=== PATIENT | female | born 1960 | race Two or more races ===

== ENCOUNTER 2022-03-05 10:54 | Outpatient (REF) | payer MEDICAID, OTHER, SELFPAY ==
--- NOTE | ~2022-03-05 | XR_ITS ---
EXAMINATION:XR foot RT min 3V VIEWS ACQUIRED: Frontal lateral and oblique CLINICAL INFORMATION: Reason for Exam PAIN COMPARISON: None available at the time of this dictation. FINDINGS: There is no fracture or dislocation. There are mild to moderate degenerative osteoarthritic changes involving the first metatarsophalangeal joints. There are small posterior and inferior calcaneal spurs.. Intertarsal, tarsometatarsal, metatarsophalangeal and interphalangeal joints are intact. Surrounding soft tissues is normal. , XR/XR foot RT min 3V IMPRESSION: Mild degenerative osteoarthritis especially first metatarsophalangeal joint. Small posterior and inferior calcaneal spurs.
--- NOTE | ~2022-03-05 | XR_ITS ---
EXAMINATION: XR HAND, RIGHT CLINICAL INFORMATION: Pain COMPARISON: None TECHNIQUE: PA, lateral, and oblique views of the right hand. FINDINGS: Mild degenerative osteoarthritic changes involving interphalangeal joints especially the PIP of the second and third finger, narrowing of joint spaces and developed small osteophytes, no erosions. Metacarpophalangeal joints are less involved. XR/XR hand RT min 3V IMPRESSION: Mild to moderate degenerative osteoarthritis involving primarily the interphalangeal joints.
== END 2022-03-05 10:55 | disposition home or self-care (01) ==
LOC: HO.XRAY 10:54
PROVIDERS: Visit Provider Family Medicine
DX: M79.641 Pain in right hand (principal); M79.671 Pain in right foot
CPT/HCPCS: 73130; 73630

== ENCOUNTER 2022-05-25 20:51 | Emergency (ER) | payer MEDICAID, OTHER, SELFPAY ==
--- NOTE | ~2022-05-25 | CT_ITS ---
EXAMINATION: CT ABDOMEN AND PELVIS WITHOUT CONTRAST CLINICAL INFORMATION: Right flank pain COMPARISON: None TECHNIQUE: Multidetector volumetric imaging was performed from the superior aspect of the liver through the pubic symphysis. Sagittal and coronal reformatted images were obtained on the technologist's workstation. This CT examination was performed using dose optimization techniques as appropriate, variously including the following: *Automated exposure control *Adjustment of mA and/or kV according to patient size (this includes techniques or standardized protocols for targeted exams where dose is matched to indication/reason for exam; i.e. extremities or head) *Use of iterative reconstruction technique DLP: 819 mGy-cm FINDINGS: LUNG BASES: Mild bronchial thickening. Cardiomegaly. LIVER, GALLBLADDER, AND BILIARY TREE: The liver is normal in size, shape, and attenuation. No focal hepatic lesion or biliary ductal dilatation is present. The gallbladder is unremarkable with no evidence of radiopaque gallstones, gallbladder wall thickening, or obvious pericholecystic inflammatory changes. PANCREAS: Unremarkable. SPLEEN: Unremarkable. ADRENAL GLANDS: Unremarkable. KIDNEYS AND URETERS: There is moderate to severe right hydronephrosis and hydroureter upstream from a 4 mm calculus within the distal right ureter, approximately 5 cm from the ureterovesical junction. There is associated perinephric stranding on the right. There are at least 4 punctate nonobstructive calculi in the right kidney. Left kidney unremarkable. BLADDER: Unremarkable. GASTROINTESTINAL TRACT: The small and large bowel are unremarkable. The appendix is unremarkable. ABDOMINAL WALL: No significant hernia is appreciated. LYMPH NODES: Normal. VASCULAR: Aorta mildly atherosclerotic but normal caliber. PELVIC VISCERA: Unremarkable. OSSEOUS STRUCTURES: Unremarkable. CT/CT abdomen pelvis wo con IMPRESSION: * There is a 4 mm calculus in the distal right ureter, 5 cm proximal to the ureterovesical junction associated with moderate to severe hydronephrosis and perinephric stranding. * Additional punctate nonobstructive intrarenal calculi present in the right kidney as described. Fleischner guidelines were followed.
[2022-05-25 21:12] VITALS: BP 179/78; PULSE 71; RESP 22; TEMP 36.8; O2SAT 99; BMI 39.1
[2022-05-25 21:22] LABS: MANUAL DIFF FLAG NO
[2022-05-25 21:23] LABS: Basophils Absolute Auto 0.1 X10*3/uL (0.0-0.2); Basophils Percent Auto 0.4 % (0-2); Eosinophils Absolute Auto 0.2 X10*3/uL (0.0-0.4); Eosinophils Percent Auto 1.9 % (0-4); Hematocrit 38.8 % (37.0-47.0); Hemoglobin 12.3 g/dl (12.0-16.0); Imm Gran Abs Auto 0.03 X10*3/uL (0.00-0.03); Imm Gran Pct Auto 0.2 % (0.0-0.4); Lymphocytes Absolute Auto 2.1 X10*3/uL (1.2-4.9); Lymphocytes Percent Auto 17.2 % (20-40); Mean Corpuscular HGB Conc 31.7 g/dl (31.0-35.0); Mean Corpuscular Hemoglobin 25.8 pg (27.0-33.0); Mean Corpuscular Volume 81.5 fL (80.0-98.0); Mean Platelet Volume 9.7 fL (9.4-12.3); Monocytes Absolute Auto 0.9 X10*3/uL (0.1-1.2); Monocytes Percent Auto 7.6 % (2-11); Neutrophils Percent Auto 72.7 % (45-73); Platelet Count 275 X10*3/uL (160-400); Red Blood Count 4.76 X10*6/uL (4.20-5.50); Red Cell Distribution Width 15.3 % (11.0-16.0); White Blood Count 12.4 X10*3/uL (4.8-10.8)
[2022-05-25 21:41] LABS: Alanine Aminotransferase 14 U/L (0-31); Albumin Level 4.3 g/dL (3.5-5.0); Alkaline Phosphatase 89 U/L (39-117); Anion Gap 14 (12-20); Aspartate Amino Transferase 18 U/L (5-31); Bilirubin Total 0.4 mg/dL (0.0-1.0); Blood Urea Nitrogen 22 mg/dL (9-16); Calcium 9.8 mg/dL (8.4-10.2); Carbon Dioxide 27 mmol/L (22-29); Chloride 105 mmol/L (96-108); Creatinine Clr Calc Pharmacy 59.1; Estimated Glomerular Filt Rate 51; Glucose Random 112 mg/dL (60-115); Potassium 4.3 mmol/L (3.3-5.1); Sodium 142 mmol/L (135-145); Total Protein 7.1 g/dL (6.5-8.0)
[2022-05-25 23:40] VITALS: BP 139/85; PULSE 61; RESP 16; TEMP 37.2; O2SAT 98
[2022-05-26 00:03] LABS: Appearance Urine CLEAR; Color Urine YELLOW; Glucose Urine UA NEG (NEG); Leukocyte Esterase Urine NEG (NEG); Nitrite Urine NEG (NEG); PH 6.5 (5.0-8.0); Specific Gravity - Urine 1.025 (1.005-1.025); UACC Culture Trigger NO; Urine Blood 1+ (NEG); Urine Ketones NEG (NEG); Urine Protein NEG (NEG-TRACE)
[2022-05-26 00:16] LABS: Bacteria Urine 1+ /LPF; Mucus Urine 1+ /LPF; Squamous Epithelial Cell Urine 1+ /LPF
--- NOTE | 2022-05-26 00:19 | ED_ITS ---
HPI - Abdominal Pain General Chief Complaint: Abdominal Pain Stated Complaint: Abdominal pain Time Seen by Provider: 05/26/22 00:18 Source: patient Mode of arrival: ambulatory History of Present Illness HPI narrative: 61-year-old female with history of renal colic, states she has had 2 prior stones on the left side presents with right flank pain and associated nausea, vomiting, chills but denies any urinary pain/burning/frequency. Patient denies any difficulty with having a bowel movement and continues to pass flatus. Her surgical history is positive for . Related Data Allergies Allergy/AdvReac Type Severity Reaction Status Date / Time No Known Allergies Allergy Verified 05/25/22 21:11 Review of Systems Review of Systems Pertinent positives and negatives as stated in HPI 10 point review of systems is otherwise negative. PMFSH Past Medical History Source: nursing notes reviewed Social History Social History Alcohol intake: never Patient Tobacco Use Status: Never used Tobacco Use of substances other than those prescribed or required for medical reasons: No Advance Directives: No Physical Exam ED Vital Signs: Vital Signs - 24 hr 05/25/22 21:12 05/25/22 23:40 05/26/22 02:00 Temperature 98.2 F 99.0 F 98.7 F Pulse Rate 71 61 54 Respiratory Rate 22 H 16 16 Blood Pressure 179/78 H 139/85 148/86 H Pulse Oximetry 99 98 98 Oxygen Delivery Method Room Air Room Air Room Air BMI result Body Mass Index 39.1 VITAL SIGNS: Reviewed. GENERAL: Well developed, well nourished, in no acute distress. HEAD: Normocephalic/atraumatic EYES: PERRLA, EOMI EARS: Ext canals without abnormality OROPHARYNX: no oral lesions noted, posterior pharynx clear LUNGS: Normal breath sounds. No adventitious sounds or accessory muscle use. SpO2<99> CARDIOVASCULAR: Regular rate and rhythm without noted murmurs ABDOMEN: Soft, right flank pain on deep palpation, no right lower quadrant pain and no Hayes's positive, non-distended with bowel sounds. MUSCULOSKELETAL: No tenderness, deformities, or effusions noted on gross inspection. EXTREMITIES: No cyanosis, clubbing or edema. SKIN: Inspection of the skin reveals no rashes NEUROLOGIC: Alert and oriented x 4. Strength and sensation to light touch were grossly intact x 4. Course Course Course Narrative: 61-year-old female with history and clinical presentation most consistent with renal colic, and given location of pain less likely felt to be appendicitis or cholecystitis and low clinical suspicion for SBO. Review of all investigations suggestive of renal colic. Mild leukocytosis with hematuria, CT scan pending and patient provided with combination analgesics. Signed out to Dr Ramirez [facility] - Abdominal Pain Lab Data Result diagrams: 05/25/22 21:16 05/25/22 21:16 Labs: Lab Results 05/25/22 05/25/22 05/25/22 Range/Units 21:16 21:16 23:58 WBC 12.4 H (4.8-10.8) X10*3/uL RBC 4.76 (4.20-5.50) X10*6/uL Hgb 12.3 (12.0-16.0) g/dl Hct 38.8 (37.0-47.0) % MCV 81.5 (80.0-98.0) fL MCH 25.8 L (27.0-33.0) pg MCHC 31.7 (31.0-35.0) g/dl RDW 15.3 (11.0-16.0) % Plt Count 275 (160-400) X10*3/uL MPV 9.7 (9.4-12.3) fL Immature Gran % (Auto) 0.2 (0.0-0.4) % Neut % (Auto) 72.7 (45-73) % Lymph % (Auto) 17.2 L (20-40) % [place] % (Auto) 7.6 (2-11) % Eos % (Auto) 1.9 (0-4) % Baso % (Auto) 0.4 (0-2) % Lymph # (Auto) 2.1 (1.2-4.9) X10*3/uL [place] # (Auto) 0.9 (0.1-1.2) X10*3/uL Eos # (Auto) 0.2 (0.0-0.4) X10*3/uL Baso # (Auto) 0.1 (0.0-0.2) X10*3/uL Abs Immat Gran (auto) 0.03 (0.00-0.03) X10*3/uL Absolute Neuts (auto) 9.0 H (2.0-8.3) x10*3/uL Absolute Nucleated RBC 0.000 (0.0-0.012) X10*3/uL Nucleated RBC % (auto) 0.0 (0.0-0.2) /100WBC Sodium 142 (135-145) mmol/L Potassium 4.3 (3.3-5.1) mmol/L Chloride 105 (96-108) mmol/L Carbon Dioxide 27 (22-29) mmol/L Anion Gap 14 (12-20) BUN 22 H (9-16) mg/dL Creatinine 1.10 (0.5-1.4) mg/dL Estim Creat Clear Calc 59.1 Estimated GFR 51 Random Glucose 112 (60-115) mg/dL Calcium 9.8 (8.4-10.2) mg/dL Total Bilirubin 0.4 (0.0-1.0) mg/dL AST 18 (5-31) U/L ALT 14 (0-31) U/L Alkaline Phosphatase 89 (39-117) U/L Total Protein 7.1 (6.5-8.0) g/dL Albumin 4.3 (3.5-5.0) g/dL Urine Color YELLOW Urine Appearance CLEAR Urine pH 6.5 (5.0-8.0) Ur Specific [place] 1.025 (1.005-1.025) Urine Protein NEG (NEG-TRACE) MG/DL Urine Glucose (UA) NEG (NEG) MG/DL Urine Ketones NEG (NEG) MG/DL Urine Blood 1+ H (NEG) Urine Nitrite NEG (NEG) Ur Leukocyte Esterase NEG (NEG) Urine RBC 5-9 H (0) /HPF Urine WBC 1-4 (0-4) /HPF Ur Squamous Epith Cells 1+ /LPF Urine Bacteria 1+ /LPF Urine Mucus 1+ /LPF Discharge Plan Discharge Clinical Impression: Flank pain Patient Disposition: Still a Patient
[2022-05-26] MEDS: Ketorolac Tromethamine 15 MG/ML VIAL IM (01:00)
[2022-05-26] MEDS: Ondansetron ODT 4 MG TAB.RAPDIS TRANSLINGU (01:01)
--- NOTE | 2022-05-26 01:05 | PC.NURSE ---
Administered meds per MAR
--- NOTE | 2022-05-26 01:08 | PC.NURSE ---
Started IV line. Pt states feeling constant pain in abdomen at a level of 10 pain. She continues to grimace in pain and sudden movement intensifies the pain. Pt denies that pain radiates to other areas.
[2022-05-26 02:00] VITALS: BP 148/86; O2SAT 98
--- NOTE | 2022-05-26 02:00 | PC.NURSE ---
Pt does not report any pain at this time as she is sleeping at this time.
[2022-05-26 03:43] VITALS: BP 137/76; PULSE 66; RESP 16; TEMP 36.8; O2SAT 98
[2022-05-26 05:22] VITALS: BP 126/67; PULSE 72; RESP 16; TEMP 37; O2SAT 95
--- NOTE | 2022-05-26 05:53 | PC.NURSE ---
Pt alert and oriented. Pt is able to ambulate without assistance.
== END 2022-05-26 05:53 | disposition home or self-care (01) ==
PROVIDERS: Student in an Organized Health Care Education/Training Program; Emergency Provider Emergency Medicine
DX: N20.2 Calculus of kidney with calculus of ureter (principal); R10.9 Unspecified abdominal pain; Z79.899 Other long term (current) drug therapy
CPT/HCPCS: 36415; 74176; 80053; 81001; 85025; 96372; 99284; 99285; J1885

== ENCOUNTER 2022-05-30 14:28 | Outpatient (REF) | payer MEDICAID, OTHER, SELFPAY ==
--- NOTE | ~2022-05-30 | XR_ITS ---
EXAMINATION: XR ABDOMEN COMPLETE CLINICAL INDICATION: Constipation COMPARISON: None TECHNIQUE: 3 views of the abdomen. FINDINGS: There is no gaseous dilatation of bowel or abnormal collections of gas. Moderate stool is present in the right and left colon. No rectal fecal impaction. No pneumatosis or bowel displacement. No visible urinary tract calculi. There are scattered calcified pelvic phleboliths again seen. Degenerative changes again noted lumbar spine and lower thoracic spine. Visualized lung bases clear. XR/XR abdomen min 2V IMPRESSION: -No obstruction or abnormal collections of gas. -Moderate stool right and left colon. No rectal fecal impaction.
== END 2022-05-30 14:29 | disposition home or self-care (01) ==
LOC: HO.XRAY 14:28
PROVIDERS: Absent Provider Family Medicine; PCP Family Medicine; Visit Provider Student in an Organized Health Care Education/Training Program
DX: K59.09 Other constipation (principal)
CPT/HCPCS: 74019

== ENCOUNTER → 2022-10-01 12:09 | Outpatient (REF) | payer MEDICAID, OTHER, SELFPAY ==
--- NOTE | 2022-10-01 12:13 | HM_ITS ---
* Total monitoring time 1 day 21 hours. * Underlying rhythm is sinus. Average ventricular rate 82/Min. Range 66 to 114/in. * Frequent PVCs with a burden of 5.6%. Single morphology. No runs. * Patient marker was used once in association with sinus rhythm and PVC. MTDD
== END ==
LOC: HO.CARD 12:09
PROVIDERS: PCP Family Medicine; Visit Provider Family Medicine
DX: R00.2 Palpitations (principal)
CPT/HCPCS: 93226

== ENCOUNTER 2023-04-01 10:08 | Outpatient (REF) | payer MEDICAID, OTHER, SELFPAY ==
--- NOTE | ~2023-04-01 | XR_ITS ---
EXAMINATION: Bilateral hand x-ray CLINICAL INFORMATION: Pain and swelling COMPARISON: None. TECHNIQUE: 3 views of the right hand FINDINGS: Right: Bone alignment is normal. No fracture or dislocation. There is a osteoarthritis at the IP joints and first MCP joint with joint space narrowing and osteophyte formation. Soft tissues are normal. Left: Bone alignment is normal. No fracture or dislocation. Osteoarthritis at the IP joints and first LONG TERM joint with joint space narrowing and osteophyte formation. Soft tissues are normal. XR/XR hand LT min 3V IMPRESSION: Mild bilateral osteoarthritis.
--- NOTE | ~2023-04-01 | XR_ITS ---
EXAMINATION: Bilateral hand x-ray CLINICAL INFORMATION: Pain and swelling COMPARISON: None. TECHNIQUE: 3 views of the right hand FINDINGS: Right: Bone alignment is normal. No fracture or dislocation. There is a osteoarthritis at the IP joints and first MCP joint with joint space narrowing and osteophyte formation. Soft tissues are normal. Left: Bone alignment is normal. No fracture or dislocation. Osteoarthritis at the IP joints and first FDC joint with joint space narrowing and osteophyte formation. Soft tissues are normal. XR/XR hand RT min 3V IMPRESSION: Mild bilateral osteoarthritis.
== END 2023-04-01 10:09 | disposition home or self-care (01) ==
LOC: HO.XRAY 10:08
PROVIDERS: PCP Family Medicine; Visit Provider Family Medicine
DX: M79.643 Pain in unspecified hand (principal); M79.89 Other specified soft tissue disorders
CPT/HCPCS: 73130

== ENCOUNTER 2023-12-31 13:31 | Outpatient (REF) | payer MEDICAID, OTHER, SELFPAY ==
[2023-12-31 16:29] LABS: MANUAL DIFF FLAG NO
[2023-12-31 16:34] LABS: Basophils Percent Auto 0.5 % (0-2); Eosinophils Absolute Auto 0.1 X10*3/uL (0.0-0.4); Eosinophils Percent Auto 2.3 % (0-4); Hematocrit 39.9 % (37.0-47.0); Hemoglobin 12.7 g/dl (12.0-16.0); Imm Gran Abs Auto 0.02 X10*3/uL (0.00-0.03); Imm Gran Pct Auto 0.4 % (0.0-0.4); Lymphocytes Absolute Auto 1.8 X10*3/uL (1.2-4.9); Lymphocytes Percent Auto 32.8 % (20-40); Mean Corpuscular HGB Conc 31.8 g/dl (31.0-35.0); Mean Corpuscular Volume 81.8 fL (80.0-98.0); Mean Platelet Volume 9.9 fL (9.4-12.3); Monocytes Absolute Auto 0.4 X10*3/uL (0.1-1.2); Monocytes Percent Auto 7.2 % (2-11); Neutrophils Absolute Auto 3.2 x10*3/uL (2.0-8.3); Neutrophils Percent Auto 56.8 % (45-73); Platelet Count 295 X10*3/uL (160-400); Red Blood Count 4.88 X10*6/uL (4.20-5.50); Red Cell Distribution Width 14.7 % (11.0-16.0); White Blood Count 5.6 X10*3/uL (4.8-10.8)
[2023-12-31 16:47] LABS: C Reactive Protein 0.37 mg/dL (< or = 0.50)
== END 2023-12-31 13:32 | disposition home or self-care (01) ==
LOC: HO.HHCL 13:31
PROVIDERS: Visit Provider Internal Medicine
DX: R10.32 Left lower quadrant pain (principal)
CPT/HCPCS: 36415; 85025; 86140

== ENCOUNTER 2024-01-05 15:16 | Emergency (ER) | payer MEDICAID, OTHER, SELFPAY ==
--- NOTE | ~2024-01-05 | CT_ITS ---
EXAMINATION: CT ABDOMEN AND PELVIS WITHOUT CONTRAST CLINICAL INFORMATION: Left-sided abdominal pain. COMPARISON: CT abdomen and pelvis without contrast 05/26/2022. TECHNIQUE: Multidetector volumetric imaging was performed from the superior aspect of the liver through the pubic symphysis. Sagittal and coronal reformatted images were obtained on the technologist's workstation. This CT examination was performed using dose optimization techniques as appropriate, variously including the following: *Automated exposure control *Adjustment of mA and/or kV according to patient size (this includes techniques or standardized protocols for targeted exams where dose is matched to indication/reason for exam; i.e. extremities or head) *Use of iterative reconstruction technique DLP: 853 mGy-cm FINDINGS: LUNG BASES: There is platelike atelectasis right middle lobe. The lung bases are clear. Heart size is normal. LIVER, GALLBLADDER, AND BILIARY TREE: The liver is normal in size, shape, and attenuation. No focal hepatic lesion or biliary ductal dilatation is present. The gallbladder is unremarkable with no evidence of radiopaque gallstones, gallbladder wall thickening, or obvious pericholecystic inflammatory changes. PANCREAS: Unremarkable. SPLEEN: Unremarkable. ADRENAL GLANDS: Unremarkable. KIDNEYS AND URETERS: The kidneys are normal in size, lobulated shape, and normal attenuation. There is a 4 mm radiopaque nonobstructing calculi upper pole and 2 mm radiopaque calculi lower pole right kidney. No caliectasis or hydronephrosis seen. 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 BLADDER: Unremarkable. GASTROINTESTINAL TRACT: There is scattered stool, diverticuli and gas seen in the colon without distention. The small bowel loops are normal caliber. Appendix is not visualized with certainty. There are small ileocecal lymph nodes, nonspecific largest measuring 1 cm. ABDOMINAL WALL: A small umbilical hernia containing fat. LYMPH NODES: Normal. VASCULAR: Unremarkable. PELVIC VISCERA: There is no free air or free fluid. The uterus is midline and appears unremarkable. No abnormal pelvic lymph nodes seen. OSSEOUS STRUCTURES: Mild degenerative disc changes L4-L5 and L5-S1 disc level with ventral and posterior spondylosis. No aggressive lytic or sclerotic process seen. CT/CT abdomen pelvis wo IV con IMPRESSION: 1. No acute intra-abdominal process seen. 2. Nonobstructive radiopaque calculi upper and lower pole right kidney. No caliectasis or hydronephrosis. 3. Scattered colonic diverticulosis without diverticulitis. 4. Small umbilical hernia containing fat. Fleischner guidelines were followed.
[2024-01-05 16:05] VITALS: BP 146/84; PULSE 67; RESP 16; TEMP 36.1; O2SAT 96; BMI 43.3
--- NOTE | 2024-01-05 16:06 | ED.GENADULT ---
HPI - General Adult General Chief complaint: GI Bleed Stated complaint: blood in urine and stools Time Seen by Provider: 01/05/24 18:18 Source: patient Mode of arrival: ambulatory Limitations: no limitations History of Present Illness HPI narrative: Patient with history of kidney stone for last 3 weeks noticed pain in the left midabdomen with intermittent blood in the urine chills and noticed 1 week ago dark stool no fever no dysuria or frequency Related Data Previous Rx's Medication Instructions Recorded ketorolac 10 mg tablet 10 mg PO TID PRN pain 5 days #10 05/26/22 tabs ondansetron HCl 4 mg tablet 4 mg PO Q6H PRN nausea and 05/26/22 vomiting #10 tabs tamsulosin 0.4 mg capsule (Flomax) 0.4 mg PO DAILY #10 caps 05/26/22 pantoprazole 40 mg tablet,delayed 40 mg PO DAILY #30 tabs 01/05/24 release (Protonix) sucralfate 1 gram tablet 1 g PO TID #90 tabs 01/05/24 Allergies Allergy/AdvReac Type Severity Reaction Status Date / Time No Known Allergies Allergy Verified 05/25/22 21:11 Review of Systems Review of Systems: Yes all other systems are reviewed and are negative [facility] Past Medical History Medical History (Updated 01/05/24 @ 21:25 by Raimundo Morrissey MD) Kidney stone Social History Social History Alcohol intake: current Alcohol intake frequency: holidays/special occasions only Patient Tobacco Use Status: Never used Tobacco Smoked in Last 30 Days: No Use of substances other than those prescribed or required for medical reasons: No Advance Directives: No Advance Directives Information Provided: No Patient : No Physical Exam ED Vital Signs: Vital Signs - 24 hr 01/05/24 16:05 01/05/24 18:25 01/05/24 21:33 Temperature 97.0 F 98.0 F 98.4 F Pulse Rate 67 64 73 Respiratory Rate 16 16 17 Blood Pressure 146/84 H 167/77 H 165/87 H Pulse Oximetry 96 98 96 Oxygen Delivery Method Room Air Room Air Room Air 01/05/24 21:40 Temperature 98.1 F Pulse Rate 74 Respiratory Rate 20 Blood Pressure 165/94 H Pulse Oximetry 96 Oxygen Delivery Method Room Air BMI result Body Mass Index 43.3 Appearance: Alert. Oriented X3. No acute distress. Eyes: No pallor or icterus ENT: Pharynx normal. Oral Mucosa moist Neck: Normal inspection. Neck supple. CVS: Normal heart rate and rhythm. Pulses normal. Respiratory: No respiratory distress. Equal air entry bilateral, no wheezing/rales/rhonchi Abdomen: Soft mild deep tenderness left upper abdomen Bowel sounds are present, no mass palpable, no CVA tenderness rectal: External hemorrhoid nonbleeding, brown stool Skin: Skin warm and dry. Normal skin color. Normal skin turgor. Extremities: No lower extremity edema. No calf tenderness Neuro: Oriented X 3. Course Course Course Narrative: This is a rapid medical exam: Additional HPI, ROS, PE not included below will be deferred to primary provider. Patient is a 63-year-old Ivorian speaking female with hx of HTN, DM presenting to the ED with complaint of hematuria and melena for the past week. Reports left sided abdominal pain for 3 weeks. Plan: labs, UA Medications Administered Discontinued Medications Generic Name Dose Route Start Last Admin Trade Name Freq PRN Reason Stop Dose Admin Al Hydroxide/Mg Hydroxide 30 ml 01/05/24 20:39 01/05/24 20:59 Magnesium Hydrox/Alum Hydrox 30 Ml Oral.Susp PO 01/05/24 20:40 30 ml ONCE ONE Administration Dicyclomine HCl 20 mg 01/05/24 20:39 01/05/24 20:59 Dicyclomine Hcl 10 Mg Capsule PO 01/05/24 20:40 20 mg ONCE ONE Administration Omeprazole 40 mg 01/05/24 20:39 01/05/24 20:59 Omeprazole 40 Mg Capsule.Dr PO 01/05/24 20:40 40 mg ONCE ONE Administration Medical Decision Making Medical Decision Making [facility] Narrative: With nonspecific left upper abdominal pain with history of peptic ulcer disease in the past CT scan negative for acute H&H stable guaiac is negative will start patient on Protonix and sucralfate. Differential Diagnosis Differential Diagnoses: The differential diagnosis associated with the presentation includes Admission/Observation Consideration of admission/observation: Escalation of care including admission/observation considered Lab Data [facility] Lab Attestation statement: I reviewed the patient's lab results. 01/05/24 16:21 01/05/24 16:21 Labs: Lab Results 01/05/24 01/05/2401/04/24 Range/Units 16:21 18:30 18:59 WBC 8.5 (4.8-10.8) X10*3/uL RBC 4.92 (4.20-5.50) X10*6/uL Hgb 12.9 (12.0-16.0) g/dl Hct 40.1 (37.0-47.0) % MCV 81.5 (80.0-98.0) fL MCH 26.2 L (27.0-33.0) pg MCHC 32.2 (31.0-35.0) g/dl RDW 14.8 (11.0-16.0) % Plt Count 281 (160-400) X10*3/uL MPV 9.4 (9.4-12.3) fL Immature Gran % (Auto) 0.4 (0.0-0.4) % Neut % (Auto) 66.2 (45-73) % Lymph % (Auto) 24.1 (20-40) % [place] % (Auto) 6.9 (2-11) % Eos % (Auto) 1.9 (0-4) % Baso % (Auto) 0.5 (0-2) % Lymph # (Auto) 2.1 (1.2-4.9) X10*3/uL [place] # (Auto) 0.6 (0.1-1.2) X10*3/uL Eos # (Auto) 0.2 (0.0-0.4) X10*3/uL Baso # (Auto) 0.0 (0.0-0.2) X10*3/uL Abs Immat Gran (auto) 0.03 (0.00-0.03) X10*3/uL Absolute Neuts (auto) 5.6 (2.0-8.3) x10*3/uL Absolute Nucleated RBC 0.000 (0.0-0.012) X10*3/uL Nucleated RBC % (auto) 0.0 (0.0-0.2) /100WBC PT 12.4 (11.1-13.3) SEC INR 1.0 (0.9-1.1) Sodium 143 (135-145) mmol/L Potassium 3.9 (3.3-5.1) mmol/L Chloride 107 (96-108) mmol/L Carbon Dioxide 27 (22-29) mmol/L Anion Gap 13 (12-20) BUN 12 (9-16) mg/dL Creatinine 0.83 (0.5-1.4) mg/dL Estim Creat Clear Calc 90.3 Estimated GFR > 60 Random Glucose 94 (60-115) mg/dL Calcium 9.8 (8.4-10.2) mg/dL Total Bilirubin 0.2 (0.0-1.0) mg/dL AST 18 (5-31) U/L ALT 14 (0-31) U/L Alkaline Phosphatase 86 (39-117) U/L Total Protein 7.2 (6.5-8.0) g/dL Albumin 4.0 (3.5-5.0) g/dL Urine Color Yellow Urine Appearance Clear Urine pH 5.5 (5.0-9.0) Ur Specific [place] 1.020 (1.005-1.025) Urine Protein Negative (Neg-Trace) mg/dL Urine Glucose (UA) Negative (Negative) mg/dL Urine Ketones Negative (Negative) mg/dL Urine Blood Trace H (Negative) Urine Nitrite Negative (Negative) Ur Leukocyte Esterase Trace H (Negative) Urine RBC 6-10 H (0-2) /HPF Urine WBC 0-5 (0-5) /HPF Ur Squamous Epith Cells 0-2 (0-2) /HPF Urine Bacteria None Seen (None Seen) Hyaline Casts 0-2 (0-2) /LPF Stool Occult Blood NEGATIVE (NEGATIVE) Independent Interpretation I performed an independent interpretation of an: CT Scan Radiology Impression Discussion of test interpretation with radiology: I have reviewed the radiologist's reading. Radiologist Impression: CT/CT abdomen pelvis wo IV con IMPRESSION: 1. No acute intra-abdominal process seen. 2. Nonobstructive radiopaque calculi upper and lower pole right kidney. No caliectasis or hydronephrosis. 3. Scattered colonic diverticulosis without diverticulitis. 4. Small umbilical hernia containing fat. Discharge Plan Discharge Clinical Impression: Abdominal pain, Peptic ulcer disease Patient Disposition: Home, Self-Care Instructions: Peptic Ulcer (ED), Abdominal Pain (ED) Additional Instructions: Drink plenty of fluids Avoid fried and spicy food Take medication as prescribed Follow-up with PCP Do not take Advil/ibuprofen Prescriptions: New pantoprazole [Protonix] 40 mg tablet,delayed release (DR/EC) 40 mg PO DAILY Qty: 30 2RF sucralfate 1 gram tablet 1 g PO TID Qty: 90 0RF No Action ketorolac 10 mg tablet 10 mg PO TID PRN (Reason: pain) 5 Days Qty: 10 0RF Rx Instructions: Do not take this medication with any NSAIDs tamsulosin [Flomax] 0.4 mg capsule 0.4 mg PO DAILY Qty: 10 0RF ondansetron HCl 4 mg tablet 4 mg PO Q6H PRN (Reason: nausea and vomiting) Qty: 10 0RF Referrals: Mukesh Wiley MD [Physician] - 1 week Interventions: ED Discharge Assessment Last Done: 01/05/24 21:40 Discharge Date/Time: 01/05/24 21:42 Print Language: Ivorian
[2024-01-05 16:25] LABS: MANUAL DIFF FLAG NO
[2024-01-05 16:26] LABS: Basophils Percent Auto 0.5 % (0-2); Eosinophils Absolute Auto 0.2 X10*3/uL (0.0-0.4); Eosinophils Percent Auto 1.9 % (0-4); Hematocrit 40.1 % (37.0-47.0); Hemoglobin 12.9 g/dl (12.0-16.0); Imm Gran Abs Auto 0.03 X10*3/uL (0.00-0.03); Imm Gran Pct Auto 0.4 % (0.0-0.4); Lymphocytes Absolute Auto 2.1 X10*3/uL (1.2-4.9); Lymphocytes Percent Auto 24.1 % (20-40); Mean Corpuscular HGB Conc 32.2 g/dl (31.0-35.0); Mean Corpuscular Hemoglobin 26.2 pg (27.0-33.0); Mean Corpuscular Volume 81.5 fL (80.0-98.0); Mean Platelet Volume 9.4 fL (9.4-12.3); Monocytes Absolute Auto 0.6 X10*3/uL (0.1-1.2); Monocytes Percent Auto 6.9 % (2-11); Neutrophils Absolute Auto 5.6 x10*3/uL (2.0-8.3); Neutrophils Percent Auto 66.2 % (45-73); Platelet Count 281 X10*3/uL (160-400); Red Blood Count 4.92 X10*6/uL (4.20-5.50); Red Cell Distribution Width 14.8 % (11.0-16.0); White Blood Count 8.5 X10*3/uL (4.8-10.8)
[2024-01-05 16:33] LABS: Prothrombin Time 12.4 SEC (11.1-13.3)
[2024-01-05 16:41] LABS: Alanine Aminotransferase 14 U/L (0-31); Alkaline Phosphatase 86 U/L (39-117); Anion Gap 13 (12-20); Aspartate Amino Transferase 18 U/L (5-31); Bilirubin Total 0.2 mg/dL (0.0-1.0); Blood Urea Nitrogen 12 mg/dL (9-16); Calcium 9.8 mg/dL (8.4-10.2); Carbon Dioxide 27 mmol/L (22-29); Chloride 107 mmol/L (96-108); Creatinine Clr Calc Pharmacy 90.3; Estimated Glomerular Filt Rate > 60; Glucose Random 94 mg/dL (60-115); Potassium 3.9 mmol/L (3.3-5.1); Sodium 143 mmol/L (135-145); Total Protein 7.2 g/dL (6.5-8.0)
[2024-01-05 18:25] VITALS: BP 167/77; PULSE 64; RESP 16; TEMP 36.7; O2SAT 98
--- NOTE | 2024-01-05 18:28 | PC.NURSE ---
a&ox4. vss and up to date. pt presents to ED w/ left sided abd pain x 3 weeks as well as hematuria/black tarry stools x 1 week. pt also verbalizing intermittent episodes of nausea. denies all other urinary sx as well as feeling dizzy/lightheaded. urine obtained/sent to lab. pt waiting to be seen by ED provider. no sob/wob noted. respirations even and unlabored. plan of care ongoing. call valderrama placed within reach.
[2024-01-05 18:37] LABS: Appearance Urine Clear; Color Urine Yellow; Glucose Urine UA Negative (Negative); Leukocyte Esterase Urine Trace (Negative); Nitrite Urine Negative (Negative); PH 5.5 (5.0-9.0); UMIC TRIGGER UACC YES; Urine Blood Trace (Negative); Urine Ketones Negative (Negative); Urine Protein Negative (Neg-Trace)
[2024-01-05 18:39] LABS: Bacteria Urine None Seen (None Seen); Hyaline Casts Urine 0-2 /LPF (0-2); Squamous Epithelial Cell Urine 0-2 /HPF (0-2); WBC Urine 0-5 /HPF (0-5)
[2024-01-05 19:03] LABS: OBS Int Ctl Valid YES; OBS1 NEGATIVE (NEGATIVE)
[2024-01-05] MEDS: Magnesium Hydrox/Alum Hydrox 30 ML ORAL.SUSP PO (20:59)
[2024-01-05] MEDS: Dicyclomine HCl 10 MG CAPSULE 20 MG PO (20:59)
[2024-01-05] MEDS: Omeprazole 40 MG CAPSULE.DR PO (20:59)
[2024-01-05 21:33] VITALS: BP 165/87; PULSE 73; RESP 17; TEMP 36.9; O2SAT 96
[2024-01-05 21:40] VITALS: BP 165/94; PULSE 74; RESP 20; TEMP 36.7; O2SAT 96
== END 2024-01-05 21:42 | disposition home or self-care (01) ==
PROVIDERS: Registered Nurse Emergency; Emergency Provider Internal Medicine; PCP Family Medicine
DX: R10.12 Left upper quadrant pain (principal); K27.9 Peptic ulcer, site unspecified, unspecified as acute or chronic, without hemorrhage or perforation; I10 Essential (primary) hypertension; E11.9 Type 2 diabetes mellitus without complications; Z87.442 Personal history of urinary calculi
CPT/HCPCS: 36415; 74176; 80053; 81001; 82272; 85025; 85610; 99284

== ENCOUNTER 2024-02-10 15:45 | Outpatient (REF) | payer MEDICAID, OTHER, SELFPAY ==
[2024-02-10 17:26] LABS: MANUAL DIFF FLAG NO
[2024-02-10 17:38] LABS: Basophils Percent Auto 0.4 % (0-2); Eosinophils Absolute Auto 0.1 X10*3/uL (0.0-0.4); Hematocrit 40.1 % (37.0-47.0); Hemoglobin 12.6 g/dl (12.0-16.0); Imm Gran Abs Auto 0.03 X10*3/uL (0.00-0.03); Imm Gran Pct Auto 0.4 % (0.0-0.4); Lymphocytes Absolute Auto 2.3 X10*3/uL (1.2-4.9); Lymphocytes Percent Auto 32.8 % (20-40); Mean Corpuscular HGB Conc 31.4 g/dl (31.0-35.0); Mean Corpuscular Hemoglobin 25.8 pg (27.0-33.0); Mean Corpuscular Volume 82.2 fL (80.0-98.0); Monocytes Absolute Auto 0.5 X10*3/uL (0.1-1.2); Monocytes Percent Auto 7.2 % (2-11); Neutrophils Percent Auto 57.2 % (45-73); Platelet Count 327 X10*3/uL (160-400); Red Blood Count 4.88 X10*6/uL (4.20-5.50); Red Cell Distribution Width 14.8 % (11.0-16.0); White Blood Count 6.9 X10*3/uL (4.8-10.8)
[2024-02-10 17:54] LABS: Cholesterol 286 mg/dL (<200); HDL Cholesterol 62 mg/dL (>40); LDL Cholesterol Calculated 184 mg/dL (<100); Triglycerides 203 mg/dL (<150); Uric Acid 3.6 mg/dL (2.4-5.7)
[2024-02-10 18:00] LABS: Creatinine Urine 206.77 mg/dL; Microalbum/Creatinine Ratio Ur 13.5 ug/mg cr (<30)
[2024-02-10 18:37] LABS: Erythrocyte Sedimentation Rate 12 MM/HR (0-20)
[2024-02-10 19:38] LABS: Reflex LDLD? No
== END 2024-02-10 15:46 | disposition home or self-care (01) ==
LOC: HO.HHCL 15:45
PROVIDERS: Visit Provider Family Medicine
DX: E11.9 Type 2 diabetes mellitus without complications (principal); E78.2 Mixed hyperlipidemia; M79.671 Pain in right foot; G89.29 Other chronic pain
CPT/HCPCS: 36415; 80061; 82043; 82570; 84550; 85025; 85652; 86140

== ENCOUNTER 2024-02-19 16:55 | Outpatient (REF) | payer MEDICAID, OTHER, SELFPAY ==
--- NOTE | ~2024-02-19 | XR_ITS ---
EXAMINATION: XR FOOT,RIGHT XR ANKLE, RIGHT CLINICAL INDICATION: Pain right foot and ankle. COMPARISON: 03/05/2022 right foot. TECHNIQUE: 3 views of the right foot and 3 views of the right ankle. FINDINGS: RIGHT ANKLE: Moderate dorsal and plantar calcaneal spurring. Ankle mortise is preserved. Ossific projections along the inferomedial aspect of the medial malleolus as well as possible small ossicle of indeterminate age and etiology. Spurring projecting along the medial tibiotalar joint. RIGHT FOOT: Moderate degenerative changes first metatarsophalangeal joint. Moderate degenerative changes in the IP joint of the great toe. XR/XR ankle RT 2V IMPRESSION: 1. Moderate degenerative changes in first metatarsal and IP joints. 2. Moderate dorsal and plantar calcaneal spurring. 3. Small hypertrophic spurs along the inferior and medial aspect of the medial malleolus as well as possible small ossicle of indeterminate age. 4. Recommend follow-up imaging in 10-14 days if fracture is suspected.
--- NOTE | ~2024-02-19 | XR_ITS ---
EXAMINATION: XR FOOT,RIGHT XR ANKLE, RIGHT CLINICAL INDICATION: Pain right foot and ankle. COMPARISON: 03/05/2022 right foot. TECHNIQUE: 3 views of the right foot and 3 views of the right ankle. FINDINGS: RIGHT ANKLE: Moderate dorsal and plantar calcaneal spurring. Ankle mortise is preserved. Ossific projections along the inferomedial aspect of the medial malleolus as well as possible small ossicle of indeterminate age and etiology. Spurring projecting along the medial tibiotalar joint. RIGHT FOOT: Moderate degenerative changes first metatarsophalangeal joint. Moderate degenerative changes in the IP joint of the great toe. XR/XR foot RT 2V IMPRESSION: 1. Moderate degenerative changes in first metatarsal and IP joints. 2. Moderate dorsal and plantar calcaneal spurring. 3. Small hypertrophic spurs along the inferior and medial aspect of the medial malleolus as well as possible small ossicle of indeterminate age. 4. Recommend follow-up imaging in 10-14 days if fracture is suspected.
== END 2024-02-19 16:56 | disposition home or self-care (01) ==
LOC: HO.XRAY 16:55
PROVIDERS: PCP Family Medicine; Visit Provider Family Medicine
DX: M79.671 Pain in right foot (principal); M25.571 Pain in right ankle and joints of right foot; G89.29 Other chronic pain
CPT/HCPCS: 73600; 73620

== ENCOUNTER 2024-03-06 14:47 | Outpatient (REF) | payer MEDICAID, OTHER, SELFPAY ==
--- NOTE | ~2024-03-06 | MM_ITS ---
EXAMINATION: MM SCREENING DIGITAL BREAST TOMOSYNTHESIS, BILATERAL CLINICAL INFORMATION: Screening. Asymptomatic. COMPARISON: Mammography: There are no prior mammograms for comparison. TECHNIQUE: Digital breast tomosynthesis is performed in both the craniocaudal and mediolateral oblique views along with computer-aided detection (CAD). Synthesized 2D images are generated from the tomosynthesis. FINDINGS: The breasts are almost entirely fatty (ACR BI-RADS breast composition Category a). There are no significant masses, abnormal calcifications, or other abnormalities. MM/MM tomosynthesis screening BI IMPRESSION: No mammographic evidence of malignancy. ASSESSMENT: BI-RADS BI-RADS 1 - Negative RECOMMENDATION: Routine annual mammography screening. 1 year F/U This examination should not preclude the clinical evaluation of a suspicious palpable abnormality. This patient's information was entered into a reminder system with a target due date for their next mammogram.
== END 2024-03-06 14:48 | disposition home or self-care (01) ==
LOC: HO.MAMMO 14:47
PROVIDERS: PCP Family Medicine; Visit Provider Family Medicine
DX: Z12.31 Encounter for screening mammogram for malignant neoplasm of breast (principal)
CPT/HCPCS: 77063; 77067

== ENCOUNTER → 2024-03-06 15:00 | Outpatient (BNV) | payer SELFPAY | PROVIDERS: PCP Family Medicine; Visit Provider Radiology Diagnostic Radiology | DX: Z12.31 Encounter for screening mammogram for malignant neoplasm of breast (principal) | CPT/HCPCS: 77063; 77067 ==

== ENCOUNTER 2024-07-30 09:40 | Outpatient (REF) | payer MEDICAID, OTHER, SELFPAY ==
[2024-07-30 11:49] LABS: Alanine Aminotransferase 9 U/L (0-31); Albumin Level 3.9 g/dL (3.5-5.0); Alkaline Phosphatase 75 U/L (39-117); Anion Gap 10 (12-20); Aspartate Amino Transferase 14 U/L (5-31); Bilirubin Total 0.3 mg/dL (0.0-1.0); Blood Urea Nitrogen 14 mg/dL (9-16); Calcium 9.4 mg/dL (8.4-10.2); Carbon Dioxide 30 mmol/L (22-29); Chloride 107 mmol/L (96-108); Cholesterol 261 mg/dL (<200); Estimated Glomerular Filt Rate > 60; Glucose Random 106 mg/dL (60-115); HDL Cholesterol 58 mg/dL (>40); LDL Cholesterol Calculated 174 mg/dL (<100); Potassium 3.5 mmol/L (3.3-5.1); Sodium 143 mmol/L (135-145); Total Protein 6.6 g/dL (6.5-8.0); Triglycerides 146 mg/dL (<150)
[2024-07-30 12:31] LABS: Creatinine Urine 97.35 mg/dL; Microalbum/Creatinine Ratio Ur 10.2 ug/mg cr (<30)
[2024-07-30 12:52] LABS: Reflex LDLD? No
[2024-07-30 18:11] LABS: Bacterial Vaginosis PCR NEGATIVE (Negative); Candida Group PCR NOT DETECTED (Not Detect); Candida glab krusei PCR NOT DETECTED (Not Detect); Trichomonas vaginalis PCR NOT DETECTED (Not Detect)
[2024-08-03 15:49] LABS: HPV mRNA E6/E7 Not Detected (Not Detected)
== END 2024-07-30 09:41 | disposition home or self-care (01) ==
LOC: HO.HHCL 09:40
PROVIDERS: Visit Provider Family Medicine
DX: E78.2 Mixed hyperlipidemia (principal); I10 Essential (primary) hypertension; E11.9 Type 2 diabetes mellitus without complications; Z01.419 Encounter for gynecological examination (general) (routine) without abnormal findings
CPT/HCPCS: 0352U; 36415; 80053; 80061; 82043; 82570; 87624; 88175

== ENCOUNTER 2024-09-25 12:10 | Outpatient (REF) | payer MEDICAID, OTHER, SELFPAY ==
[2024-09-25 13:33] LABS: Cholesterol 269 mg/dL (<200); HDL Cholesterol 65 mg/dL (>40); LDL Cholesterol Calculated 181 mg/dL (<100); Triglycerides 118 mg/dL (<150)
[2024-09-25 14:25] LABS: Reflex LDLD? No
== END 2024-09-25 12:11 | disposition home or self-care (01) ==
LOC: HO.HHCL 12:10
PROVIDERS: Visit Provider Family Medicine
DX: E78.2 Mixed hyperlipidemia (principal)
CPT/HCPCS: 36415; 80061

== ENCOUNTER 2025-02-24 13:02 | Outpatient (REF) | payer MEDICAID, OTHER, SELFPAY ==
--- NOTE | ~2025-02-24 | XR_ITS ---
EXAMINATION: XR KNEE, LEFT CLINICAL INFORMATION: left knee pain and swelling COMPARISON: None available. TECHNIQUE: Four views of the left knee. FINDINGS: Normal bone mineralization. No fracture, dislocation, or suspicious bone lesion. Tricompartmental mild joint space narrowing with minimal marginal osteophytic spurring. Mild spurring of the tibial spines. Normal patellar alignment. No evidence of joint effusion. Normal-appearing soft tissues. XR/XR knee LT 4V IMPRESSION: 1. No acute bony abnormalities. No joint effusion. 2. Tricompartmental mild osteoarthrosis. Electronically signed by: Nicolas Angel MD 02/24/2025 01:38 PM EDT
--- OUTSIDE RECORDS SUMMARY | 2025-02-24 14:15 | XMS_ITS | Encounter Summary ---
Author Organization [employer] Address [address] [place] [address] 7 [place] [address] Care Team Providers Care Signal Tower Director Name Role Phone Corin Fry MD Primary Care Provider [phone] Brendan Artis PharmD Unavailable Reason for Referral * Imaging (Routine) - Closed Specialty Diagnoses / Procedures Referred By Contac t Referred To Contact Radiology Diagnoses Left lower quadrant pain Procedures CT Abdomen Pelvis w/ Contrast Brock Hitchcock MD [address] [place] [address] Phone: tel: fax: [address] Phone: tel: fax: Referral ID Status Reason Start Date Expiration Date Visits Re quested Visits Authorized [id number] Closed 01/03/2024 01/02/2025 1 1 Encounter Details Date Type Department Care Team (Late st Contact Info) Description 01/02/2024 Orders Only [facility] [address] [place], [place] [phone] Brock Hitchcock MD [address] [place], [place] [phone] Left lower quadrant pain (Primary Dx) Social History Tobacco Use Types Packs/Day Years Used Date Smoking Tobacco: Former Cigarettes Passive Smoke Exposure: Never Smokeless Tobacco: Never Depression Answer Date Recorded Patient Health Questionnaire-9 Score 0 02/12/2023 Housing Stability Answer Date Recorded What is your housing situation today? I have ed tarango 08/11/[address] you li ve. Do you have problems with any of the following? None of the above 08/11/2023 Food Insecurity Answer Date Recorded Within the past 12 months, y ou worried that your food would run out before you got money to buy more: Never True 08/11/2023 Within the past 12 months,th e food you bought just didn't last and you didn't have enough money to get more: Never True Transportation Answer Date Recorded In the past 12 months, has l ack of transportation kept you from medical appts, meetings, work or from getting things needed for daily living? No 08/11/2023 Utilities Answer Date Recorded In the past 12 months, has t he electric, gas, oil or water company threatened to shut off services in your home? No 08/11/2023 Depression Answer Date Recorded Patient Health Questionnaire-2 Score 0 02/12/2023 Comments Unknown Sex and Gender Information Value Date Recorded Sex Assigned at Female 08/20/2022 10:40 AM EDT Legal Sex Female 10:40 AM EDT Gender Identity Female 08/20/2022 10:40 AM EDT Sexual Orientation Choose not to disclose 2021 10:40 AM EDT documented as of this encounter Plan of Treatment Scheduled Orders Name Type Priority Associated Diagnoses Orde r Schedule CT Abdomen Pelvis w/ Contrast Imaging Routine Left lower quadrant pain Expected: 01/03/2024, Expires: 01/02/2025 documented as of this encounter Goals Goal Patient Goal Type Associated Problems Recent Progress Patient-Stated? Author Blood Pressure < 140/90 Blood Pressure 151/83( 025 3:51 PM EDT) No Brendan Artis, PharmD documented as of this encounter Visit Diagnoses Diagnosis Left lower quadrant pain- Primary Abdominal pain, left lower quadrant documented in this encounter Additional Health Concerns Assessment Noted Time PHQ-9 Depression Total Score: 0 02/13/20 23 4:09 PM EDT documented as of this encounter Care Teams Signal Tower Director Relationship Specialty Start Date End Date Corin Fry MD [address] [place] [address] [phone] PCP - General Family Medicine 02/26/22 Brendan Artis, PharmD [address] [place] [address] [place] [address] Pharmacist Internal Medicine 10/23/22 documented as of this encounter
--- OUTSIDE RECORDS SUMMARY | 2025-02-24 14:15 | XMS_ITS | Encounter Summary ---
Author Organization [employer] Address [address] [facility] 7t [place] [address] Care Team Providers Care Supervisor Cured Meats Name Role Phone Corin Fry MD Primary Care Provider [phone] Brendan Artis PharmD Unavailable Encounter Details Date Type Department Care Team (Latest Contact Info) Description 02/22/2025 Travel Social History Tobacco Use Types Packs/Day Years Used Date Smoking Tobacco: Former Cigarettes Passive Smoke Exposure: Never Smokeless Tobacco: Never Alcohol Use Standard Drinks/Week Comments Yes 0 (1 standard drink = 0.6 oz pur e alcohol) Ocassionally Depression Answer Date Recorded Patient Health Questionnaire-9 Score 0 07/30/2024 Patient Health Questionnaire-9 Score 0 07/30/2024 Last PHQ-9: Questionnaire Data Not on file 1 Housing Stability Answer Date Recorded What is your housing situation today? I have edgagandeep tarango 07/30/[address] you li ve. Do you have problems with any of the following? None of the above 07/30/2024 Food Insecurity Answer Date Recorded Within the past 12 months, y ou worried that your food would run out before you got money to buy more: Never True 07/30/2024 Within the past 12 months,th e food you bought just didn't last and you didn't have enough money to get more: Never True 07/2024 Transportation Answer Date Recorded In the past 12 months, has l ack of transportation kept you from medical appts, meetings, work or from getting things needed for daily living? No 07/30/2024 Utilities Answer Date Recorded In the past 12 months, has t he electric, gas, oil or water company threatened to shut off services in your home? No 07/30/2024 Depression Answer Date Recorded Patient Health Questionnaire-2 Score 0 07/30/2024 Internet Access Answer Date Recorded Internet Access Q1 Yes 07/30/2024 Internet Access Q2 Not on file 07/30/2024 Comments No Sex and Gender Information Value Date Recorded Sex Assigned at Female 08/20/2022 10:40 AM EDT Legal Sex Female 10:40 AM EDT Gender Identity Female 08/20/2022 10:40 AM EDT Sexual Orientation Choose not to disclose 2021 10:40 AM EDT documented as of this encounter Plan of Treatment Not on file documented as of this encounter Goals Goal Patient Goal Type Associated Problems Recent Progress Patient-Stated? Author Blood Pressure < 140/90 Blood Pressure 151/83( 025 3:51 PM EDT) No Brendan Artis, PharmD documented as of this encounter Visit Diagnoses Not on filedocumented in this encounter Additional Health Concerns Assessment Noted Time PHQ-9 Depression Total Score: 0 07/30/20 24 9:12 AM EDT documented as of this encounter Care Teams Supervisor Cured Meats Relationship Specialty Start Date End Date Corin Fry MD [address] [place] [address] PCP - General Family Medicine 02/26/22 Brendan Artis, PharmD [address] [place] [address] Pharmacist Internal Medicine 10/23/22 documented as of this encounter
--- OUTSIDE RECORDS SUMMARY | 2025-02-24 14:15 | XMS_ITS | Encounter Summary ---
Author Organization [employer] Address [address] [facility] 7t [place] [address] Care Team Providers Care Engraver Hand Hard Metals Name Role Phone Corin Fry MD Primary Care Provider [phone] Brendan Artis PharmD Unavailable [phone] Encounter Details Date Type Department Care Team (Late st Contact Info) Description 02/22/2025 3:15 PM EDT Office Visit [facility] MEDICINE [address] [place], [place] [phone] Corin Fry MD [address] [place], [place] [phone] Primary hypertension (Primary Dx); Chronic heart failure with preserved ejection fraction (CMS/HCC); Type 2 diabetes mellitus without complication, without long-term current use of insulin (CMS/HCC); Mixed hyperlipidemia; Chronic pain of left knee Social History Tobacco Use Types Packs/Day Years [...] housing situation today? I have ed tarango 07/30/[address] you [...] the past 12 months, has t he [email or web address], gas, oil or water company threatened to [...] AM EDT documented as of this encounter Last Filed Vital Signs Vital Sign Reading Time Taken Comments Blood Pressure 151/83 02/22/2025 3:51 PM EDT Pulse 59 02/22/2025 3:51 PM EDT Temperature 36.2 ??C (97.1 ??F) 02/22/2025 3:51 PM ED T Respiratory Rate 20 02/22/2025 3:51 PM EDT Oxygen Saturation 100% 02/22/2025 3:51 PM EDT Inhaled Oxygen Concentration - - Weight 105 kg (231 lb 3.2 oz) 02/22/2025 3:51 PM EDT Height 157.5 cm (5' 2 ) 02/22/2025 3:51 PM EDT Body Mass Index 42.29 02/22/2025 3:51 PM EDT documented in this encounter Miscellaneous Notes * Assessment & Plan Note - Padmaja Garcia MA - 02/23/2025 8:06 AM EDTAssociated Problem(s): Mixed hyperlipidemia - she had intolerance to statin and is prescribed ezetimibe - continue working on lifestyle modifications - her tradeshow worker was considering PCSK9 inhibitor * Assessment & Plan Note - Padmaja Garcia MA - 02/23/2025 8:06 AM EDTAssociated Problem(s): Type 2 diabetes mellitus (CMS/[facility]) - A1c 6.3% on 02/22/25, the same as A1C 6.3% on 07/30/24 - 6.1% on 02/10/24 - 5.7% on 07/17/22 - Continue working on lifestyle modifications - Continue metformin XR 500 mg bid - Last foot exam on 07/30/24 - Last eye exam 10/07/24 No diabetic retinopathy - Last lipid profile on 09/25/24 TRIG 118; CHOL 269; LDL 181; HDL 65 - Last microalbumin test 07/30/24 UACR 10.2 * Assessment & Plan Note - Padmaja Garcia MA - 02/23/2025 8:03 AM EDTAssociated Problem(s): (HFpEF) heart failure with preserved ejection fraction (CMS/HCC) - following with [facility] cardiology, Dr. Blood. Last visit in Aug 2023 - Non-ischemic cardiomyopathy, HFpEF, frequent PVCs, HTN. Last visit on 08/26/23. - Continue carvedilol 6.25 mg bid and lisinopril. - Cardiac cath 10/31/21 No CAD. - Nuclear stress and MPI in Oct 2020 partially reversible inferoseptal perfusion defect. - TTE 02/01/23 LVEF 55%, EKG LVH. - Continue working on lifestyle modifications and risk factor management * Assessment & Plan Note - Padmaja Garcia MA - 02/23/2025 8:03 AM EDTAssociated Problem(s): Hypertension - Goal BP < 140/90 per JNC-8 and < 130/80 per ACC/AHA - elevated today - Continue working on lifestyle modification - Continue SMBP - Continue lisinopril 40 mg daily - Continue carvedilol 6.25 mg bid - Increase amlodipine from 5 to 10 mg daily documented in this encounter Plan of Treatment Not on file documented as of this encounter Goals Goal Patient Goal Type Associated Problems Recent Progress Patient-Stated? Author Blood Pressure < 140/90 Blood Pressure 151/83( 025 3:51 PM EDT) No Brendan Artis, [place] documented as of this encounter Procedures Procedure Name Priority Date/Time Associated Diagnosis Comments XR KNEE 4+ VIEWS LEFT Routine 02/24/2025 1:22 PM EDT POCT GLYCOSYLATED HEMOGLOBIN (HGB A1C) Routine 02/22/2025 3:53 PM EDT Type 2 diabetes mellitus without complication, without long-term current use of insulin ([facility]) POCT GLUCOSE Routine 02/22/2025 3:53 PM EDT Type 2 diabetes mellitus without complication, without long-term current use of insulin ([facility]) documented in this encounter Results * XR Knee 4+ Views Left (02/24/2025 1:22 PM EDT) Anatomical Region Laterality Modality Lower Extremities, Knee Left [facility] 02/24/2025 1:22 PM EDT Narrative 02/24/2025 1:41 PM EDT ? [facility] ?[address] ?[place] [address] ?XRay Report ? Signed ? Patient: GarciaValente Haywood,Carmina ?MR#: ?? [id number] ? : 1960 ?Acct:[id number] ? Age/Sex: 64 / F ?ADM Date: 05/07/25 ? Loc: HO.XRAY ? Attending Dr: Corin Fry MD ? Ordering Physician: Corin Fry MD ?? Date of Service: 02/24/25 ?? Procedure(s): XR knee LT 4V ?? Accession Number(s): [id number] ? cc: Corin Fry MD ? EXAMINATION: ?? XR KNEE, LEFT ? CLINICAL INFORMATION: ?? left knee pain and swelling ? COMPARISON: ?? None available. ? TECHNIQUE: ?? Four views of the left knee. ? FINDINGS: ?? Normal bone mineralization. No fracture, dislocation, or suspicious ?? bone lesion. ?? Tricompartmental mild joint space narrowing with minimal marginal ?? osteophytic spurring. ?? Mild spurring of the tibial spines. ?? Normal patellar alignment. ?? No evidence of joint effusion. Normal-appearing soft tissues. ? XR/XR knee LT 4V ?? IMPRESSION: ?? 1. No acute bony abnormalities. No joint effusion. ?? 2. Tricompartmental mild osteoarthrosis. ? Electronically signed by: ??Nicolas Angel MD ??02/24/2025 01:38 PM EDT RP ? Dictated By: ?Nicolas Angel MD ? Signed By: ?<Electronically signed by Nicolas Angel MD in OV> ?02/24/25 1338 ? DD/ 1322 ? TD/TT: 02/24/25 1328 ? Women Specialist: ? Procedure Note Tadeo, Image - 02/24/2025 [place] [address] XRay Report Signed Patient: Sunny Cheng#: [id number] : 2Acct:[id number] Age/Sex: 64 / FADM Date: 02/24/25 Loc: [facility] Attending Dr: Corin Fry MD Ordering Physician: Corin Fry MD Date of Service: 02/24/25 Procedure(s): XR knee LT 4V Accession Number(s): [id number] cc: Corin Fry MD EXAMINATION: XR KNEE, LEFT CLINICAL INFORMATION: left knee pain and swelling COMPARISON: None available. TECHNIQUE: Four views of the left knee. FINDINGS: Normal bone mineralization. No fracture, dislocation, or suspicious bone lesion. Tricompartmental mild joint space narrowing with minimal marginal osteophytic spurring. Mild spurring of the tibial spines. Normal patellar alignment. No evidence of joint effusion. Normal-appearing soft tissues. XR/XR knee LT 4V IMPRESSION: 1. No acute bony abnormalities. No joint effusion. 2. Tricompartmental mild osteoarthrosis. Electronically signed by: Nicolas Angel MD 02/24/2025 01:38 PM EDT Dictated By: Nicolas Angel MD Signed By: <Electronically signed by Nicolas Angel MD in OV> 02/24/25 1338 DD/ 1322 TD/TT: 02/24/25 1328 Women Specialist: Corin Fry MD IMG XR PROCEDURES Final Result * (ABNORMAL) POCT glycosylated hemoglobin (Hgb A1c) (02/22/2025 3:53 PM EDT) Hemoglobin A1C 6.3(A) 4.0 - 6.0 % QC Media Lot # [id number] Lot# Expiration Date 069,549 Blood Capillary blood specimen / Unknown 02/22/2025 3:53 PM EDT Corin Fry MD POINT OF CARE TEST ENTER/EDIT OR DERABLES Edited Result - Final * POCT glucose manually resulted (02/22/2025 3:53 PM EDT) Glucose Blood, POC 113 60 - 200 mg/dL QC Media Lot # [id number] Lot# Expiration Date 351 Blood Capillary blood specimen / Unknown 02/22/2025 3:53 PM EDT Corin Fry MD POINT OF CARE TEST ENTER/EDIT OR DERABLES Final Result documented in this encounter Visit Diagnoses Diagnosis Primary hypertension- Primary Unspecified essential hypertension Chronic heart failure with preserved ejection fraction (CMS/HCC) Type 2 diabetes mellitus without complication, without long-term current use of insulin (CMS/HCC) Mixed hyperlipidemia Chronic pain of left knee documented in this encounter Additional Health Concerns Assessment Noted Time PHQ-9 Depression Total Score: 0 07/30/20 24 9:12 AM EDT documented as of this encounter Care Teams Engraver Hand Hard Metals Relationship Specialty Start Date End Date Corin Fry MD [address] [place] [address] PCP - General Family Medicine 02/26/22 Brendan Artis PharmD [address] [place] [address] Pharmacist Internal Medicine 10/23/22 documented as of this encounter
--- OUTSIDE RECORDS SUMMARY | 2025-02-24 14:15 | XMS_ITS | Encounter Summary ---
Author Organization [email or web address] Address [address] [facility] 7t [place] [address] Care Team Providers Care Motorcoach Operator Name Role Phone Corin Fry MD Primary Care Provider Brendan Artis PharmD Unavailable [phone] Reason for Visit * Reason Comments Med Refill Encounter Details Date Type Department Care Team (Late st Contact Info) Description 02/22/[address] [facility] MED[facility]INE [address] [place], [place] [phone] Corin Fry MD [address] [place] [address] Type 2 diabetes mellitus without complication, without long-term current use of insulin ([facility]) Social History Tobacco Use Types Packs/Day Years [...] 025 3:51 PM EDT) No Brendan Artis, TaoD documented as of this encounter Visit Diagnoses Diagnosis Type 2 diabetes mellitus without complication, without long-term current use of insulin ([facility]) documented in this encounter Additional Health Concerns Assessment Noted Time PHQ-9 Depression Total Score: 0 07/30/20 24 9:12 AM EDT documented as of this encounter Care Teams Motorcoach Operator Relationship Specialty Start Date End Date Corin Fry MD [address] [place] [address] PCP - General Family Medicine 02/26/22 Brendan Artis, PharmD [address] [place] [address] Pharmacist Internal Medicine 10/23/22 documented as of this encounter
--- OUTSIDE RECORDS SUMMARY | 2025-02-24 14:15 | XMS_ITS | Encounter Summary ---
Author Organization [employer] Address [address] [place] [address] 7 [place] [address] Care Team Providers Care Patrol Guard Name Role Phone Corin Fry MD Primary Care Provider [phone] Brendan Artis PharmD Unavailable [phone] Reason for Referral * Consultation (Routine) - Authorized Specialty Diagnoses / Procedures Referred By Contac t Referred To Contact Pharmacy Diagnoses Primary hypertension Corin Fry MD [address] [place] [address] Phone: tel: fax: Referral ID Status Reason Start Date Expiration Date Visits Requested Visits Authorized [id number] Authorized Consult and Treat 12/21/2024 12/21/2025 6 6 Encounter Details Date Type Department Care Team ([facility] st Contact Info) Description 12/21/2024 Orders Only [facility] MEDICINE [address] [place] [address] [phone] Corin Fry MD [address] [place] [address] [phone] Primary hypertension (Primary Dx); Type 2 diabetes mellitus without complication, without long-term current use of insulin ([facility]) Social History Tobacco Use Types Packs/Day Years [...] Access Q2 Not on file 07/30/2024 Comments Unknown Sex and Gender Information Value Date Recorded Sex Assigned at Female 08/20/2022 10:40 AM EDT Legal Sex Female 10:40 AM EDT Gender Identity Female 08/20/2022 10:40 AM EDT Sexual Orientation Choose not to disclose 2021 10:40 AM EDT documented as of this encounter Plan of Treatment Scheduled Referrals Name Type Priority Associated Diagnoses Orde r Schedule Referral to Pharmacy CDTM Outpatient Referral Routine Primary hypertension Ordered: 12/21/2024 documented as of this encounter Goals Goal Patient Goal Type Associated Problems Recent Progress Patient-Stated? Author Blood Pressure < 140/90 Blood Pressure 151/83( 025 3:51 PM EDT) No Brendan Artis, PharmD documented as of this encounter Visit Diagnoses Diagnosis Primary hypertension- Primary Unspecified essential hypertension Type 2 diabetes mellitus without complication, without long-term current use of insulin ([facility]) documented in this encounter Additional Health Concerns Assessment Noted Time PHQ-9 Depression Total Score: 0 07/30/20 24 9:12 AM EDT documented as of this encounter Care Teams Patrol Guard Relationship Specialty Start Date End Date Corin Fry MD [address] [place] [address] PCP - General Family Medicine 02/26/22 Brendan Artis PharmD [address] [place] [address] Pharmacist Internal Medicine 10/23/22 documented as of this encounter
--- OUTSIDE RECORDS SUMMARY | 2025-02-24 14:15 | XMS_ITS | Clinical Summary ---
Author Organization [employer] Address [address] [facility] [address] [place] [address] Care Team Providers Care Weir Fisherman Name Role Phone Corin Fry MD Primary Care Provider [phone] Brendan Artis PharmD Unavailable [phone] Allergies Active Allergy Reactions Criticality Noted Date Comments Atorvastatin 03/13/2022 Other reaction(s): Abdominal pain Carrot Oil Rash Low 09/08/2020 Chlorthalidone Palpitations Low 02/14/2021 Rosuvastatin Abdominal Pain Medium 07/30/2024 Medications acetaminophen (Tylenol) 500 MG tablet Take 2 tablets by mouth every 8 (eight) hours. Take 2 tablet by oral route 8 hours as needed. 03/16/20 22 Active polyethylene glycol, PEG, 3350 (Miralax) 17 g packet MIX 1 PACKET IN 8 OUNCES OF WATER, JUICE, COFFEE, OR TEA AND DRINK TWICE DAILY 01/31/20 23 Active cholecalciferol (Vitamin D High Potency) 25 MCG (1000 UT) capsuleIndication s:Vitamin D deficiency TAKE 1 CAPSULE BY MOUTH EVERY DAY 90 capsule 3 02/10/20 24 Active ezetimibe (Zetia) 10 MG tabletIndications :Mixed hyperlipidemia Take 1 tablet (10 mg) by mouth at bedtime. 90 tablet 3 02/12/20 24 Active Blood Glucose Monitoring Suppl (FreeStyle Lite) w/Device kit 1 Dose Once per day. 1 kit 02/16/20 24 Active metFORMIN XR (Glucophage-XR) 500 MG 24 hr tabletIndications :Type 2 diabetes mellitus without complication, without long-term current use of insulin (CMS/[facility]) TAKE 1 TABLET BY MOUTH TWICE DAILY WITH MEALS 180 tablet 3 07/21/20 24 Active pantoprazole (ProtoNix) 40 MG EC tablet Take 1 tablet (40 mg) by mouth Once per day. 90 tablet 3 10/12/20 24 Active amLODIPine (Norvasc) 10 MG tabletIndications :Primary hypertension TAKE 1 TABLET BY MOUTH EVERY DAY 90 tablet 3 11/10/19 25 Active carvedilol (Coreg) 12.5 MG tablet Take 12.5 mg by mouth with breakfast and with evening meal. Active lisinopril 40 MG tabletIndications :Primary hypertension TAKE 1 TABLET BY MOUTH EVERY DAY IN THE MORNING 90 tablet 3 02/18/20 25 Active TRUEplus Lancets 33G miscIndications:T ype 2 diabetes mellitus without complication, without long-term current use of insulin (CMS/[facility]) TEST BLOOD SUGAR EVERY MORNING 100 each 11 02/24/20 25 Active FREESTYLE LITE test stripIndications: Type 2 diabetes mellitus without complication, without long-term current use of insulin (CMS/[facility]) TEST BLOOD SUGAR EVERY MORNING 100 strip 11 02/24/20 25 Active TRUEplus Lancets 33G miscIndications:T ype 2 diabetes mellitus without complication, without long-term current use of insulin (CMS/HCC) USE TO TEST BLOOD SUGAR EVERY MORNING 100 each 11 12/17/19 24 025 Discontinued FREESTYLE LITE test stripIndications: Type 2 diabetes mellitus without complication, without long-term current use of insulin (CMS/[facility]) USE TO TEST BLOOD SUGAR EVERY MORNING 100 strip 11 12/17/19 24 025 Discontinued lisinopril 40 MG tabletIndications :Primary hypertension TAKE 1 TABLET BY MOUTH EVERY MORNING 90 tablet 3 02/10/20 24 025 Discontinued Active Problems Problem Noted Date Diagnosed Date Nephrolithiasis 03/26/2024 Assessment & Plan (03/26/2024 5:30 PM EDT): - most recent CT in December 2023 showed non-obstructive 4 mm kidney stone in R kidney - seen by urologist in 2022 Hypertension 09/25/2022 Assessment & Plan (02/23/2025 8:03 AM EDT): - Goal BP < 140/90 per JNC-8 and < 130/80 per ACC/AHA - elevated today - Continue working on lifestyle modification - Continue SMBP - Continue lisinopril 40 mg daily - Continue carvedilol 6.25 mg bid - Increase amlodipine from 5 to 10 mg daily Assessment & Plan (11/14/2024 6:25 PM EST): - Goal BP < 140/90 per JNC-8 and < 130/80 per ACC/AHA - elevated today - Continue working on lifestyle modification - Continue SMBP - Continue lisinopril 40 mg daily - Continue carvedilol 6.25 mg bid - Increase amlodipine from 5 to 10 mg daily Assessment & Plan (07/30/2024 9:19 AM EDT): - Goal BP < 140/90 per JNC-8 and < 130/80 per ACC/AHA - within acceptable range today - Continue working on lifestyle modification - Continue SMBP - Continue lisinopril 40 mg daily - Continue carvedilol 6.25 mg bid - Continue amlodipine 5 mg daily Assessment & Plan (02/16/2024 1:14 PM EDT): - Goal BP < 140/90 per JNC-8 and < 130/80 per ACC/AHA - within acceptable range today - Continue working on lifestyle modification - Continue SMBP - Continue lisinopril 40 mg daily - Continue carvedilol 6.25 mg bid - Continue amlodipine 5 mg daily Assessment & Plan (02/12/2023 5:34 PM EDT): ?? Goal BP < 140/90 per JNC-8 and < 130/80 per ACC/AHA ?? Suboptimal control today, but pt did not bring BP log and she was in pain today ?? Continue working on lifestyle modification ?? Continue lisinopril 40 mg daily ?? Continue carvedilol 3.125 mg bid, consider increasing to 6.25 mg bid ?? Appreciate CD Assessment & Plan (09/25/2022 5:36 PM EST): ?? Goal BP < 140/90 per JNC-8 and < 130/80 per ACC/AHA ?? Suboptimal control today, but pt did not bring BP log and she was in pain today ?? Continue working on lifestyle modification ?? Continue lisinopril 40 mg daily ?? Continue carvedilol 3.125 mg bid, consider increasing to 6.25 mg bid ?? Appreciate CDTM Chronic foot pain, right 09/25/2022 Assessment & Plan (02/10/2024 5:35 PM EDT): Likely plantar fasciitis Consider MRI evaluation Unable to find a local meat counter worker who will accept her insurance Refer to meat counter worker in [place] Assessment & Plan (02/12/2023 5:34 PM EDT): ?? Likely plantar fasciitis ?? Consider MRI evaluation ?? Unable to find a local meat counter worker who will accept her insurance ?? Refer to meat counter worker in [place] Assessment & Plan (09/26/2022 4:31 PM EST): ?? Likely plantar fasciitis ?? Consider MRI evaluation ?? Unable to find a local meat counter worker who will accept her insurance ?? Refer to meat counter worker in [place] Plantar fasciitis, bilateral 09/25/2022 Assessment & Plan (02/16/2024 1:15 PM EDT): - evaluated at [facility] and had PT - pain has improved significantly with exercise and ice Primary osteoarthritis of right hand 09/25/2022 Frequent PVCs 09/25/2022 Assessment & Plan (11/10/2024 4:16 PM EST): - Continue carvedilol Assessment & Plan (07/30/2024 9:19 AM EDT): - Continue carvedilol Assessment & Plan (02/10/2024 5:35 PM EDT): Continue carvedilol Assessment & Plan (02/12/2023 5:35 PM EDT): ?? Continue carvedilol Assessment & Plan (09/26/2022 4:30 PM EST): ?? Continue carvedilol Type 2 diabetes mellitus 10/17/2021 Overview (08/23/2023): Last a1c 6.4 On metformin 500mg FS AM FS PM a1c today Advised diet and exercise Ophthalmology Last Assessment & Plan: HbA1c 6.4 Continue Metformin 500mg twice daily a1c in 6 months Assessment & Plan (02/23/2025 8:06 AM EDT): - A1c 6.3% on 02/22/25, the same [...] - Last microalbumin test 07/30/24 UACR 10.2 Assessment & Plan (11/14/2024 6:26 PM EST): - A1C 6.3% on 07/30/24, 6.1% on 02/10/24, 5.7% on 07/17/22 - Continue working on lifestyle modifications - Continue metformin XR 500 mg bid - Last foot exam on 07/30/24 - Last eye exam 10/07/24 No diabetic retinopathy - Last lipid profile on 02/10/24 - Last microalbumin test 02/10/24 UACR 13.5 Assessment & Plan (07/30/2024 9:26 AM EDT): - A1C 6.3% on 07/30/24, 6.1% on 02/10/24, 5.7% on 07/17/22 - Continue working on lifestyle modifications - Continue metformin XR 500 mg bid - Last foot exam on 07/30/24 - Last eye exam > 1 year ago - Last lipid profile on 02/10/24 - Last microalbumin test 02/10/24 UACR 13.5 Assessment & Plan (02/16/2024 1:16 PM EDT): - A1C 6.1% on 02/10/24, 5.7% on 07/17/22 - Continue working on lifestyle modifications - Continue metformin XR 500 mg bid - Last foot exam in February 2022, plantar fasciitis - Last eye exam > 1 year ago - Last lipid profile in February 2022 (She was intolerant to statin) - Last microalbumin test 03/05/22 UACR 13 Assessment & Plan (02/22/2023 11:23 AM EDT): ?? A1C 6.1% on 02/12/23, 5.7% on 07/17/22 ?? Continue working on lifestyle modifications ?? Continue metformin XR 500 mg bid ?? Last foot exam in February 2022, plantar fasciitis ?? Last eye exam > 1 year ago ?? Last lipid profile in February 2022 (She was intolerant to statin) ?? Last microalbumin test 03/05/22 UACR 13 Assessment & Plan (09/25/2022 5:33 PM EST): ?? A1C 5.7% on 07/17/22 ?? Continue working on lifestyle modifications ?? Continue metformin XR 500 mg bid ?? Last foot exam in February 2022, plantar fasciitis ?? Last eye exam > 1 year ago ?? Last lipid profile in February 2022 (She was intolerant to statin) ?? Last microalbumin test 03/05/22 UACR 13 Recurrent hematuria 09/01/2021 Overview (08/23/2023): Added automatically from request for surgery [id number] Assessment & Plan (02/12/2023 5:35 PM EDT): ?? Hx cystoscopy and nephrostomy tube? ?? Most recent episode in Jun 2022 ?? Continue adequate hydration, > 2L/day ?? Upcoming appt with urologist in [place] Assessment & Plan (09/26/2022 4:29 PM EST): ?? Hx cystoscopy and nephrostomy tube? ?? Most recent episode in Jun 2022 ?? Continue adequate hydration, > 2L/day ?? Upcoming appt with urologist in [place] (HFpEF) heart failure with preserved ejection fr action 08/02/2021 08/23/2023 Overview (08/23/2023): Saw cardiology in 01/09-complaining of palpitations Coreg was increased to 6.25mg Was supposed to fu in one month Did not go Today: Palpitaitons, ETT, shortness of breath, chest pain Continue coreg 6.25mg Continue lisinopril 40mg Cardiology fu given Last Assessment & Plan: A/w MPI defected perfusion, counselled patient for angiogram, she is agreeable Currently asymptomatic Continue follow up at cardiology Assessment & Plan (02/23/2025 8:03 AM EDT): - following with [facility] cardiology, Dr. Blood. Last visit in Aug 2023 - Non-ischemic cardiomyopathy, HFpEF, frequent PVCs, HTN. Last visit on 08/26/23. - Continue carvedilol 6.25 mg bid and lisinopril. - Cardiac cath 10/31/21 No CAD. - Nuclear stress and MPI in Oct 2020 partially reversible inferoseptal perfusion defect. - TTE 02/01/23 LVEF 55%, EKG LVH. - Continue working on lifestyle modifications and risk factor management Assessment & Plan (11/14/2024 6:25 PM EST): - following with [facility] cardiology, Dr. Blood. Last visit in Aug 2023 - Non-ischemic cardiomyopathy, HFpEF, frequent PVCs, HTN. Last visit on 08/26/23. - Continue carvedilol 6.25 mg bid and lisinopril. - Cardiac cath 10/31/21 No CAD. - Nuclear stress and MPI in Oct 2020 partially reversible inferoseptal perfusion defect. - TTE 02/01/23 LVEF 55%, EKG LVH. - Continue working on lifestyle modifications and risk factor management Assessment & Plan (07/30/2024 9:20 AM EDT): - following with [facility] cardiology, Dr. Blood. Last visit in Aug 2023 - Non-ischemic cardiomyopathy, HFpEF, frequent PVCs, HTN. Last visit on 08/26/23. - Continue carvedilol 6.25 mg bid and lisinopril. consider increasing amlodipine to 5 mg if BP is persistenly elevated. - Cardiac cath 10/31/21 No CAD. - Nuclear stress and MPI in Oct 2020 partially reversible inferoseptal perfusion defect. - TTE 02/01/23 LVEF 55%, EKG LVH. - Continue working on lifestyle modifications and risk factor management Assessment & Plan (02/16/2024 1:13 PM EDT): - following with [facility] cardiology, Dr. Blood. Last visit in Aug 2023 - Non-ischemic cardiomyopathy, HFpEF, frequent PVCs, HTN. Last visit on 08/26/23. - Continue carvedilol 6.25 mg bid and lisinopril. consider increasing amlodipine to 5 mg if BP is persistenly elevated. - Cardiac cath 10/31/21 No CAD. - Nuclear stress and MPI in Oct 2020 partially reversible inferoseptal perfusion defect. - TTE 02/01/23 LVEF 55%, EKG LVH. - Continue working on lifestyle modifications and risk factor management Mixed hyperlipidemia 05/30/2021 08/23/2023 Overview (08/23/2023): Last Assessment & Plan: Controlled, counselled patient on reducing weight, not taking supplements that harm liver Repeat Lipid panel in 6 months, liver function test and BMP today Assessment & Plan (02/23/2025 8:06 AM EDT): - she had intolerance to statin and is prescribed ezetimibe - continue working on lifestyle modifications - her account consultant was considering PCSK9 inhibitor Assessment & Plan (11/14/2024 6:28 PM EST): - she had intolerance to statin and is prescribed ezetimibe - continue working on lifestyle modifications - her account consultant was considering PCSK9 inhibitor Assessment & Plan (07/30/2024 9:22 AM EDT): - she had intolerance to statin and is prescribed ezetimibe - continue working on lifestyle modifications Assessment & Plan (02/16/2024 1:17 PM EDT): - she had intolerance to statin and is prescribed ezetimibe - continue working on lifestyle modifications Multinodular goiter 05/30/2021 08/23/2023 Overview (08/23/2023): HX of multinodular goiter in past with dominant right nodule, Pt has been biochemically euthyroid although reported symptoms of hypothyroidism Had FNA in past at [facility]. TSH 0.97 Fu with endo Last Assessment & Plan: MNG with dominant right lobe nodule, s/p FNA done at [facility], could not find report in pre-epic Interval decrease in size of nodule on repeat US 2010 Biochemically euthyroid, was never on synthyroid Last TSH 0.69 Prior work up Thyroglobulin elevated, No surveillance US done since 2010, ordered repeat thyroid US today. TSI, TSH receptor AB, TPO ordered today as pt c/o palpitations/unintentional weight loss. Refer to endo clinic. Pt advised to bring her biopsy report on endo visit. verbalized understanding Encounters Date Type Department Care Team Description 02/22/2025 3:15 PM EDT Office Visit [facility] [address] [place] [address] Corin Fry MD Primary hypertension (Primary Dx); Chronic heart failure with preserved ejection fraction (CMS/HCC); Type 2 diabetes mellitus without complication, without long-term current use of insulin (CMS/HCC); Mixed hyperlipidemia; Chronic pain of left knee 02/22/2025 Refill [facility] [address] [place] [address] Corin Fry MD Type 2 diabetes mellitus without complication, without long-term current use of insulin (CMS/HCC) 02/22/2025 Travel 02/18/2025 Telephone [facility] [address] [facility] [place] [address] Corin Fry MD chart prep 02/16/2025 Refill [facility] [address] [facility] [place] [address] Corin Fry MD Primary hypertension 01/27/2025 3:30 PM EDT Telemedicine [facility] [address] [facility] [place] [address] Brendan Artis PharmD Primary hypertension (Primary Dx); Mixed hyperlipidemia 01/27/2025 Travel 01/06/2025 3:30 PM EDT Telemedicine [facility] [address] [facility] [place] [address] Brendan Artis PharmD Primary hypertension (Primary Dx) 01/06/2025 Travel 12/21/2024 Orders Only [facility] [address] [facility] [place] [address] Corin Fry MD Primary hypertension (Primary Dx); Type 2 diabetes mellitus without complication, without long-term current use of insulin ([facility]) 12/17/2024 Telephone [facility] [address] [facility] [place] [address] Corin Fry MD from Last 3 Months Immunizations Name Administration Dates Next Due Hep B, adult 01/21/2017,09/21/2016,08/23/2016 Pfizer Covid-19 Vaccine 12+ 02/26/2022 Pfizer Covid-19 Vaccine 12+ munira-sucrose (Castaneda Cap) 02/26/2022 Pneumococcal Conjugate PCV 20 11/10/2024 Pneumococcal Polysaccharide PPSV23 11/02/2013 TD (adult), 2 Lf tetanus tox oid, preservative free, adsorbed 11/02/2013 Tdap 11/10/2024 Zoster, Recombinant 08/01/2021,05/31/2021 Family History Medical History Relation Name Comments Breast cancer Sister Relation Name Status Comments Sister Social History Tobacco Use Types Packs/Day Years [...] not to disclose 2021 10:40 AM EDT Last Filed Vital Signs Vital Sign Reading [...] Mass Index 42.29 02/22/2025 3:51 PM EDT Plan of Treatment Health Maintenance Due Date Last Done Comments CT Colonography 1960 Colonoscopy 1960 Colorectal Cancer Screening 1960 Dental Prophylaxis 1960 Dental X-Ray: Bitewings 1961 FIT DNA/Cologuard 1960 FIT 1960 FOBT 1960 HIV Screening 1960 Sigmoidoscopy 1960 Hepatitis C Screening 1979 RSV Patients and Patients Aged 60 years or older (1 - Risk 60-74 years 1-dose series) 2021 COVID-19 Vaccine ( season) 2024 02/26/2022, 02/26/2022, 01/24/2021, Additional history exists Influenza Vaccine (#1) 2024 Dental Oral Exam 02/04/2025 08/05/2024 Alcohol/Substance Use Screening 07/30/2025 07/30/2024 Depression Screening 07/30/2025 07/30/2024, 07/30/20 24 Diabetes: Foot Exam 07/30/2025 07/30/2024, 07/30/2024, 07/30/2024, Additional history exists Diabetes: Urine Protein Screening 07/30/2025 07/30/2024, 02/10/2024, 03/05/2022 SDOH Screening 07/30/2025 07/30/2024 Diabetes: Hemoglobin A1C 08/25/2025 025, 07/30/2024, 02/10/2024, Additional history exists Lipid Panel 09/25/2025 09/25/2024, 07/21, 02/10/2024, Additional history exists Tobacco Screening 02/22/2026 02/22/2025 Mammogram 03/06/2026 03/06/2024, 06/0 10/2020, 03/21/2021, Additional history exists Eye Exam 04/07/2026 04/07/2024, 03/21, 04/07/2024, Additional history exists Pap Smear 07/30/2027 07/30/2024 Dental X-Ray: Full Mouth 08/06/2027 08/05/2024 Cervical Cancer Screening 07/30/2029 HPV/Cotest 07/30/2029 07/30/2024 DTaP/Tdap/Td Vaccines (2 - Td or Tdap) 11/10/2034 11/10/2024, 11/02/2013 Hepatitis B Vaccines Completed 01/21/2017, 09/21/2016, 08/23/2016 Zoster Vaccines Completed 08/01/2021, 05/31/2021 Pneumococcal Vaccine: 50+ Years Completed 11/10/2024, 11/02/2013 HIB Vaccines Aged Out No longer eligi ble based on patient's age to complete this topic HPV Vaccines Aged Out No longer eligi ble based on patient's age to complete this topic Hepatitis A Vaccines Aged Out No long er eligible based on patient's age to complete this topic IPV Vaccines Aged Out No longer eligi ble based on patient's age to complete this topic Meningococcal Vaccine Aged Out No chuy oma eligible based on patient's age to complete this topic RSV under 20 months Aged Out No longe r eligible based on patient's age to complete this topic Rotavirus Vaccines Aged Out No longer eligible based on patient's age to complete this topic Goals Goal Patient Goal Type Associated Problems Recent Progress Patient-Stated? Author Blood Pressure < 140/90 Blood Pressure 151/83( 025 3:51 PM EDT) Brendan Bolden, TaoD Procedures Procedure Name Priority Date/Time Associated Diagnosis Comments XR KNEE 4+ VIEWS LEFT Routine 02/24/2025 1:22 PM EDT POCT GLYCOSYLATED HEMOGLOBIN (HGB A1C) Routine 02/22/2025 3:53 PM EDT Type 2 diabetes mellitus without complication, without long-term current use of insulin ([facility]/HCC) POCT GLUCOSE Routine 02/22/2025 3:53 PM EDT Type 2 diabetes mellitus without complication, without long-term current use of insulin (CMS/HCC) LIPID PANEL WITH REFLEX TO DIRECT LDL Routine 09/25/2024 12:15 PM EST Mixed hyperlipidemia PANORAMIC RADIOGRAPHIC IMAGE Routine 08/05/2024 8:00 AM EDT PERIODIC ORAL EVALUATION - ESTABLISHED PATIENT Routine 08/05/2024 8:00 AM EDT ALBUMIN, RANDOM URINE W/CREATININE Routine 07/30/2024 9:45 AM EDT Primary hypertension Type 2 diabetes mellitus without complication, without long-term current use of insulin ([facility]) THINPREP IMAGING PAP AND HPV MRNA E6/E7 Routine 07/30/2024 9:32 AM EDT BI MAMMOGRAM SCREENING TOMOSYNTHESIS BILATERAL Routine 03/06/2024 3:15 PM EDT Breast cancer screening by mammogram from Last 3 Months or Most Recently Relevant to Health Maintenance Results * XR Knee 4+ Views Left (02/24/2025 1:22 PM EDT) Anatomical Region Laterality Modality Lower Extremities, Knee Left Radiogra phic Imaging 02/24/2025 1:22 PM EDT Narrative 02/24/2025 1:41 PM EDT ? [facility] ?[address] ?[place] [address] ?XRay Report ? Signed ? Patient: Carmina Cheng ?MR#: ?? [id number] ? : 1960 ?Acct:[id number] ? Age/Sex: 64 / F ?ADM Date: 02/24/25 ? Loc: HO.XRAY ? Attending Dr: Corin Fry MD ? Ordering Physician: Corin Fry MD ?? Date of Service: 02/24/25 ?? Procedure(s): XR knee LT 4V ?? Accession Number(s): [id number] ? cc: Corin Fry MD ? EXAMINATION: [...] signed by Nicolas Angel MD in [place]> ?02/24/258 ? DD/ 1322 ? TD/TT: 02/24/25 1328 ? Manager Mobility: ? Procedure Note Donotfloridainterpreter, Image - 02/24/2025 [place] [address] XRay Report Signed Patient: Sunny Cheng#: [id number] : 1960cct:[id number] Age/Sex: 64 / FADM Date: 02/24/25 Loc: [facility] Attending Dr: Corin Fry MD Ordering Physician: Corin Fry MD Date of Service: 02/24/25 Procedure(s): XR knee LT 4V Accession Number(s): [id number] cc: Corin Fry MD EXAMINATION: XR KNEE, [...] 02/24/25 1338 DD/ 1322 TD/TT: 02/24/25 1328 Manager Mobility: us Corin Fry MD IMG XR PROCEDURES Final Result * (ABNORMAL) POCT glycosylated hemoglobin (Hgb A1c) (02/22/2025 3:53 PM EDT) Hemoglobin A1C 6.3(A) 4.0 - 6.0 % QC Media Lot # [id number] Lot# Expiration Date ,722,026 Blood Capillary blood specimen / Unknown 02/22/2025 3:53 PM EDT Corin Fry MD POINT OF CARE TEST ENTER/EDIT OR DERABLES Edited Result - Final * POCT glucose manually resulted (02/22/2025 3:53 PM EDT) Glucose Blood, POC 113 60 - 200 mg/dL QC Media Lot # [id number] Lot# Expiration Date ,130 Blood Capillary blood specimen / Unknown 02/22/2025 3:53 PM EDT Corin Fry MD POINT OF CARE TEST ENTER/EDIT OR DERABLES Final Result * (ABNORMAL) Lipid Panel with Reflex to Direct LDL (09/25/2024 12:15 PM EST) Triglycerides 118 <150 mg/dL [facility] Comment:Desirable Triglyceri de: less than 150 mg/dLBorderline High Triglyceride 150-199 mg/dLHigh Triglyceride: 200-499 mg/dLVery High Triglyceride: greater than or equal to 5OO mg/dL Cholesterol 269(H) <200 mg/dL [facility] Comment:Desirable Cholestero l: less than 200 mg/dLBorderline High Cholesterol: 200-239 mg/dLHigh Cholesterol: greater than 239 mg/dL LDL Cholesterol Calculated 181(H) <100 mg/dL [facility] Comment:Desirable LDL: less than 100 mg/dLNear Optimal/Above Optimal LDL: 110- 129 mg/dLBorderline High LDL: 130-159 mg/dLHigh LDL: 160-189 mg/dLVery High LDL: greater than or equal to 190 mg/dL HDL Cholesterol 65 >40 mg/dL [facility] Comment:Desirable HDL: great er than 40 mg/dL Note: This HDL assay may give artificially low results in patients with liver disease. Blood 09/25/2024 12:1 5 PM EST 09/25/2024 12:55 PM EST Corin Fry MD LAB BLOOD ORDERABLES Final Resul t Performing Organization Address [facility] de Phone Number [facility] [address] [place] [address] [phone] * Albumin, Random Urine W/Creatinine (07/30/2024 9:45 AM EDT) Creatinine, Urine 97.35 mg/dL [facility] Microalbumin Urine 10.0 mg/L [facility] Microalbum Creatinine Ratio Ur 10.2 <30 ug/mg cr [facility] Comment:Albumin/Creatinine R atio Reference Ranges: Normal: < 30 ug/mg creatinine Microalbuminuria: 30 - 300 ug/mg creatinineClinical Albuminuria: > 300 ug/mg creatinine Urine 07/30/2024 9:45 AM EDT 07/30/2024 11:36 AM EDT us Corin Fry MD LAB URINE ORDERABLES Final Resul t Performing Organization Address [facility] Co de Phone Number [facility] [address] [place] [phone] * ThinPrep Imaging Pap and HPV mRNA E6/E7 (07/30/2024 9:32 AM EDT) HPV nRNA E6/E7 Not Detected Not Detected [facility] Comment:Methodology: Transcr iption-Mediated AmplificationThis assay detects E6/E7 viral messenger RNA (mRNA) from 14high-risk HPV types (16,18,31,33,35,39,45,51,52,56,58,59,66,68).Cervical sources are required for HPV testing.If a vaginal source from a patient who has had atotal hysterectomy with removal of cervix wassubmitted, please contact the testing laboratoryfor alternative testing options.For additional information, please refer [email or web address](This link if provided for information/educational purposes only.)THIS TEST WAS PERFORMED AT:[employer] [address] [id number] HEATH MD SOURCE: SEE NOTE [facility] Comment:None given Report Status: [facility] Clinical Information: SEE NOTE [facility] Comment:None given LMP: SEE NOTE [facility] Comment:NONE GIVEN Prev. PAP: SEE NOTE [facility] Comment:NONE GIVEN Prev. BX: SEE NOTE [facility] Comment:NONE GIVEN Statement Of Adequacy: SEE NOTE [facility] Comment:Satisfactory for macy luation.Endocervical/transformation zone component absent. General Categorization: [facility] Interpretation/Result: SEE NOTE [facility] Comment:Cytology Results: Ne gative for intraepitheliallesion or malignancy. Cytology Comment SEE NOTE [facility] Comment:This Pap test has be en evaluated with computerassisted technology. Security Team Lead: SEE NOTE [facility] Comment:KF, CT(ASCP)CT scree sanya location: [address] [address] Review Security Team Lead: [facility] Pathologist [facility] PAP Infection [facility] See Note SEE [facility] Comment:EXPLANATORY NOTE:The Pap is a screening test for cervical cancer. It isnot a diagnostic test and is subject to false negativeand false positive results. It is most reliable when asatisfactory sample, regularly obtained, is submittedwith relevant clinical findings and history, and whenthe Pap result is evaluated along with historic andcurrent clinical information. 07/30/2024 9:32 AM EDT 07/30/2024 4:14 PM EDT Narrative [facility] - 08/04/2024 2:59 PM EDT SEE SCANNED RESULTS IN EMR us Corin Fry MD LAB PATHOLOGY ORDERABLES Final R esult [facility] [address] [place] [address] [phone] * BI Mammogram Screening Tomosynthesis Bilateral (03/06/2024 3:15 PM EDT) Anatomical Region Laterality Modality Breast Bilateral Mammography 03/06/2024 3:15 PM EDT Narrative 04/06/2024 7:32 AM EDT ? [facility] ? [address] ?[place] [address] ? Mammography Report ? Signed ? Patient: Carmina Cheng ?MR#: ?? [id number] ? : 1960 ?Acct:[id number] ? Age/Sex: 63 / F ?ADM Date: 05/17/24 ? Loc: HO.MAMMO ? Attending Dr: Corin Fry MD ? Ordering Physician: Corin Fry MD ?Results: 1Negative ? Date of Service: /17/24 ?Follow Up: 1 Year From Orig ?? inal Mammogram ? Procedure(s): MM tomosynthesis screening BI ?? Accession Number(s): [id number] ? cc: Corin Fry MD ? EXAMINATION: ?? MM SCREENING DIGITAL BREAST TOMOSYNTHESIS, BILATERAL ? CLINICAL INFORMATION: ? Screening. Asymptomatic. ? COMPARISON: ?? Mammography: There are no prior mammograms for comparison. ? TECHNIQUE: ?? Digital breast tomosynthesis is performed in both the craniocaudal and ?? mediolateral oblique views along with computer-aided detection (CAD). ?? Synthesized 2D images are generated from the tomosynthesis. ? FINDINGS: ?? The breasts are almost entirely fatty (ACR BI-RADS breast composition ?? Category a). ? There are no significant masses, abnormal calcifications, or other ?? abnormalities. ? MM/MM tomosynthesis screening BI ?? IMPRESSION: ?? No mammographic evidence of malignancy. ? ASSESSMENT: ? BI-RADS BI-RADS 1 - Negative ? RECOMMENDATION: ?? Routine annual mammography screening. ? 1 year F/U ? This examination should not preclude the clinical evaluation of a ?? suspicious palpable abnormality. ? This patient's information was entered into a reminder system with a ?? target due date for their next mammogram. ? Dictated By: ?Juanita Ivory MD ? Signed By: ?<Electronically signed by Juanita Ivory MD in OV> ? 04/06/24 0728 ? DD/ 1515 ? TD/TT: ? Manager Mobility: ? Procedure Note Tadeo, Image - 04/06/2024 [facility] [address] [place] [address] Mammography Report Signed Patient: Ara ChengKayla#: [id number] : 2Acct:[id number] Age/Sex: 63 / FADM Date: 03/06/24 Loc: MIGUEL Attending Dr: Corin Fry MD Ordering Physician: Sakurai,Corin MDResults: 1Negative Date of Service: 03/06/24Follow Up: 1 Year From Orig inal Mammogram Procedure(s): MM tomosynthesis screening BI Accession Number(s): [id number] cc: Corin Fry MD EXAMINATION: MM SCREENING DIGITAL BREAST TOMOSYNTHESIS, BILATERAL CLINICAL INFORMATION: Screening. Asymptomatic. COMPARISON: Mammography: There are no prior mammograms for comparison. TECHNIQUE: Digital breast tomosynthesis is performed in both the craniocaudal and mediolateral oblique views along with computer-aided detection (CAD). Synthesized 2D images are generated from the tomosynthesis. FINDINGS: The breasts are almost entirely fatty (ACR BI-RADS breast composition Category a). There are no significant masses, abnormal calcifications, or other abnormalities. MM/MM tomosynthesis screening BI IMPRESSION: No mammographic evidence of malignancy. ASSESSMENT: BI-RADS BI-RADS 1 - Negative RECOMMENDATION: Routine annual mammography screening. 1 year F/U This examination should not preclude the clinical evaluation of a suspicious palpable abnormality. This patient's information was entered into a reminder system with a target due date for their next mammogram. Dictated By: Juanita Ivory MD Signed By: <Electronically signed by Juanita Ivory MD in OV> 04/06/24 0728 DD/ 1515 TD/TT: Manager Mobility: Corin Fry MD IMG BI PROCEDURES Final Result from Last 3 Months or Most Recently Relevant to Health Maintenance Insurance [employer] LIMITED HSN FULL DENTAL[facility] LIMITED ADULT DENTAL - N FULL (MEDICAID) Care Teams Weir Fisherman Relationship Specialty Start Date End Date Corin Fry MD [address] [place] [address] PCP - General Family Medicine 02/26/22 Brendan Artis, TaoD [address] [place] [address] Pharmacist Internal Medicine 10/23/22
--- OUTSIDE RECORDS SUMMARY | 2025-02-24 14:15 | XMS_ITS | Encounter Summary ---
Author Organization [employer] Address [address] [facility] 7t [place] [address] Care Team Providers Care Product Advisor Name Role Phone Corin Fry MD Primary Care Provider [phone] Brendan Artis PharmD Unavailable [phone] Encounter Details Date Type Department Care Team ([facility] Contact Info) Description 03/04/2023 Telephone [facility] MED[facility] [address] [place], [place] [phone] Corin Fry MD [address] [place], [place] [phone] Social History Tobacco Use Types Packs/Day Years Used Date Smoking Tobacco: Former Cigarettes Passive Smoke Exposure: Never Smokeless Tobacco: Never Depression Answer Date Recorded Patient Health Questionnaire-9 Score 0 02/12/2023 Depression Answer Date Recorded Patient Health Questionnaire-2 Score 0 02/12/2023 Comments Unknown Sex and Gender Information Value Date Recorded Sex Assigned at Female 08/20/2022 10:40 AM EDT Legal Sex Female 10:40 AM EDT Gender Identity Female 08/20/2022 10:40 AM EDT Sexual Orientation Choose not to disclose 2021 10:40 AM EDT COVID-19 Exposure Response Date Recorded In the last 10 days, have yo u been in contact with someone who was confirmed or suspected to have Coronavirus/COVID-19? No / Unsure 02/12/2023 3:30 PM EDT documented as of this encounter Plan [...] documented as of this encounter Care Teams Product Advisor Relationship Specialty Start Date End Date Corin Fry MD [address] [place] [address] PCP - General Family Medicine 02/26/22 Brendan Artis, PharmD [address] [place] [address] Pharmacist Internal Medicine 10/23/22 documented as of this encounter
--- OUTSIDE RECORDS SUMMARY | 2025-02-24 14:15 | XMS_ITS | Referral Summary ---
Author Organization [facility] Address [address] [place] [address] Care Team Providers Care Kettle Tender Name Role Phone Corin Fry Primary Care Provider [phone] Encounters Date Type Department Care Team Description 01/08/[address] [address] Ana Gonzales RN 12/29/2024 Orders Only [address] floor Cardiology Medicine [address] [place] [address] Overedger: Farzaneh Peter NP 12/22/2024 Telephone [facility] [address] [address] Rell Phelan Prior Authorization (REPATHA SOLUTION PREFILLED SYRINGE 140 MG/ML - N) 12/21/2024 3:00 PM EST Follow-Up [address] Cardiology Medicine [address] [place] [address] Overedger: Farzaneh Peter NP Hypertension, unspecified type (Primary Dx); Frequent PVCs; Dilated cardiomyopathy 11/27/2024 Prep for Case [facility] [address] [place] [address] Overedger: Surinder Nash MD PhD from Last 3 Months Allergies Active Allergy Reactions Criticality Noted Date Comments Atorvastatin Unknown 03/13/2022 Other reaction(s): Abdominal pain Carrot Oil Rash Low 09/08/2020 Medications metFORMIN ER (GLUCOPHAGE XR) 500 mg tablet Take 1 tablet by mouth every 12 (twelve) hours. 2 Active lisinopriL (PRINIVIL,ZESTR IL) 40 mg tablet Take 1 tablet by mouth daily. 2 Active vitamin D3 25 mcg (1,000 unit) capsule Take by mouth daily. Active blood glucose diagnostic test strip Use as instructed 2 Active amLODIPine (NORVASC) 2.5 mg tablet Take 2.5 mg by mouth once a day. Active FreeStyle [place] Lite meter TEST BLOOD SUGAR EVERY MORNING DIRECTED 2 Active ezetimibe (ZETIA) 10 mg tablet Take 10 mg by mouth once a day. Active omeprazole OTC (PriLOSEC OTC) 20 mg EC tablet Take 20 mg by mouth once a day. Active polyethylene glycol (GoLYTELY) solutionIndicat ions:Colon cancer screening Take according to instructions provided by physician. 4000 mL 4 Active polyethylene glycol (GoLYTELY) solution Refer to prep instructions provided by your physician. Add 1 gallon (128 ounces) of water to the GoLytely/Colyte/ Nulytely container and refrigerate. At 4 PM the day before your procedure, drink one 8-ounce glass of the bowel preparation solution every 10 - 15 minutes until half the container is empty, about 8 glasses. Five (5) hours before your procedure drink one 8-ounce glass of the bowel preparation solution every 10 - 15 minutes until the entire container is empty. Continue to drink clear non-alcoholic liquids up until 2 hours prior to your procedure. 4000 mL 5 02/26/20 25 Active carvediloL (COREG) 12.5 mg tablet Take 1 tablet (12.5 mg total) by mouth 2 times a day with meals. 180 tablet 3 5 Active evolocumab (REPATHA) 140 mg/mL pen injector Inject 1 mL (140 mg total) under the skin every 14 days. 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 Hypertension 02/01/2023 Plantar fasciitis, bilateral 11/06/2022 Social History Tobacco Use Types Packs/Day Years Used Date Smoking Tobacco: Former Cigarettes Smokeless Tobacco: Never Tobacco Cessation:Counseling Given: Not Answered Alcohol Use Standard Drinks/Week Comments Yes 0 (1 standard drink = 0.6 oz pur e alcohol) Occasional Comments No Sex and Gender Information Value Date Recorded Sex Assigned at Female 02/24/2024 10:55 AM EDT Legal Sex Female 11:27 AM EDT Gender Identity Not on file Sexual Orientation Not on file Last Filed Vital Signs Vital Sign Reading Time Taken Comments Blood Pressure 142/84 12/21/2024 2:41 PM EST Pulse 71 12/21/2024 2:41 PM EST Temperature - - Respiratory Rate 18 03/17/2024 2:38 PM EDT Oxygen Saturation 94% 03/17/2024 2:38 PM EDT Inhaled Oxygen Concentration - - Weight 104.3 kg (230 lb) 12/21/2024 2:41 PM EST Height 157.5 cm (5' 2 ) 08/26/2023 2:01 PM EST Body Mass Index 42.07 08/26/2023 2:01 PM EST Plan of Treatment Upcoming Encounters Date Type Department Care Team (Late st Contact Info) Description 12/27/2025 3:00 PM EDT Follow-Up [facility] 4th floor Cardiology Medicine [address] [place] [address] Overedger: Sj Floyd MD [address] [place] [address] Scheduled Procedures Name Priority Associated Diagnoses Date/Ti me COLONOSCOPY SCREENING, LOW R ISK WITH POSSIBLE MODERATE SEDATION Encounter for screening colonoscopy Procedures * Due to [place] [employer] law, this organization might not be sharing negative HIV tests. Procedure Name Priority Date/Time Associated Diagnosis Comments ECG 12-LEAD Routine 12/21/2024 2:39 PM EST Hypertension, unspecified type from Last 3 Months Results * Due to [place] state law, this organization might not be sharing negative HIV tests. * ECG 12 lead (12/21/2024 2:39 PM EST) Ventricular Rate EKG 64 BPM MUSE EKG Atrial Rate 64 BPM MUSE EKG VA Interval 140 ms MUSE EKG QRS Interval 92 ms MUSE EKG QT Interval 392 ms MUSE EKG QTC Interval 404 ms MUSE EKG P [place] 26 degrees MUSE EKG R [place] -27 degrees MUSE EKG T Wave [place] 3 degrees MUSE EKG 12/21/2024 2:39 PM EST 12/22/2024 8:23 AM EST Impressions MUSE EKG - 12/22/2024 8:23 AM EST NORMAL SINUS RHYTHM MINIMAL VOLTAGE CRITERIA FOR LVH, MAY BE NORMAL VARIANT T WAVE ABNORMALITY, CONSIDER ANTERIOR ISCHEMIA ABNORMAL ECG WHEN COMPARED WITH ECG OF 17-MAR-2024 14:47, NO SIGNIFICANT CHANGE WAS FOUND Confirmed by Mono Nam ([id number]) on 12/22/2024 8:23:04 AM us Farzaneh Handley [employer] ECG ORDERABLES Final Result MUSE EKG from Last 3 Months Insurance [facility]/FREE CARE Care Teams Kettle Tender Relationship Specialty Start Date End Date Corin Fry [address] [place] [phone] PCP - General Family Medicine 07/19/22
--- OUTSIDE RECORDS SUMMARY | 2025-02-24 14:15 | XMS_ITS | Clinical Summary ---
Author Organization [facility] Address [address] [place] [address] Care Team Providers Care Door Installer Name Role Phone Corin Fry Primary Care Provider [phone] Allergies Active Allergy Reactions Criticality Noted Date [...] by mouth once a day. Active FreeStyle [place] Lite meter TEST BLOOD SUGAR EVERY MORNING [...] 02/01/2023 Hypertension 02/01/2023 Plantar fasciitis, bilateral 11/06/2022 Encounters Date Type Department Care Team Description 01/08/[address] [facility] [address] [place] [address] Ana Gonzales RN 12/29/2024 Orders Only [address] floor Cardiology Medicine [address] [place] [address] Customer Resolution Specialist: Farzaneh Peter NP 12/22/2024 Telephone [facility] [address] [address] Rell Phelan Prior Authorization (REPATHA SOLUTION PREFILLED SYRINGE 140 MG/ML - N) 12/21/2024 3:00 PM EST Follow-Up [address] floor Cardiology Medicine [address] [place] [address] Customer Resolution Specialist: Farzaneh Peter NP Hypertension, unspecified type (Primary Dx); Frequent PVCs; Dilated cardiomyopathy 11/27/2024 Prep for Case [facility] [address] [place] [address] Customer Resolution Specialist: Surinder Nash MD PhD from Last 3 Months Social History Tobacco Use Types Packs/Day Years [...] Info) Description 12/27/2025 3:00 PM EDT Follow-Up [facility] 4th floor Cardiology Medicine [address] [place] [address] Customer Resolution Specialist: Sj Floyd MD [address] [place] [address] Scheduled Procedures Name Priority Associated Diagnoses Date/Ti me COLONOSCOPY SCREENING, LOW R ISK WITH POSSIBLE MODERATE SEDATION Encounter for screening colonoscopy Health Maintenance Due Date Last Done Comments Cervical Cancer Screening 1960 Cologuard 1960 Colon Cancer Screening 1960 Colonoscopy 1960 FOBT / Fit Test 1960 HPV and Pap Smear 1960 Pap Smear [address] Lung Cancer Screening (Baseline) 2011 RSV Vaccine (60+ years old a nd patients) (1 - Risk 60-74 years 1-dose series) 2021 Mammogram 03/21/2023 03/21/2021, 0610/2020, 03/17/2020, Additional history exists COVID-19 Vaccine (2023-2 5 season) 2024 02/26/2022, 01/24/2021, 12/26/2020 Alcohol/Substance Use Screening 10/21/2024 Depression Screening and Follow-Up 10/21/2024 [employer] ual Screening 10/21/2024 Basic Metabolic Panel 01/04/2025 01/05/2024, 023 Influenza Vaccine (Season Ended) 2025 DTaP,Tdap,and Td Vaccines (2 - Td or Tdap) 11/10/2034 11/10/2024, 11/02/2013 Hepatitis B Vaccines Completed 01/21/2017, 09/21/2016, 08/23/2016 HIV Screening Completed 05/30/2021 Hepatitis C Screening Completed 05/30/2021 Zoster Vaccines Completed 08/01/2021, 05/31/2021 Pneumococcal Vaccine: 50+ Years Completed , 11/02/2013 Procedures * Due to [place] [employer] law, this organization might not be sharing negative HIV tests. Procedure Name Priority Date/Time Associated Diagnosis Comments ECG 12-LEAD Routine 12/21/2024 2:39 PM EST Hypertension, unspecified type from Last 3 Months Results * Due to [place] [employer] law, this organization might not be sharing negative HIV tests. * ECG 12 lead (12/21/2024 2:39 PM EST) Ventricular Rate EKG 64 BPM MUSE EKG Atrial Rate 64 BPM MUSE EKG MI Interval 140 ms MUSE EKG QRS Interval 92 ms MUSE EKG QT Interval 392 ms MUSE EKG QTC Interval 404 ms MUSE EKG P Ringling 26 degrees MUSE EKG R Ring[place] -27 degrees MUSE EKG T Wave [place] 3 degrees MUSE EKG 12/21/2024 2:39 PM EST 12/22/2024 8:23 AM EST Impressions MUSE EKG - 12/22/2024 8:23 AM EST NORMAL SINUS RHYTHM MINIMAL VOLTAGE CRITERIA FOR LVH, MAY BE NORMAL VARIANT T WAVE ABNORMALITY, CONSIDER ANTERIOR ISCHEMIA ABNORMAL ECG WHEN COMPARED WITH ECG OF 17-MAR-2024 14:47, NO SIGNIFICANT CHANGE WAS FOUND Confirmed by Mono Nam ([id number]) on 12/22/2024 8:23:04 AM us Farzaneh Handley AUTO DESIGN CHECKER ECG ORDERABLES Final Result MUSE EKG from Last 3 Months Insurance [facility]/FREE CARE Care Teams Door Installer Relationship Specialty Start Date End Date Corin Fry [address] [place] [phone] PCP - General Family Medicine 07/19/22
--- OUTSIDE RECORDS SUMMARY | 2025-02-24 14:15 | XMS_ITS | Encounter Summary ---
Author Organization [employer] Address [address] [place] [address] 7 [place] [address] Care Team Providers Care Centrifugal Drier Operator Name Role Phone Corin Fry MD Primary Care Provider [phone] Brendan Artis PharmD Unavailable [phone] Encounter Details Date Type Department Care Team (Late st Contact Info) Description 06/26/2023 Orders Only [facility] MEDICINE [address] [place], [place] [phone] Corin Fry MD [address] [place] [address] Chronic foot pain, right (Primary Dx); Plantar fasciitis, bilateral Social History Tobacco Use Types Packs/Day Years [...] as of this encounter Visit Diagnoses Diagnosis Chronic foot pain, right- Primary Plantar fasciitis, bilateral documented in this encounter Additional Health Concerns Assessment Noted Time PHQ-9 Depression Total Score: 0 02/13/20 23 4:09 PM EDT documented as of this encounter Care Teams Centrifugal Drier Operator Relationship Specialty Start Date End Date Corin Fry MD [address] [place] [address] PCP - General Family Medicine 02/26/22 Brendan Artis, TaoD [address] [place] [address] Pharmacist Internal Medicine 10/23/22 documented as of this encounter
--- OUTSIDE RECORDS SUMMARY | 2025-02-24 14:15 | XMS_ITS | Encounter Summary ---
Author Organization [employer] Address [address] [facility] 7t [place] [address] Care Team Providers Care Counsellors Name Role Phone Corin Fry MD Primary Care Provider [phone] Brendan Artis PharmD Unavailable [phone] Encounter Details Date Type Department Care Team ([facility] st Contact Info) Description 09/25/2024 Orders Only [facility] MEDICINE [address] [place], [place] [phone] Corin Fry MD [address] [place], [place] [phone] Mixed hyperlipidemia (Primary Dx) Social History Tobacco Use Types [...] Artis, PharmD documented as of this encounter Procedures Procedure Name Priority Date/Time Associated Diagnosis Comments LIPID PANEL WITH REFLEX TO DIRECT LDL Routine 09/25/2024 12:15 PM EST Mixed hyperlipidemia documented in this encounter Results * (ABNORMAL) Lipid Panel with Reflex to Direct LDL (09/25/2024 12:15 PM EST) Triglycerides 118 <150 mg/dL [facility] Comment:Desirable Triglyceri de: less than 150 mg/dLBorderline High Triglyceride 150-199 mg/dLHigh Triglyceride: 200-499 mg/dLVery High Triglyceride: greater than or equal to 5OO mg/dL Cholesterol 269(H) <200 mg/dL [facility] Comment:Desirable Cholestero l: less than 200 mg/dLBorderline High Cholesterol: 200-239 mg/dLHigh Cholesterol: greater than 239 mg/dL LDL Cholesterol Calculated 181(H) <100 mg/dL [facility] Comment:Desirable LDL: less than 100 mg/dLNear Optimal/Above Optimal LDL: 110- 129 mg/dLBorderline High LDL: 130-159 mg/dLHigh LDL: 160-189 mg/dLVery High LDL: greater than or equal to 190 mg/dL HDL Cholesterol 65 >40 mg/dL [facility] Comment:Desirable HDL: great er than 40 mg/dL Note: This HDL assay may give artificially low results in patients with liver disease. Blood 09/25/2024 12:1 5 PM EST 09/25/2024 12:55 PM EST us Corin Fry MD LAB BLOOD ORDERABLES Final Resul t [facility] [address] [place] [address] [phone] documented in this encounter Visit Diagnoses Diagnosis Mixed hyperlipidemia- Primary documented in this encounter Additional Health Concerns Assessment Noted Time PHQ-9 Depression Total Score: 0 07/30/20 24 9:12 AM EDT documented as of this encounter Care Teams Counsellors Relationship Specialty Start Date End Date Corin Fry MD [address] [place] [address] PCP - General Family Medicine 02/26/22 Brendan Artis, PharmD [address] [place] [address] Pharmacist Internal Medicine 10/23/22 documented as of this encounter
== END 2025-02-24 13:03 | disposition home or self-care (01) ==
LOC: HO.XRAY 13:02
PROVIDERS: PCP Family Medicine; Visit Provider Family Medicine
DX: M25.562 Pain in left knee (principal); G89.29 Other chronic pain
CPT/HCPCS: 73564

== ENCOUNTER → 2025-02-24 13:09 | Outpatient (BNV) | payer SELFPAY | PROVIDERS: PCP Family Medicine; Visit Provider Radiology Diagnostic Radiology | DX: M25.562 Pain in left knee (principal); R22.42 Localized swelling, mass and lump, left lower limb | CPT/HCPCS: 73564 ==

== ENCOUNTER 2025-03-19 12:49 | Outpatient (REF) | payer MEDICAID, OTHER, SELFPAY ==
--- OUTSIDE RECORDS SUMMARY | 2025-03-19 13:04 | XMS_ITS | Encounter Summary ---
Author Organization [employer] Address [address] [place] [address] Care Team Providers Care Sap Grc Security Name Role Phone Corin Fry MD Primary Care Provider [phone] Brendan Artis PharmD Unavailable [phone] Reason for Referral * Imaging (Routine) - Closed Specialty Diagnoses / Procedures Referred By Contac t Referred To Contact Radiology Diagnoses Left lower quadrant pain Procedures CT Abdomen Pelvis w/ Contrast Brock Hitchcock MD [address] [place] [address] Phone: tel: fax: [address] Phone: tel: fax: Referral ID Status Reason Start Date Expiration Date Visits Re quested Visits Authorized [id number] Closed 01/03/2024 01/02/2025 1 1 Encounter Details Date Type Department Care Team (Late st Contact Info) Description 01/02/2024 Orders Only [facility] [address] [place] [address] Brock Hitchcock MD [address] [place] [address] Left lower quadrant pain (Primary Dx) Social [...] documented as of this encounter Care Teams Sap Grc Security Relationship Specialty Start Date End Date Corin Fry MD [address] [place] [address] PCP - General Family Medicine 02/26/22 Brendan Artis, PharmD [address] [place], [place] [address] [address] Pharmacist Internal Medicine 10/23/22 documented as of this encounter
== END 2025-03-19 12:50 | disposition home or self-care (01) ==
LOC: HO.MAMMO 12:49
PROVIDERS: PCP Family Medicine; Visit Provider Family Medicine
DX: Z12.31 Encounter for screening mammogram for malignant neoplasm of breast (principal)
CPT/HCPCS: 77063; 77067

== ENCOUNTER → 2025-03-19 13:15 | Outpatient (BNV) | payer SELFPAY | PROVIDERS: PCP Family Medicine; Visit Provider Internal Medicine | DX: Z12.31 Encounter for screening mammogram for malignant neoplasm of breast (principal) | CPT/HCPCS: 77063; 77067 ==

== ENCOUNTER 2025-04-21 04:20 | Emergency (ER) | payer MEDICAID, OTHER, SELFPAY ==
[2025-04-21] VITALS (10 sets, daily range): BP systolic 128–150; BP diastolic 70–84; PULSE 56–74; RESP 12–18; TEMP 36.6–36.8; O2SAT 82–98; BMI 42.1
--- NOTE | ~2025-04-21 | CT_ITS ---
CLINICAL HISTORY: R flank pain CT abdomen and pelvis without contrast Comparison: None provided Findings: CT abdomen: Minor scarring or atelectasis within the lung bases without infiltrate or pleural effusion. No acute bony lesions. There is degenerative change scattered throughout the thoracolumbar spine, especially at L4-5 and L5-S1. Moderate right hydronephrosis and right proximal hydroureter. This is secondary to a 4.5 mm calculus within the right ureter located 6.5 cm distal to the right renal pelvis. Prominent perinephric stranding and periureteral edema the level of the stone in at the level of the stone. The right ureter distal to the ureteral calculus is decompressed. Curvilinear calcification within the right renal hilum measures 8 mm in round diameter. This may be within the collecting system be related to the vasculature. No stones are seen within the left kidney. No left hydronephrosis. There is a 5 mm hypodensity within the periphery of the right lobe of the liver, likely a cyst. Unenhanced liver is otherwise unremarkable. Unenhanced spleen, pancreas, gallbladder, and adrenal glands are unremarkable. Small hiatal hernia. Mild left ventricular dilation. No dilated small bowel. CT pelvis: Appendix is normal. Scattered diverticuli throughout the colon without findings of diverticulitis. No free fluid or free air. No bladder calculi. IMPRESSION: Moderate right hydronephrosis secondary to a proximal to mid right ureteral calculus. This document has been electronically signed by: Saulo Nguyen MD on 04/21/2025 07:42:20
--- NOTE | 2025-04-21 04:40 | ECG_ITS ---
Test Reason : ABDOMINAL PAIN Blood Pressure : */* mmHG Vent. Rate : 57 BPM Atrial Rate : 57 BPM P-R Int : 154 ms QRS Dur : 100 ms QT Int : 402 ms P-R-T Axes : 10 -15 1 degrees QTcB Int : 391 ms Baseline wander Sinus bradycardia No previous ECGs available Referred By: Autumn Alcantar Electronically Signed By: COLBY MORA MD
[2025-04-21 05:20] LABS: MANUAL DIFF FLAG NO
[2025-04-21 05:21] LABS: Hematocrit 36.2 % (37.0-47.0); Hemoglobin 12.0 g/dl (12.0-16.0); Imm Gran Abs Auto 0.03 X10*3/uL (0.00-0.03); Imm Gran Pct Auto 0.4 % (0.0-0.4); Lymphocytes Absolute Auto 2.3 X10*3/uL (1.2-4.9); Mean Corpuscular HGB Conc 33.1 g/dl (31.0-35.0); Mean Corpuscular Hemoglobin 26.1 pg (27.0-33.0); Mean Corpuscular Volume 78.9 fL (80.0-98.0); NRBC Abs Auto 0.000 X10*3/uL (0.0-0.012); NRBC Pct Auto 0.0 /100WBC (0.0-0.2); Platelet Count 292 X10*3/uL (160-400); Red Blood Count 4.59 X10*6/uL (4.20-5.50); White Blood Count 7.7 X10*3/uL (4.8-10.8)
--- NOTE | 2025-04-21 05:27 | ED.ABDPAIN ---
HPI - Abdominal Pain General Chief Complaint: Abdominal Pain Stated Complaint: abd pain Time Seen by Provider: 04/21/25 04:32 Source: patient and old records reviewed Mode of arrival: ambulatory Limitations: no limitations History of Present Illness ED Provider: PRAFUL DORADO narrative: 64 yo female with PMH of renal colic, GERD, HTN, DM who presents with c/o feeling some pain on R side of abdomen a couple of days ago then tonight out of nowhere it got abruptly worse. No fevers. She has no diarrhea. She c/o nausea but no vomiting. She has no issues urinating. She took no medications. She states she has hx of stones but she doesn't remember it like this. MD elicited complaint: abdominal pain and flank pain Pertinent past history: kidney stones Onset (ago): hour(s) (230am today) Pain Consistency: constant Location: R flank Severity: severe Quality: stabbing Radiation: RLQ Migration to: no migration Exacerbating factors: nothing Relieving factors: nothing Associated symptoms: nausea Related Data Previous Rx's ?Medication ?Instructions ?Recorded ketorolac 10 mg tablet 10 mg PO TID PRN pain 5 days #10 05/26/22 tabs ondansetron HCl 4 mg tablet 4 mg PO Q6H PRN nausea and 05/26/22 vomiting #10 tabs tamsulosin 0.4 mg capsule (Flomax) 0.4 mg PO DAILY #10 caps 05/26/22 pantoprazole 40 mg tablet,delayed 40 mg PO DAILY #30 tabs 01/05/24 release (Protonix) sucralfate 1 gram tablet 1 g PO TID #90 tabs 01/05/24 ondansetron HCl 4 mg tablet 4 mg PO Q8H PRN nausea and 04/21/25 vomiting 3 days #9 tabs oxycodone 5 mg tablet 5 mg PO Q8H PRN pain #9 tabs 04/21/25 prednisone 20 mg tablet 20 mg PO DAILY 7 days #7 tabs 04/21/25 tamsulosin 0.4 mg capsule 0.4 mg PO BEDTIME 2 weeks #14 caps 04/21/25 Allergies Allergy/AdvReac Type Severity Reaction Status Date / Time No Known Allergies Allergy Verified 04/21/25 04:26 Review of Systems Review of Systems Constitutional : No Weight loss, No Fever, No Chills ENT/Mouth : No sore throat, No Rhinorrhea Eyes: No Swelling, No Redness Cardiovascular : No Chest Pain, No SOB, NoEdema Respiratory : No Cough, No Sputum, No Wheezing Gastrointestinal : Positive Nausea, no Vomiting, no Diarrhea, positive abdominal Pain, No Hematochezia, No Melena Genitourinary : No Dysuria, No Urinary Frequency, No Hematuria, No Urgency Musculoskeletal : No joint pain, No Myalgias, No Joint Swelling Skin : No Skin Lesions, No rash Neuro : No Weakness, No Numbness, No Dizziness, No Headache All other systems reviewed and are negative. [facility] Past Medical History Attestation statement: The following information was validated with the patient. Source: old records reviewed Medical History Kidney stone Social History Social History Alcohol intake: current Alcohol intake frequency: holidays/special occasions only Patient Tobacco Use Status: Never used Tobacco Smoked in Last 30 Days: No Use of substances other than those prescribed or required for medical reasons: No Advance Directives: No Do you have a plan to hurt others: No Plan Physical Exam ED Vital Signs: Vital Signs - 24 hr 04/21/25 04:23 04/21/25 05:17 04/21/25 05:22 Temperature 98.3 F 98.1 F Pulse Rate 74 71 Respiratory Rate 16 18 18 Blood Pressure 148/83 H 150/84 H Pulse Oximetry 98 98 Oxygen Delivery Method Room Air Room Air Oxygen Flow Rate 04/21/25 08:00 04/21/25 08:39 04/21/25 08:43 Temperature 97.8 F Pulse Rate 65 Respiratory Rate 18 12 Blood Pressure 128/70 Pulse Oximetry 91 L 82 L Oxygen Delivery Method Room Air Room Air Oxygen Flow Rate 04/21/25 08:45 04/21/25 10:35 04/21/25 12:29 Temperature 98 F 98 F Pulse Rate 64 56 Respiratory Rate 12 12 Blood Pressure 138/73 140/84 H Pulse Oximetry 94 97 98 Oxygen Delivery Method Nasal Cannula Room Air Oxygen Flow Rate 2 BMI result Body Mass Index 42.1 Appearance: Alert. Oriented X3. No acute distress. Eyes: Pupils equal, round and reactive to light. ENT: Pharynx normal. Neck: Normal inspection. Neck supple. CVS: Normal heart rate and rhythm. Pulses normal. Respiratory: No respiratory distress. Breath sounds normal. Abdomen: Soft and mild ttp in R abdomen but not RLQ it is mid abdomen to flank neg valles's sign Skin: Skin warm and dry. Normal skin color. Normal skin turgor. Extremities: No lower extremity edema. No calf ttp Neuro: Oriented X 3. No motor deficit. No sensory deficit. CN2-12 intact Course Course Course Narrative: signed out to Emiliana WILD pending reassessment Reevaluation(s) Reevaluation #1: I resumed care of patient this morning sign out from Dr. Alcantar. On re-evaluation patient was found to have a 4.5 mm stone of the right ureter, with hydronephrosis and hydroureter. UA negative for infection, reveals 1+ urine blood, 6-10 RBCs per HPF. Patient has been medicated with morphine, and Dilaudid. Last dose of Dilaudid given at 8 this morning. Now upon re-evaluation of patient's pain, patient is able to tolerate pain well. Believes that she can go home for self-care. I reached out to urologist Dr. Palma and discussed plan for follow up in his office, and sending patient home on 7 days of 20 mg prednisone, 2 weeks of .4 Tamsulosin, 3 days of oxycodone and zofran for managment of pain and nausea at home. Time: 11:39 Reevaluation #2: medicating at this time with 30mg IV toradol before discharge. Dr. Palma agrees with plan for discharge home on the medications stated above. Patient counceled on strict return precautions and importance of following up with urology and PCP Time: 12:26 Medical Decision Making Medical Decision Making [facility] Narrative: 64 yo female with PMH of renal colic, GERD, HTN, DM who has R sided flank/abd pain at this time she does have hx of stones and notes pain became abrupt will obtain labs, CT scan for renal colic, IV morphine for pain. Possible bowel pathology, biliary colic, renal colic. Differential Diagnosis Differential Diagnoses: The differential diagnosis associated with the presentation includes renal colic, biliary colic, enteritis Admission/Observation Consideration of admission/observation: Escalation of care including admission/observation considered repeat IV dilaudid for pain Lab Data [facility] Lab Attestation statement: I reviewed the patient's lab results. 04/21/25 05:15 04/21/25 05:15 Labs: Lab Results 04/21/25 04/21/25 Range/Units 05:15 06:27 WBC 7.7 (4.8-10.8) X10*3/uL RBC 4.59 (4.20-5.50) X10*6/uL Hgb 12.0 (12.0-16.0) g/dl Hct 36.2 L (37.0-47.0) % MCV 78.9 L (80.0-98.0) fL MCH 26.1 L (27.0-33.0) pg MCHC 33.1 (31.0-35.0) g/dl RDW 15.1 (11.0-16.0) % Plt Count 292 (160-400) X10*3/uL MPV 9.4 (9.4-12.3) fL Immature Gran % (Auto) 0.4 (0.0-0.4) % Neut % (Auto) 58.5 (45-73) % Lymph % (Auto) 30.0 (20-40) % [place] % (Auto) 8.3 (2-11) % Eos % (Auto) 2.5 (0-4) % Baso % (Auto) 0.3 (0-2) % Lymph # (Auto) 2.3 (1.2-4.9) X10*3/uL [place] # (Auto) 0.6 (0.1-1.2) X10*3/uL Eos # (Auto) 0.2 (0.0-0.4) X10*3/uL Baso # (Auto) 0.0 (0.0-0.2) X10*3/uL Abs Immat Gran (auto) 0.03 (0.00-0.03) X10*3/uL Absolute Neuts (auto) 4.5 (2.0-8.3) x10*3/uL Absolute Nucleated RBC 0.000 (0.0-0.012) X10*3/uL Nucleated RBC % (auto) 0.0 (0.0-0.2) /100WBC Sodium 142 (135-145) mmol/L Potassium 3.6 (3.3-5.1) mmol/L Chloride 104 (96-108) mmol/L Carbon Dioxide 28 (22-29) mmol/L Anion Gap 14 (12-20) BUN 18 H (9-16) mg/dL Creatinine 0.74 (0.5-1.4) mg/dL Estim Creat Clear Calc 88.1 Estimated GFR > 60 Random Glucose 130 H (60-115) mg/dL Calcium 9.7 (8.4-10.2) mg/dL Magnesium 1.7 (1.6-2.6) mg/dL Total Bilirubin 0.2 (0.0-1.0) mg/dL Direct Bilirubin < 0.2 (0.0-0.5) mg/dL AST 19 (5-31) U/L ALT 13 (0-31) U/L Alkaline Phosphatase 93 (39-117) U/L Total Protein 6.7 (6.5-8.0) g/dL Albumin 4.1 (3.5-5.0) g/dL Lipase 17 (8-78) U/L Urine Color Straw Urine Appearance Clear Urine pH 6.0 (5.0-9.0) Ur Specific [place] 1.020 (1.005-1.025) Urine Protein Negative (Neg-Trace) mg/dL Urine Glucose (UA) Negative (Negative) mg/dL Urine Ketones Negative (Negative) mg/dL Urine Blood Small (1+) H (Negative) Urine Nitrite Negative (Negative) Ur Leukocyte Esterase Negative (Negative) Urine RBC 6-10 H (0-2) /HPF Urine WBC 0-5 (0-5) /HPF Ur Squamous Epith Cells 0-2 (0-2) /HPF Urine Bacteria None Seen (None Seen) Hyaline Casts 0-2 (0-2) /LPF Independent Interpretation I performed an independent interpretation of an: EKG and CT Scan (R ureterolithiasis) Interpretation: Rate: 57 Rhythm: sinus bradycardia [place]: left Normal P waves. Normal SABINE. Normal QRS complex. ST T wave : no VANESSA artifact noted, qTC: 391 prior studies: no prior The study has been interpreted contemporaneously by me. . Radiology Impression Discussion of test interpretation with radiology: I have reviewed the radiologist's reading. Independent Historian Clinical information obtained from an independent historian. History obtained from or confirmed by: Spouse External Record Review External record reviewed: Outpatient record and Prior outpatient labs Medications Administered Discontinued Medications Generic Name Dose Route Start Last Admin Trade Name Rosa PRN Reason Stop Dose Admin Hydromorphone HCl 0.5 mg 04/21/25 07:50 04/21/25 08:00 Hydromorphone Hcl 0.5 Mg/0.5 Ml Syringe IVPUSH 04/21/25 07:51 0.5 mg ONCE ONE Administration Protocol Ketorolac Tromethamine 30 mg 04/21/25 12:25 04/21/25 13:02 Ketorolac Tromethamine 30 Mg/Ml Vial IVPUSH 04/21/25 12:26 30 mg ONCE ONE Administration Morphine Sulfate 4 mg 04/21/25 05:12 04/21/25 05:17 Morphine Sulfate 4 Mg/Ml Cartridge IVPUSH 04/21/25 05:13 4 mg ONCE ONE Administration Protocol Ondansetron HCl 4 mg 04/21/25 05:12 04/21/25 05:18 Ondansetron Hcl 4 Mg/2 Ml Vial IVPUSH 04/21/25 05:13 4 mg ONCE ONE Administration Discharge Plan Discharge Clinical Impression: Ureterolithiasis Patient Disposition: Home, Self-Care Instructions: Low Oxalate Diet (ED), Hydronephrosis (ED), Ureteral Stones (ED) Additional Instructions: You were evaluated in the ED today due to right-sided abdominal pain. Your labs are normal, your urine did not show any signs of infection. You had a CAT scan done of your abdomen and pelvis which revealed a 4.5 mm stone located in your right ureter. This is what is causing your right-sided abdominal pain. You were medicated with 4 mg of morphine and then 0.5 mg of Dilaudid for pain control. I put a referral into our Urology team for you to follow up with. You need to call their office to make an appointment. You should also follow up with your PCP to ensure improvement. You will be prescribed a 7 day course of a steroid called prednisone, this will help with inflammation of your ureter. Two weeks of a medication called tamsulosin which will help to relax the smooth muscle of your ureter and allow you to pass the stone more easily and with less pain. Three days of oxycodone which you should use for breakthrough pain when Tylenol and Motrin are not controlling pain. And 3 days of Zofran to use when you feel nauseous while your body passes the stone. You should manage your pain with Tylenol and Motrin every 6 hours, you can use oxycodone for breakthrough pain when these medications are not managing your pain well. Oxycodone is an opiate medication, and has a risk for dependence. Please only use this medication when your pain is severe. Do not drive or operate heavy machinery while on this medication. Please return to the emergency department if you experience fevers over 100.4?, worsening abdominal pain, worsening back pain, severe pain with urination, unable to urinate, pain that is not controlled with medication, blood in the urine, chest pain, shortness of breath, vomiting, or any other new/concerning/worsening symptoms Prescriptions: New prednisone 20 mg tablet 20 mg PO DAILY 7 Days Qty: 7 0RF ondansetron HCl 4 mg tablet 4 mg PO Q8H PRN (Reason: nausea and vomiting) 3 Days Qty: 9 0RF tamsulosin 0.4 mg capsule 0.4 mg PO BEDTIME 14 Days Qty: 14 0RF oxycodone 5 mg tablet 5 mg PO Q8H PRN (Reason: pain) Qty: 9 0RF Rx Instructions: Partial Fill upon patient request. No Action ketorolac 10 mg tablet 10 mg PO TID PRN (Reason: pain) 5 Days Qty: 10 0RF Rx Instructions: Do not take this medication with any NSAIDs tamsulosin [Flomax] 0.4 mg capsule 0.4 mg PO DAILY Qty: 10 0RF ondansetron HCl 4 mg tablet 4 mg PO Q6H PRN (Reason: nausea and vomiting) Qty: 10 0RF pantoprazole [Protonix] 40 mg tablet,delayed release (DR/EC) 40 mg PO DAILY Qty: 30 2RF sucralfate 1 gram tablet 1 g PO TID Qty: 90 0RF Referrals: [facility] [Provider Group, Urology] Print Language: Japanese
[2025-04-21 05:44] LABS: Alanine Aminotransferase 13 U/L (0-31); Albumin Level 4.1 g/dL (3.5-5.0); Alkaline Phosphatase 93 U/L (39-117); Anion Gap 14 (12-20); Aspartate Amino Transferase 19 U/L (5-31); Blood Urea Nitrogen 18 mg/dL (9-16); Calcium 9.7 mg/dL (8.4-10.2); Carbon Dioxide 28 mmol/L (22-29); Chloride 104 mmol/L (96-108); Creatinine Clr Calc Pharmacy 88.1; Estimated Glomerular Filt Rate > 60; Lipase 17 U/L (8-78); Magnesium 1.7 mg/dL (1.6-2.6); Potassium 3.6 mmol/L (3.3-5.1); Sodium 142 mmol/L (135-145); Total Protein 6.7 g/dL (6.5-8.0)
--- OUTSIDE RECORDS SUMMARY | 2025-04-21 06:00 | XMS_ITS | Referral Summary ---
Author Organization [facility] Address [address] [place] [address] Care Team Providers Care Bus Driver Supervisor Name Role Phone Corin Fry Primary Care Provider [phone] Encounters Date Type Department Care Team Description 04/09/2025 2:30 PM EDT - 04/09/2025 3:05 PM EDT Surgery [facility] [address] [place] [address] Sharif Jensen MD COLONOSCOPY SCREENING, LOW RISK WITH POSSIBLE MODERATE SEDATION [45838 (CPT )] 04/09/2025 2:57 PM EDT Anesthesia Event [facility] [address] [place] [address] Shelli Jauregui MD 04/09/2025 1:42 PM EDT - 04/09/2025 3:49 PM EDT Hospital Encounter [facility] [address] [place] [address] Sharif Jensen MD Encounter for screening colonoscopy Discharge Disposition: Home or Self Care () 04/01/2025 Telephone [facility] [address] [place] [address] Padmaja Gabriel RN 03/01/2025 Prep for Case [facility] [address] [place] [address] Sharif Jensen MD 02/26/2025 Telephone [facility] [address] [place] [id number] Wire Stitcher Machine: Melinda Red NP from Last 3 Months Allergies Active Allergy Reactions Criticality Noted Date Comments Atorvastatin Unknown 03/13/2022 Other reaction(s): Abdominal pain Carrot Oil Rash Low 09/08/2020 Medications metFORMIN ER (GLUCOPHAGE XR) 500 mg tablet Take 1 tablet by mouth every 12 (twelve) hours. 2 Active lisinopriL (PRINIVIL,ZEST RIL) 40 mg tablet Take 1 tablet by mouth daily. 2 Active vitamin D3 25 mcg (1,000 unit) capsule Take by mouth daily. Active blood glucose diagnostic test strip Use as instructed 2 Active FreeStyle Slocomb Lite meter TEST BLOOD SUGAR EVERY MORNING DIRECTED 2 Active ezetimibe (ZETIA) 10 mg tablet Take 10 mg by mouth once a day. Active omeprazole OTC (PriLOSEC OTC) 20 mg EC tablet Take 20 mg by mouth once a day. Active carvediloL (COREG) 12.5 mg tablet Take 1 tablet (12.5 mg total) by mouth 2 times a day with meals. 180 tablet 3 5 Active amLODIPine (NORVASC) 10 mg tablet SMARTSI Tablet(s) By Mouth Daily 5 Active amLODIPine (NORVASC) 2.5 mg tablet Take 2.5 mg by mouth once a day. 025 Discontin ued(Stop Taking at Discharge ) polyethylene glycol (GoLYTELY) solutionIndica tions:Colon cancer screening Take according to instructions provided by physician. 4000 mL 4 025 Discontin ued(Stop Taking at Discharge ) evolocumab (REPATHA) 140 mg/mL pen injector Inject 1 mL (140 mg total) under the skin every 14 days. 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 Hypertension 02/01/2023 Plantar fasciitis, bilateral 11/06/2022 Social History Tobacco Use Types Packs/Day Years Used Date Smoking Tobacco: Former Cigarettes S tarted: 10/21/2018 Smokeless Tobacco: Never Tobacco Cessation:Counseling Given: Not Answered Alcohol Use Standard Drinks/Week Comments Yes 0 (1 standard drink = 0.6 oz pur e alcohol) Occasional <month Comments No Sex and Gender Information Value Date Recorded Sex Assigned at Female 02/24/2024 10:55 AM EDT Legal Sex Female 11:27 AM EDT Gender Identity Not on file Sexual Orientation Not on file Last Filed Vital Signs Vital Sign Reading Time Taken Comments Blood Pressure 117/62 04/09/2025 3:45 PM EDT Pulse 63 04/09/2025 3:45 PM EDT Temperature 36 C (96.8 F) 04/09/2025 3:15 PM EDT Respiratory Rate 15 04/09/2025 3:45 PM EDT Oxygen Saturation 99% 04/09/2025 3:45 PM EDT Inhaled Oxygen Concentration - - Weight 99.8 kg (220 lb) 04/09/2025 2:26 PM EDT Height 157.5 cm (5' 2 ) 04/09/2025 2:26 PM EDT Body Mass Index 40.24 04/09/2025 2:26 PM EDT Plan of Treatment Upcoming Encounters Date Type Department Care Team (Late st Contact Info) Description 12/27/2025 3:00 PM EDT Follow-Up [facility] 4th floor Cardiology Medicine [address] [place] [id number] Wire Stitcher Machine: Sj Floyd MD [address] [place] [address] [phone] Procedures * Due to [place] state law, this organization might not be sharing negative HIV tests. Procedure Name Priority Date/Time Associated Diagnosis Comments POCT GLUCOSE Routine 04/09/2025 3:26 PM EDT TISSUE EXAM Routine 04/09/2025 3:13 PM EDT Encounter for screening colonoscopy LA COLONOSCOPY FLX DX W/COLLJ SPEC WHEN PFRMD 04/09/2025 2:58 PM EDT Encounter for screening colonoscopy POCT GLUCOSE Routine 04/09/2025 2:37 PM EDT COLONOSCOPY 04/09/2025 from Last 3 Months Results * Due to [place] state law, this organization might not be sharing negative HIV tests. * POCT Glucose, interfaced (04/09/2025 3:26 PM EDT) Only the most recent of2 resultswithin the time period is included. Glucose, POCT 98 70 - 99 mg/dL 04/09/2025 3:27 PM EDT [facility] Comment: The enterprise solutions architect has not determined the efficacy of this test in Critically ill patients. [facility] defines Critically ill patients for the purpose of blood glucose monitoring (BGM) by glucometer, as patients meeting one or more of the following criteria: Hypotension- non-ICU patients (systolic blood pressure Less than 90 mmHg) due to shock Hypotension -ICU patients (Mean Arterial Pressure (MAP) <60 mmHg or systolic blood pressure < 90 mmHg due to shock Patients receiving Vasopressors (phenylephrine, vasopressin or norepinephrine) Anasarca In all locations, BGM test results should not be relied upon in the above situations, unless these results confirmed with lab-based glucose values. Blood 04/09/2025 3:26 PM EDT 04/09/2025 3:27 PM EDT us hSarif Jensen MD LAB POCT ORDERABLES - DEVICE Fin al Result [facility] [address] [place] [address], * Tissue Exam (04/09/2025 3:13 PM EDT) Final Diagnosis Colon (Transverse), Polypectomy: - Tubular adenoma. [facility] MANUAL 04/12/2025 10:55 AM EDT [facility] at 1055 EDT Clinical History Pre-op diagnosis: Encounter for screening colonoscopy [Z12.11] [facility] [[email or web address]] MANUAL 04/12/2025 10:55 AM EDT [facility] Gross Description 1. Large Intestine, Transverse Colon The specimen is received in formalin, labeled with the patient s name, medical record number, date of and T ransverse Polyp x 1 . It consists of one 0.4 x 0.2 x 0.2 hobbs-pink soft tissue fragment. [facility]SS. [facility] [[email or web address]] MANUAL 04/12/2025 10:55 AM EDT [facility] Gross Description User Grossing complete by Wilber Lara MD on 04/10/2025 12:37 PM [facility] [[email or web address]] MANUAL 04/12/2025 10:55 AM EDT [facility] Embedded Images [facility] [[email or web address]] MANUAL 04/12/2025 10:55 AM EDT [facility] Resulting Agency Case was signed out at [facility], Department of Pathology, [employer] 3 CLIA [id number] [facility] [[email or web address]] MANUAL 04/12/2025 10:55 AM EDT [facility] Report Header Surgical Pathology Report Case: [id number] Authorizing Provider: Sharif Jensen MD Collected: 04/09/2025 1513 Ordering Location: [facility] Received: 04/09/2025 1643 [facility] Endoscopy Pathologist: Reuben Prince MD Specimen: Large Intestine, Transverse Colon, Transverse Polyp x 1 04/12/2025 10:55 AM EDT [facility] ProVation Case Yes [facility] [[email or web address]] MANUAL 04/12/2025 10:55 AM EDT [facility] SURGICAL CSN Component [id number] [facility] [[email or web address]] MANUAL 04/12/2025 10:55 AM EDT [facility] Polyp Entire transverse colon / Unknown 04/09/2025 3:13 PM EDT 04/09/2025 4:43 PM EDT Comment:Pre-op diagnosis: Encounter for screening colonoscopy [Z12.11] us Sharif Jensen MD LAB PATHOLOGY/CYTOLOGY ORDERABLE S Final Result [facility] [address] [place] [address], [place] * COLONOSCOPY (04/09/2025) Narrative Procedure Note Sharif Jensen MD - 04/09/2025 2:36 PM EDT [facility] Gastroenterology Patient Name: Carmina Ortiz Procedure Date: 04/09/2025 2:36 PM Date of : 1960 Admit Type: Outpatient Age: 64 Room: [place] [address] Gender: Female Note Status: Finalized Attending MD: Sharif Jensen MD Procedure: Colonoscopy Indications: Screening for colorectal malignant neoplasm Comorbidities Providers: Sharif Jensen MD Referring MD: Requesting Provider: Medicines: Propofol per Anesthesia Complications: No immediate complications. Estimated Blood Loss: Estimated blood loss: none. Procedure: Pre-Anesthesia Assessment: - The risks and benefits of the procedure and the sedation options and risks were discussed with the patient. All questions were answered and informed consent was obtained. After I obtained informed consent, the scope was passed under direct vision. Throughout theprocedure, the patient's blood pressure, pulse, and oxygen saturations were monitored continuously. The Colonoscope was introduced through the anus and advanced to the cecum, identified by appendiceal orifice and ileocecal valve. The colonoscopy was performed without difficulty. The patient tolerated the procedure well. The quality of the bowel preparation was good. Findings: The perianal and digital rectal examinations were normal. Two sessile polyps were found in the transverse colon. The polypswere 3 to 6 mm in size. These polyps were removed with a cold snare.Resection was complete, but the polyp tissue was only partially retrieved. A few small-mouthed diverticula were found in the sigmoid colon. Internal hemorrhoids were found during retroflexion. The exam was otherwise without abnormality on direct and retroflexion views. Impression: - Two 3 to 6 mm polyps in the transverse colon, removed with a cold snare. Complete resection.Partial retrieval. - Diverticulosis in the sigmoid colon. - Internal hemorrhoids. - The examination was otherwise normal on directand retroflexion views. Recommendation: - Discharge patient to home. - Resume previous diet. - Continue present medications. - Await pathology results. - Repeat colonoscopy in 5 years for surveillance. - Return to referring physician as previously scheduled. Sharif Jensen MD 04/09/2025 3:14:42 PM This report has been signed electronically. Number of Addenda: 0 Note Initiated On: 04/09/2025 2:36 PM us Sharif Jensen MD PROVATION PROCEDURES Final Resul t from Last 3 Months Insurance [facility] HSNO/FREE CARE Care Teams Bus Driver Supervisor Relationship Specialty Start Date End Date Corin Fry [address] [place] [id number] PCP - General Family Medicine 07/19/22
[2025-04-21 06:33] LABS: Appearance Urine Clear; Glucose Urine UA Negative (Negative); PH 6.0 (5.0-9.0); Specific Gravity - Urine 1.020 (1.005-1.025); UMIC TRIGGER UACC YES
== END 2025-04-21 13:52 | disposition home or self-care (01) ==
PROVIDERS: Emergency Provider Emergency Medicine; PCP Family Medicine
DX: N13.2 Hydronephrosis with renal and ureteral calculous obstruction (principal); R10.9 Unspecified abdominal pain; Z87.442 Personal history of urinary calculi; R10.31 Right lower quadrant pain; R00.1 Bradycardia, unspecified; Z79.899 Other long term (current) drug therapy
CPT/HCPCS: 36415; 74176; 80048; 80076; 81001; 83690; 83735; 85025; 93005; 96374; 96375; 99284; 99285; J1171; J1885; J2270; J2405

== ENCOUNTER → 2025-04-21 04:40 | Outpatient (BNV) | payer SELFPAY | PROVIDERS: Emergency Provider Emergency Medicine; PCP Family Medicine; Visit Provider Internal Medicine Cardiovascular Disease | DX: R00.1 Bradycardia, unspecified (principal) | CPT/HCPCS: 93010 ==

== ENCOUNTER → 2025-04-21 05:12 | Outpatient (BNV) | payer SELFPAY | PROVIDERS: Emergency Provider Emergency Medicine; PCP Family Medicine; Visit Provider Radiology Diagnostic Radiology | DX: N13.2 Hydronephrosis with renal and ureteral calculous obstruction (principal) | CPT/HCPCS: 74176 ==

== ENCOUNTER 2025-06-23 13:11 | Emergency (ER) | payer MEDICAID, SELFPAY ==
--- NOTE | ~2025-06-23 | CT_ITS ---
CLINICAL HISTORY: right sided abd pain CT abdomen and pelvis with contrast Comparison: CT/REG/SR - CT ABDOMEN PELVIS WO IV CON - 01/05/24 19:04 EDT Findings: Atelectasis. Calcified granuloma left lower lobe. Mild cardiomegaly. Hepatomegaly. Scattered subcentimeter low-density lesions throughout the liver, likely cysts or hemangiomas, too small to characterize. Obstructive 6 mm distal right ureteric calculus with severe upstream hydroureteronephrosis. Right renal parenchymal edema with delayed nephrograms perinephric stranding and periureteric stranding. Urothelial wall thickening and enhancement may be reactive/inflammatory or infectious, should be correlated clinically. Bilateral hypodense renal cysts. No bowel obstruction, pneumoperitoneum, or pneumatosis. Fat containing umbilical hernia. Mildly prominent mesenteric nodes in the right, nonspecific. Large rectal stool burden. Scattered colonic diverticulosis without diverticulitis or colitis. Normal appendix. No acute fracture. Osteopenia with diffuse multilevel spondylosis. Spondylosis pronounced at L4-L5 and severe at L5-S1 similar to prior. IMPRESSION: Obstructive 6 mm distal right ureteric calculus with severe upstream hydroureteronephrosis. Additional findings as described. This document has been electronically signed by: Hero Pittman MD on 06/23/2025 18:48:33
[2025-06-23 13:25] VITALS: BP 139/71; PULSE 78; RESP 18; TEMP 36.8; O2SAT 96; BMI 42.1
--- NOTE | 2025-06-23 13:40 | ED.ABDPAIN ---
HPI - Abdominal Pain General Chief Complaint: Abdominal Pain Stated Complaint: abd pain Time Seen by Provider: 06/23/25 16:05 History of Present Illness HPI narrative: 64-year-old female presents today with having abdominal pain on the right side radiating from the flank to the entire right side. Status post about 30 years ago. There is no fever no chills no chest pain there is mild nausea there is no vomiting patient is from home symptoms been ongoing for about a day. Normal bowel movement. No coughing or congestion or upper respiratory symptoms no chest pain no diaphoresis. Patient from home. No travel history. No bloody stool. Appetite is okay Related Data Previous Rx's ?Medication ?Instructions ?Recorded ketorolac 10 mg tablet 10 mg PO TID PRN pain 5 days #10 05/26/22 tabs ondansetron HCl 4 mg tablet 4 mg PO Q6H PRN nausea and 05/26/22 vomiting #10 tabs tamsulosin 0.4 mg capsule (Flomax) 0.4 mg PO DAILY #10 caps 05/26/22 pantoprazole 40 mg tablet,delayed 40 mg PO DAILY #30 tabs 01/05/24 release (Protonix) sucralfate 1 gram tablet 1 g PO TID #90 tabs 01/05/24 ondansetron HCl 4 mg tablet 4 mg PO Q8H PRN nausea and 04/21/25 vomiting 3 days #9 tabs oxycodone 5 mg tablet 5 mg PO Q8H PRN pain #9 tabs 04/21/25 prednisone 20 mg tablet 20 mg PO DAILY 7 days #7 tabs 04/21/25 tamsulosin 0.4 mg capsule 0.4 mg PO BEDTIME 2 weeks #14 caps 04/21/25 ibuprofen 400 mg tablet 400 mg PO Q6H PRN pain #20 tabs 06/23/25 ondansetron 4 mg disintegrating 4 mg PO TID PRN nausea and 06/23/25 tablet vomiting 5 days #10 tabs oxycodone 5 mg tablet 5 mg PO Q8H PRN pain #7 tabs 06/23/25 tamsulosin 0.4 mg capsule (Flomax) 0.4 mg PO DAILY #7 caps 06/23/25 Allergies Allergy/AdvReac Type Severity Reaction Status Date / Time latex AdvReac Rash Verified 06/23/25 13:31 [id number] Reductase AdvReac Headache Verified 06/23/25 13:32 Inhibitor Review of Systems Review of Systems Positive abdominal pain Yes all other systems are reviewed and are negative [facility] Past Medical History Attestation statement: The following information was validated with the patient. Medical History Kidney stone Social History Social History Alcohol intake: current Alcohol intake frequency: holidays/special occasions only Patient Tobacco Use Status: Never used Tobacco Smoked in Last 30 Days: No Use of substances other than those prescribed or required for medical reasons: No Advance Directives: No Advance Directives Information Provided: No Patient : No Physical Exam ED Exam Exam: Appearance: Alert. Oriented X3. No acute distress. Eyes: Pupils equal, round and reactive to light. ENT: Pharynx normal. Neck: Normal inspection. Neck supple. No lymph nodes noted. No crepitus CVS: Normal heart rate and rhythm. Pulses normal. Normal S1 and S2 Respiratory: No respiratory distress. Breath sounds normal. No Wheezing. No rales Abdomen: Soft and nontender. No rigidity. No distention. good BS x4 Skin: Skin warm and dry. Normal skin color. Normal skin turgor. Extremities: No lower extremity edema. Neurovascular intact to all extremities. No Lacerations. No Rash Neuro: Oriented X 3. No motor deficit. No sensory deficit. Moving all extermities. No slurred speech Vital Signs: Vital Signs - 24 hr 06/23/25 13:25 06/23/25 15:41 06/23/25 16:58 Temperature 98.3 F 98.2 F Pulse Rate 78 72 Respiratory Rate 18 16 16 Blood Pressure 139/71 142/68 H Pulse Oximetry 96 96 Oxygen Delivery Method Room Air Room Air 06/23/25 18:07 Temperature 98.2 F Pulse Rate 67 Respiratory Rate 16 Blood Pressure 138/74 Pulse Oximetry 97 Oxygen Delivery Method Room Air BMI result Body Mass Index 42.1 Course Course Course Narrative: This is a Rapid Medical Examination (RME) performed by Koko Ramirez PA-C in triage. Full HPI, ROS, assessment and treatment plan per primary provider in the Main ED. Hx: 64 yo F here for eval of right flank pain rad to abdomen. assoc nausea w/o vomiting. no urinary sx. Plan: labs ua Medical Decision Making Medical Decision Making [facility] Narrative: Patient's CT positive for having a 6 mm right ureteral stone. Likely causing patient's pain. LFTs are normal. Lipase is normal no evidence for biliary disease no evidence for pancreatitis. Pain is control urine showed no signs of infection will discharge patient home. Currently in stable condition. Obstructive 6 mm distal right ureteric calculus with severe upstream hydroureteronephrosis. Reviewed patient's old chart patient had a CT scan done only in April. The CT scan of the time showed a right-sided ureteral stone. Most likely this is the same stone. Explained to patient the need for close follow-up. Warned the patient of the risk of loss of kidney function. Patient states understanding. Will refer patient to see Urology on an outpatient basis. Differential Diagnosis Differential Diagnoses: The differential diagnosis associated with the presentation includes Admission/Observation Consideration of admission/observation: Escalation of care including admission/observation considered Pain is controlled no need to stay Lab Data [facility] Lab Attestation statement: I reviewed the patient's lab results. 06/23/25 14:02 06/23/25 14:02 Labs: Lab Results 06/23/25 06/23/25 Range/Units 14:02 19:23 WBC 7.4 (4.8-10.8) X10*3/uL RBC 5.08 (4.20-5.50) X10*6/uL Hgb 13.2 (12.0-16.0) g/dl Hct 41.0 (37.0-47.0) % MCV 80.7 (80.0-98.0) fL MCH 26.0 L (27.0-33.0) pg MCHC 32.2 (31.0-35.0) g/dl RDW 15.2 (11.0-16.0) % Plt Count 269 (160-400) X10*3/uL MPV 9.4 (9.4-12.3) fL Immature Gran % (Auto) 0.3 (0.0-0.4) % Neut % (Auto) 70.7 (45-73) % Lymph % (Auto) 20.3 (20-40) % Chambers % (Auto) 7.1 (2-11) % Eos % (Auto) 1.2 (0-4) % Baso % (Auto) 0.4 (0-2) % Lymph # (Auto) 1.5 (1.2-4.9) X10*3/uL Chambers # (Auto) 0.5 (0.1-1.2) X10*3/uL Eos # (Auto) 0.1 (0.0-0.4) X10*3/uL Baso # (Auto) 0.0 (0.0-0.2) X10*3/uL Abs Immat Gran (auto) 0.02 (0.00-0.03) X10*3/uL Absolute Neuts (auto) 5.2 (2.0-8.3) x10*3/uL Absolute Nucleated RBC 0.000 (0.0-0.012) X10*3/uL Nucleated RBC % (auto) 0.0 (0.0-0.2) /100WBC Sodium 142 (135-145) mmol/L Potassium 3.8 (3.3-5.1) mmol/L Chloride 107 (96-108) mmol/L Carbon Dioxide 26 (22-29) mmol/L Anion Gap 13 (12-20) BUN 15 (9-16) mg/dL Creatinine 0.86 (0.5-1.4) mg/dL Estim Creat Clear Calc 75.8 Estimated GFR > 60 Random Glucose 187 H (60-115) mg/dL Calcium 9.0 D (8.4-10.2) mg/dL Magnesium 1.9 (1.6-2.6) mg/dL Total Bilirubin 0.3 (0.0-1.0) mg/dL AST 19 (5-31) U/L ALT 16 (0-31) U/L Alkaline Phosphatase 74 (39-117) U/L Total Protein 6.9 (6.5-8.0) g/dL Albumin 4.2 (3.5-5.0) g/dL Lipase 12 (8-78) U/L Urine Color Yellow Urine Appearance Clear Urine pH 6.0 (5.0-9.0) Ur Specific [place] >= 1.030 H (1.005-1.025) Urine Protein Negative (Neg-Trace) mg/dL Urine Glucose (UA) Negative (Negative) mg/dL Urine Ketones Negative (Negative) mg/dL Urine Blood Small (1+) H (Negative) Urine Nitrite Negative (Negative) Ur Leukocyte Esterase Trace H (Negative) Independent Interpretation I performed an independent interpretation of an: CT Scan (Positive kidney stone on the right) Radiology Impression Discussion of test interpretation with radiology: I have reviewed the radiologist's reading. External Record Review Previous CT scan result was reviewed Chronic Conditions Patient?s care impacted by: Diabetes and Hypertension Social Determinants Patient?s care significantly limited by Social Determinants of Health including: Problems related to primary support group Medications Administered Discontinued Medications Generic Name Dose Route Start Last Admin Trade Name Freq PRN Reason Stop Dose Admin Hydromorphone HCl 0.5 mg 06/23/25 16:25 06/23/25 16:58 Hydromorphone Hcl 0.5 Mg/0.5 Ml Syringe IVPUSH 06/23/25 16:26 0.5 mg ONCE ONE Administration Protocol Sodium Chloride 1,000 mls @ 999 mls/hr 06/23/25 16:30 06/23/25 19:08 Ns IV 06/23/25 17:30 Infused .Q1H1M SANJUANITA Infusion Iohexol 100 ml 06/23/25 18:13 06/23/25 18:13 Iohexol 350 Mg/Ml 100 Ml Infus..Btl IV 06/23/25 18:14 100 ml ONCE ONE Administration Ondansetron HCl 4 mg 06/23/25 16:25 06/23/25 16:58 Ondansetron Hcl 4 Mg/2 Ml Vial IVPUSH 06/23/25 16:26 4 mg ONCE ONE Administration Discharge Plan Discharge Clinical Impression: Renal colic Patient Disposition: Home, Self-Care Instructions: Renal Colic (ED) Prescriptions: New tamsulosin [Flomax] 0.4 mg capsule 0.4 mg PO DAILY Qty: 7 0RF ibuprofen 400 mg tablet 400 mg PO Q6H PRN (Reason: pain) Qty: 20 0RF ondansetron 4 mg tablet,disintegrating 4 mg PO TID PRN (Reason: nausea and vomiting) 5 Days Qty: 10 0RF oxycodone 5 mg tablet 5 mg PO Q8H PRN (Reason: pain) Qty: 7 0RF Rx Instructions: Partial Fill upon patient request. No Action ketorolac 10 mg tablet 10 mg PO TID PRN (Reason: pain) 5 Days Qty: 10 0RF Rx Instructions: Do not take this medication with any NSAIDs tamsulosin [Flomax] 0.4 mg capsule 0.4 mg PO DAILY Qty: 10 0RF ondansetron HCl 4 mg tablet 4 mg PO Q6H PRN (Reason: nausea and vomiting) Qty: 10 0RF pantoprazole [Protonix] 40 mg tablet,delayed release (DR/EC) 40 mg PO DAILY Qty: 30 2RF sucralfate 1 gram tablet 1 g PO TID Qty: 90 0RF prednisone 20 mg tablet 20 mg PO DAILY 7 Days Qty: 7 0RF ondansetron HCl 4 mg tablet 4 mg PO Q8H PRN (Reason: nausea and vomiting) 3 Days Qty: 9 0RF tamsulosin 0.4 mg capsule 0.4 mg PO BEDTIME 14 Days Qty: 14 0RF oxycodone 5 mg tablet 5 mg PO Q8H PRN (Reason: pain) Qty: 9 0RF Rx Instructions: Partial Fill upon patient request. Referrals: Shane Palma MD [Physician, Urology] - 3 days Referral Note: You must follow-up with urology. You have a kidney stone on the right side. If you do not follow-up you could lose function in your right kidney. Corin Fry MD [Primary Care Provider, Internal Medicine] Print Language: Tajik
[2025-06-23 14:05] LABS: MANUAL DIFF FLAG NO
[2025-06-23 14:08] LABS: Hematocrit 41.0 % (37.0-47.0); Hemoglobin 13.2 g/dl (12.0-16.0); Imm Gran Abs Auto 0.02 X10*3/uL (0.00-0.03); Imm Gran Pct Auto 0.3 % (0.0-0.4); Lymphocytes Absolute Auto 1.5 X10*3/uL (1.2-4.9); Mean Corpuscular HGB Conc 32.2 g/dl (31.0-35.0); Mean Corpuscular Hemoglobin 26.0 pg (27.0-33.0); Mean Corpuscular Volume 80.7 fL (80.0-98.0); NRBC Abs Auto 0.000 X10*3/uL (0.0-0.012); NRBC Pct Auto 0.0 /100WBC (0.0-0.2); Platelet Count 269 X10*3/uL (160-400); Red Blood Count 5.08 X10*6/uL (4.20-5.50); White Blood Count 7.4 X10*3/uL (4.8-10.8)
[2025-06-23 14:23] LABS: Alanine Aminotransferase 16 U/L (0-31); Albumin Level 4.2 g/dL (3.5-5.0); Alkaline Phosphatase 74 U/L (39-117); Anion Gap 13 (12-20); Aspartate Amino Transferase 19 U/L (5-31); Blood Urea Nitrogen 15 mg/dL (9-16); Calcium 9.0 mg/dL (8.4-10.2); Carbon Dioxide 26 mmol/L (22-29); Chloride 107 mmol/L (96-108); Creatinine Clr Calc Pharmacy 75.8; Estimated Glomerular Filt Rate > 60; Lipase 12 U/L (8-78); Magnesium 1.9 mg/dL (1.6-2.6); Potassium 3.8 mmol/L (3.3-5.1); Sodium 142 mmol/L (135-145); Total Protein 6.9 g/dL (6.5-8.0)
[2025-06-23 15:41] VITALS: BP 142/68; PULSE 72; RESP 16; TEMP 36.8; O2SAT 96
--- NOTE | 2025-06-23 15:45 | PC.NURSE ---
Patient jamaican speaking but does know some iraqi Patient presents to ED c/o right flank pain rated 8/10 +CMS +ROM denies numbness tingling ABD soft and slightly tender on right side + bowel sounds Pain started yesterday, patient denies injury Denies urinary symptoms but states The pain makes me have to urinate and I pee very alittle awaiting urine sample from patient Provider in to see patient Plan of care on going
[2025-06-23 16:58] VITALS: RESP 16
--- OUTSIDE RECORDS SUMMARY | 2025-06-23 17:53 | XMS_ITS | Encounter Summary ---
Author Organization [facility] Address [address] [place] [address] Care Team Providers Care Compression Molding Machine Tender Name Role Phone Corin Fry MD Primary Care Provider [phone] Brendan Artis PharmD Unavailable [phone] Encounter Details Date Type Department Care Team (Late Contact Info) Description 03/04/[address] [facility] MEDICINE [address] [place], [place] [phone] Corin Fry MD [address] [place] [address] Social History Tobacco Use Types Packs/Day Years [...] as of this encounter Plan of Treatment Upcoming Encounters Date Type Department Care Team ([facility] Contact Info) Description 07/06/2025 1:00 PM EDT Office Visit [facility] OPTOMETRY [address] [place], [place] [phone] Opal Azul, OD [address] [place], [place] [phone] 08/13/2025 2:[address] [facility] MEDICINE [address] [place] [address] Brendan Artis, [place] [address] [place], [place] [phone] documented as of this encounter Goals Goal Patient Goal Type Associated Problems Recent Progress Patient-Stated? Author Blood Pressure < 140/90 Blood Pressure 130/80( 025 1:33 PM EDT) No Brendan Artis, [place] documented as of this encounter Visit Diagnoses Not on filedocumented in this encounter Additional Health Concerns Assessment Noted Time PHQ-9 Depression Total Score: 0 02/13/20 23 4:09 PM EDT documented as of this encounter Care Teams Compression Molding Machine Tender Relationship Specialty Start Date End Date Corin Fry MD [address] [place] [address] [phone] PCP - General Family Medicine 02/26/22 Brendan Artis, [place] [address] [place] [address] [phone] Pharmacist Internal Medicine 10/23/22 documented as of this encounter
--- OUTSIDE RECORDS SUMMARY | 2025-06-23 17:53 | XMS_ITS | Encounter Summary ---
Author Organization [employer] Address [address] [facility] [address] [facility] [address] [place] [address] Care Team Providers Care Steel Unloader Name Role Phone Corin Fry MD Primary Care Provider Brendan Artis PharmD Unavailable [phone] Encounter Details Date Type Department Care Team ([facility] Contact Info) Description 04/12/2025 Orders Only [facility] [address] [place], [place] [phone] ProviderTirso MD Social History Tobacco Use Types Packs/Day Years [...] Care Team (Late st Contact Info) Description 07/06/2025 1:00 PM EDT Office Visit [facility] OPTOMETRY [address] [place] [address] Jorge Alberto, Opal, OD [address] [place] [address] 08/13/2025 2:00 PM EDT Telemedicine [facility] MEDICINE [address] [place] [address] Brendan Artis, PharmYolie [address] [place] [address] documented as of this encounter Goals Goal Patient Goal Type Associated Problems Recent Progress Patient-Stated? Author Blood Pressure < 140/90 Blood Pressure 130/80( 025 1:33 PM EDT) No Brendan Artis, PharmD documented as of this encounter Procedures Procedure Name Priority Date/Time Associated Diagnosis Comments SURGICAL PATHOLOGY Routine 04/09/2025 2:54 PM EDT documented in this encounter Results * Surgical Pathology (04/09/2025 2:54 PM EDT) Historical Provider LAB PATHOLOGY ORDERABLES Final Result documented in this encounter Visit Diagnoses Not on filedocumented in this encounter Additional Health Concerns Assessment Noted Time PHQ-9 Depression Total Score: 0 07/30/20 24 9:12 AM EDT documented as of this encounter Care Teams Steel Unloader Relationship Specialty Start Date End Date Corin Fry MD [address] [place] [address] PCP - General Family Medicine 02/26/22 Brendan Artis, [place] [address] [place] [address] Pharmacist Internal Medicine 10/23/22 documented as of this encounter
--- OUTSIDE RECORDS SUMMARY | 2025-06-23 17:53 | XMS_ITS | Clinical Summary ---
Author Organization [employer] Address [address] [place] [address] [address] [place] [address] Care Team Providers Care Salesforce Trainer Name Role Phone Corin Fry MD Primary Care Provider [phone] Brendan Artis PharmD Unavailable [phone] Allergies Active Allergy Reactions Criticality Noted Date Comments Atorvastatin 03/13/2022 Other reaction(s): Abdominal pain Carrot Oil Rash Low 09/08/2020 Chlorthalidone Palpitations Low 02/14/2021 Rosuvastatin Abdominal Pain Medium 07/30/2024 Medications polyethylene glycol, PEG, 3350 (Miralax) 17 g packet MIX 1 PACKET IN 8 OUNCES OF WATER, JUICE, COFFEE, OR TEA AND DRINK TWICE DAILY 3 Active cholecalciferol (Vitamin D High Potency) 25 MCG (1000 UT) capsuleIndications :Vitamin D deficiency TAKE 1 CAPSULE BY MOUTH EVERY DAY 90 capsule 3 4 Active ezetimibe (Zetia) 10 MG tabletIndications: Mixed hyperlipidemia Take 1 tablet (10 mg) by mouth at bedtime. 90 tablet 3 4 Active Blood Glucose Monitoring Suppl (FreeStyle Lite) w/Device kit 1 Dose Once per day. 1 kit 4 Active metFORMIN XR (Glucophage-XR) 500 MG 24 hr tabletIndications: Type 2 diabetes mellitus without complication, without long-term current use of insulin (CMS/HCC) TAKE 1 TABLET BY MOUTH TWICE DAILY WITH MEALS 180 tablet 3 4 Active pantoprazole (ProtoNix) 40 MG EC tablet Take 1 tablet (40 mg) by mouth Once per day. 90 tablet 3 4 Active carvedilol (Coreg) 12.5 MG tablet Take 12.5 mg by mouth with breakfast and with evening meal. Active lisinopril 40 MG tabletIndications: Primary hypertension TAKE 1 TABLET BY MOUTH EVERY DAY IN THE MORNING 90 tablet 3 5 Active TRUEplus Lancets 33G miscIndications:Ty pe 2 diabetes mellitus without complication, without long-term current use of insulin ([facility]) TEST BLOOD SUGAR EVERY MORNING 100 each 11 5 Active FREESTYLE LITE test stripIndications:T ype 2 diabetes mellitus without complication, without long-term current use of insulin ([facility]) TEST BLOOD SUGAR EVERY MORNING 100 strip 11 5 Active hydroCHLOROthiazid e 12.5 MG tablet Take 1 tablet (12.5 mg) by mouth Once per day. 30 tablet 3 5 04/05/20 26 Active amLODIPine (Norvasc) 5 MG tabletIndications: Primary hypertension TAKE 1 TABLET BY MOUTH EVERY DAY 90 tablet 1 5 Active hydrocortisone (Anusol-HC) 2.5 % rectal cream Insert into the rectum if needed in the morning, at noon, and at bedtime for hemorrhoids. 28 g 1 5 Active senna-docusate (Senokot S) 8.6-50 MG tablet Take 1 tablet by mouth Once per day. 30 tablet 5 04/14/20 26 Active Active Problems Problem Noted Date Diagnosed Date Left sided abdominal pain 06/06/2025 Hemorrhoid prolapse 04/14/2025 Assessment & Plan (04/14/2025 7:57 PM EDT): Had a recent colonoscopy showing internal hemorrhoids, there is no signs of bleeding at this time. Advised to do sitz baths or use witch neva wipes on affected area, then use hydrocortisone rectal cream 3 times daily, she will start gentle massage of the lesion after cortisone application. To follow-up with PCP with as if symptoms do not improve within 1 week or if she start having bleeding or worsening of pain. Rx Senokot to avoid constipation Lower leg edema 04/05/2025 Assessment & Plan (04/05/2025 1:39 PM EDT): Most likely combination of amlodipine side effects + obesity +? Venous insufficiency Medication adjustment as above, recommended weight reduction and counseled regarding using compression stockings. Follow-up with PCP Nephrolithiasis 03/26/2024 Assessment & Plan (03/26/2024 5:30 PM EDT): - most recent CT in December 2023 showed non-obstructive 4 mm kidney stone in R kidney - seen by urologist in 2022 Hypertension 09/25/2022 Assessment & Plan (05/31/2025 9:51 AM EDT): - Goal BP < 140/90 per JNC-8 and < 130/80 per ACC/AHA - elevated today - Co-managed with [facility] pharmacist and auto technician - Continue working on lifestyle modification - Continue SMBP - Continue lisinopril 40 mg daily - Continue carvedilol 12.5 mg bid, and improve adherence - Continue amlodipine 10 mg daily Assessment & Plan (04/05/2025 1:39 PM EDT): Is fairly controlled today, however she seems to be having worsening LE edema with increased dose of amlodipine. Decrease amlodipine to 5 mg/daily, add HCTZ 12.5 mg and continue lisinopril and Coreg dose Follow-up BP with RN in 2 to 4 weeks and check BMP. Advised patient to lower salt intake Assessment & Plan (02/26/2025 9:39 AM EDT): - Goal BP < 140/90 per JNC-8 and < 130/80 per ACC/AHA - elevated today - Co-managed with [facility] pharmacist and auto technician - Continue working on lifestyle modification - Continue SMBP - Continue lisinopril 40 mg daily - Continue carvedilol 12.5 mg bid, and improve adherence - Continue amlodipine 10 mg daily Assessment & Plan (11/14/2024 [...] Assessment & Plan (02/12/2023 5:34 PM EDT): Goal BP < 140/90 per JNC-8 and < 130/80 per ACC/AHA Suboptimal control today, but pt did not bring BP log and she was in pain today Continue working on lifestyle modification Continue lisinopril 40 mg daily Continue carvedilol 3.125 mg bid, consider increasing to 6.25 mg bid Appreciate CDTM Assessment & Plan (09/25/2022 5:36 PM EST): Goal BP < 140/90 per JNC-8 and < 130/80 per ACC/AHA Suboptimal control today, but pt did not bring BP log and she was in pain today Continue working on lifestyle modification Continue lisinopril 40 mg daily Continue carvedilol 3.125 mg bid, consider increasing to 6.25 mg bid Appreciate CDTM Chronic foot pain, right 09/25/2022 Assessment & Plan (02/10/2024 5:35 PM EDT): Likely plantar fasciitis Consider MRI evaluation Unable to find a local shot grinder operator who will accept her insurance Refer to shot grinder operator in [place] Assessment & Plan (02/12/2023 5:34 PM EDT): Likely plantar fasciitis Consider MRI evaluation Unable to find a local shot grinder operator who will accept her insurance Refer to shot grinder operator in [place] Assessment & Plan (09/26/2022 4:31 PM EST): Likely plantar fasciitis Consider MRI evaluation Unable to find a local shot grinder operator who will accept her insurance Refer to shot grinder operator in [place] Plantar fasciitis, bilateral 09/25/2022 Assessment & Plan (02/16/2024 1:15 PM EDT): - evaluated at [facility] and had PT - pain has improved significantly with exercise and ice Primary osteoarthritis of right hand 09/25/2022 Frequent PVCs 09/25/2022 Assessment & Plan (11/10/2024 4:16 PM EST): - Continue carvedilol Assessment & Plan (07/30/2024 9:19 AM EDT): - Continue carvedilol Assessment & Plan (02/10/2024 5:35 PM EDT): Continue carvedilol Assessment & Plan (02/12/2023 5:35 PM EDT): Continue carvedilol Assessment & Plan (09/26/2022 4:30 PM EST): Continue carvedilol Type 2 diabetes mellitus 10/17/2021 Overview (08/23/2023): Last a1c 6.4 On metformin 500mg FS AM FS PM a1c today Advised diet and exercise Ophthalmology Last Assessment & Plan: HbA1c 6.4 Continue Metformin 500mg twice daily a1c in 6 months Assessment & Plan (06/04/2025 2:05 PM EDT): - A1c 6.4% on 05/31/25, slight increase 6.3% on 02/22/25, trending upwards slowly over last 3 years - Continue working on lifestyle modifications - Continue metformin XR 500 mg bid - Last foot exam on 07/30/24 - Last eye exam 10/07/24 No diabetic retinopathy - Last lipid profile on 09/25/24 TRIG 118; CHOL 269; LDL 181; HDL 65 - Last microalbumin test 07/30/24 UACR 10.2 -Consider adding either GLP1RA or SGLT2i or both for renal-cardiovascular benefit. Assessment & Plan (02/26/2025 9:41 AM EDT): - A1c 6.3% on 02/22/25, the same as A1C 6.3% on 07/30/24, trending upwards slowly over last 3 years - Continue working on lifestyle modifications - Continue metformin XR 500 mg bid - Last foot exam on 07/30/24 - Last eye exam 10/07/24 No diabetic retinopathy - Last lipid profile on 09/25/24 TRIG 118; CHOL 269; LDL 181; HDL 65 - Last microalbumin test 07/30/24 UACR 10.2 -Consider adding either GLP1RA or SGLT2i or both for renal-cardiovascular benefit. Assessment & Plan (11/14/2024 6:26 PM EST): [...] Assessment & Plan (02/22/2023 11:23 AM EDT): A1C 6.1% on 02/12/23, 5.7% on 07/17/22 Continue working on lifestyle modifications Continue metformin XR 500 mg bid Last foot exam in February 2022, plantar fasciitis Last eye exam > 1 year ago Last lipid profile in February 2022 (She was intolerant to statin) Last microalbumin test 03/05/22 UACR 13 Assessment & Plan (09/25/2022 5:33 PM EST): A1C 5.7% on 07/17/22 Continue working on lifestyle modifications Continue metformin XR 500 mg bid Last foot exam in February 2022, plantar fasciitis Last eye exam > 1 year ago Last lipid profile in February 2022 (She was intolerant to statin) Last microalbumin test 03/05/22 UACR 13 Recurrent hematuria 09/01/2021 Overview (08/23/2023): Added automatically from request for surgery [id number] Assessment & Plan (02/12/2023 5:35 PM EDT): Hx cystoscopy and nephrostomy tube? Most recent episode in Jun 2022 Continue adequate hydration, > 2L/day Upcoming appt with urologist in [place] Assessment & Plan (09/26/2022 4:29 PM EST): Hx cystoscopy and nephrostomy tube? Most recent episode in Jun 2022 Continue adequate hydration, > 2L/day Upcoming appt with urologist in [place] (HFpEF) heart failure with preserved ejection fr [...] follow up at cardiology Assessment & Plan (02/26/2025 9:40 AM EDT): - following with [facility] cardiology. Last seen in December 2024. - Non-ischemic cardiomyopathy, HFpEF, frequent PVCs, HTN. Last visit on 08/26/23. - Continue carvedilol 12.5 mg bid and lisinopril. - Cardiac cath 10/31/21 No CAD. - Nuclear stress and MPI in Oct 2020 partially reversible inferoseptal perfusion defect. - TTE 02/01/23 LVEF 55%, EKG LVH. - Continue working on lifestyle modifications and risk factor management Assessment & Plan (11/14/2024 6:25 PM EST): - following with [facility] cardiology, Dr. Blood. Last visit in [...] (07/30/2024 9:20 AM EDT): - following with [facility] cardiology, Dr. Blood. Last visit in [...] (02/16/2024 1:13 PM EDT): - following with [facility] cardiology, Dr. Blood. Last visit in [...] continue working on lifestyle modifications - her auto technician was considering PCSK9 inhibitor Assessment & Plan (11/14/2024 6:28 PM EST): - she had intolerance to statin and is prescribed ezetimibe - continue working on lifestyle modifications - her auto technician was considering PCSK9 inhibitor Assessment & Plan [...] of hypothyroidism Had FNA in past at [facility]. TSH 0.97 Fu with endo Last Assessment & Plan: MNG with dominant right lobe nodule, s/p FNA done at [facility], could not find report in pre-epic Interval [...] Encounters Date Type Department Care Team Description 06/23/2025 Orders Only GENERIC EXTERNAL DATA DEPARTMENT Provider, Generic External Data 05/31/2025 1:45 PM EDT Office Visit [address] [address] Corin Fry MD Primary hypertension (Primary Dx); Type 2 diabetes mellitus without complication, without long-term current use of insulin (CMS/HCC); Left sided abdominal pain; Vitamin D deficiency 05/31/2025 Travel 05/28/[address] [address] Corin Fry MD chart prep 05/21/2025 Patient Outreach [address] [address] Corin Fry MD Pre-visit Planning (SDOH Screening negative and Tobacco screening negative) 04/30/2025 2:00 PM EDT Telemedicine [address] [address] Brendan Artis, [place] Primary hypertension (Primary Dx) 04/26/[address] [address] Corin Fry MD Appointment Request 04/21/2025 Orders Only GENERIC EXTERNAL DATA DEPARTMENT Provider, Generic External Data 04/15/[address] [address] Kimberly Madison MD No Show 04/14/2025 2:00 PM EDT Office Visit [facility] [address] [address] Kimberly Madison MD Hemorrhoid prolapse (Primary Dx) 04/14/[address] [address] Corin Fry MD chart prep 04/14/2025 Travel 04/14/[address] [address] Corin Fry MD Nurse Triage 04/13/2025 Orders Only [facility] [address] [place] [phone] Tirso Vazquez MD 04/12/2025 Orders Only [facility] [address] [place] [phone] Tirso Vazquez MD 04/06/[address] [address] Corin Fry MD May04/05/2025 1:00 PM EDT Office Visit [facility] [address] [address] Kimberly Madison MD Lower leg edema (Primary Dx); Primary hypertension 04/05/2025 Travel 04/05/[address] [address] Corin Fry MD Nurse Triage from Last 3 Months Immunizations Immunization Administration Dates Next Due Hep B, adult [...] Sign Reading Time Taken Comments Blood Pressure 130/80 05/31/2025 1:33 PM EDT Pulse 62 05/31/2025 1:33 PM EDT Temperature 36.2 C (97.1 F) 05/31/2025 1:33 PM EDT Respiratory Rate 18 05/31/2025 1:33 PM EDT Oxygen Saturation 96% 05/31/2025 1:33 PM EDT Inhaled Oxygen Concentration - - Weight 105 kg (231 lb 6.4 oz) 05/31/2025 1:33 PM EDT Height 157.5 cm (5' 2 ) 05/31/2025 1:33 PM EDT Body Mass Index 42.32 05/31/2025 1:33 PM EDT Plan of Treatment Upcoming Encounters Date Type Department Care Team (Late st Contact Info) Description 07/06/2025 1:00 PM EDT Office Visit [facility] [address] [place] [address] Jorge Alberto, [place], OD [address] [place] [address] 08/13/2025 2:00 PM EDT Telemedicine [facility] [address] [place] [address] Brendan Artis, PharmD [address] [place] [address] Health Maintenance Due Date Last Done Comments CT Colonography 1960 Dental Prophylaxis 1960 Dental X-Ray: Bitewings 1961 FIT DNA/Cologuard 1960 FIT 1960 FOBT 1960 Sigmoidoscopy 1960 Hepatitis C Screening 1979 RSV Patients and Patients Aged 60 years or older (1 - Risk 60-74 years 1-dose series) 2021 Dental Oral Exam 02/04/2025 08/05/2024 COVID-19 Vaccine ( season) 2025 02/26/2022, 02/26/2022, 01/24/2021, Additional history exists Influenza Vaccine (#1) 2025 Alcohol/Substance Use Screening 07/30/2025 07/30/2024 Depression Screening 07/30/2025 07/30/2024, 07/30/20 Diabetes: Foot Exam 07/30/2025 07/30/2024, 07/30/2024, 07/30/2024, Additional history exists Diabetes: Urine Protein Screening 07/30/2025 07/30/2024, 02/10/2024, 03/05/2022 Diabetes: Hemoglobin A1C 08/31/2025 025, 02/22/2025, 07/30/2024, Additional history exists Lipid Panel 09/25/2025 09/25/2024, 07/21, 02/10/2024, Additional history exists Disability Screening 02/22/2026 02/22/2025 Eye Exam 04/07/2026 04/07/2024, 03/21, 04/07/2024, Additional history exists SDOH Screening 05/21/2026 05/21/2025 Tobacco Screening 05/31/2026 05/31/2025 Mammogram 03/19/2027 03/19/2025, 02/18, 03/21/2021, Additional history exists Pap Smear 07/30/2027 07/30/2024 Dental X-Ray: Full Mouth 08/06/2027 08/05/2024 Cervical Cancer Screening 07/30/2029 HPV/Cotest 07/30/2029 07/30/2024 Colonoscopy 04/09/2030 04/09/2025, 04/09/2025 Colorectal Cancer Screening 04/09/2030 DTaP/Tdap/Td Vaccines (2 - Td or Tdap) 11/10/2034 11/10/2024, 11/02/2013 Hepatitis B Vaccines Completed 01/21/2017, 09/21/2016, 08/23/2016 HIV Screening Completed 05/30/2021 Zoster Vaccines Completed 08/01/2021, [...] patient's age to complete this topic Meningococcal B Vaccine Aged Out No l onger eligible based on patient's age to complete [...] 1:33 PM EDT) No Brendan Artis, [place] Procedures Procedure Name Priority Date/Time Associated Diagnosis Comments LIPASE Routine 06/23/2025 2:02 PM EDT MAGNESIUM Routine 06/23/2025 2:02 PM EDT COMPREHENSIVE METABOLIC PANEL Routine 06/23/2025 2:02 PM EDT CBC WITH AUTO DIFFERENTIAL Routine 06/23/2025 2:02 PM EDT POCT GLYCOSYLATED HEMOGLOBIN (HGB A1C) Routine 05/31/2025 1:38 PM EDT Type 2 diabetes mellitus without complication, without long-term current use of insulin ([facility]) POCT GLUCOSE Routine 05/31/2025 1:35 PM EDT Type 2 diabetes mellitus without complication, without long-term current use of insulin ([facility]) CT ABDOMEN PELVIS WO CONTRAST Routine 04/21/2025 7:42 AM EDT URINALYSIS, COMPLETE, WITH REFLEX TO CULTURE Routine 04/21/2025 6:27 AM EDT LIPASE Routine 04/21/2025 5:15 AM EDT MAGNESIUM Routine 04/21/2025 5:15 AM EDT BASIC METABOLIC PANEL Routine 04/21/2025 5:15 AM EDT HEPATIC FUNCTION PANEL Routine 04/21/2025 5:15 AM EDT CBC WITH AUTO DIFFERENTIAL Routine 04/21/2025 5:15 AM EDT SURGICAL PATHOLOGY Routine 04/09/2025 2: 54 PM EDT COLONOSCOPY Routine 04/09/2025 10:24 AM EDT BI MAMMOGRAM SCREENING TOMOSYNTHESIS BILATERAL Routine 03/19/2025 1:15 PM EDT LIPID PANEL WITH REFLEX TO DIRECT LDL Routine 09/25/2024 12:15 PM EST Mixed hyperlipidemia PANORAMIC RADIOGRAPHIC IMAGE Routine 08/05/2024 8:00 AM EDT PERIODIC ORAL EVALUATION - ESTABLISHED PATIENT Routine 08/05/2024 8:00 AM EDT ALBUMIN, RANDOM URINE W/CREATININE Routine 07/30/2024 9:45 AM EDT Primary hypertension Type 2 diabetes mellitus without complication, without long-term current use of insulin ([facility]) THINPREP IMAGING PAP AND HPV MRNA E6/E7 Routine 07/30/2024 9:32 AM EDT from Last 3 Months or Most Recently Relevant to Health Maintenance Results * (ABNORMAL) CBC auto differential (06/23/2025 2:02 PM EDT) Only the most recent of2 resultswithin the time period is included. White Blood Count 7.4 4.8 - 10.8 X10*3/uL [facility] Red Blood Count 5.08 4.20 - 5.50 X10*6/uL [facility] Hemoglobin 13.2 12.0 - 16.0 g/dl [facility] Hematocrit 41.0 37.0 - 47.0 % [facility] Mean Corpuscular Volume 80.7 80.0 - 98.0 fL [facility] Mean Corpuscular Hemoglobin 26.0(L) 27.0 - 33.0 pg [facility] Mean Corpuscular HGB Conc 32.2 31.0 - 35.0 g/dl [facility] Red Cell Distribution Width 15.2 11.0 - 16.0 % [facility] Platelet Count 269 160 - 400 X10*3/uL [facility] Mean Platelet Volume 9.4 9.4 - 12.3 fL [facility] Neutrophils Percent Auto 70.7 45 - 73 % [facility] Imm Gran Pct Auto 0.3 0.0 - 0.4 % [facility] Lymphocytes Percent Auto 20.3 20 - 40 % [facility] Monocytes Percent Auto 7.1 2 - 11 % [facility] Eosinophils Percent Auto 1.2 0 - 4 % [facility] Basophils Percent Auto 0.4 0 - 2 % [facility] NRBC Pct Auto 0.0 0.0 - 0.2 /100WBC [facility] Neutrophils Absolute Auto 5.2 2.0 - 8.3 x10*3/uL [facility] Imm Gran Abs Auto 0.02 0.00 - 0.03 X10*3/uL [facility] Lymphocytes Absolute Auto 1.5 1.2 - 4.9 X10*3/uL [facility] Monocytes Absolute Auto 0.5 0.1 - 1.2 X10*3/uL [facility] Eosinophils Absolute Auto 0.1 0.0 - 0.4 X10*3/uL [facility] Basophils Absolute Auto 0.0 0.0 - 0.2 X10*3/uL [facility] NRBC Abs Auto 0.000 0.0 - 0.012 X10*3/uL [facility] 06/23/2025 2:02 PM EDT 06/23/2025 2:04 PM EDT us Generic External Data Provider LAB BLOOD ORDERAB LES Final Result Performing Organization Address [facility] de Phone Number [facility] [address] [place] [address] [phone] * Magnesium (06/23/2025 2:02 PM EDT) Only the most recent of2 resultswithin the time period is included. Magnesium 1.9 1.6 - 2.6 mg/dL [facility] 06/23/2025 2:02 PM EDT 06/23/2025 2:04 PM EDT Generic External Data Provider LAB BLOOD ORDERAB LES Final Result Performing Organization Address [facility] Number [facility] [address] [place] [phone] * Lipase (06/23/2025 2:02 PM EDT) Only the most recent of2 resultswithin the time period is included. Pathologist [facility] Lipase 12 8 - 78 U/L [facility] 06/23/2025 2:02 PM EDT 06/23/2025 2:04 PM EDT Generic External Data Provider LAB BLOOD ORDERAB LES Final Result Performing Organization Address [facility] de Phone Number [facility] [address] [place] [phone] * (ABNORMAL) Comprehensive Metabolic Panel (06/23/2025 2:02 PM EDT) Sodium 142 135 - 145 mmol/L [facility] Potassium 3.8 3.3 - 5.1 mmol/L [facility] Chloride 107 96 - 108 mmol/L [facility] Carbon Dioxide 26 22 - 29 mmol/L [facility] Anion Gap 13 12 - 20 [facility] Urea Nitrogen (BUN) 15 9 - 16 mg/dL [facility] Creatinine, Serum 0.86 0.5 - 1.4 mg/dL [facility] Creatinine Clr Calc Pharmacy 75.8 [facility] Comment:Provided height and weight: 157.48 cm,104.326 kg.eGFR (calculated from the MDRD study equation) and eCrCl(calculated from the Cockcroft-Gault equation) are based ondifferent parameters and may not yield comparable results.If eCrCl result is absurd, please check patient'sheight/weight. Estimated Glomerular Filt Rate >60 [facility] Comment:Chronic Kidney Disea se: Estimated GFR < 60 mL/min/1.42g5Jdymld Kidney Disease: Estimated GFR < 15 mL/min/1.73m2 Glucose 187(H) 60 - 115 mg/dL [facility] Calcium 9.0 8.4 - 10.2 mg/dL [facility] Bilirubin, Total 0.3 0.0 - 1.0 mg/dL [facility] Aspartate Amino Transferase 19 5 - 31 U/L [facility] Alanine Aminotransferase 16 0 - 31 U/L [facility] Total Protein 6.9 6.5 - 8.0 g/dL [facility] Albumin Level 4.2 3.5 - 5.0 g/dL [facility] Alkaline Phosphatase 74 39 - 117 U/L [facility] 06/23/2025 2:02 PM EDT 06/23/2025 2:04 PM EDT us Generic External Data Provider LAB BLOOD ORDERAB LES Final Result [facility] [address] [place] [phone] * (ABNORMAL) POCT glycosylated hemoglobin (Hgb A1c) (05/31/2025 1:38 PM EDT) Hemoglobin A1C 6.4(A) 4.0 - 5.7 % QC Media Lot # [id number] Lot# Expiration Date Blood Capillary blood specimen / Unknown 05/31/2025 1:38 PM EDT Corin Fry MD POINT OF CARE TEST ENTER/EDIT OR DERABLES Final Result * POCT glucose manually resulted (05/31/2025 1:35 PM EDT) Glucose Blood, POC 151 60 - 200 mg/dL QC Media Lot # [id number] Lot# Expiration Date ,787,[id number] Blood Capillary blood specimen / Unknown 05/31/2025 1:35 PM EDT Corin Fry MD POINT OF CARE TEST ENTER/EDIT OR DERABLES Final Result * CT Abdomen Pelvis w/o Contrast (04/21/2025 7:42 AM EDT) Anatomical Region Laterality Modality Body, Pelvis, Abdomen Computed T omography 04/21/2025 7:42 AM EDT Narrative 04/21/2025 7:44 AM EDT [place] [phone] CT Scan Report Signed Patient: Carmina Cheng MR#: [id number] : 1960 Acct:[id number] Age/Sex: 64 / F ADM Date: 04/21/25 Loc: .ED Attending Dr: Ordering Physician: Autumn Alcantar DO Date of Service: 04/21/25 Procedure(s): CT abdomen pelvis wo IV con Accession Number(s): [id number] cc: Autumn Alcantar DO; Corin Fry MD Report Number: [id number]: Total DLP = 791.00 mGy-cm CLINICAL HISTORY: R flank pain CT abdomen and pelvis without contrast Comparison: None provided Findings: CT abdomen: Minor scarring or atelectasis within the lung bases without infiltrate or pleural effusion. No acute bony lesions. There is degenerative change scattered throughout the thoracolumbar spine, especially at L4-5 and L5-S1. Moderate right hydronephrosis and right proximal hydroureter. This is secondary to a 4.5 mm calculus within the right ureter located 6.5 cm distal to the right renal pelvis. Prominent perinephric stranding and periureteral edema the level of the stone in at the level of the stone. The right ureter distal to the ureteral calculus is decompressed. Curvilinear calcification within the right renal hilum measures 8 mm in round diameter. This may be within the collecting system be related to the vasculature. No stones are seen within the left kidney. No left hydronephrosis. There is a 5 mm hypodensity within the periphery of the right lobe of the liver, likely a cyst. Unenhanced liver is otherwise unremarkable. Unenhanced spleen, pancreas, gallbladder, and adrenal glands are unremarkable. Small hiatal hernia. Mild left ventricular dilation. No dilated small bowel. CT pelvis: Appendix is normal. Scattered diverticuli throughout the colon without findings of diverticulitis. No free fluid or free air. No bladder calculi. IMPRESSION: Moderate right hydronephrosis secondary to a proximal to mid right ureteral calculus. This document has been electronically signed by: Saulo Nguyen MD on 04/21/2025 07:42:20 Dictated By: Saulo Nguyen MD Signed By: <Electronically signed by Saulo Nguyen MD in OV> 04/21/25 0743 DD/ TD/TT: 04/21/25 0742 Marksmanship Instructor: Procedure Note Donotuseinterpreter, Image - 04/21/[address] [place] [id number] [address] Scan Report Signed Patient: Fernando ChengManuel#: [id number] : 1960cct:[id number] Age/Sex: 64 / FADM Date: 04/21/25 Loc: HO.ED Attending Dr: Ordering Physician: Autumn Alcantar DO Date of Service: 04/21/25 Procedure(s): CT abdomen pelvis wo IV con Accession Number(s): [id number] cc: Autumn Alcantar DO; Corin Fry MD Report Number: [id number]: Total DLP = 791.00 mGy-cm CLINICAL HISTORY: R flank pain CT abdomen and pelvis without contrast Comparison: None provided Findings: CT abdomen: Minor scarring or atelectasis within the lung bases without infiltrate or pleural effusion. No acute bony lesions. There is degenerative change scattered throughout the thoracolumbar spine, especially at L4-5 and L5-S1. Moderate right hydronephrosis and right proximal hydroureter. This is secondary to a 4.5 mm calculus within the right ureter located 6.5 cm distal to the right renal pelvis. Prominent perinephric stranding and periureteral edema the level of the stone in at the level of the stone. The right ureter distal to the ureteral calculus is decompressed. Curvilinear calcification within the right renal hilum measures 8 mm in round diameter. This may be within the collecting system be related to the vasculature. No stones are seen within the left kidney. No left hydronephrosis. There is a 5 mm hypodensity within the periphery of the right lobe of the liver, likely a cyst. Unenhanced liver is otherwise unremarkable. Unenhanced spleen, pancreas, gallbladder, and adrenal glands are unremarkable. Small hiatal hernia. Mild left ventricular dilation. No dilated small bowel. CT pelvis: Appendix is normal. Scattered diverticuli throughout the colon without findings of diverticulitis. No free fluid or free air. No bladder calculi. IMPRESSION: Moderate right hydronephrosis secondary to a proximal to mid right ureteral calculus. This document has been electronically signed by: Saulo Nguyen MD on 04/21/2025 07:42:20 Dictated By: Saulo Nguyen MD Signed By: <Electronically signed by Saulo Nguyen MD in OV> 04/21/25 0743 DD/ 0742 TD/TT: 04/21/25 0742 Marksmanship Instructor: [facility] External Provider IMG CT PROCEDURES Final Result * (ABNORMAL) Urinalysis, Complete, with Reflex to Culture (04/21/2025 6:27 AM EDT) Color Urine Straw [facility] Appearance Urine Clear [facility] PH 6.0 5.0 - 9.0 [facility] Glucose Urine UA Negative Negative mg/dL [facility] Urine Blood Small (1+)(A) Negative [facility] Specific Coyle - Urine 1.020 1.005 - 1.025 [facility] Urine Protein Negative Neg-Trace mg/dL [facility] Urine Ketones Negative Negative mg/dL [facility] Nitrite Urine Negative Negative [facility] Leukocyte Esterase Urine Negative Negative [facility] RBC Urine 6-10(A) 0 - 2 /HPF [facility] Urine WBC 0-5 0 - 5 /HPF [facility] Urine Squamous Epithelial Cell 0-2 0 - 2 /HPF [facility] Urine Bacteria None Seen None Seen [facility] Hyaline Casts, Urine 0-2 0 - 2 /LPF [facility] 04/21/2025 6:27 AM EDT 04/21/2025 6:30 AM EDT Narrative [facility] - 04/21/2025 6:44 AM EDT [id number], Catheterized us Generic External Data Provider LAB URINE ORDERAB LES Final Result Performing Organization Address [facility] Co de Phone Number [facility] [address] [place] [phone] * Hepatic Function Panel (04/21/2025 5:15 AM EDT) Bilirubin, Total 0.2 0.0 - 1.0 mg/dL [facility] Bilirubin, Direct <0.2 0.0 - 0.5 mg/dL [facility] Aspartate Amino Transferase 19 5 - 31 U/L [facility] Alanine Aminotransferase 13 0 - 31 U/L [facility] Total Protein 6.7 6.5 - 8.0 g/dL [facility] Albumin Level 4.1 3.5 - 5.0 g/dL [facility] Alkaline Phosphatase 93 39 - 117 U/L [facility] 04/21/2025 5:15 AM EDT 04/21/2025 5:19 AM EDT us Generic External Data Provider LAB BLOOD ORDERAB LES Final Result Performing Organization Address [facility]/ZIP Co de Phone Number [facility] [address] [place] [address] [phone] * (ABNORMAL) Basic Metabolic Panel (04/21/2025 5:15 AM EDT) Sodium 142 135 - 145 mmol/L [facility] Potassium 3.6 3.3 - 5.1 mmol/L [facility] Chloride 104 96 - 108 mmol/L [facility] Carbon Dioxide 28 22 - 29 mmol/L [facility] Anion Gap 14 12 - 20 [facility] Urea Nitrogen (BUN) 18(H) 9 - 16 mg/dL [facility] Creatinine, Serum 0.74 0.5 - 1.4 mg/dL [facility] Creatinine Clr Calc Pharmacy 88.1 [facility] Comment:Provided height and weight: 157.48 cm,104.326 kg.eGFR (calculated from the MDRD study equation) and eCrCl(calculated from the Cockcroft-Gault equation) are based ondifferent parameters and may not yield comparable results.If eCrCl result is absurd, please check patient'sheight/weight. Estimated Glomerular Filt Rate >60 [facility] Comment:Chronic Kidney Disea se: Estimated GFR < 60 mL/min/1.79l7Ldnsps Kidney Disease: Estimated GFR < 15 mL/min/1.73m2 Glucose 130(H) 60 - 115 mg/dL [facility] Calcium 9.7 8.4 - 10.2 mg/dL [facility] 04/21/2025 5:15 AM EDT 04/21/2025 5:19 AM EDT us Generic External Data Provider LAB BLOOD ORDERAB LES Final Result [facility] [address] [place] [address] [phone] * Surgical Pathology (04/09/2025 2:54 PM EDT) us Historical Provider LAB PATHOLOGY ORDERABLES Final Result * Colonoscopy (04/09/2025 10:24 AM EDT) Anatomical Region Laterality Modality Endoscopy us Historical Provider MD ENDOSCOPY PROCEDURE ORDER FELY Final Result * BI Mammogram Screening Tomosynthesis Bilateral (03/19/2025 1:15 PM EDT) Anatomical Region Laterality Modality Breast Bilateral Mammography 03/19/2025 1:15 PM EDT Narrative 03/27/2025 11:24 AM EDT [facility] [address] [place], [place] [address] Mammography Report Signed Patient: Carmina Cheng MR#: [id number] : 1960 Acct:[id number] Age/Sex: 64 / F ADM Date: 03/19/25 Loc: DONO Attending Dr: Corin Fry MD Ordering Physician: Corin Fry MD Results: 1Negative Date of Service: 03/19/25 Follow Up: 1 Year From Orig ina Mammogram Procedure(s): MM tomosynthesis screening BI Accession Number(s): [id number] cc: Corin Fry MD EXAMINATION: MM SCREENING DIGITAL BREAST TOMOSYNTHESIS, BILATERAL CLINICAL INFORMATION: Screening. Asymptomatic. COMPARISON: Mammography: Comparison is made with available priors TECHNIQUE: Digital breast mammography with tomosynthesis is performed in both the craniocaudal and mediolateral oblique views along with computer-aided detection (CAD). FINDINGS: There are scattered areas of fibroglandular density (ACR BI-RADS breast composition Category b). There are no significant masses, abnormal calcifications, [...] target due date for their next mammogram. Electronically signed by: Deepa Quinones DO 03/27/2025 11:21 AM EDT Dictated By: Deepa Quinones DO Signed By: <Electronically signed by Deepa Quinones DO in OV> 03/27/25 1121 DD/ 1315 TD/TT: 03/19/25 1340 Marksmanship Instructor: Procedure Note Donotuseinterpreter, Image - 03/27/[facility] [address] [place] [address] Mammography Report Signed Patient: Fernando ChengR#: [id number] : 1960cct:[id number] Age/Sex: 64 / FADM Date: 03/19/25 Loc: MIGUEL Attending Dr: Corin Fry MD Ordering Physician: Corin Fry MDResults: 1Negative Date of Service: 03/19/25Follow Up: 1 Year From Orig inal Mammogram Procedure(s): MM tomosynthesis screening BI Accession Number(s): [id number] cc: Corin Fry MD EXAMINATION: MM SCREENING DIGITAL BREAST TOMOSYNTHESIS, BILATERAL CLINICAL INFORMATION: Screening. Asymptomatic. COMPARISON: Mammography: Comparison is made with available priors TECHNIQUE: Digital breast mammography with tomosynthesis is performed in both the craniocaudal and mediolateral oblique views along with computer-aided detection (CAD). FINDINGS: There are scattered areas of fibroglandular density (ACR BI-RADS breast composition Category b). There are no significant masses, abnormal calcifications, [...] target due date for their next mammogram. Electronically signed by: Deepa Quinones DO 03/27/2025 11:21 AM EDT Dictated By: Deepa Quinones DO Signed By: <Electronically signed by Deepa Quinones DO in OV> 03/27/25 1121 DD/ 1315 TD/TT: 03/19/25 1340 Marksmanship Instructor: Corin Fry MD IMG BI PROCEDURES Edited Result - Final * (ABNORMAL) Lipid Panel with Reflex to Direct LDL (09/25/2024 12:15 PM EST) Triglycerides 118 <150 mg/dL [facility] Comment:Desirable Triglyceri de: less than 150 mg/dLBorderline High Triglyceride 150-199 mg/dLHigh Triglyceride: 200-499 mg/dLVery High Triglyceride: greater than or equal to 5OO mg/dL Cholesterol 269(H) <200 mg/dL [facility] Comment:Desirable Cholestero l: less than 200 mg/dLBorderline High Cholesterol: 200-239 mg/dLHigh Cholesterol: greater than 239 mg/dL LDL Cholesterol Calculated 181(H) <100 mg/dL [facility] Comment:Desirable LDL: less than 100 mg/dLNear Optimal/Above Optimal LDL: 110- 129 mg/dLBorderline High LDL: 130-159 mg/dLHigh LDL: 160-189 mg/dLVery High LDL: greater than or equal to 190 mg/dL HDL Cholesterol 65 >40 mg/dL [facility] Comment:Desirable HDL: great er than 40 mg/dL Note: This HDL assay may give artificially low results in patients with liver disease. Blood 09/25/2024 12:1 5 PM EST 09/25/2024 12:55 PM EST Corin Fry MD LAB BLOOD ORDERABLES Final Resul t [facility] [address] [place], [place] [phone] * Albumin, Random Urine W/Creatinine (07/30/2024 9:45 AM EDT) Creatinine, Urine 97.35 mg/dL [facility] Microalbumin Urine 10.0 mg/L [facility] Microalbum Creatinine Ratio Ur 10.2 <30 ug/mg cr [facility] Comment:Albumin/Creatinine R atio Reference Ranges: Normal: < 30 ug/mg creatinine Microalbuminuria: 30 - 300 ug/mg creatinineClinical Albuminuria: > 300 ug/mg creatinine Urine 07/30/2024 9:45 AM EDT 07/30/2024 11:36 AM EDT us Corin Fry MD LAB URINE ORDERABLES Final Resul t [facility] [address] [place] [address] [phone] * ThinPrep Imaging Pap and HPV mRNA E6/E7 (07/30/2024 9:32 AM EDT) HPV nRNA E6/E7 Not Detected Not Detected [facility] Comment:Methodology: Transcr iption-Mediated AmplificationThis assay detects E6/E7 viral messenger RNA (mRNA) from 14high-risk HPV types (16,18,31,33,35,39,45,51,52,56,58,59,66,68).Cervical sources are required for HPV testing.If a vaginal source from a patient who has had atotal hysterectomy with removal of cervix wassubmitted, please contact the testing laboratoryfor alternative testing options.For additional information, please refer tohttp://education.kaufDA/faq/JRD843d8(This link if provided for information/educational purposes only.)THIS TEST WAS PERFORMED AT:[employer] [place] [phone] HEATH MD SOURCE: SEE NOTE [facility] Comment:None given [facility] Clinical Information: SEE NOTE [facility] Comment:None given LMP: SEE NOTE [facility] Comment:NONE GIVEN Prev. PAP: SEE NOTE [facility] Comment:NONE GIVEN Prev. BX: SEE NOTE [facility] Comment:NONE GIVEN Statement Of Adequacy: SEE NOTE [facility] Comment:Satisfactory for macy luation.Endocervical/transformation zone component absent. General Categorization: [facility] Interpretation/Result: SEE NOTE [facility] Comment:Cytology Results: Ne gative for intraepitheliallesion or malignancy. Cytology Comment SEE NOTE [facility] Comment:This Pap test has be en evaluated with computerassisted technology. Tumbler Operator: SEE NOTE [facility] Comment:KF, CT(ASCP)CT eliu segundo location: [place] [address] Review Tumbler Operator: [facility] Pathologist [facility] PAP Infection [facility] See Note SEE NOTE [facility] Comment:EXPLANATORY NOTE:The Pap is a screening test for cervical cancer. It isnot a diagnostic test and is subject to false negativeand false positive results. It is most reliable when asatisfactory sample, regularly obtained, is submittedwith relevant clinical findings and history, and whenthe Pap result is evaluated along with historic andcurrent clinical information. 07/30/2024 9:32 AM EDT 07/30/2024 4:14 PM EDT Narrative [facility] - 08/04/2024 2:59 PM EDT SEE SCANNED RESULTS IN EMR us Corin Fry MD LAB PATHOLOGY ORDERABLES Final R esult [facility] [address] [place] [address] [phone] from Last 3 Months or Most Recently Relevant to Health Maintenance Insurance [employer] HSN FULL DENTAL-[facility] MEDICAID LIMITED ADULT DENTAL - HSN FULL (MEDICAID) Care Teams Salesforce Trainer Relationship Specialty Start Date End Date Corin Fry MD [address] [place] [address] PCP - General Family Medicine 02/26/22 Brendan Artis, PharmD [address] [place] [address] Pharmacist Internal Medicine 10/23/22
--- OUTSIDE RECORDS SUMMARY | 2025-06-23 17:53 | XMS_ITS | Encounter Summary ---
Author Organization [employer] Address [address] [place] [address] Care Team Providers Care Company Secretary Name Role Phone Corin Fry MD Primary Care Provider [phone] Brendan Artis PharmD Unavailable [phone] Encounter Details Date Type Department Care Team ([facility] st Contact Info) Description 06/23/2025 Orders Only GENERIC EXTERNAL DATA DEPARTMENT Provider, Generic External Data Social History Tobacco Use Types Packs/Day Years [...] Description 07/06/2025 1:00 PM EDT Office Visit [facility] OPTOMETRY [address] [place] [address] Jorge Alberto, Opal, OD [address] [place] [address] 08/13/2025 2:00 PM EDT Telemedicine [facility] [address] [place] [address] Brendan Artis PharmYolie [address] [place] [address] documented as of this encounter Goals Goal Patient Goal Type Associated Problems Recent Progress Patient-Stated? Author Blood Pressure < 140/90 Blood Pressure 130/80( 025 1:33 PM EDT) No Brendan Artis, PharmD documented as of this encounter Procedures Procedure Name Priority Date/Time Associated Diagnosis Comments CBC WITH AUTO DIFFERENTIAL Routine 06/23/2025 2:02 PM EDT MAGNESIUM Routine 06/23/2025 2:02 PM EDT LIPASE Routine 06/23/2025 2:02 PM EDT COMPREHENSIVE METABOLIC PANEL Routine 06/23/2025 2:02 PM EDT documented in this encounter Results * Lipase (06/23/2025 2:02 PM EDT) Lipase 12 8 - 78 U/L [facility] 06/23/2025 2:02 PM EDT 06/23/2025 2:04 PM EDT Generic External Data Provider LAB BLOOD ORDERAB LES Final Result Performing Organization Address [facility]/ZIP Co de Phone Number [facility] [address] [place] [phone] * Magnesium (06/23/2025 2:02 PM EDT) [facility] Magnesium 1.9 1.6 - 2.6 mg/dL [facility] 06/23/2025 2:02 PM EDT 06/23/2025 2:04 PM EDT [employer] External Data Provider LAB BLOOD ORDERAB LES Final Result Performing Organization Address [facility] de Phone Number [facility] [address] [place] [phone] * (ABNORMAL) Comprehensive Metabolic Panel (06/23/2025 2:02 PM EDT) [facility] Sodium 142 135 - 145 mmol/L [facility] Potassium 3.8 3.3 - 5.1 mmol/L [facility] Chloride 107 96 - 108 mmol/L [facility] Carbon Dioxide 26 22 - 29 mmol/L [facility] Anion Gap 13 12 - 20 [facility] Urea Nitrogen (BUN) 15 9 - 16 mg/dL [facility] Creatinine, Serum 0.86 0.5 - 1.4 mg/dL [facility] Creatinine Clr Calc Pharmacy 75.8 [facility] Comment:Provided height and weight: 157.48 cm,104.326 kg.eGFR (calculated from the MDRD study equation) and eCrCl(calculated from the Cockcroft-Gault equation) are based ondifferent parameters and may not yield comparable results.If eCrCl result is absurd, please check patient'sheight/weight. Estimated Glomerular Filt Rate >60 [facility] Comment:Chronic Kidney Disea se: Estimated GFR < 60 mL/min/1.25b7Rovnfm Kidney Disease: Estimated GFR < 15 mL/min/1.73m2 Glucose 187(H) 60 - 115 mg/dL [facility] Calcium 9.0 8.4 - 10.2 mg/dL [facility] Bilirubin, Total 0.3 0.0 - 1.0 mg/dL [facility] Aspartate Amino Transferase 19 5 - 31 U/L [facility] Alanine Aminotransferase 16 0 - 31 U/L [facility] Total Protein 6.9 6.5 - 8.0 g/dL [facility] Albumin Level 4.2 3.5 - 5.0 g/dL [facility] Alkaline Phosphatase 74 39 - 117 U/L [facility] 06/23/2025 2:02 PM EDT 06/23/2025 2:04 PM EDT us Generic External Data Provider LAB BLOOD ORDERAB LES Final Result [facility] [address] [place] [phone] * (ABNORMAL) CBC auto differential (06/23/2025 2:02 PM EDT) White Blood Count 7.4 4.8 - 10.8 X10*3/uL [facility] Red Blood Count 5.08 4.20 - 5.50 X10*6/uL [facility] Hemoglobin 13.2 12.0 - 16.0 g/dl [facility] Hematocrit 41.0 37.0 - 47.0 % [facility] Mean Corpuscular Volume 80.7 80.0 - 98.0 fL [facility] Mean Corpuscular Hemoglobin 26.0(L) 27.0 - 33.0 pg [facility] Mean Corpuscular HGB Conc 32.2 31.0 - 35.0 g/dl [facility] Red Cell Distribution Width 15.2 11.0 - 16.0 % [facility] Platelet Count 269 160 - 400 X10*3/uL [facility] Mean Platelet Volume 9.4 9.4 - 12.3 fL [facility] Neutrophils Percent Auto 70.7 45 - 73 % [facility] Imm Gran Pct Auto 0.3 0.0 - 0.4 % [facility] Lymphocytes Percent Auto 20.3 20 - 40 % [facility] Monocytes Percent Auto 7.1 2 - 11 % [facility] Eosinophils Percent Auto 1.2 0 - 4 % [facility] Basophils Percent Auto 0.4 0 - 2 % [facility] NRBC Pct Auto 0.0 0.0 - 0.2 /100WBC [facility] Neutrophils Absolute Auto 5.2 2.0 - 8.3 x10*3/uL [facility] Imm Gran Abs Auto 0.02 0.00 - 0.03 X10*3/uL [facility] Lymphocytes Absolute Auto 1.5 1.2 - 4.9 X10*3/uL [facility] Monocytes Absolute Auto 0.5 0.1 - 1.2 X10*3/uL [facility] Eosinophils Absolute Auto 0.1 0.0 - 0.4 X10*3/uL [facility] Basophils Absolute Auto 0.0 0.0 - 0.2 X10*3/uL [facility] NRBC Abs Auto 0.000 0.0 - 0.012 X10*3/uL [facility] 06/23/2025 2:02 PM EDT 06/23/2025 2:04 PM EDT us Generic External Data Provider LAB BLOOD ORDERAB LES Final Result [facility] [address] [place] [phone] documented in this encounter Visit Diagnoses Not on filedocumented in this encounter Additional Health Concerns Assessment Noted Time PHQ-9 Depression Total Score: 0 10/10/20 24 9:12 AM EDT documented as of this encounter Care Teams Company Secretary Relationship Specialty Start Date End Date Corin Fry MD [address] [place] [address] PCP - General Family Medicine 02/26/22 Brendan Artis PharmD [address] [place] [address] Pharmacist Internal Medicine 10/23/22 documented as of this encounter
--- OUTSIDE RECORDS SUMMARY | 2025-06-23 17:53 | XMS_ITS | Encounter Summary ---
Author Organization [employer] Address [address] [place] [address] [address] [address] Care Team Providers Care Marketing Performance Analyst Name Role Phone Corin Fry MD Primary Care Provider [phone] Brendan Artis PharmD Unavailable [phone] Reason for Referral * Consultation (Routine) - Authorized Specialty Diagnoses / Procedures Referred By Contac t Referred To Contact Pharmacy Diagnoses Primary hypertension Corin Fry MD [address] [place] [phone] Phone: tel: fax: Referral ID Status Reason Start Date Expiration Date Visits Requested Visits Authorized [id number] Authorized Consult and Treat 12/21/2024 12/21/2025 6 6 Encounter Details Date Type Department Care Team ([facility] st Contact Info) Description 12/21/2024 Orders Only [facility] [address] [place] [address] [phone] Corin Fry MD [address] [place] [address] [phone] Primary hypertension (Primary Dx); Type 2 diabetes mellitus without complication, without long-term current use of insulin ([facility]) Social History Tobacco Use Types Packs/Day Years [...] Description 07/06/2025 1:00 PM EDT Office Visit [facility] [address] [place] [address] Opal Azul, OD [address] [place] [address] 08/13/2025 2:00 PM EDT Telemedicine [facility] [address] [place] [address] Brendan Artis, PharmD [address] [place] [address] Scheduled Referrals Name Type Priority Associated Diagnoses [...] complication, without long-term current use of insulin ([facility]) documented in this encounter Additional Health Concerns Assessment Noted Time PHQ-9 Depression Total Score: 0 07/30/20 24 9:12 AM EDT documented as of this encounter Care Teams Marketing Performance Analyst Relationship Specialty Start Date End Date Corin Fry MD [address] [place] [address] PCP - General Family Medicine 02/26/22 Brendan Artis, PharmD [address] [place] [address] Pharmacist Internal Medicine 10/23/22 documented as of this encounter
--- OUTSIDE RECORDS SUMMARY | 2025-06-23 17:53 | XMS_ITS | Clinical Summary ---
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 Hypertension 02/01/2023 Plantar fasciitis, bilateral 11/06/2022 Encounters Date Type Department Care Team Description 04/09/2025 2:57 PM EDT Anesthesia Event [facility] [address] [place] [address] Shelli Jauregui MD 04/09/2025 2:30 PM EDT - 04/09/2025 3:05 PM EDT Surgery [facility] [address] [place] [address] Sharif Jensen MD COLONOSCOPY SCREENING, LOW RISK WITH POSSIBLE MODERATE SEDATION [52716 (CPT )] 04/09/2025 1:42 PM EDT - 04/09/2025 3:49 PM EDT Hospital Encounter [facility] [address] [place] [address] Sharif Jensen MD Encounter for screening colonoscopy Discharge Disposition: Home or Self Care () 04/01/2025 Telephone [facility] [address] [place] [address] Padmaja Gabriel RN from Last 3 Months Social History Tobacco [...] Info) Description 12/27/2025 3:00 PM EDT Follow-Up [facility] 4th floor Cardiology Medicine [address] [place] [address] [phone] Senior Customer Service Representative: Sj Floyd MD [address] [place] [address] [phone] Health Maintenance Due Date Last Done Comments Cervical Cancer Screening 1960 Cologuard 1960 FOBT / Fit Test 1960 HPV and Pap Smear 1960 Pap Smear [address] Lung Cancer Screening (Baseline) 2011 RSV Vaccine (60+ years old a nd patients) (1 - Risk 60-74 years 1-dose series) 2021 Mammogram 03/21/2023 03/21/2021, 06/0 10/2020, 03/17/2020, Additional history exists Alcohol/Substance Use Screening 10/21/2024 Depression Screening and Follow-Up 10/21/2024 Social Drivers of Health Laureen ual Screening 10/21/2024 Basic Metabolic Panel 01/04/2025 01/05/2024 , 02/18/2023, 08/10/2019 COVID-19 Vaccine (3 - 2024-2 6 season) 2025 01/24/2021, 12/26/2020 Influenza Vaccine (#1) 2025 Diabetes Screening 04/09/2028 04/09/2025, 0 04/09/2025, 02/22/2025, Additional history exists DTaP,Tdap,and Td Vaccines (2 - Td or Tdap) 11/10/2034 11/10/2024, 11/02/2013 Colon Cancer Screening 04/09/2035 Colonoscopy 04/09/2035 04/09/2025, 04/09/2025 Hepatitis B Vaccines Completed 01/21/2017, 09/21/2016, 08/23/2016 HIV Screening Completed 05/30/2021 Hepatitis C Screening Completed 05/30/2021 Zoster Vaccines Completed 08/01/2021, 05/31/2021 Pneumococcal Vaccine: 50+ Years Completed , 11/02/2013 Procedures * Due to [facility] law, this organization might not be sharing negative HIV tests. Procedure Name Priority Date/Time Associated Diagnosis Comments POCT GLUCOSE Routine 04/09/2025 3:26 PM EDT TISSUE EXAM Routine 04/09/2025 3:13 PM EDT Encounter for screening colonoscopy MS COLONOSCOPY FLX DX W/COLLJ SPEC WHEN PFRMD 04/09/2025 2:58 PM EDT Encounter for screening colonoscopy POCT GLUCOSE Routine 04/09/2025 2:37 PM EDT COLONOSCOPY 04/09/2025 from Last 3 Months Results * Due to [place] [employer] law, this organization might not be sharing negative HIV tests. * POCT Glucose, interfaced (04/09/2025 3:26 PM EDT) Only the most recent of2 resultswithin the time period is included. [facility] Signature Glucose, POCT 98 70 - 99 mg/dL 04/09/2025 3:27 PM EDT [facility] Comment: The packer fuser has not determined the efficacy of this test in Critically ill patients. [facility] defines Critically ill patients for the [...] PM EDT 04/09/2025 3:27 PM EDT us Sharif Jensen MD LAB POCT ORDERABLES - DEVICE Fin al Result [facility] [address] [place] [address], [place] * Tissue Exam (04/09/2025 3:13 PM EDT) Final Diagnosis Colon (Transverse), Polypectomy: - Tubular adenoma. [facility] MANUAL 04/12/2025 10:55 AM EDT [facility] at 1055 EDT Clinical History Pre-op diagnosis: Encounter for screening colonoscopy [Z12.11] [facility] MANUAL 04/12/2025 10:55 AM EDT [facility] flux - neutrinity [facility] Gross Description 1. Large Intestine, Transverse Colon The specimen is received in formalin, labeled with the patient s name, medical record number, date of and T ransverse Polyp x 1 . It consists of one 0.4 x 0.2 x 0.2 hobbs-pink soft tissue fragment. ESS. [facility] MANUAL 04/12/2025 10:55 AM EDT [facility] flux - neutrinity [facility] Gross Description User Grossing complete by Wilbre Lara MD on 04/10/2025 12:37 PM [facility] MANUAL 04/12/2025 10:55 AM EDT [facility] Embedded Images [facility] MANUAL 04/12/2025 10:55 AM EDT [facility] flux - neutrinity [facility] Resulting Agency Case was signed out at [facility], Department of Pathology, [employer] 3 CLIA [id number] [facility] MANUAL 04/12/2025 10:55 AM EDT [employer] Report Header Surgical Pathology Report Case: [id number] Authorizing Provider: Sharif Jensen MD Collected: 04/09/2025 1513 Ordering Location: [facility] Received: 04/09/2025 1643 [facility] Endoscopy Pathologist: Reuben Prince MD Specimen: Large Intestine, Transverse Colon, Transverse Polyp x 1 04/12/2025 10:55 AM EDT [facility] ProVation Case Yes [facility] MANUAL 04/12/2025 10:55 AM EDT [facility] SURGICAL CSN Component [id number] [facility] MANUAL 04/12/2025 10:55 AM EDT [employer] [facility] Polyp Entire transverse colon / Unknown 04/09/2025 3:13 PM EDT 04/09/2025 4:43 PM EDT Comment:Pre-op diagnosis: Encounter for screening colonoscopy [Z12.11] us Sharif Jensen MD LAB PATHOLOGY/CYTOLOGY ORDERABLE S Final Result [employer] [facility] [address] [place] [address], * COLONOSCOPY (04/09/2025) Narrative Procedure Note Sharif Jensen MD - 04/09/2025 2:36 PM EDT [facility] Gastroenterology Patient Name: Carmina Ortiz Procedure Date: 04/09/2025 2:36 PM Date of : 1960 Admit Type: Outpatient Age: 64 Room: [facility] 06 Gender: Female Note Status: Finalized Attending MD: [...] Resul t from Last 3 Months Insurance [facility] HSNO/FREE CARE Care Teams Chief Program Officer Relationship Specialty Start Date End Date Corin Fry [address] [place] [phone] PCP - General Family Medicine 07/19/22
--- OUTSIDE RECORDS SUMMARY | 2025-06-23 17:53 | XMS_ITS | Encounter Summary ---
Author Organization [employer] Address [address] [facility] 7 [place] [address] Care Team Providers Care Inspector Raw Quartz Name Role Phone Corin Fry MD Primary Care Provider [phone] Brendan Artis PharmD Unavailable [phone] Encounter Details Date Type Department Care Team ([facility] st Contact Info) Description 09/25/2024 Orders Only [facility] [address] [place], [place] [phone] Corin Fry MD [address] [place], [place] [phone] Mixed hyperlipidemia (Primary Dx) Social History Tobacco [...] Description 07/06/2025 1:00 PM EDT Office Visit [facility] OPT[facility] [address] [place] [address] Jorge Alberto, Opal, OD [address] [place] [address] 08/13/2025 2:00 PM EDT Telemedicine [facility] [address] [place] [address] Brendan Artis, PharmD [address] [place] [address] documented as of this encounter Goals Goal Patient Goal Type Associated Problems Recent Progress Patient-Stated? Author Blood Pressure < 140/90 Blood Pressure 130/80( 025 1:33 PM EDT) No Brendan Artis, PharmYolie documented as of this encounter Procedures Procedure Name Priority Date/Time Associated Diagnosis Comments LIPID PANEL WITH REFLEX TO DIRECT LDL Routine 09/25/2024 12:15 PM EST Mixed hyperlipidemia documented in this encounter Results * (ABNORMAL) Lipid Panel with Reflex to Direct LDL (09/25/2024 12:15 PM EST) Triglycerides 118 <150 mg/dL [facility] Comment:Desirable Triglyceri de: less than 150 mg/dLBorderline High Triglyceride 150-199 mg/dLHigh Triglyceride: 200-499 mg/dLVery High Triglyceride: greater than or equal to 5OO mg/dL Cholesterol 269(H) <200 mg/dL [facility] Comment:Desirable Cholestero l: less than 200 mg/dLBorderline High Cholesterol: 200-239 mg/dLHigh Cholesterol: greater than 239 mg/dL LDL Cholesterol Calculated 181(H) <100 mg/dL [facility] Comment:Desirable LDL: less than 100 mg/dLNear Optimal/Above Optimal LDL: 110- 129 mg/dLBorderline High LDL: 130-159 mg/dLHigh LDL: 160-189 mg/dLVery High LDL: greater than or equal to 190 mg/dL HDL Cholesterol 65 >40 mg/dL [facility] Comment:Desirable HDL: great er than 40 mg/dL Note: This HDL assay may give artificially low results in patients with liver disease. Blood 09/25/2024 12:1 5 PM EST 09/25/2024 12:55 PM EST us Corin Fry MD LAB BLOOD ORDERABLES Final Resul t [facility] [address] [place] [address] [phone] documented in this encounter Visit Diagnoses Diagnosis Mixed hyperlipidemia- Primary documented in this encounter Additional Health Concerns Assessment Noted Time PHQ-9 Depression Total Score: 0 07/30/20 24 9:12 AM EDT documented as of this encounter Care Teams Inspector Raw Quartz Relationship Specialty Start Date End Date Corin Fry MD [address] [place] [address] PCP - General Family Medicine 02/26/22 Brendan Artis, TaoD [address] [place] [address] Pharmacist Internal Medicine 10/23/22 documented as of this encounter
--- OUTSIDE RECORDS SUMMARY | 2025-06-23 17:53 | XMS_ITS | Encounter Summary ---
Author Organization [employer] Address [address] [facility] 7t [place] [address] Care Team Providers Care Records Management Coordinator Name Role Phone Corin Fry MD Primary Care Provider [phone] Brendan Artis PharmD Unavailable [phone] Encounter Details Date Type Department Care Team ([facility] Contact Info) Description 04/13/2025 Orders Only [facility] [address] [place], [place] [phone] ProviderTirso MD Social History Tobacco Use Types [...] Description 07/06/2025 1:00 PM EDT Office Visit [facility] OPTOMETRY [address] [place] [address] Jorge Alberto, Opal, OD [address] [place] [address] 08/13/2025 2:00 PM EDT Telemedicine [facility] MEDICINE [address] [place] [address] Brendan Artis, PharmYolie [address] [place] [address] documented as of this encounter Goals Goal Patient Goal Type Associated Problems Recent Progress Patient-Stated? Author Blood Pressure < 140/90 Blood Pressure 130/80( 025 1:33 PM EDT) No Brendan Artis, PharmD documented as of this encounter Procedures Procedure Name Priority Date/Time Associated Diagnosis Comments COLONOSCOPY Routine 04/09/2025 10:24 AM EDT documented in this encounter Results * Colonoscopy (04/09/2025 10:24 AM EDT) Anatomical Region Laterality Modality Endoscopy us Historical Provider ENDOSCOPY PROCEDURE ORDER FELY Final Result documented in this encounter Visit Diagnoses Not on filedocumented in this encounter Additional Health Concerns Assessment Noted Time PHQ-9 Depression Total Score: 0 07/30/20 9:12 AM EDT documented as of this encounter Care Teams Records Management Coordinator Relationship Specialty Start Date End Date Corin Fry MD [address] [place] [address] PCP - General Family Medicine 02/26/22 Brendan Artis, [place] [address] [place] [address] Pharmacist Internal Medicine 10/23/22 documented as of this encounter
--- OUTSIDE RECORDS SUMMARY | 2025-06-23 17:53 | XMS_ITS | Encounter Summary ---
Author Organization [employer] Address [address] [place] [address] [address] [place] [address] Care Team Providers Care Utility Assembler Name Role Phone Corin Fry MD Primary Care Provider [phone] Brendan Artis PharmD Unavailable [phone] Encounter Details Date Type Department Care Team (Late st Contact Info) Description 06/26/2023 Orders Only [facility] [address] [place], [place] [phone] Corin Fry MD [address] [place] [address] Chronic foot pain, right (Primary Dx); Plantar [...] Description 07/06/2025 1:00 PM EDT Office Visit [facility] OPTOMETRY [address] [place] [address] Opal Azul, OD [address] [place] [address] 08/13/2025 2:00 PM EDT Telemedicine [facility] [address] [place] [address] Brendan Artis PharmD [address] [place] [address] documented as of this encounter Goals Goal [...] documented as of this encounter Care Teams Utility Assembler Relationship Specialty Start Date End Date Corin Fry MD [address] [place] [address] PCP - General Family Medicine 02/26/22 Brendan Artis PharmD [address] [place], [place] [phone] Pharmacist Internal Medicine 10/23/22 documented as of this encounter
--- OUTSIDE RECORDS SUMMARY | 2025-06-23 17:53 | XMS_ITS | Encounter Summary ---
Author Organization [employer] Address [address] [place] [address] Care Team Providers Care Pipeline Inspector Name Role Phone Corin Fry MD Primary Care Provider [phone] Brendan Artis PharmD Unavailable [phone] Reason for Referral * Imaging (Routine) - Closed Specialty Diagnoses / Procedures Referred By Contac t Referred To Contact Radiology Diagnoses Left lower quadrant pain Procedures CT Abdomen Pelvis w/ Contrast Brock Hitchcock MD [address] [place] [address] Phone: tel: fax: [address] Phone: tel: fax: Referral ID Status Reason Start Date Expiration Date Visits Re quested Visits Authorized [id number] Closed 01/03/2024 01/02/2025 1 1 Encounter Details Date Type Department Care Team (Late st Contact Info) Description 01/02/2024 Orders Only [facility] [address] [place] [address] Brock Hitchcock MD [address] [place] [address] Left lower quadrant pain (Primary Dx) Social [...] Description 07/06/2025 1:00 PM EDT Office Visit [facility] OPTOMETRY [address] [place] [address] Opal Azul, OD [address] [place] [address] 08/13/2025 2:00 PM EDT Telemedicine [facility] MEDICINE [address] [place] [address] Brendan Artis, PharmD [address] [place] [address] Scheduled Orders Name Type Priority Associated Diagnoses [...] documented as of this encounter Care Teams Pipeline Inspector Relationship Specialty Start Date End Date Corin Fry MD [address] [place] [address] PCP - General Family Medicine 02/26/22 Brendan Artis, PharmD [address] [place] [address] Pharmacist Internal Medicine 10/23/22 documented as of this encounter
[2025-06-23 18:07] VITALS: BP 138/74; PULSE 67; RESP 16; TEMP 36.8; O2SAT 97
[2025-06-23] MEDS: iohexoL 350 MG/ML 100 ML INFUS..BTL IV (18:13)
[2025-06-23 19:30] LABS: Appearance Urine Clear; Glucose Urine UA Negative (Negative); PH 6.0 (5.0-9.0); Specific Gravity - Urine >= 1.030 (1.005-1.025); UMIC TRIGGER UACC YES
[2025-06-23 20:11] VITALS: BP 138/74; PULSE 67; RESP 16; TEMP 36.8; O2SAT 97
== END 2025-06-23 20:12 | disposition home or self-care (01) ==
PROVIDERS: Physician Assistant Medical; Emergency Provider Emergency Medicine Emergency Medical Services; PCP Family Medicine
DX: N20.1 Calculus of ureter (principal); I10 Essential (primary) hypertension; E11.9 Type 2 diabetes mellitus without complications; Z87.442 Personal history of urinary calculi; Z79.899 Other long term (current) drug therapy
CPT/HCPCS: 36415; 74177; 80053; 81001; 83690; 83735; 85025; 96361; 96374; 96375; 99284; 99285; J1171; J2405; Q9967

== ENCOUNTER → 2025-06-23 16:25 | Outpatient (BNV) | payer MEDICAID, SELFPAY | PROVIDERS: Emergency Provider Emergency Medicine Emergency Medical Services; PCP Family Medicine; Visit Provider Radiology Diagnostic Radiology | DX: N13.2 Hydronephrosis with renal and ureteral calculous obstruction (principal) | CPT/HCPCS: 74177 ==

== ENCOUNTER 2025-06-24 10:24 | Emergency (ER) | payer MEDICAID, SELFPAY ==
[2025-06-24 10:49] VITALS: BP 133/69; PULSE 60; RESP 16; TEMP 36.3; O2SAT 95; BMI 38.7
--- NOTE | 2025-06-24 10:50 | ED_ITS ---
HPI - General Adult General Chief complaint: General Medical Stated complaint: was called to er needs neuro Time Seen by Provider: 06/24/25 11:06 Source: patient, RN notes reviewed, old records reviewed and unhairing machine operator Mode of arrival: ambulatory Limitations: language barrier History of Present Illness ED Provider: Sree DORADO narrative: Patient is a 64-year-old Guinean-speaking female presenting to the emergency department stating that she was told to come to the ED to see a urologist. She was seen in this ED yesterday and diagnosed with renal colic. States that she does not have any current pain, denies any fevers or difficulty urinating. States that her PCP has sent to referrals to a urologist in [place] but that she has not heard back regarding an appointment yet. She received a phone call from [facility] this morning and was told by someone there that if she came to the emergency department this morning she would be able to see a urologist. She does not have any current physical complaints. MD complaint: Needs urologist Related Data Previous Rx's ?Medication ?Instructions ?Recorded ketorolac 10 mg tablet 10 mg PO TID PRN pain 5 days #10 05/26/22 tabs ondansetron HCl 4 mg tablet 4 mg PO Q6H PRN nausea and 05/26/22 vomiting #10 tabs tamsulosin 0.4 mg capsule (Flomax) 0.4 mg PO DAILY #10 caps 05/26/22 pantoprazole 40 mg tablet,delayed 40 mg PO DAILY #30 t abs 01/05/24 release (Protonix) sucralfate 1 gram tablet 1 g PO TID #90 tabs 01/05/24 ondansetron HCl 4 mg tablet 4 mg PO Q8H PRN nausea and 04/21/25 vomiting 3 days #9 tabs oxycodone 5 mg tablet 5 mg PO Q8H PRN pain #9 tabs 04/21/25 prednisone 20 mg tablet 20 mg PO DAILY 7 days #7 tab s 04/21/25 tamsulosin 0.4 mg capsule 0.4 mg PO BEDTIME 2 weeks #1 4 caps 04/21/25 ibuprofen 400 mg tablet 400 mg PO Q6H PRN pain #20 t abs 06/23/25 ondansetron 4 mg disintegrating 4 mg PO TID PRN nausea and 06/23/25 tablet vomiting 5 days #10 tabs oxycodone 5 mg tablet 5 mg PO Q8H PRN pain #7 tabs 06/23/25 tamsulosin 0.4 mg capsule (Flomax) 0.4 mg PO DAILY #7 caps 06/23/25 Allergies Allergy/AdvReac Type Severity Reaction Status Date / Time latex AdvReac Rash Verified 06/24/25 10:50 [id number] Reductase AdvReac Headache Verified 06/24/25 10:50 Inhibitor Review of Systems Review of Systems: As per HPI Yes all other systems are reviewed and are negative Constitutional: Constitutional: Reports as per HPI [facility] Past Medical History Medical History Kidney stone Social History Social History Alcohol intake: current Alcohol intake frequency: holidays/special occasions only Patient Tobacco Use Status: Never used Tobacco Advance Directives: No Advance Directives Information Provided: Yes Physical Exam ED Vital Signs: Vital Signs - 24 hr 06/24/25 10:49 Temperature 97.3 F Pulse Rate 60 Respiratory Rate 16 Blood Pressure 133/69 Pulse Oximetry 95 Oxygen Delivery Method Room Air BMI result Body Mass Index 38.7 Vital signs have been reviewed and appear to be correct. Blood pressure normal. Heart rate normal. Respiratory rate normal. Temperature normal. Oxygen saturation normal. Const General: cooperative, healthy appearing and no acute distress Orientation/consciousness: oriented to person, oriented to place, oriented to time and patient oriented x3 Limitations: no limitations [facility] Head: Yes normocephalic and Yes atraumatic Ears: external ears normal General nose exam: Normal external nose present Face and sinus: Yes face symmetric Mouth: oropharynx normal and moist mucous membranes Throat: Yes uvula midline Eyes Pupils: Equal, round and reactive pupils present Neck Neck: Yes normal visual inspection and Yes supple Resp Effort & Inspection: normal respiratory effort and able to speak in complete sentences Auscultation: clear to auscultation bilaterally Cardio Rate: regular rate Rhythm: regular rhythm Heart sounds: S1 normal heart sound present and S2 normal heart sound present GI Palpation (GI): Soft to palpation and nontender Auscultation: normoactive bowel sounds General: Yes no CVA tenderness Back/Spine/Pelvis Back: no CVA tenderness Skin General skin exam: elasticity normal and turgor normal Neuro General: oriented to person, oriented to place, oriented to time, patient oriented x3, moves all extremities, no focal motor deficits and CN's II-XI intact bilaterally Cranial nerves: Yes Equal, round and reactive pupils present Cognition (Neuro): normal cognition Extrem General: Yes full ROM, Yes no pedal edema and Yes no calf tenderness Psych Mental Status: mental status grossly normal Affect: normal affect Thought process: Normal thought process present Medical Decision Making Medical Decision Making [facility] Narrative: Patient is a 64-year-old Guinean-speaking female presenting to the emergency department stating that she was told to come to the ED to see a urologist. On exam patient is awake, A+Ox3, VS WNL, afebrile, normal neurological exam without focal deficits, physical exam findings as above. Given reported symptoms and physical exam findings, initial differential includes but is not limited to renal colic. Given that patient denies any current complaints, do not feel diagnostic testing is indicated at this time. Discussed with patient that she should not have been told that she could see a urologist in the emergency d epartment by [facility]. Patient called [facility] back while in the ED and was told that they attempted to book her an appointment with [facility] but that [facility] does not take her insurance. Advised patient to call PCP to discuss the fact that she has not heard from the urologist in [place]. Will also give referral to [facility] in [place]. Return precautions discussed. Patient verbalized understanding of and agreement with plan. In-person driver/guide was utilized for all interactions, assessments, and discussions. Differential Diagnosis Differential Diagnoses: The differential diagnosis associated with the presentation includes As per [facility] External Record Review External record reviewed: Inpatient record, Office record and Outpatient record Discharge Plan Discharge Clinical Impression: History of renal colic Patient Disposition: Home, Self-Care Additional Instructions: You presented to the emergency department today requesting to see a urologist. We recommend that you call your PCP to notify them that you have not heard back from the urology office and was for that you were referred to. You are being given a referral to [facility] today. Return to the emergency department if you are unable to urinate, develop severe abdominal pain, fever, back or flank pain, vomiting or any other new or concerning symptoms. Prescriptions: No Action ketorolac 10 mg tablet 10 mg PO TID PRN (Reason: pain) 5 Days Qty: 10 0RF Rx Instructions: Do not take this medication with any NSAIDs tamsulosin [Flomax] 0.4 mg capsule 0.4 mg PO DAILY Qty: 10 0RF ondansetron HCl 4 mg tablet 4 mg PO Q6H PRN (Reason: nausea and vomiting) Qty: 10 0RF pantoprazole [Protonix] 40 mg tablet,delayed release (DR/EC) 40 mg PO DAILY Qty: 30 2RF sucralfate 1 gram tablet 1 g PO TID Qty: 90 0RF prednisone 20 mg tablet 20 mg PO DAILY 7 Days Qty: 7 0RF ondansetron HCl 4 mg tablet 4 mg PO Q8H PRN (Reason: nausea and vomiting) 3 Days Qty: 9 0RF tamsulosin 0.4 mg capsule 0.4 mg PO BEDTIME 14 Days Qty: 14 0RF oxycodone 5 mg tablet 5 mg PO Q8H PRN (Reason: pain) Qty: 9 0RF Rx Instructions: Partial Fill upon patient request. tamsulosin [Flomax] 0.4 mg capsule 0.4 mg PO DAILY Qty: 7 0RF ibuprofen 400 mg tablet 400 mg PO Q6H PRN (Reason: pain) Qty: 20 0RF ondansetron 4 mg tablet,disintegrating 4 mg PO TID PRN (Reason: nausea and vomiting) 5 Days Qty: 10 0RF oxycodone 5 mg tablet 5 mg PO Q8H PRN (Reason: pain) Qty: 7 0RF Rx Instructions: Partial Fill upon patient request. Referrals: [facility] [Outside] Clinical Impression: History of renal colic Print Language: Citizen Of [place]
[2025-06-24 11:15] VITALS: BP 133/69; PULSE 60; RESP 16; TEMP 36.3; O2SAT 95
--- OUTSIDE RECORDS SUMMARY | 2025-06-24 13:00 | XMS_ITS | Encounter Summary ---
Author Organization [employer] Address [address] [place] [phone] Care Team Providers Care Battery Repairer Name Role Phone Corin Fry MD Primary Care Provider [phone] Brendan Artis PharmD Unavailable [phone] Reason for Referral * Imaging (Routine) - Closed Specialty Diagnoses / Procedures Referred By Contac t Referred To Contact Radiology Diagnoses Left lower quadrant pain Procedures CT Abdomen Pelvis w/ Contrast Brock Hitchcock MD [address] [place] [address] Phone: tel: fax: [address] Phone: tel: fax: Referral ID Status Reason Start Date Expiration Date Visits Re quested Visits Authorized [id number] Closed 01/03/2024 01/02/2025 1 1 Encounter Details Date Type Department Care Team (Late st Contact Info) Description 01/02/2024 Orders Only [facility] [address] [place] [address] Brock Hitchcock MD [address] [place] [address] Left lower quadrant pain (Primary Dx) Social [...] Description 07/06/2025 1:00 PM EDT Office Visit [facility] [address] [place] [address] Opal Azul, OD [address] [place] [address] 08/13/2025 2:00 PM EDT Telemedicine [facility] [address] [place] [address] Brendan Artis, PharmD [address] [place] [address] Scheduled Orders Name Type Priority Associated Diagnoses [...] documented as of this encounter Care Teams Battery Repairer Relationship Specialty Start Date End Date Corin Fry MD [address] [place] [address] PCP - General Family Medicine 02/26/22 Brendan Artis, PharmD [address] [place] [address] Pharmacist Internal Medicine 10/23/22 documented as of this encounter
--- OUTSIDE RECORDS SUMMARY | 2025-06-24 13:00 | XMS_ITS | Encounter Summary ---
Author Organization [employer] Address [address] [place] [address] [address] [place] [address] Care Team Providers Care Finance Effectiveness Manager Name Role Phone Corin Fry MD Primary Care Provider [phone] Brendan Artis PharmD Unavailable [phone] Encounter Details Date Type Department Care Team (Late st Contact Info) Description 06/26/2023 Orders Only [facility] [address] [place], [place] [phone] Corin Fry MD [address] [place] [address] Chronic foot pain, right (Primary Dx); Plantar [...] Description 07/06/2025 1:00 PM EDT Office Visit [facility] [address] [place] [address] Opal Azul, OD [address] [place] [address] 08/13/2025 2:00 PM EDT Telemedicine [facility] [address] [place] [address] Brendan Artis PharmD [address] [place] [address] documented as of this encounter Goals Goal [...] documented as of this encounter Care Teams Finance Effectiveness Manager Relationship Specialty Start Date End Date Corin Fry MD [address] [place] [address] PCP - General Family Medicine 02/26/22 Brendan Artis PharmD [address] [place], [place] [phone] Pharmacist Internal Medicine 10/23/22 documented as of this encounter
--- OUTSIDE RECORDS SUMMARY | 2025-06-24 13:00 | XMS_ITS | Encounter Summary ---
Author Organization [email or web address] Address [address] [facility] [address] [place] [address] Care Team Providers Care Golf Superintendent Name Role Phone Corin Fry MD Primary Care Provider [phone] Brendan Artis PharmD Unavailable [phone] Encounter Details Date Type Department Care Team ([facility] st Contact Info) Description 06/23/2025 Orders Only [...] t he electric, gas, oil or water [employer] threatened to shut off services in your [...] Description 07/06/2025 1:00 PM EDT Office Visit [facility] [address] [place] [address] Jorge Alberto, Opal, OD [address] [place] [address] 08/13/2025 2:00 PM EDT Telemedicine [facility] [address] [place] [address] Brendan Artis PharmD [address] [place] [address] documented as of this encounter Goals Goal Patient Goal Type Associated Problems Recent Progress Patient-Stated? Author Blood Pressure < 140/90 Blood Pressure 130/80( 025 1:33 PM EDT) No Brendan Artis, PharmYolie documented as of this encounter Procedures Procedure Name Priority Date/Time Associated Diagnosis Comments URINALYSIS, COMPLETE, WITH REFLEX TO CULTURE Routine 06/23/2025 7:[address] ABDOMEN PELVIS W CONTRAST Routine 06/23/2025 6:48 PM EDT CBC WITH AUTO DIFFERENTIAL Routine 06/23/2025 2:02 PM EDT MAGNESIUM Routine 06/23/2025 2:02 PM EDT LIPASE Routine 06/23/2025 2:02 PM EDT COMPREHENSIVE METABOLIC PANEL Routine 06/23/2025 2:02 PM EDT documented in this encounter Results * (ABNORMAL) Urinalysis, Complete, with Reflex to Culture (06/23/2025 7:23 PM EDT) Color Urine Yellow [facility] Appearance Urine Clear [facility] PH 6.0 5.0 - 9.0 [facility] Glucose Urine UA Negative Negative mg/dL [facility] Urine Blood Small (1+)(A) Negative [facility] Specific [place] - Urine >=1.030(H) 1.005 - 1.025 [facility] Urine Protein Negative Neg-Trace mg/dL [facility] Urine Ketones Negative Negative mg/dL [facility] Nitrite Urine Negative Negative [facility] Leukocyte Esterase Urine Trace(A) Negative [facility] RBC Urine 6-10(A) 0 - 2 /HPF [facility] Urine WBC 0-5 0 - 5 /HPF [facility] Urine Squamous Epithelial Cell 0-2 0 - 2 /HPF [facility] Urine Bacteria None Seen None Seen [facility] Hyaline Casts, Urine 0-2 0 - 2 /LPF [facility] 06/23/2025 7:23 PM EDT 06/23/2025 7:25 PM EDT Narrative [facility] - 06/23/2025 8:25 PM EDT [id number], [employer] us Generic External Data Provider LAB URINE ORDERAB LES Final Result [facility] [address] [place] [phone] * CT Abdomen Pelvis w/ Contrast (06/23/2025 6:48 PM EDT) Anatomical Region Laterality Modality Body, Pelvis, Abdomen Computed T omography 06/23/2025 6:48 PM EDT Narrative 06/23/2025 6:49 PM EDT [place] [address] [address] Scan Report Signed Patient: Carmina Cheng MR#: [id number] : 1960 Acct:[id number] Age/Sex: 64 / F ADM Date: 06/23/25 Loc: HO.ED Attending Dr: Ordering Physician: Lucrecia Sy MD Date of Service: 06/23/25 Procedure(s): CT abdomen pelvis w IV con Accession Number(s): [id number] cc: Lucrecia Sy MD; Corin Fry MD Report Number: [id number]: Total DLP = 1402.00 mGy-cm Reason for Exam: right sided abd pain CLINICAL HISTORY: right sided abd pain CT abdomen and pelvis with contrast Comparison: CT/REG/SR - CT ABDOMEN PELVIS WO IV CON - 01/05/24 19:04 EDT Findings: Atelectasis. Calcified granuloma left lower lobe. Mild cardiomegaly. Hepatomegaly. Scattered subcentimeter low-density lesions throughout the liver, likely cysts or hemangiomas, too small to characterize. Obstructive 6 mm distal right ureteric calculus with severe upstream hydroureteronephrosis. Right renal parenchymal edema with delayed nephrograms perinephric stranding and periureteric stranding. Urothelial wall thickening and enhancement may be reactive/inflammatory or infectious, should be correlated clinically. Bilateral hypodense renal cysts. No bowel obstruction, pneumoperitoneum, or pneumatosis. Fat containing umbilical hernia. Mildly prominent mesenteric nodes in the right, nonspecific. Large rectal stool burden. Scattered colonic diverticulosis without diverticulitis or colitis. Normal appendix. No acute fracture. Osteopenia with diffuse multilevel spondylosis. Spondylosis pronounced at L4-L5 and severe at L5-S1 similar to prior. IMPRESSION: Obstructive 6 mm distal right ureteric calculus with severe upstream hydroureteronephrosis. Additional findings as described. This document has been electronically signed by: Hero Pittman MD on 06/23/2025 18:48:33 Dictated By: Hero Pittman MD Signed By: <Electronically signed by Hero Pittman MD in [place]> 06/23/251848 DD/ 47 TD/TT: 06/23/251847 Production Aide: Procedure Note Donboyinterpreter, Image - 06/23/[address] [address] [address] Scan Report Signed Patient: Fernando ChengR#: [id number] : 2Acct:[id number] Age/Sex: 64 / FADM Date: 06/23/25 Loc: HO.ED Attending Dr: Ordering Physician: Lucrecia Sy MD Date of Service: 06/23/25 Procedure(s): CT abdomen pelvis w IV con Accession Number(s): [id number] cc: Lucrecia Sy MD; Corin Fry MD Report Number: [id number]: Total DLP = 1402.00 mGy-cm Reason for Exam: right sided abd pain CLINICAL HISTORY: right sided abd pain CT abdomen and pelvis with contrast Comparison: CT/REG/SR - CT ABDOMEN PELVIS WO IV CON - 01/05/24 19:04 EDT Findings: Atelectasis. Calcified granuloma left lower lobe. Mild cardiomegaly. Hepatomegaly. Scattered subcentimeter low-density lesions throughout the liver, likely cysts or hemangiomas, too small to characterize. Obstructive 6 mm distal right ureteric calculus with severe upstream hydroureteronephrosis. Right renal parenchymal edema with delayed nephrograms perinephric stranding and periureteric stranding. Urothelial wall thickening and enhancement may be reactive/inflammatory or infectious, should be correlated clinically. Bilateral hypodense renal cysts. No bowel obstruction, pneumoperitoneum, or pneumatosis. Fat containing umbilical hernia. Mildly prominent mesenteric nodes in the right, nonspecific. Large rectal stool burden. Scattered colonic diverticulosis without diverticulitis or colitis. Normal appendix. No acute fracture. Osteopenia with diffuse multilevel spondylosis. Spondylosis pronounced at L4-L5 and severe at L5-S1 similar to prior. IMPRESSION: Obstructive 6 mm distal right ureteric calculus with severe upstream hydroureteronephrosis. Additional findings as described. This document has been electronically signed by: Hero Pittman MD on 06/23/2025 18:48:33 Dictated By: Hero Pittman MD Signed By: <Electronically signed by Hero Pittman MD in [place]> 06/23/251848 DD/ 47 TD/TT: 06/23/251847 Production Aide: [facility] External Provider IMG CT PROCEDURES Final Result * Lipase (06/23/2025 2:02 PM EDT) Pathologist [facility] Lipase 12 8 - 78 U/L [facility] 06/23/2025 2:02 PM EDT 06/23/2025 2:04 PM EDT Generic External Data Provider LAB BLOOD ORDERAB LES Final Result Performing Organization Address [facility]/ZIP Co de Phone Number [facility] [address] [place] [phone] * Magnesium (06/23/2025 2:02 PM EDT) [facility] Magnesium 1.9 1.6 - 2.6 mg/dL [facility] 06/23/2025 2:02 PM EDT 06/23/2025 2:04 PM EDT Generic External Data Provider LAB BLOOD ORDERAB LES Final Result Performing Organization Address [facility] Co de Phone Number [facility] [address] [place] [phone] * (ABNORMAL) Comprehensive Metabolic Panel (06/23/2025 2:02 PM EDT) [facility] Sodium 142 135 - 145 mmol/L [facility] Potassium 3.8 3.3 - 5.1 mmol/L [facility] Chloride 107 96 - 108 mmol/L [facility] Carbon Dioxide 26 22 - 29 mmol/L [facility] Anion Gap 13 12 - 20 [facility] Urea Nitrogen (BUN) 15 9 - 16 mg/dL [facility] Creatinine, Serum 0.86 0.5 - 1.4 mg/dL [facility] Creatinine Clr Calc Pharmacy 75.8 [facility] Comment:Provided height and weight: 157.48 cm,104.326 kg.eGFR (calculated from the MDRD study equation) and eCrCl(calculated from the Cockcroft-Gault equation) are based ondifferent parameters and may not yield comparable results.If eCrCl result is absurd, please check patient'sheight/weight. Estimated Glomerular Filt Rate >60 [facility] Comment:Chronic Kidney Disea se: Estimated GFR < 60 mL/min/1.89z5Ppdvqz Kidney Disease: Estimated GFR < 15 mL/min/1.73m2 Glucose 187(H) 60 - 115 mg/dL [facility] Calcium 9.0 8.4 - 10.2 mg/dL [facility] Bilirubin, Total 0.3 0.0 - 1.0 mg/dL [facility] Aspartate Amino Transferase 19 5 - 31 U/L [facility] Alanine Aminotransferase 16 0 - 31 U/L [facility] Total Protein 6.9 6.5 - 8.0 g/dL [facility] Albumin Level 4.2 3.5 - 5.0 g/dL [facility] Alkaline Phosphatase 74 39 - 117 U/L [facility] 06/23/2025 2:02 PM EDT 06/23/2025 2:04 PM EDT us Generic External Data Provider LAB BLOOD ORDERAB LES Final Result [facility] [address] [place] [phone] [phone] * (ABNORMAL) CBC auto differential (06/23/2025 2:02 PM EDT) White Blood Count 7.4 4.8 - 10.8 X10*3/uL [facility] Red Blood Count 5.08 4.20 - 5.50 X10*6/uL [facility] Hemoglobin 13.2 12.0 - 16.0 g/dl [facility] Hematocrit 41.0 37.0 - 47.0 % [facility] Mean Corpuscular Volume 80.7 80.0 - 98.0 fL [facility] Mean Corpuscular Hemoglobin 26.0(L) 27.0 - 33.0 pg [facility] Mean Corpuscular HGB Conc 32.2 31.0 - 35.0 g/dl [facility] Red Cell Distribution Width 15.2 11.0 - 16.0 % [facility] Platelet Count 269 160 - 400 X10*3/uL [facility] Mean Platelet Volume 9.4 9.4 - 12.3 fL [facility] Neutrophils Percent Auto 70.7 45 - 73 % [facility] Imm Gran Pct Auto 0.3 0.0 - 0.4 % [facility] Lymphocytes Percent Auto 20.3 20 - 40 % [facility] Monocytes Percent Auto 7.1 2 - 11 % [facility] Eosinophils Percent Auto 1.2 0 - 4 % [facility] Basophils Percent Auto 0.4 0 - 2 % [facility] NRBC Pct Auto 0.0 0.0 - 0.2 /100WBC [facility] Neutrophils Absolute Auto 5.2 2.0 - 8.3 x10*3/uL [facility] Imm Gran Abs Auto 0.02 0.00 - 0.03 X10*3/uL [facility] Lymphocytes Absolute Auto 1.5 1.2 - 4.9 X10*3/uL [facility] Monocytes Absolute Auto 0.5 0.1 - 1.2 X10*3/uL [facility] Eosinophils Absolute Auto 0.1 0.0 - 0.4 X10*3/uL [facility] Basophils Absolute Auto 0.0 0.0 - 0.2 X10*3/uL [facility] NRBC Abs Auto 0.000 0.0 - 0.012 X10*3/uL [facility] 06/23/2025 2:02 PM EDT 06/23/2025 2:04 PM EDT us Generic External Data Provider LAB BLOOD ORDERAB LES Final Result [facility] [address] [place] [address] [phone] documented in this encounter Visit Diagnoses Not on filedocumented in this encounter Additional Health Concerns Assessment Noted Time PHQ-9 Depression Total Score: 0 07/30/20 24 9:12 AM EDT documented as of this encounter Care Teams Golf Superintendent Relationship Specialty Start Date End Date Corin Fry MD [address] [place] [address] PCP - General Family Medicine 02/26/22 Brendan Artis, TaoD [address] [place] [address] Pharmacist Internal Medicine 10/23/22 documented as of this encounter
--- OUTSIDE RECORDS SUMMARY | 2025-06-24 13:01 | XMS_ITS | Encounter Summary ---
Author Organization [employer] Address [address] [facility] 7t [place] [address] Care Team Providers Care Phys Ther Name Role Phone Corin Fry MD Primary Care Provider [phone] Brendan Artis PharmD Unavailable [phone] Encounter Details Date Type Department Care Team ([facility] Contact Info) Description 04/12/2025 Orders Only [facility] [address] [place], [place] [phone] ProviderTirso MD Social History Tobacco Use Types [...] Description 07/06/2025 1:00 PM EDT Office Visit [facility] [address] [place] [address] Jorge Alberto, Opal, OD [address] [place] [address] 08/13/2025 2:00 PM EDT Telemedicine [facility] [address] [place] [address] Brendan Artis, PharmYolie [address] [place] [address] documented as of this encounter Goals Goal [...] documented as of this encounter Care Teams Phys Ther Relationship Specialty Start Date End Date Corin Fry MD [address] [place] [address] PCP - General Family Medicine 02/26/22 Brendan Artis, [place] [address] [place] [address] Pharmacist Internal Medicine 10/23/22 documented as of this encounter
--- OUTSIDE RECORDS SUMMARY | 2025-06-24 13:01 | XMS_ITS | Encounter Summary ---
Author Organization [employer] Address [address] [facility] 7 [place] [address] Care Team Providers Care Retail Bakery Manager Name Role Phone Corin Fry MD Primary Care Provider [phone] Brendan Artis PharmD Unavailable [phone] Encounter Details Date Type Department Care Team (Late Contact Info) Description 03/04/2023 Telephone [facility] [address] [place], [place] [phone] Corin Fry MD [address] [place] [address] Social History Tobacco Use Types Packs/Day Years [...] Upcoming Encounters Date Type Department Care Team ([facility] Contact Info) Description 07/06/2025 1:00 PM EDT Office Visit [facility] [address] [place], [place] [phone] Opal Azul, OD [address] [place], [place] [phone] 08/13/2025 2:00 PM EDT Telemedicine [facility] [address] [place] [address] Brendan Artis, [place] [address] [place], [place] [phone] documented as of this encounter Goals Goal [...] documented as of this encounter Care Teams Retail Bakery Manager Relationship Specialty Start Date End Date Corin Fry MD [address] [place] [phone] PCP - General Family Medicine 02/26/22 Brendan Artis, [place] [address] [place] [address] [phone] Pharmacist Internal Medicine 10/23/22 documented as of this encounter
--- OUTSIDE RECORDS SUMMARY | 2025-06-24 13:01 | XMS_ITS | Encounter Summary ---
Author Organization [facility] Address [address] [place] [address] Care Team Providers Care Manufacturing Engineer Automotive Name Role Phone Corin Fry Primary Care Provider [phone] Reason for Referral * Consultation (Urgent) - Authorized Specialty Diagnoses / Procedures Referred By Galilea gandhi Referred To Contact Urology Diagnoses Recurrent kidney stones Corin Fry [address] [place] [address] Phone: tel: fax: [facility] [address] [place] [address] Phone: tel: fax: Referral ID Status Reason Start Date Expiration Date Visits Requested Visits Authorized [id number] Authorized Specialty Services Required 06/24/2025 07/24/2026 6 6 Encounter Details Date Type Department Care Team (Latest Contact Info) Description 06/24/2025 Transcribe Orders [facility] Physician Referral Services [address] [place] [address] Corin Fry [address] [place], [place] [phone] Recurrent kidney stones (Primary Dx) Social History Tobacco Use Types Packs/Day Years Used Date Smoking Tobacco: Former Cigarettes S tarted: 10/21/2018 Smokeless Tobacco: Never Alcohol Use Standard Drinks/Week Comments Yes 0 (1 standard drink = 0.6 oz pur e alcohol) Occasional <month Comments No Sex and Gender Information Value Date Recorded Sex Assigned at Female 02/24/2024 10:55 AM EDT Legal Sex Female 11:27 AM EDT Gender Identity Not on file Sexual Orientation Not on file documented as of this encounter Plan of Treatment Upcoming Encounters Date Type Department Care Team (Late st Contact Info) Description 12/27/2025 3:00 PM EDT Follow-Up [facility] 4th floor Cardiology Medicine [address] [place] [phone] Intellectual Property Lawyer: Sj Floyd MD [address] [place] [address] [phone] Scheduled Referrals Name Type Priority Associated Diagnoses Order Schedule Ambulatory referral to Urology Outpatient Referral Routine Recurrent kidney stones Expected: 06/24/2025, Expires: 07/24/2026 documented as of this encounter Visit Diagnoses Diagnosis Recurrent kidney stones- Primary documented in this encounter Care Teams Manufacturing Engineer Automotive Relationship Specialty Start Date End Date Corin Fry [address] [place] [address] PCP - General Family Medicine 07/19/22 documented as of this encounter
--- OUTSIDE RECORDS SUMMARY | 2025-06-24 13:01 | XMS_ITS | Encounter Summary ---
Author Organization [employer] Address [address] [place] [address] [address], [place] [address] Care Team Providers Care Medical Transcription Radiology Name Role Phone Corin Fry MD Primary Care Provider [phone] Brendan Artis PharmD Unavailable [phone] Reason for Referral * Consultation (Routine) - Authorized Specialty Diagnoses / Procedures Referred By Contac t Referred To Contact Pharmacy Diagnoses Primary hypertension Corin Fry MD [address] [place] [phone] Phone: tel: fax: Referral ID Status Reason Start Date Expiration Date Visits Requested Visits Authorized [id number] Authorized Consult and Treat 12/21/2024 12/21/2025 6 6 Encounter Details Date Type Department Care Team ([facility] st Contact Info) Description 12/21/2024 Orders Only [facility] MED[facility] [address] [place] [address] [phone] Corin Fry MD [address] [place] [address] [phone] Primary hypertension (Primary Dx); Type 2 diabetes mellitus without complication, without long-term current use of insulin ([facility]) Social History Tobacco Use Types Packs/Day Years [...] Description 07/06/2025 1:00 PM EDT Office Visit [facility] [address] [place] [address] Opal Azul, OD [address] [place] [address] 08/13/2025 2:00 PM EDT Telemedicine [facility] [address] [place] [address] Brendan Artis, PharmD [address] [place] [address] Scheduled Referrals Name Type Priority Associated Diagnoses [...] complication, without long-term current use of insulin ([facility]) documented in this encounter Additional Health Concerns Assessment Noted Time PHQ-9 Depression Total Score: 0 07/30/20 24 9:12 AM EDT documented as of this encounter Care Teams Medical Transcription Radiology Relationship Specialty Start Date End Date Corin Fry MD [address] [place] [address] PCP - General Family Medicine 02/26/22 Brendan Artis, PharmD [address] [place] [address] Pharmacist Internal Medicine 10/23/22 documented as of this encounter
--- OUTSIDE RECORDS SUMMARY | 2025-06-24 13:01 | XMS_ITS | Encounter Summary ---
Author Organization [employer] Address [address] [place] [address] Care Team Providers Care Manager Highway Name Role Phone Corin Fry MD Primary Care Provider [phone] Brendan Artis PharmD Unavailable [phone] Reason for Referral * Consultation (Urgent) - Closed Specialty Diagnoses / Procedures Referred By Contac t Referred To Contact Urology Diagnoses Recurrent kidney stones Corin Fry MD [address] [place] [address] Phone: tel: [facility] [address] [place] [address] Phone: tel: fax: Referral ID Status Reason Start Date Expiration Date V isits Requested Visits Authorized [id number] Closed Specialty Services Required 06/24/2025 06/24/2026 1 1 Encounter Details Date Type Department Care Team (Late st Contact Info) Description 06/24/2025 Orders Only [facility] [address] [place] [address] [phone] Corin Fry MD [address] [place], [place] [phone] Recurrent kidney stones (Primary Dx) Social History [...] Description 07/06/2025 1:00 PM EDT Office Visit [facility] [address] [place] [address] Opal Azul, OD [address] [place] [address] 08/13/2025 2:00 PM EDT Telemedicine [facility] [address] [place] [address] Brendan Artis, PharmD [address] [place] [address] Scheduled Referrals Name Type Priority Associated Diagnoses Orde r Schedule Referral to Urology Outpatient Referral Urgent Recurrent kidney stones Expected: 06/24/2025 (Approximate), Expires: 06/24/2026 documented as of this encounter Goals Goal Patient Goal Type Associated Problems Recent Progress Patient-Stated? Author Blood Pressure < 140/90 Blood Pressure 130/80( 025 1:33 PM EDT) No Brendan Artis, PharmD documented as of this encounter Visit Diagnoses Diagnosis Recurrent kidney stones- Primary documented in this encounter Additional Health Concerns Assessment Noted Time PHQ-9 Depression Total Score: 0 07/30/20 24 9:12 AM EDT documented as of this encounter Care Teams Manager Highway Relationship Specialty Start Date End Date Corin Fry MD [address] [place] [address] PCP - General Family Medicine 02/26/22 Brendan Artis, PharmD [address] [place] [address] Pharmacist Internal Medicine 10/23/22 documented as of this encounter
--- OUTSIDE RECORDS SUMMARY | 2025-06-24 13:01 | XMS_ITS | Clinical Summary ---
Author Organization [employer] Address [address] [place] [address] 7t [place] [address] Care Team Providers Care Marketing Services Vice President Name Role Phone Corin Fry MD Primary Care Provider [phone] Brendan Artis PharmD Unavailable [phone] Allergies Active Allergy Reactions Criticality Noted Date [...] complication, without long-term current use of insulin ([facility]) TEST BLOOD SUGAR EVERY MORNING 100 each 11 5 Active FREESTYLE LITE test stripIndications:T ype 2 diabetes mellitus without complication, without long-term current use of insulin ([facility]) TEST BLOOD SUGAR EVERY MORNING 100 [...] today - Co-managed with [facility] pharmacist and folder inspector - Continue working on lifestyle modification - [...] today - Co-managed with [facility] pharmacist and folder inspector - Continue working on lifestyle modification - [...] MRI evaluation Unable to find a local distribution driver who will accept her insurance Refer to distribution driver in [place] Assessment & Plan (02/12/2023 5:34 PM EDT): Likely plantar fasciitis Consider MRI evaluation Unable to find a local distribution driver who will accept her insurance Refer to distribution driver in [place] Assessment & Plan (09/26/2022 4:31 PM EST): Likely plantar fasciitis Consider MRI evaluation Unable to find a local distribution driver who will accept her insurance Refer to distribution driver in [place] Plantar fasciitis, bilateral 09/25/2022 Assessment & Plan (02/16/2024 1:15 PM EDT): - evaluated at [facility] and had PT - pain has [...] (08/23/2023): Added automatically from request for surgery [id number] Assessment & Plan (02/12/2023 5:35 PM EDT): Hx cystoscopy and nephrostomy tube? Most recent episode in Jun 2022 Continue adequate hydration, > 2L/day Upcoming appt with urologist in [place] Assessment & Plan (09/26/2022 4:29 PM EST): Hx cystoscopy and nephrostomy tube? Most recent episode in Jun 2022 Continue adequate hydration, > 2L/day Upcoming appt with urologist in [place] (HFpEF) heart failure with preserved ejection fr [...] (02/26/2025 9:40 AM EDT): - following with [facility] cardiology. Last seen in December 2024. [...] (11/14/2024 6:25 PM EST): - following with [facility] cardiology, Dr. Blood. Last visit in [...] (07/30/2024 9:20 AM EDT): - following with [facility] cardiology, Dr. Blood. Last visit in [...] (02/16/2024 1:13 PM EDT): - following with [facility] cardiology, Dr. Blood. Last visit in [...] continue working on lifestyle modifications - her folder inspector was considering PCSK9 inhibitor Assessment & Plan (11/14/2024 6:28 PM EST): - she had intolerance to statin and is prescribed ezetimibe - continue working on lifestyle modifications - her folder inspector was considering PCSK9 inhibitor Assessment & Plan [...] of hypothyroidism Had FNA in past at [facility]. TSH 0.97 Fu with endo Last Assessment & Plan: MNG with dominant right lobe nodule, s/p FNA done at [facility], could not find report in pre-epic Interval [...] Encounters Date Type Department Care Team Description 06/24/2025 Orders Only [address] [address] Corin Fry MD Recurrent kidney stones (Primary Dx) 06/24/2025 Results Follow-Up [address] Abdomen Pelvis w/ Contrast 06/23/2025 Orders Only GENERIC EXTERNAL DATA DEPARTMENT Provider, Generic External Data 05/31/2025 1:45 PM EDT Office Visit [address] [address] oCrin Fry MD Primary hypertension (Primary Dx); Type 2 diabetes mellitus without complication, without long-term current use of insulin (CMS/HCC); Left sided abdominal pain; Vitamin D deficiency 05/31/2025 Travel 05/28/[address] [place] [address] Corin Fry MD chart prep 05/21/2025 Patient Outreach [facility] [address] [facility] [place] [address] Corin Fry MD Pre-visit Planning (SDOH Screening negative and Tobacco screening negative) 04/30/2025 2:[address] [facility] [address] [place] [address] Brendan Artis, [place] Primary hypertension (Primary Dx) 04/26/[address] [address] Corin Fry MD Appointment Request 04/21/2025 Orders Only GENERIC EXTERNAL DATA DEPARTMENT Provider, Generic External Data 04/15/[address] [address] Kimberly Madison MD No Show 04/14/2025 2:00 PM EDT Office Visit [facility] WALK-IN [address] [address] Kimberly Madison MD Hemorrhoid prolapse (Primary Dx) 04/14/[address] [address] Corin Fry MD chart prep 04/14/2025 Travel 04/14/[address] [address] Corin Fry MD Nurse Triage 04/13/2025 Orders Only [facility] [address] [place] [address] Tirso Vazquez MD 04/12/2025 Orders Only [facility] [address] [place] [address] Tirso Vazquez MD 04/06/[address] [address] Corin Fry MD Kendrick recall 04/05/2025 1:00 PM EDT Office Visit [facility] [address] [address] Kimberly Madison MD Lower leg edema (Primary Dx); Primary hypertension 04/05/2025 Travel 04/05/2025 Telephone [facility] [address] [place] [address] Corin Fry MD Nurse Triage from Last [...] Description 07/06/2025 1:00 PM EDT Office Visit [facility] OPTOMETRY [address] [place] [address] Jorge Alberto, Opal, OD [address] [place] [address] 08/13/2025 2:00 PM EDT Telemedicine [facility] [address] [place] [address] Brendan Artis, PharmD [address] [place] [address] Health Maintenance Due Date Last Done Comments [...] W CONTRAST Routine 06/23/2025 6:48 PM EDT LIPASE Routine 06/23/2025 2:02 PM EDT MAGNESIUM Routine 06/23/2025 2:02 PM EDT COMPREHENSIVE METABOLIC PANEL Routine 06/23/2025 2:02 PM EDT CBC WITH AUTO DIFFERENTIAL Routine 06/23/2025 2:02 PM EDT POCT GLYCOSYLATED HEMOGLOBIN (HGB A1C) Routine 05/31/2025 1:38 PM EDT Type 2 diabetes mellitus without complication, without long-term current use of insulin (CMS/HCC) POCT GLUCOSE Routine 05/31/2025 1:35 PM EDT Type 2 diabetes mellitus without complication, without long-term current use of insulin (CMS/HCC) CT ABDOMEN PELVIS WO CONTRAST Routine 04/21/2025 [...] without long-term current use of insulin (CMS/HCC) THINPREP IMAGING PAP AND HPV MRNA E6/E7 Routine 07/30/2024 9:32 AM EDT from Last 3 Months or Most Recently Relevant to Health Maintenance Results * (ABNORMAL) Urinalysis, Complete, with Reflex to Culture (06/23/2025 7:23 PM EDT) Only the most recent of2 resultswithin the time period is included. Color Urine Yellow [facility] Appearance Urine Clear [facility] PH 6.0 5.0 - 9.0 [facility] Glucose Urine UA Negative Negative mg/dL [facility] Urine Blood Small (1+)(A) Negative [facility] Specific [place] - Urine >=1.030(H) 1.005 - 1.025 [facility] Urine Protein Negative Neg-Trace mg/dL [facility] Urine Ketones Negative Negative mg/dL [facility] Nitrite Urine Negative Negative [facility] Leukocyte Esterase Urine Trace(A) Negative [facility] RBC Urine 6-10(A) 0 - 2 /HPF [facility] Urine WBC 0-5 0 - 5 /HPF [facility] Urine Squamous Epithelial Cell 0-2 0 - 2 /HPF [facility] Urine Bacteria None Seen None Seen [facility] Hyaline Casts, Urine 0-2 0 - 2 /LPF [facility] 06/23/2025 7:23 PM EDT 06/23/2025 7:25 PM EDT Narrative [facility] - 06/23/2025 8:25 PM EDT [id number], Clean Catch us Generic External Data Provider LAB URINE ORDERAB LES Final Result [facility] [address] [place] [phone] * CT Abdomen Pelvis w/ Contrast (06/23/2025 6:48 PM EDT) Anatomical Region Laterality Modality Body, Pelvis, Abdomen Computed T omography 06/23/2025 6:48 PM EDT Narrative 06/23/2025 6:49 PM EDT [address] [address] [address] Scan Report Signed Patient: Carmina Cheng MR#: [id number] : 1960 Acct:[id number] Age/Sex: 64 / F ADM Date: 06/23/25 Loc: HO.ED Attending Dr: Ordering Physician: Lucrecia Sy MD Date of Service: 06/23/25 Procedure(s): CT abdomen pelvis w IV con Accession Number(s): [id number] cc: Lucrecia Sy MD; Corin Fry MD Report Number: [id number]: Total DLP = 1402.00 mGy-cm Reason for [...] signed by Hero Pittman MD in OV> 06/23/25 1849 DD/ 47 TD/TT: 06/23/251847 Retail Product Demo Specialist: Procedure Note Donotuseinterpreter, Image - 06/23/[address] [place] [address] [address] Scan Report Signed Patient: Sunny Cheng#: [id number] : 2Acct:[id number] Age/Sex: 64 / FADM Date: 06/23/25 Loc: HO.ED Attending Dr: Ordering Physician: Lucrecia Sy MD Date of Service: 06/23/25 Procedure(s): CT abdomen pelvis w IV con Accession Number(s): [id number] cc: Lucrecia Sy MD; Corin Fry MD Report Number: [id number]: Total DLP = 1402.00 mGy-cm Reason for [...] in OV> 06/23/251848 DD/ 47 TD/TT: 06/23/251847 Retail Product Demo Specialist: [facility] External Provider IMG CT PROCEDURES Final Result * (ABNORMAL) CBC auto differential (06/23/2025 2:02 PM EDT) Only the most recent of2 resultswithin the time period is included. White Blood Count 7.4 4.8 - 10.8 X10*3/uL [facility] Red Blood Count 5.08 4.20 - 5.50 X10*6/uL [facility] Hemoglobin 13.2 12.0 - 16.0 g/dl [facility] Hematocrit 41.0 37.0 - 47.0 % [facility] Mean Corpuscular Volume 80.7 80.0 - 98.0 fL [facility] Mean Corpuscular Hemoglobin 26.0(L) 27.0 - 33.0 pg [facility] Mean Corpuscular HGB Conc 32.2 31.0 - 35.0 g/dl [facility] Red Cell Distribution Width 15.2 11.0 - 16.0 % [facility] Platelet Count 269 160 - 400 X10*3/uL [facility] Mean Platelet Volume 9.4 9.4 - 12.3 fL [facility] Neutrophils Percent Auto 70.7 45 - 73 % [facility] Imm Gran Pct Auto 0.3 0.0 - 0.4 % [facility] Lymphocytes Percent Auto 20.3 20 - 40 % [facility] Monocytes Percent Auto 7.1 2 - 11 % [facility] Eosinophils Percent Auto 1.2 0 - 4 % [facility] Basophils Percent Auto 0.4 0 - 2 % [facility] NRBC Pct Auto 0.0 0.0 - 0.2 /100WBC [facility] Neutrophils Absolute Auto 5.2 2.0 - 8.3 x10*3/uL [facility] Imm Gran Abs Auto 0.02 0.00 - 0.03 X10*3/uL [facility] Lymphocytes Absolute Auto 1.5 1.2 - 4.9 X10*3/uL [facility] Monocytes Absolute Auto 0.5 0.1 - 1.2 X10*3/uL [facility] Eosinophils Absolute Auto 0.1 0.0 - 0.4 X10*3/uL [facility] Basophils Absolute Auto 0.0 0.0 - 0.2 X10*3/uL [facility] NRBC Abs Auto 0.000 0.0 - 0.012 X10*3/uL [facility] 06/23/2025 2:02 PM EDT 06/23/2025 2:04 PM EDT Generic External Data Provider LAB BLOOD ORDERAB LES Final Result Performing Organization Address [facility]/ZIP Co de Phone Number [facility] [address] [place] [phone] * Magnesium (06/23/2025 2:02 PM EDT) Only the most recent of2 resultswithin the time period is included. Magnesium 1.9 1.6 - 2.6 mg/dL [facility] 06/23/2025 2:02 PM EDT 06/23/2025 2:04 PM EDT Generic External Data Provider LAB BLOOD ORDERAB LES Final Result Performing Organization Address [facility] Co de Phone Number [facility] [address] [place] [phone] * Lipase (06/23/2025 2:02 PM EDT) Only the most recent of2 resultswithin the time period is included. Lipase 12 8 - 78 U/L [facility] 06/23/2025 2:02 PM EDT 06/23/2025 2:04 PM EDT us Generic External Data Provider LAB BLOOD ORDERAB LES Final Result [facility] [address] [place] [phone] * (ABNORMAL) Comprehensive Metabolic Panel (06/23/2025 2:02 PM EDT) Sodium 142 135 - 145 mmol/L [facility] Potassium 3.8 3.3 - 5.1 mmol/L [facility] Chloride 107 96 - 108 mmol/L [facility] Carbon Dioxide 26 22 - 29 mmol/L [facility] Anion Gap 13 12 - 20 [facility] Urea Nitrogen (BUN) 15 9 - 16 mg/dL [facility] Creatinine, Serum 0.86 0.5 - 1.4 mg/dL [facility] Creatinine Clr Calc Pharmacy 75.8 [facility] Comment:Provided height and weight: 157.48 cm,104.326 kg.eGFR (calculated from the MDRD study equation) and eCrCl(calculated from the Cockcroft-Gault equation) are based ondifferent parameters and may not yield comparable results.If eCrCl result is absurd, please check patient'sheight/weight. Estimated Glomerular Filt Rate >60 [facility] Comment:Chronic Kidney Disea se: Estimated GFR < 60 mL/min/1.83s0Lkjkvz Kidney Disease: Estimated GFR < 15 mL/min/1.73m2 Glucose 187(H) 60 - 115 mg/dL [facility] Calcium 9.0 8.4 - 10.2 mg/dL [facility] Bilirubin, Total 0.3 0.0 - 1.0 mg/dL [facility] Aspartate Amino Transferase 19 5 - 31 U/L [facility] Alanine Aminotransferase 16 0 - 31 U/L [facility] Total Protein 6.9 6.5 - 8.0 g/dL [facility] Albumin Level 4.2 3.5 - 5.0 g/dL [facility] Alkaline Phosphatase 74 39 - 117 U/L [facility] 06/23/2025 2:02 PM EDT 06/23/2025 2:04 PM EDT us Generic External Data Provider LAB BLOOD ORDERAB LES Final Result [facility] [address] [place] [phone] * (ABNORMAL) POCT glycosylated hemoglobin (Hgb [...] Media Lot # [id number] Lot# Expiration Date [id number] Blood Capillary blood specimen / Unknown 05/31/2025 1:35 PM EDT Corin Fry MD POINT OF CARE TEST ENTER/EDIT OR DERABLES Final Result * CT Abdomen Pelvis w/o Contrast (04/21/2025 7:42 AM EDT) Anatomical Region Laterality Modality Body, Pelvis, Abdomen Computed T omography 04/21/2025 7:42 AM EDT Narrative 04/21/2025 7:44 AM EDT [address] [address] [address] Scan Report Signed Patient: Carmina Cheng MR#: [id number] : 1960 Acct:[id number] Age/Sex: 64 / F ADM Date: 04/21/25 Loc: HO.ED Attending Dr: Ordering Physician: Autumn Alcantar DO Date of Service: 04/21/25 Procedure(s): CT abdomen pelvis wo IV con Accession Number(s): [id number] cc: Autumn Alcantar DO; Corin Fry MD Report Number: [id number]: Total DLP = 791.00 mGy-cm CLINICAL HISTORY: [...] MD in OV> 04/21/25 0743 DD/ TD/TT: 04/21/2542 Retail Product Demo Specialist: Procedure Note Donotuseinterpreter, Image - 04/21/[address] [address] [address] Scan Report Signed Patient: Sunny Cheng#: [id number] : 2Acct:[id number] Age/Sex: 64 / FADM Date: 04/21/25 Loc: HO.ED Attending Dr: Ordering Physician: Autumn Alcantar DO Date of Service: 04/21/25 Procedure(s): CT abdomen pelvis wo IV con Accession Number(s): [id number] cc: Autumn Alcantar DO; Corin Fry MD Report Number: [id number]: Total DLP = 791.00 mGy-cm CLINICAL HISTORY: [...] signed by Saulo Nguyen MD in OV> 04/21/2543 DD/ 1 TD/TT: 04/21/25741 Retail Product Demo Specialist: [facility] External Provider IMG CT PROCEDURES Final Result * Hepatic Function Panel (04/21/2025 5:15 AM EDT) Bilirubin, Total 0.2 0.0 - 1.0 mg/dL [facility] Bilirubin, Direct <0.2 0.0 - 0.5 mg/dL [facility] Aspartate Amino Transferase 19 5 - 31 U/L [facility] Alanine Aminotransferase 13 0 - 31 U/L [facility] Total Protein 6.7 6.5 - 8.0 g/dL [facility] Albumin Level 4.1 3.5 - 5.0 g/dL [facility] Alkaline Phosphatase 93 39 - 117 U/L [facility] 04/21/2025 5:15 AM EDT 04/21/2025 5:19 AM EDT Generic External Data Provider LAB BLOOD ORDERAB LES Final Result [facility] [address] [place], [place] [phone] * (ABNORMAL) Basic Metabolic Panel (04/21/2025 5:15 AM EDT) Sodium 142 135 - 145 mmol/L [facility] Potassium 3.6 3.3 - 5.1 mmol/L [facility] Chloride 104 96 - 108 mmol/L [facility] Carbon Dioxide 28 22 - 29 mmol/L [facility] Anion Gap 14 12 - 20 [facility] Urea Nitrogen (BUN) 18(H) 9 - 16 mg/dL [facility] Creatinine, Serum 0.74 0.5 - 1.4 mg/dL [facility] Creatinine Clr Calc Pharmacy 88.1 [facility] Comment:Provided height and weight: 157.48 cm,104.326 kg.eGFR (calculated from the MDRD study equation) and eCrCl(calculated from the Cockcroft-Gault equation) are based ondifferent parameters and may not yield comparable results.If eCrCl result is absurd, please check patient'sheight/weight. Estimated Glomerular Filt Rate >60 [facility] Comment:Chronic Kidney Disea se: Estimated GFR < 60 mL/min/1.40x7Natygw Kidney Disease: Estimated GFR < 15 mL/min/1.73m2 Glucose 130(H) 60 - 115 mg/dL [facility] Calcium 9.7 8.4 - 10.2 mg/dL [facility] 04/21/2025 5:15 AM EDT 04/21/2025 5:19 AM EDT Generic External Data Provider LAB BLOOD ORDERAB LES Final Result [facility] [address] [place] [phone] * Surgical Pathology (04/09/2025 2:54 PM EDT) Historical Provider MD LAB PATHOLOGY ORDERABLES Final Result * Colonoscopy (04/09/2025 10:24 AM EDT) Anatomical Region Laterality Modality Endoscopy Historical Provider MD ENDOSCOPY PROCEDURE ORDER FELY Final Result * BI Mammogram Screening Tomosynthesis Bilateral (03/19/2025 1:15 PM EDT) Anatomical Region Laterality Modality Breast Bilateral Mammography 03/19/2025 1:15 PM EDT Narrative 03/27/2025 11:24 AM EDT [facility] [address] [place] [address] Mammography Report Signed Patient: Carmina Cheng MR#: [id number] : 1960 Acct:[id number] Age/Sex: 64 / F ADM Date: 03/19/25 Loc: DONO Attending Dr: Corin Fry MD Ordering Physician: Corin Fry MD Results: 1Negative Date of Service: 03/19/25 Follow Up: 1 Year From Orig ina Mammogram Procedure(s): MM tomosynthesis screening BI Accession Number(s): [id number] cc: Corin Fry MD EXAMINATION: MM SCREENING [...] 03/27/25 1121 DD/ 1315 TD/TT: 03/19/25 1340 Retail Product Demo Specialist: Procedure Note Donotuseinterpreter, Image - 03/27/2025 [facility] [address] [place], [place] [address] Mammography Report Signed Patient: Sunny Cheng#: [id number] : 1960cct:[id number] Age/Sex: 64 / FADM Date: 03/19/25 Loc: MIGUEL Attending Dr: Corin Fry MD Ordering Physician: Corin Fry MDResults: 1Negative Date of Service: 03/19/25Follow Up: 1 Year From [facility] Mammogram Procedure(s): MM tomosynthesis screening BI Accession Number(s): [id number] cc: Corin Fry MD EXAMINATION: MM SCREENING [...] 03/27/25 1121 DD/ 1315 TD/TT: 03/19/25 1340 Retail Product Demo Specialist: Corin Fry MD [facility] PROCEDURES Edited Result - Final * (ABNORMAL) Lipid Panel with Reflex to Direct LDL (09/25/2024 12:15 PM EST) Triglycerides 118 <150 mg/dL [facility] Comment:Desirable Triglyceri de: less than [...] 190 mg/dL HDL Cholesterol 65 >40 mg/dL [facility] Comment:Desirable HDL: great er than 40 mg/dL Note: This HDL assay may give artificially low results in patients with liver disease. Blood 09/25/2024 12:1 5 PM EST 09/25/2024 12:55 PM EST us Corin Fry MD LAB BLOOD ORDERABLES Final Resul t Performing Organization Address [facility] Co de Phone Number [facility] [address] [place] [phone] * Albumin, Random Urine W/Creatinine (07/30/2024 9:45 AM EDT) Creatinine, Urine 97.35 mg/dL [facility] Microalbumin Urine 10.0 mg/L [facility] Microalbum Creatinine Ratio Ur 10.2 <30 ug/mg cr [facility] Comment:Albumin/Creatinine R atio Reference Ranges: Normal: < 30 ug/mg creatinine Microalbuminuria: 30 - 300 ug/mg creatinineClinical Albuminuria: > 300 ug/mg creatinine Urine 07/30/2024 9:45 AM EDT 07/30/2024 11:36 AM EDT us Corin Fry MD LAB URINE ORDERABLES Final Resul t Performing Organization Address [facility] Co de Phone Number [facility] [address] [place] [phone] * ThinPrep Imaging Pap and HPV mRNA E6/E7 (07/30/2024 9:32 AM EDT) HPV nRNA E6/E7 Not Detected Not Detected [facility] Comment:Methodology: Transcr iption-Mediated AmplificationThis assay detects E6/E7 viral messenger RNA (mRNA) from 14high-risk HPV types (16,18,31,33,35,39,45,51,52,56,58,59,66,68).Cervical sources are required for HPV testing.If a vaginal source from a patient who has had atotal hysterectomy with removal of cervix wassubmitted, please contact the testing laboratoryfor alternative testing options.For additional information, please refer [email or web address]/faq/GZB467e6(This link if provided for information/educational purposes only.)THIS TEST WAS PERFORMED AT:[facility] [employer] [address] [phone] HEATH MD SOURCE: SEE NOTE [facility] Comment:None given Report Status: [facility] Clinical Information: SEE NOTE [facility] Comment:None given LMP: SEE NOTE [facility] Comment:NONE GIVEN Prev. PAP: SEE NOTE [facility] Comment:NONE GIVEN Prev. BX: SEE NOTE [facility] Comment:NONE GIVEN Statement Of Adequacy: SEE NOTE [facility] Comment:Satisfactory for macy luation.Endocervical/transformation zone component absent. General Categorization: [facility] Interpretation/Result: SEE NOTE [facility] Comment:Cytology Results: Ne gative for intraepitheliallesion or malignancy. Cytology Comment SEE NOTE [facility] Comment:This Pap test has be en evaluated with computerassisted technology. Pediatric Clinical Nurse Specialist: SEE NOTE [facility] Comment:KF, CT(ASCP)CT eliu segundo location: [address] [address] Review Pediatric Clinical Nurse Specialist: [facility] Pathologist [facility] PAP Infection [facility] See Note SEE NOTE [facility] Comment:EXPLANATORY NOTE:The Pap is a screening test for cervical cancer. It isnot a diagnostic test and is subject to false negativeand false positive results. It is most reliable when asatisfactory sample, regularly obtained, is submittedwith relevant clinical findings and history, and whenthe Pap result is evaluated along with historic andcurrent clinical information. 07/30/2024 9:32 AM EDT 07/30/2024 4:14 PM EDT Narrative [facility] - 08/04/2024 2:59 PM EDT SEE SCANNED RESULTS IN EMR us Corin Fry MD LAB PATHOLOGY ORDERABLES Final R esult [facility] [address] [place] [address] [phone] from Last 3 Months or Most Recently Relevant to Health Maintenance Insurance [facility] LIMITED HSN FULL DENTAL-[facility] MEDICAID LIMITED ADULT DENTAL - HSN FULL (MEDICAID) Care Teams Marketing Services Vice President Relationship Specialty Start Date End Date Corin Fry MD [address] [place] [address] PCP - General Family Medicine 02/26/22 Brendan Artis, PharmD [address] [place] [address] Pharmacist Internal Medicine 10/23/22
--- OUTSIDE RECORDS SUMMARY | 2025-06-24 13:01 | XMS_ITS | Clinical Summary ---
Author Organization [facility] Address [address] [place] [address] Care Team Providers Care Tin Roller Hot Mill Name Role Phone Corin Fry Primary Care Provider [phone] Allergies Active Allergy Reactions Criticality Noted Date [...] strip Use as instructed 2 Active FreeStyle Milmay Lite meter TEST BLOOD SUGAR EVERY MORNING [...] Date Type Department Care Team Description 06/24/2025 Transcribe Orders [facility]erral [facility] [address] [place] [address] Corin Fry Recurrent kidney stones (Primary Dx) 04/09/2025 2:57 PM EDT Anesthesia Event [facility] [address] [place] [address] Shelli Jauregui MD 04/09/2025 2:30 PM EDT - 04/09/2025 3:05 PM EDT Surgery [facility] [address] [place] [address] Sharif Jensen MD COLONOSCOPY SCREENING, LOW RISK WITH POSSIBLE MODERATE SEDATION [21779 (CPT )] 04/09/2025 1:42 PM EDT - 04/09/2025 3:49 PM EDT Hospital Encounter [facility] [address] [place] [address] Sharif Jensen MD Encounter for screening colonoscopy Discharge Disposition: Home or Self Care (01) 04/01/2025 Telephone [facility] [address] [place] [address] Padmaja Gabriel RN from Last 3 Months [...] Info) Description 12/27/2025 3:00 PM EDT Follow-Up [facility] Building 4th floor Cardiology Medicine [address] [place] [address] House Wrecker: Sj Floyd MD [address] [place] [address] Health Maintenance Due Date Last Done Comments Cervical Cancer Screening 1960 Cologuard 1960 FOBT / Fit Test 1960 HPV and Pap Smear 1960 Pap Smear [address] Lung Cancer Screening (Baseline) 2011 RSV Vaccine (60+ years old a nd patients) (1 - Risk 60-74 years 1-dose series) 2021 Mammogram 03/21/2023 03/21/2021, 0610/2020, 03/17/2020, Additional history exists Alcohol/Substance Use Screening 10/21/2024 Depression Screening and Follow-Up 10/21/2024 Social Drivers of Health Laureen ual Screening 10/21/2024 COVID-19 Vaccine (3 - 2024-2 6 season) 2025 01/24/2021, 12/26/2020 Influenza Vaccine (#1) 2025 Basic Metabolic Panel 06/23/2026 06/23/2025 , 04/21/2025, 01/05/2024, Additional history exists Diabetes Screening 06/23/2028 06/23/2025, 0 05/31/2025, 05/31/2025, Additional history exists DTaP,Tdap,and Td Vaccines (2 - Td or Tdap) 11/10/2034 11/10/2024, 11/02/2013 Colon Cancer Screening 04/09/2035 Colonoscopy 04/09/2035 04/09/2025, 04/09/2025 Hepatitis B Vaccines Completed 01/21/2017, 09/21/2016, 08/23/2016 HIV Screening Completed 05/30/2021 Hepatitis C Screening Completed 05/30/2021 Zoster Vaccines Completed 08/01/2021, 05/31/2021 Pneumococcal Vaccine: 50+ Years Completed , 11/02/2013 Procedures * Due to [place] [employer] law, this organization might not be sharing negative HIV tests. Procedure Name Priority Date/Time Associated Diagnosis Comments POCT GLUCOSE Routine 04/09/2025 3:26 PM EDT TISSUE EXAM Routine 04/09/2025 3:13 PM EDT Encounter for screening colonoscopy AL COLONOSCOPY FLX DX W/COLLJ SPEC WHEN PFRMD 04/09/2025 2:58 PM EDT Encounter for screening colonoscopy POCT GLUCOSE Routine 04/09/2025 2:37 PM EDT COLONOSCOPY 04/09/2025 from Last 3 Months Results * Due to [place] [employer] law, this organization might not be sharing negative HIV tests. * POCT Glucose, interfaced (04/09/2025 3:26 PM EDT) Only the most recent of2 resultswithin the time period is included. [facility] Signature Glucose, POCT 98 70 - 99 mg/dL 04/09/2025 3:27 PM EDT [facility], P[facility] Comment: The paid search marketing strategist has not determined the efficacy of this test in Critically ill patients. [facility] defines Critically ill patients for the purpose [...] POCT ORDERABLES - DEVICE Fin al Result [facility], [facility] [address] [place] [address], * Tissue Exam (04/09/2025 3:13 PM EDT) Final Diagnosis Colon (Transverse), Polypectomy: - Tubular adenoma. [facility] MANUAL 04/12/2025 10:55 AM EDT [employer] [facility] ANATOMIC PATHOLOGY LABORATORY at 1055 EDT Clinical History Pre-op diagnosis: Encounter for screening colonoscopy [Z12.11] [facility]UAL 04/12/2025 10:55 AM EDT [employer] ANATOMIC PATHOLOGY LABORATORY Gross Description 1. Large Intestine, Transverse Colon The specimen is received in formalin, labeled with the patient s name, medical record number, date of and T ransverse Polyp x 1 . It consists of one 0.4 x 0.2 x 0.2 hobbs-pink soft tissue fragment. ESS. [facility] MANUAL 04/12/2025 10:55 AM EDT [employer] ANATOMIC PATHOLOGY LABORATORY Gross Description User Grossing complete by Wilber Lara MD on 04/10/2025 12:37 PM [facility] MANUAL 04/12/2025 10:55 AM EDT [employer] [facility] Embedded Images [facility] MANUAL 04/12/2025 10:55 AM EDT [employer] [facility] Resulting Agency Case was signed out at [facility], Department of Pathology, [employer] 3 CLIA [id number] [facility] MANUAL 04/12/2025 10:55 AM EDT [employer] [facility] Report Header Surgical Pathology Report Case: [id number] Authorizing Provider: Sharif Jensen MD Collected: 04/09/2025 1513 Ordering Location: [facility] Received: 04/09/2025 1643 [facility] Endoscopy Pathologist: Reuben Prince MD Specimen: Large Intestine, Transverse Colon, Transverse Polyp x 1 04/12/2025 10:55 AM EDT [employer] ANATOMIC PATHOLOGY LABORATORY ProVation Case Yes [facility] MANUAL 04/12/2025 10:55 AM EDT [employer] [facility] SURGICAL CSN Component [id number] [facility] MANUAL 04/12/2025 10:55 AM EDT [employer] [facility] ANATOMIC PATHOLOGY LABORATORY Polyp Entire transverse colon / Unknown 04/09/2025 3:13 PM EDT 04/09/2025 4:43 PM EDT Comment:Pre-op diagnosis: Encounter for screening colonoscopy [Z12.11] us Sharif Jensen MD LAB PATHOLOGY/CYTOLOGY ORDERABLE S Final Result [employer] [facility] ANATOMIC PATHOLOGY LABORATORY [address] [place] [address], * COLONOSCOPY (04/09/2025) Narrative Procedure Note Sharif Jensen MD - 04/09/2025 2:36 PM EDT [facility] Gastroenterology Patient Name: Carmina Ortiz Procedure Date: 04/09/2025 2:36 PM Date of : 1960 Admit Type: Outpatient Age: 64 Room: [facility] AL 06 Gender: Female Note Status: Finalized Attending [...] Resul t from Last 3 Months Insurance [facility]FREE CARE Care Teams [employer] Relationship Specialty Start Date End Date Corin Fry [address] [place] [phone] PCP - General Family Medicine 07/19/22
--- OUTSIDE RECORDS SUMMARY | 2025-06-24 13:01 | XMS_ITS | Encounter Summary ---
Author Organization [employer] Address [address] [facility] 7t [place] [address] Care Team Providers Care Nurse Administrator Name Role Phone Corin Fry MD Primary Care Provider [phone] Brendan Artis PharmD Unavailable [phone] Encounter Details Date Type Department Care Team ([facility] Contact Info) Description 04/13/2025 Orders Only [facility] [address] [place], [place] [phone] ProviderTirso MD Social History Tobacco Use Types [...] Description 07/06/2025 1:00 PM EDT Office Visit [facility] OPTOMETRY [address] [place] [address] Jorge Alberto, Opal, OD [address] [place] [address] 08/13/2025 2:00 PM EDT Telemedicine [facility] [address] [place] [address] Brendan Artis, PharmYolie [address] [place] [address] documented as of this encounter Goals Goal [...] documented as of this encounter Care Teams Nurse Administrator Relationship Specialty Start Date End Date Corin Fry MD [address] [place] [address] PCP - General Family Medicine 02/26/22 Brendan Artis, [place] [address] [place] [address] Pharmacist Internal Medicine 10/23/22 documented as of this encounter
--- OUTSIDE RECORDS SUMMARY | 2025-06-24 13:01 | XMS_ITS | Encounter Summary ---
Author Organization [employer] Address [address] [facility] 7 [place] [address] Care Team Providers Care Substation Electrician Supervisor Name Role Phone Corin Fry MD Primary Care Provider [phone] Brendan Artis PharmD Unavailable [phone] Encounter Details Date Type Department Care Team ([facility] st Contact Info) Description 06/24/2025 Results Follow-Up [facility] MED[facility] [address] [place], [place] [phone] Corin Fry MD [address] [place], [place] [phone] CT Abdomen Pelvis w/ Contrast Social History Tobacco Use Types Packs/Day Years [...] 07/06/2025 1:00 PM EDT Office Visit [facility] OPTOMETRY [address] [place] [address] Jorge Alberto, Opal, OD [address] [place] [address] 08/13/2025 2:00 PM EDT Telemedicine [facility] MED[facility] [address] [place] [address] Brendan Artis, PharmD [address] [place] [address] documented as of this encounter Goals Goal [...] documented as of this encounter Care Teams Substation Electrician Supervisor Relationship Specialty Start Date End Date Corin Fry MD [address] [place] [address] PCP - General Family Medicine 02/26/22 Brendan Artis, TaoD [address] [place] [phone] Pharmacist Internal Medicine 10/23/22 documented as of this encounter
--- OUTSIDE RECORDS SUMMARY | 2025-06-24 13:01 | XMS_ITS | Encounter Summary ---
Author Organization [employer] Address [address] [facility] 7 [place] [address] Care Team Providers Care Gunite Nozzle Operator Name Role Phone Corin Fry MD Primary Care Provider [phone] Brendan Artis PharmD Unavailable [phone] Encounter Details Date Type Department Care Team ([facility] st Contact Info) Description 09/25/2024 Orders Only [facility] MEDICINE [address] [place], [place] [phone] Corin Fry MD [address] [place], [place] [phone] Mixed hyperlipidemia (Primary Dx) Social History Tobacco [...] Description 07/06/2025 1:00 PM EDT Office Visit [facility] OPTOMETRY [address] [place] [address] Jorge Alberto, Opal, OD [address] [place] [address] 08/13/2025 2:00 PM EDT Telemedicine [facility] [address] [place] [address] Brendan Artis, PharmD [address] [place] [address] documented as of this encounter Goals Goal [...] 12:15 PM EST) Triglycerides 118 <150 mg/dL [facility] Comment:Desirable Triglyceri de: less than 150 mg/dLBorderline High Triglyceride 150-199 mg/dLHigh Triglyceride: 200-499 mg/dLVery High Triglyceride: greater than or equal to 5OO mg/dL Cholesterol 269(H) <200 mg/dL [facility] Comment:Desirable Cholestero l: less than 200 mg/dLBorderline High Cholesterol: 200-239 mg/dLHigh Cholesterol: greater than 239 mg/dL LDL Cholesterol Calculated 181(H) <100 mg/dL [facility] Comment:Desirable LDL: less than 100 mg/dLNear Optimal/Above Optimal LDL: 110- 129 mg/dLBorderline High LDL: 130-159 mg/dLHigh LDL: 160-189 mg/dLVery High LDL: greater than or equal to 190 mg/dL HDL Cholesterol 65 >40 mg/dL [facility] Comment:Desirable HDL: great er than 40 mg/dL Note: This HDL assay may give artificially low results in patients with liver disease. Blood 09/25/2024 12:1 5 PM EST 09/25/2024 12:55 PM EST us Corin Fry MD LAB BLOOD ORDERABLES Final Resul t [facility] [address] [place] [address] [phone] documented in this encounter Visit Diagnoses Diagnosis Mixed hyperlipidemia- Primary documented in this encounter Additional Health Concerns Assessment Noted Time PHQ-9 Depression Total Score: 0 07/30/20 24 9:12 AM EDT documented as of this encounter Care Teams Gunite Nozzle Operator Relationship Specialty Start Date End Date Corin Fry MD [address] [place] [address] PCP - General Family Medicine 02/26/22 Brendan Artis, TaoD [address] [place] [address] Pharmacist Internal Medicine 10/23/22 documented as of this encounter
== END 2025-06-24 11:19 | disposition home or self-care (01) ==
PROVIDERS: Emergency Provider Emergency Medicine; PCP Family Medicine
DX: N23 Unspecified renal colic (principal)
CPT/HCPCS: 99282

== ENCOUNTER 2025-08-24 13:16 | Outpatient (REF) | payer MEDICAID, SELFPAY ==
--- OUTSIDE RECORDS SUMMARY | 2025-08-24 16:11 | XMS_ITS | Encounter Summary ---
Author Organization [employer] Address [address] [facility] 7t [place] [address] Care Team Providers Care Surgery Manager Name Role Phone Corin Fry MD Primary Care Provider [phone] Brendan Artis PharmD Unavailable [phone] Encounter Details Date Type Department Care Team ([facility] Contact Info) Description 04/12/2025 Orders Only [facility] [address] [place], [place] [phone] ProviderTirso MD Social History Tobacco Use Types [...] Care Team (Late st Contact Info) Description 08/31/2025 2:15 PM EST Office Visit [facility] MED[facility] [address] [place] [phone] Corin Fry MD [address] [place] [phone] documented as of this encounter Goals Goal Patient Goal Type Associated Problems Recent Progress Patient-Stated? Author Blood Pressure < 140/90 Blood Pressure 114/77( 025 2:17 PM EDT) No Brendan Artis, PharmD documented [...] documented as of this encounter Care Teams Surgery Manager Relationship Specialty Start Date End Date Corin Fry MD [address] [place] [address] [phone] PCP - General Family Medicine 02/26/22 Brendan Artis, PharmD [address] [place] [phone] Pharmacist Internal Medicine 10/23/22 08/12/25 documented as of this encounter
--- OUTSIDE RECORDS SUMMARY | 2025-08-24 16:11 | XMS_ITS | Clinical Summary ---
Author Organization [facility] Address [address] [place] [address] Care Team Providers Care Firer Powerhouse Name Role Phone Corin Fry Primary Care Provider [phone] Allergies Active Allergy Reactions Criticality Noted Date [...] strip Use as instructed 2 Active FreeStyle [place] Lite meter TEST BLOOD SUGAR EVERY MORNING [...] SMARTSI Tablet(s) By Mouth Daily 5 Active hydroCHLOROthia zide 12.5 mg tablet Take 12.5 mg by mouth daily. 5 Active Active Problems Problem Noted Date Diagnosed Date Left sided abdominal pain 06/06/2025 Hemorrhoid prolapse 04/14/2025 Lower leg edema 04/05/2025 Dilated cardiomyopathy 12/21/2024 Nephrolithiasis 03/26/2024 Frequent PVCs 02/01/2023 Hypertension 02/01/2023 Plantar fasciitis, bilateral 11/06/2022 Chronic foot pain, right 09/25/2022 Primary osteoarthritis of right hand 09/25/2022 Type 2 diabetes mellitus in patient with obesity 10/17/2021 Overview (08/06/2025): Last a1c 6.4 On metformin 500mg FS AM FS PM a1c today Advised diet and exercise Ophthalmology Recurrent hematuria 09/01/2021 Overview (08/06/2025): Added automatically from request for surgery [id number] (HFpEF) heart failure with preserved ejection fr action 08/02/2021 Overview (08/06/2025): Saw cardiology in 01/09-complaining of palpitations Coreg was increased to 6.25mg Was supposed to fu in one month Did not go Today: Palpitaitons, ETT, shortness of breath, chest pain Continue coreg 6.25mg Continue lisinopril 40mg Cardiology fu given Last Assessment & Plan: A/w MPI defected perfusion, counselled patient for angiogram, she is agreeable Currently asymptomatic Continue follow up at cardiology Abnormal finding on GI tract imaging 06/01/2021 Overview (08/06/2025): Added automatically from request for surgery [id number] Mixed hyperlipidemia 05/30/2021 Overview (08/06/2025): Last Assessment & Plan: Controlled, counselled patient on reducing weight, not taking supplements that harm liver Repeat Lipid panel in 6 months, liver function test and BMP today Multinodular goiter 05/30/2021 Overview (08/06/2025): HX of multinodular goiter in past with dominant right nodule, Pt has been biochemically euthyroid although reported symptoms of hypothyroidism Had FNA in past at [facility]. TSH 0.97 Fu with endo Last Assessment & Plan: MNG with dominant right lobe nodule, s/p FNA done at [facility], could not find report in pre-epic [...] Encounters Date Type Department Care Team Description 08/17/2025 Telephone [facility] [address] [place] [phone] Liqu[employer] Grinder Mill Operator: Magalys Estevez PA 08/10/2025 1:33 PM EDT - 08/10/2025 11:59 PM EDT Hospital Encounter [facility] Ultrasound [address] [place] [address] Nephrolithiasis Discharge Disposition: Home or Self Care (01) 08/06/2025 10:30 AM EDT Follow-Up [facility]ology [facility] [address] [place] [address] Liquor Grinder Mill Operator: Sarah Mccormack NP Gastroesophageal reflux disease without esophagitis (Primary Dx); Chronic abdominal pain; Left upper quadrant abdominal pain 07/28/2025 Results Follow-Up [facility] [address] [place] [address] [employer] Grinder Mill Operator: Magalys Estevez PA 07/28/2025 Telephone [facility] [address] [place] [address] Liqu[employer] Grinder Mill Operator: Magalys Estevez PA 07/27/2025 2:00 PM EDT Office Visit [facility] [address] [place] [address] [employer] Gr[employer] Mill Operator: Magalys Estevez PA Nephrolithiasis (Primary Dx) 06/30/2025 Transcribe Orders [facility] [address] [place] [address] Corin Fry Left upper quadrant abdominal pain (Primary Dx) 06/24/2025 Transcribe Orders [facility] Referral [facility] [address] [place], [place] [address]Corin Duke Recurrent kidney stones (Primary Dx) from Last 3 Months Social History Tobacco [...] Sign Reading Time Taken Comments Blood Pressure 128/76 08/06/2025 10:40 AM EDT Pulse 68 08/06/2025 10:40 AM EDT Temperature 36.2 C (97.1 F) 08/06/2025 10:40 AM EDT Respiratory Rate 15 04/09/2025 3:45 PM EDT Oxygen Saturation 97% 08/06/2025 10: 40 AM EDT Inhaled Oxygen Concentration - - Weight 107.3 kg (236 lb 9.6 oz) 025 10:40 AM EDT Height 157.5 cm (5' 2 ) 04/09/2025 2:26 PM EDT Body Mass Index 43.27 04/09/2025 2:26 PM EDT Plan of Treatment Upcoming Encounters Date Type Department Care Team (Late st Contact Info) Description 11/16/2025 1:30 PM EST Follow-Up [facility] [address] [place] [address] [phone] Liqu[employer] Grinder Mill Operator: Sarah Mccormack NP [address] [place] [address] [phone] 12/27/2025 3:00 PM EDT Follow-Up [facility] Building 4th floor Cardiology Medicine [address] [place] [address] Liquor Grinder Mill Operator: Sj Floyd MD [address] [place] [address] 01/25/2026 1:45 PM EDT Follow-Up [facility]rology Clinic [address] [place] [address] Liqu[employer] Grinder Mill Operator: Magalys Estevez PA [address] [place] [address] Health Maintenance Due Date Last Done Comments Cervical Cancer Screening 1960 Cologuard 1960 FOBT / Fit Test 1960 HPV and Pap Smear 1960 Pap Smear 1960 Sigmoidoscopy [address] Lung Cancer Screening (Baseline) 2011 Ophthalmology Exam 07/22/2020 07/22/2019 RSV Vaccine (60+ years old a nd patients) (1 - Risk 60-74 years 1-dose series) 2021 Mammogram 03/21/2023 03/21/2021, 0610/2020, 03/17/2020, Additional history exists Alcohol/Substance Use Screening 10/21/2024 Depression Screening and Follow-Up 10/21/2024 Social Drivers of Health Laureen ual Screening 10/21/2024 COVID-19 Vaccine ( - 2024-2 6 season) 2025 02/26/2022, 01/24/2021, 12/26/2020 Influenza Vaccine (#1) 2025 Hemoglobin A1C 12/01/2025 05/31/2025, 05/0 02/2025, 07/30/2024, Additional history exists Basic Metabolic Panel 06/23/2026 06/23/2025 , 04/21/2025, 01/05/2024, Additional history exists DTaP,Tdap,and Td Vaccines (2 - Td or Tdap) 11/10/2034 11/10/2024, 11/02/2013 Colon Cancer Screening 04/09/2035 Colonoscopy 04/09/2035 04/09/2025, 04/09/2025 Hepatitis B Vaccines Completed 01/21/2017, 09/21/2016, 08/23/2016 HIV Screening Completed 05/30/2021 Hepatitis C Screening Completed 05/30/2021 Zoster Vaccines Completed 08/01/2021, 05/31/2021 Pneumococcal Vaccine: 50+ Years Completed , 11/02/2013 Diabetes Screening Discontinued 06/23/2025, 0 05/31/2025, 05/31/2025, Additional history exists Procedures * Due to [place] Gol[place] law, this organization might not be sharing negative HIV tests. Procedure Name Priority Date/Time Associated Diagnosis Comments US KIDNEY AND BLADDER COMPLETE Routine 08/10/2025 2:20 PM EDT Nephrolithiasis RIOS TOP, URN Routine 07/27/2025 2:39 PM EDT Nephrolithiasis UA/CULTURE REFLEX Routine 07/27/2025 2:3 9 PM EDT Nephrolithiasis URINALYSIS W/REFLEX TO MICROSCOPIC & CULTURE Routine 07/27/2025 2:39 PM EDT Nephrolithiasis POCT GLUCOSE Routine 04/09/2025 2:37 PM EDT COLONOSCOPY 04/09/2025 from Last 3 Months or Most Recently Relevant to Health Maintenance Results * Due to [place] law, this organization might not be sharing negative HIV tests. * US Kidney Complete and Bladder (08/10/2025 2:20 PM EDT) Anatomical Region Laterality Modality Body N/A Ultrasound 08/10/2025 3:02 PM EDT Impressions 08/10/2025 3:03 PM EDT No hydronephrosis or sonographically evident nephrolithiasis. If this radiology report contains a blank impression section, it is an incomplete radiology report. Please contact the interpreting radiologist or applicable radiology division as soon as possible to obtain the completed interpretation. Workstation ID: [id number] Narrative 08/10/2025 3:03 PM EDT EXAMINATION: Ultrasound kidneys and bladder. INDICATION: History of nephrolithiasis, recent right-sided ureteral stone causing hydronephrosis. TECHNIQUE: Ultrasound evaluation of the kidneys and bladder. Multiple grayscale and color Doppler images were obtained. COMPARISON: Ultrasound from 11/20/2022. FINDINGS: RIGHT KIDNEY: The right kidney measures 11.0 cm. The parenchyma is within normal limits. There is no hydronephrosis. No sonographically evident nephrolithiasis or solid mass. There is a 1.4 cm parapelvic cyst in the interpolar region. LEFT KIDNEY: The left kidney measures 11.4 cm. The parenchyma is within normal limits. There is no hydronephrosis. No sonographically evident nephrolithiasis or solid mass. Subcentimeter cortical cyst in the upper pole. BLADDER: The bladder is suboptimally distended but grossly unremarkable. Resulting Agency Comment [id number] Procedure Note Ermias Burch MD - 08/10/2025 EXAMINATION: Ultrasound kidneys and bladder. INDICATION: History of nephrolithiasis, recent right-sided ureteral stonecausing hydronephrosis. TECHNIQUE: Ultrasound evaluation of the kidneys and bladder. Multiplegrayscale and color Doppler images were obtained. COMPARISON: Ultrasound from 11/20/2022. FINDINGS: RIGHT KIDNEY: The right kidney measures 11.0 cm. The parenchyma is withinnormal limits. There is no hydronephrosis. No sonographically evidentnephrolithiasis or solid mass. There is a 1.4 cm parapelvic cyst in theinterpolar region. LEFT KIDNEY: The left kidney measures 11.4 cm. The parenchyma is withinnormal limits. There is no hydronephrosis. No sonographically evidentnephrolithiasis or solid mass. Subcentimeter cortical cyst in the upperpole. BLADDER: The bladder is suboptimally distended but grossly unremarkable. IMPRESSION: No hydronephrosis or sonographically evident nephrolithiasis. If this radiology report contains a blank impression section, it is anincomplete radiology report. Please contact the interpreting radiologistor applicable radiology division as soon as possible to obtain thecompleted interpretation. Workstation ID: [id number] [facility] WILD IMG US PROCEDURES Final Resul t * Rios Top, Urine (07/27/2025 2:39 PM EDT) Pathologist [facility] Extra Tube Hold for add-ons. 07/27/2025 7:05 PM EDT [facility] Comment:Auto resulted. Urine Urine specimen collection, clean catch / Unknown Non-Blood Collection / Unknown 07/27/2025 2:39 PM EDT 07/27/2025 3:30 PM EDT us [facility] WILD LAB URINE ORDERABLES Final Re sult [facility] [address] [place] [address], [place] * Urinalysis W/Reflex to Microscopic & Culture (07/27/2025 2:39 PM EDT) Color, Urine Light Yellow Colorless, Light Yellow, Yellow, Dark Yellow 07/27/2025 3:59 PM EDT [facility] Clarity, Urine Clear Clear 07/27/2025 3:59 PM EDT [facility] Specific [place], Urine 1.011 <1.030 07/27/2025 3:59 PM EDT [facility] pH, Urine 7.0 4.6 - 8.0 07/27/2025 3:59 PM EDT [facility] Protein, Urine Negative Negative 07/27/2025 3:59 PM EDT [facility] Glucose, Urine Normal Normal 07/27/2025 3:59 PM EDT [facility] Ketones, Urine Negative Negative 07/27/2025 3:59 PM EDT [facility] Bilirubin, Urine Negative Negative 07/27/2025 3:59 PM EDT [facility] Blood, Urine Negative Negative 07/27/2025 3:59 PM EDT [facility] Nitrite, Urine Negative Negative 07/27/2025 3:59 PM EDT [facility] Urobilinogen, Urine Normal Normal 07/27/2025 3:59 PM EDT [facility] Leukocyte Esterase, Urine Negative Negative 07/27/2025 3:59 PM EDT [facility] Urine Urine specimen collection, clean catch / Unknown Non-Blood Collection / Unknown 07/27/2025 2:39 PM EDT 07/27/2025 3:30 PM EDT us [facility] URINE ORDERABLES Final Re sult [facility] [address] [place] [phone], * POCT Glucose, interfaced (04/09/2025 2:37 PM EDT) [facility] Signature Glucose, POCT 96 70 - 99 mg/dL 04/09/2025 2:38 PM EDT [facility] Comment: The quenching car operator has not determined the efficacy of this test in Critically ill patients. [facility] defines Critically ill patients for the [...] confirmed with lab-based glucose values. Blood 04/09/2025 2:37 PM EDT 04/09/2025 2:38 PM EDT us Sharif Jensen MD LAB POCT ORDERABLES - DEVICE Fin al Result [facility] [address] [place] [address], [place] * COLONOSCOPY (04/09/2025) Narrative Procedure Note Sharif Jensen MD - 04/09/2025 2:36 PM EDT [facility] Gastroenterology Patient Name: Carmina Cottrellfidenciochet Procedure Date: 04/09/2025 2:36 PM Date of : 1960 Admit Type: Outpatient Age: 64 Room: [place] [address] Gender: Female Note Status: Finalized Attending MD: [...] Final Resul t from Last 3 Months or Most Recently Relevant to Health Maintenance Insurance [facility] HSNO/FREE CARE Care Teams Firer Powerhouse Relationship Specialty Start Date End Date Corin Fry [address] [place] [phone] PCP - General Family Medicine 07/19/22
--- OUTSIDE RECORDS SUMMARY | 2025-08-24 16:11 | XMS_ITS | Encounter Summary ---
Author Organization [employer] Address [address] [place] [address] [place], [place] [address] Care Team Providers Care Pocket Grinder Operator Name Role Phone Corin Fry MD Primary Care Provider [phone] Brendan Artis PharmD Unavailable [phone] Encounter Details Date Type Department Care Team (Late st Contact Info) Description 06/26/2023 Orders Only [facility] MED[facility] [address] [place] [address] [phone] Corin Fry MD [address] [place] [address] [phone] Chronic foot pain, right (Primary Dx); Plantar [...] Description 08/31/2025 2:15 PM EST Office Visit [facility] [address] [place] [address] [phone] Corin Fry MD [address] [place] [address] [phone] documented as of this encounter Goals Goal [...] documented as of this encounter Care Teams Pocket Grinder Operator Relationship Specialty Start Date End Date Corin Fry MD [address] [place] [address] PCP - General Family Medicine 02/26/22 Brendan Artis, PharmD [address] [place] [address] Pharmacist Internal Medicine 10/23/22 08/12/25 documented as of this encounter
--- OUTSIDE RECORDS SUMMARY | 2025-08-24 16:11 | XMS_ITS | Encounter Summary ---
Author Organization [employer] Address [address] [place] [address] [place], [place] [address] Care Team Providers Care Teacher Theater Arts Name Role Phone Corin Fry MD Primary Care Provider [phone] Brendan Artis PharmD Unavailable [phone] Reason for Referral * Consultation (Routine) - Closed Specialty Diagnoses / Procedures Referred By Contac t Referred To Contact Pharmacy Diagnoses Primary hypertension Corin Fry MD [address] [place] [address] Phone: tel: fax: Referral ID Status Reason Start Date Expiration Date V isits Requested Visits Authorized [id number] Closed Consult and Treat 12/21/2024 12/21/2025 6 6 Encounter Details Date Type Department Care Team (Late st Contact Info) Description 12/21/2024 Orders Only [facility] MEDICINE [address] [place] [address] [phone] Corin Fry MD [address] [place], [place] [phone] Primary hypertension (Primary Dx); Type 2 diabetes mellitus without complication, without long-term current use of insulin ([facility]) Social History Tobacco Use Types Packs/Day [...] Description 08/31/2025 2:15 PM EST Office Visit [facility] [address] [place] [address] Corin Fry MD [address] [place] [address] Scheduled Referrals Name Type Priority Associated Diagnoses Orde r Schedule Referral to Pharmacy CDTM Outpatient Referral Routine Primary hypertension Ordered: 12/21/2024 documented as of this encounter Goals Goal Patient Goal Type Associated Problems Recent Progress Patient-Stated? Author Blood Pressure < 140/90 Blood Pressure 114/77(10/24/2 025 2:17 PM EDT) No Brendan Artis, PharmD documented as of this encounter Visit Diagnoses Diagnosis Primary hypertension- Primary Unspecified essential hypertension Type 2 diabetes mellitus without complication, without long-term current use of insulin (HCC) documented in this encounter Additional Health Concerns Assessment Noted Time PHQ-9 Depression Total Score: 0 07/30/20 24 9:12 AM EDT documented as of this encounter Care Teams Teacher Theater Arts Relationship Specialty Start Date End Date Corin Fry MD [address] [place] [address] PCP - General Family Medicine 02/26/22 Brendan Artis, PharmD [address] [place] [address] Pharmacist Internal Medicine 10/23/22 08/12/25 documented as of this encounter
--- OUTSIDE RECORDS SUMMARY | 2025-08-24 16:11 | XMS_ITS | Encounter Summary ---
Author Organization [employer] Address [address] [place] [address] [address] [place] [address] Care Team Providers Care Patient Support Partner Name Role Phone Corin Fry MD Primary Care Provider [phone] Brendan Artis PharmD Unavailable [phone] Encounter Details Date Type Department Care Team (Late Contact Info) Description 03/04/2023 Telephone [facility] [address] [place] [address] [phone] Corin Fry MD [address] [place] [address] [phone] Social History Tobacco Use Types Packs/Day Years [...] Upcoming Encounters Date Type Department Care Team ([facility] Contact Info) Description 08/31/2025 2:15 PM EST Office Visit [facility] [address] [place] [phone] Corin Fry MD [address] [place] [address] documented as of this encounter Goals Goal [...] documented as of this encounter Care Teams Patient Support Partner Relationship Specialty Start Date End Date Corin Fry MD [address] [place] [address] PCP - General Family Medicine 02/26/22 Brendan Artis, PharmD [address] [place] [phone] Pharmacist Internal Medicine 10/23/22 08/12/25 documented as of this encounter
--- OUTSIDE RECORDS SUMMARY | 2025-08-24 16:11 | XMS_ITS | Encounter Summary ---
Author Organization [employer] Address [address] [facility] 7 [place] [address] Care Team Providers Care Technician Biological Health Name Role Phone Corin Fry MD Primary Care Provider [phone] Brendan Artis PharmD Unavailable [phone] Encounter Details Date Type Department Care Team ([facility] st Contact Info) Description 06/24/2025 Results Follow-Up [facility] [address] [place], [place] [phone] Corin Fry MD [address] [place], [place] [phone] CT Abdomen Pelvis w/ Contrast Social History [...] Description 08/31/2025 2:15 PM EST Office Visit [facility] [address] [place] [phone] Corin Fry MD [address] [place] [phone] documented as of this encounter Goals Goal Patient Goal Type Associated Problems Recent Progress Patient-Stated? Author Blood Pressure < 140/90 Blood Pressure 114/77( 025 2:17 PM EDT) No Brendan Artis, [place] documented as of this encounter Visit Diagnoses Not on filedocumented in this encounter Additional Health Concerns Assessment Noted Time PHQ-9 Depression Total Score: 0 07/30/20 24 9:12 AM EDT documented as of this encounter Care Teams Technician Biological Health Relationship Specialty Start Date End Date Corin Fry MD [address] [place] [address] [phone] PCP - General Family Medicine 02/26/22 Brendan Artis, TaoD [address] [place] [address] [phone] Pharmacist Internal Medicine 10/23/22 08/12/25 documented as of this encounter
--- OUTSIDE RECORDS SUMMARY | 2025-08-24 16:11 | XMS_ITS | Encounter Summary ---
Author Organization [employer] Address [address] [place] [address] Care Team Providers Care Spool Cleaner Name Role Phone Corin Fry MD Primary Care Provider [phone] Brendan Artis PharmD Unavailable [phone] Reason for Referral * Consultation (Urgent) - Closed Specialty Diagnoses / Procedures Referred By Contac t Referred To Contact Urology Diagnoses Recurrent kidney stones Corin Fry MD [address] [place] [phone] Phone: tel[facility] [address] [place] [address] Phone: tel: fax: Referral ID Status Reason Start Date Expiration Date V isits Requested Visits Authorized [id number] Closed Specialty Services Required 06/24/2025 06/24/2026 1 1 Encounter Details Date Type Department Care Team (Late st Contact Info) Description 06/24/2025 Orders Only [facility] MED[facility] [address] [place] [address] [phone] Corin Fry MD [address] [place], [place] [phone] Recurrent kidney stones (Primary Dx) Social History [...] Description 08/31/2025 2:15 PM EST Office Visit [facility] [address] [place] [address] Corin Fry MD [address] [place] [address] Scheduled Referrals Name Type Priority Associated Diagnoses [...] documented as of this encounter Care Teams Spool Cleaner Relationship Specialty Start Date End Date Corin Fry MD [address] [place] [address] PCP - General Family Medicine 02/26/22 Brendan Artis, PharmD [address] [place] [address] Pharmacist Internal Medicine 10/23/22 08/12/25 documented as of this encounter
--- OUTSIDE RECORDS SUMMARY | 2025-08-24 16:11 | XMS_ITS | Encounter Summary ---
Author Organization [employer] Address [address] [facility] 7 [place] [address] Care Team Providers Care Kiln Loader Name Role Phone Corin Fry MD Primary Care Provider [phone] Brendan Artis PharmD Unavailable [phone] Encounter Details Date Type Department Care Team ([facility] st Contact Info) Description 09/25/2024 Orders Only [facility] MED[facility]INE [address] [place], [place] [phone] Corin Fry MD [address] [place], [place] [phone] Mixed hyperlipidemia (Primary Dx) Social History Tobacco [...] Description 08/31/2025 2:15 PM EST Office Visit [facility] MEDICINE [address] [place] [address] Corin Fry MD [address] [place] [address] documented as of this encounter Goals Goal [...] 12:15 PM EST) Triglycerides 118 <150 mg/dL [facility] Comment:Desirable Triglyceri de: less than 150 mg/dLBorderline High Triglyceride 150-199 mg/dLHigh Triglyceride: 200-499 mg/dLVery High Triglyceride: greater than or equal to 5OO mg/dL Cholesterol 269(H) <200 mg/dL [facility] Comment:Desirable Cholestero l: less than 200 mg/dLBorderline High Cholesterol: 200-239 mg/dLHigh Cholesterol: greater than 239 mg/dL LDL Cholesterol Calculated 181(H) <100 mg/dL [facility] Comment:Desirable LDL: less than 100 mg/dLNear Optimal/Above Optimal LDL: 110- 129 mg/dLBorderline High LDL: 130-159 mg/dLHigh LDL: 160-189 mg/dLVery High LDL: greater than or equal to 190 mg/dL HDL Cholesterol 65 >40 mg/dL [facility] Comment:Desirable HDL: great er than 40 mg/dL Note: This HDL assay may give artificially low results in patients with liver disease. Blood 09/25/2024 12:1 5 PM EST 09/25/2024 12:55 PM EST Corin Fry MD LAB BLOOD ORDERABLES Final Resul t [facility] [address] [place] [address] [phone] documented in this encounter Visit Diagnoses Diagnosis Mixed hyperlipidemia- Primary documented in this encounter Additional Health Concerns Assessment Noted Time PHQ-9 Depression Total Score: 0 07/30/20 24 9:12 AM EDT documented as of this encounter Care Teams Kiln Loader Relationship Specialty Start Date End Date Corin Fry MD [address] [place] [address] PCP - General Family Medicine 02/26/22 Brendan Artis, TaoD [address] [place] [address] Pharmacist Internal Medicine 10/23/22 08/12/25 documented as of this encounter
--- OUTSIDE RECORDS SUMMARY | 2025-08-24 16:11 | XMS_ITS | Encounter Summary ---
Author Organization [employer] Address [address] [facility] 7t [place] [address] Care Team Providers Care Talent Acquisition Partner Name Role Phone Corin Fry MD Primary Care Provider [phone] Brendan Artis PharmD Unavailable Encounter Details Date Type Department Care Team ([facility] Contact Info) Description 04/13/2025 Orders Only [facility] [address], [place] [phone] ProviderTirso MD Social History Tobacco Use Types [...] Description 08/31/2025 2:15 PM EST Office Visit [facility] MEDICINE [address] [place] [phone] Corin Fry MD [address] [place] [phone] documented as of this encounter Goals Goal [...] documented as of this encounter Care Teams Talent Acquisition Partner Relationship Specialty Start Date End Date Corin Fry MD [address] [place] [address] [phone] PCP - General Family Medicine 02/26/22 Brendan Artis, PharmD [address] [place] [address] Pharmacist Internal Medicine 10/23/22 08/12/25 documented as of this encounter
--- OUTSIDE RECORDS SUMMARY | 2025-08-24 16:11 | XMS_ITS | Encounter Summary ---
Author Organization [facility] Address [address] [place] [address] Care Team Providers Care Carpet Sewer Name Role Phone Corin Fry Primary Care Provider [phone] Encounter Details Date Type Department Care Team (Late st Contact Info) Description 07/28/2025 Results Follow-Up [facility] [address] [place] [phone] Stamp Press Operator: Magalys Estevez, PA [address] [place] [phone] Social History Tobacco Use Types Packs/Day Years [...] Info) Description 11/16/2025 1:30 PM EST Follow-Up [facility] [address] [place] [address] [phone] Stamp Press Operator: Sarah Mccormack NP [address] [place] [address] [phone] 12/27/2025 3:00 PM EDT Follow-Up [facility] 4th floor Cardiology Medicine [address] [place] [phone] Stamp Press Operator: Sj Floyd MD [address] [place] [phone] 01/25/2026 1:45 PM EDT Follow-Up [facility] [address] [place] [address] Stamp Press Operator: Magalys Estevez PA [address] [place] [phone] documented as of this encounter Visit Diagnoses Not on filedocumented in this encounter Care Teams Carpet Sewer Relationship Specialty Start Date End Date Corin Fry [address] [place] [phone] PCP - General Family Medicine 07/19/22 documented as of this encounter
--- OUTSIDE RECORDS SUMMARY | 2025-08-24 16:11 | XMS_ITS | Clinical Summary ---
Author Organization [employer] Address [address] [place] [address] [address] [place] [address] Care Team Providers Care Senior Data Integration Developer Name Role Phone Corin Fry MD Primary Care Provider [phone] Allergies Active Allergy Reactions Criticality Noted Date Comments Atorvastatin 03/13/2022 Other reaction(s): Abdominal pain Carrot Oil Rash Low 09/08/2020 Chlorthalidone Palpitations Low 02/14/2021 Latex Rash Low 06/23/2025 Rosuvastatin Abdominal Pain Medium 07/30/2024 Medications polyethylene glycol, PEG, 3350 (Miralax) 17 g packet MIX 1 PACKET IN 8 OUNCES OF WATER, JUICE, COFFEE, OR TEA AND DRINK TWICE DAILY 01/31/20 23 Active Blood Glucose Monitoring Suppl (FreeStyle Lite) w/Device kit 1 Dose Once per day. 1 kit 02/16/20 24 Active pantoprazole (ProtoNix) 40 MG EC tablet Take 1 tablet (40 mg) by mouth Once per day. 90 tablet 3 10/12/20 24 Active carvedilol (Coreg) 12.5 MG tablet Take 12.5 mg by mouth with breakfast and with evening meal. Active lisinopril 40 MG tabletIndications :Primary hypertension TAKE 1 TABLET BY MOUTH EVERY DAY IN THE MORNING 90 tablet 3 02/18/20 25 Active TRUEplus Lancets 33G miscIndications:T ype 2 diabetes mellitus without complication, without long-term current use of insulin ([facility]) TEST BLOOD SUGAR EVERY MORNING 100 each 11 02/24/20 25 Active FREESTYLE LITE test stripIndications: Type 2 diabetes mellitus without complication, without long-term current use of insulin ([facility]) TEST BLOOD SUGAR EVERY MORNING 100 strip 11 02/24/20 Active amLODIPine (Norvasc) 5 MG tabletIndications :Primary hypertension TAKE 1 TABLET BY MOUTH EVERY DAY 90 tablet 1 04/05/20 Active hydrocortisone (Anusol-HC) 2.5 % rectal cream Insert into the rectum if needed in the morning, at noon, and at bedtime for hemorrhoids. 28 g 1 04/14/20 Active senna-docusate (Senokot S) 8.6-50 MG tablet Take 1 tablet by mouth Once per day. 30 tablet 04/14/20 25 2025 Active ibuprofen 400 MG tablet Take 400 mg by mouth every 6 (six) hours if needed. Active ezetimibe (Zetia) 10 MG tabletIndications :Mixed hyperlipidemia Take 1 tablet (10 mg) by mouth at bedtime. 90 tablet 3 07/26/20 25 2025 Active hydroCHLOROthiazi de 12.5 MG tablet TAKE 1 TABLET BY MOUTH EVERY DAY 90 tablet 3 08/04/20 25 Active metFORMIN XR (Glucophage-XR) 500 MG 24 hr tabletIndications :Type 2 diabetes mellitus without complication, without long-term current use of insulin (HCC) TAKE 1 TABLET BY MOUTH TWICE DAILY WITH MEALS 180 tablet 3 08/17/20 25 Active cholecalciferol (Vitamin D High Potency) 25 MCG (1000 UT) capsuleIndication s:Vitamin D deficiency TAKE 1 CAPSULE BY MOUTH EVERY DAY 90 capsule 3 02/10/20 24 2024 Discontinued ezetimibe (Zetia) 10 MG tabletIndications :Mixed hyperlipidemia Take 1 tablet (10 mg) by mouth at bedtime. 90 tablet 3 02/12/20 24 2024 Discontinued(R eokathleener (will not trigger notification to Pharmacy)) metFORMIN XR (Glucophage-XR) 500 MG 24 hr tabletIndications :Type 2 diabetes mellitus without complication, without long-term current use of insulin (HCC) TAKE 1 TABLET BY MOUTH TWICE DAILY WITH MEALS 180 tablet 3 07/21/20 24 2024 Discontinued hydroCHLOROthiazi de 12.5 MG tablet Take 1 tablet (12.5 mg) by mouth Once per day. 30 tablet 3 04/05/20 25 2024 Discontinued ondansetron ODT (Zofran-ODT) 4 MG disintegrating tablet DISSOLVE 1 TABLET ON TONGUE THREE TIMES DAILY NEEDED FOR NAUSEA AND VOMITING 2024 Discontinued oxyCODONE (Roxicodone) 5 MG immediate release tablet Take 5 mg by mouth every 8 (eight) hours if needed. 2024 Discontinued tamsulosin (Flomax) 0.4 MG 24 hr capsule Take 0.4 mg by mouth Once per day. 2024 Discontinued(M ed list cleanup (will not trigger notification to Pharmacy)) Active Problems Problem Noted Date Diagnosed Date [...] ACC/AHA - elevated today - Co-managed with [facility] pharmacist and reading tutor - Continue working on lifestyle modification - [...] ACC/AHA - elevated today - Co-managed with [facility] pharmacist and reading tutor - Continue working on lifestyle modification - [...] MRI evaluation Unable to find a local traveling clerk who will accept her insurance Refer to traveling clerk in [place] Assessment & Plan (02/12/2023 5:34 PM EDT): Likely plantar fasciitis Consider MRI evaluation Unable to find a local traveling clerk who will accept her insurance Refer to traveling clerk in [place] Assessment & Plan (09/26/2022 4:31 PM EST): Likely plantar fasciitis Consider MRI evaluation Unable to find a local traveling clerk who will accept her insurance Refer to traveling clerk in [place] Plantar fasciitis, bilateral 09/25/2022 Assessment & Plan (02/16/2024 1:15 PM EDT): - evaluated at [facility] and had PT - pain has [...] (08/23/2023): Added automatically from request for surgery [id number] Assessment & Plan (02/12/2023 5:35 PM EDT): Hx cystoscopy and nephrostomy tube? Most recent episode in Jun 2022 Continue adequate hydration, > 2L/day Upcoming appt with urologist in [place] Assessment & Plan (09/26/2022 4:29 PM EST): Hx cystoscopy and nephrostomy tube? Most recent episode in Jun 2022 Continue adequate hydration, > 2L/day Upcoming appt with urologist in [place] (HFpEF) heart failure with preserved ejection fr [...] (02/26/2025 9:40 AM EDT): - following with [facility] cardiology. Last seen in December 2024. - [...] (11/14/2024 6:25 PM EST): - following with [facility] cardiology, Dr. Blood. Last visit in Aug [...] (07/30/2024 9:20 AM EDT): - following with [facility] cardiologyDr. Blood. Last visit in Aug 2023 - [...] (02/16/2024 1:13 PM EDT): - following with [facility] cardiologyDr. Blood. Last visit in Aug 2023 - [...] continue working on lifestyle modifications - her reading tutor was considering PCSK9 inhibitor Assessment & Plan (11/14/2024 6:28 PM EST): - she had intolerance to statin and is prescribed ezetimibe - continue working on lifestyle modifications - her reading tutor was considering PCSK9 inhibitor Assessment & Plan [...] of hypothyroidism Had FNA in past at [facility]. TSH 0.97 Fu with endo Last Assessment & Plan: MNG with dominant right lobe nodule, s/p FNA done at [facility], could not find report in pre-epic [...] Date Type Department Care Team Description 08/17/2025 Travel 08/17/2025 Refill [facility] MEDICINE [address] [place] [address] Corin Fry MD Type 2 diabetes mellitus without complication, without long-term current use of insulin (HCC) 08/13/2025 2:00 PM EDT Telemedicine [facility] MEDICINE [address] [place] [address] Brendan Artis, [place] Primary hypertension (Primary Dx) 08/04/2025 Refill [facility] WALK-IN CENTER [address] [place] [address] Kimberly Madison MD 07/26/2025 Refill [facility] CHC MED & PEDS [address], [place] [phone] Corin Fry MD Mixed hyperlipidemia 07/06/2025 1:00 PM EDT Office Visit [facility] OPTOMETRY [address] [place] [address] Jorge Alberto, Op[place], OD Diabetes type 2, no ocular involvement (CMS/HCC) (Primary Dx); 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; Early cataracts, bilateral; Dry eyes; Presbyopia 07/06/2025 Travel 06/30/2025 Telephone [facility] MEDICINE [address] [place] [address] Corin Fry MD august06/24/2025 Telephone [facility] MEDICINE [address] [place] [phone] Laura Campos RN ED F/U 06/24/2025 Orders Only [facility] MEDICINE [address] [place] [phone] Corin Fry MD Recurrent kidney stones (Primary Dx) 06/24/2025 Results Follow-Up [facility] [address] [place] [address] [phone] Abdomen Pelvis w/ Contrast 06/23/2025 Orders Only GENERIC EXTERNAL DATA DEPARTMENT Provider, Generic External Data 05/31/2025 1:45 PM EDT Office Visit [facility] MEDICINE [address] [place] [address] Corin Fry MD Primary hypertension (Primary Dx); Type 2 diabetes mellitus without complication, without long-term current use of insulin (CMS/HCC); Left sided abdominal pain; Vitamin D deficiency 05/31/2025 Travel 05/28/2025 Telephone [facility] MEDICINE [address] [place] [address] Corin Fry MD chart prep from Last 3 Months Immunizations Immunization Administration [...] Sign Reading Time Taken Comments Blood Pressure 114/77 08/13/2025 2:17 PM EDT [employer] [facility] (televisit) Pulse 66 08/13/2025 2:17 PM EDT Temperature 36.2 C (97.1 F) 05/31/2025 1:33 PM EDT Respiratory Rate 18 05/31/2025 1:33 PM EDT Oxygen Saturation 96% 05/31/2025 1:3 3 PM EDT Inhaled Oxygen Concentration - - Weight 105 kg (231 lb 6.4 oz) 05/31/2025 1:33 PM EDT Height 157.5 cm (5' 2 ) 05/31/2025 1:33 PM EDT Body Mass Index 42.32 05/31/2025 1:33 PM EDT Plan of Treatment Upcoming Encounters Date Type Department Care Team (Late st Contact Info) Description 08/31/2025 2:15 PM EST Office Visit [facility] MEDICINE [address] [place] [address] Corin Fry MD [address], [place] [phone] Health Maintenance Due Date Last Done Comments CT Colonography 1961 Dental Prophylaxis 1961 Dental X-Ray: Bitewings 1961 FIT DNA/Cologuard 1960 FIT 1960 FOBT 1960 Sigmoidoscopy 1960 Alcohol/Substance Use Screening 1973 Hepatitis C Screening 1979 Dental Oral Exam 02/04/2025 08/05/2024 COVID-19 Vaccine ( season) 2025 02/26/2022, 02/26/2022, 01/24/2021, Additional history exists Influenza Vaccine (#1) 2025 Depression Screening 07/30/2025 07/30/2024, 07/30/20 24 Diabetes: Foot Exam 07/30/2025 07/30/2024, 07/30/2024, 07/30/2024, Additional history exists Diabetes: Urine Protein Screening 07/30/2025 07/30/2024, 02/10/2024, 03/05/2022 Diabetes: Hemoglobin A1C 08/31/2025 025, 02/22/2025, 07/30/2024, Additional history exists Lipid Panel 09/25/2025 09/25/2024, 07/21, 02/10/2024, Additional history exists Disability Screening 02/22/2026 02/22/2025 SDOH Screening 05/21/2026 05/21/2025 Tobacco Screening 07/12/2026 07/12/2025 Mammogram 03/19/2027 03/19/2025, 02/18, 03/21/2021, Additional history exists Eye Exam 07/06/2027 07/06/2025, 06/21, 07/06/2025, Additional history exists Pap Smear 07/30/2027 07/30/2024 Dental X-Ray: Full Mouth 08/06/2027 08/05/2024 Cervical Cancer Screening 07/30/2029 HPV/Cotest 07/30/2029 07/30/2024 Colonoscopy 04/09/2030 04/09/2025, 04/09/2025 Colorectal Cancer Screening 04/09/2030 DTaP/Tdap/Td Vaccines (2 - Td or Tdap) 11/10/2034 11/10/2024, 11/02/2013 Hepatitis B Vaccines Completed 01/21/2017, 09/21/2016, 08/23/2016 HIV Screening Completed 05/30/2021 Zoster Vaccines Completed 08/01/2021, 05/31/2021 Pneumococcal Vaccine: 50+ Years Completed 11/10/2024, 11/02/2013 RSV Patients and Patients Aged 60 years or older Completed 08/17/2025 HIB Vaccines Aged Out No longer eligi [...] 025 2:17 PM EDT) No Brendan Artis, TaoD Procedures Procedure Name Priority Date/Time Associated Diagnosis Comments OCT, OPTIC NERVE - OU - BOTH EYES Routine 07/06/2025 1:00 PM EDT 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 URINALYSIS, COMPLETE, WITH REFLEX TO CULTURE Routine [...] complication, without long-term current use of insulin ([facility]/HCC) POCT GLUCOSE Routine 05/31/2025 1:35 PM EDT Type 2 diabetes mellitus without complication, without long-term current use of insulin (CMS/HCC) COLONOSCOPY Routine 04/09/2025 10:24 AM EDT BI [...] complication, without long-term current use of insulin ([facility]/HCC) THINPREP IMAGING PAP AND HPV MRNA E6/E7 Routine 07/30/2024 9:32 AM EDT from Last 3 Months or Most Recently Relevant to Health Maintenance Results * OCT, Optic Nerve - OU - Both Eyes (07/06/2025 1:00 PM EDT) Narrative Jorge AlbertoKilliann, OD - 07/12/2025 10:21 AM EDT Images from the original result were not included. Right Eye Reliability: borderline. Notes OCT OPTIC NERVE INTERPRETATION Optical Coherence Tomography Interpretation Report Test Details: Poor centration and estimation of cup OD Measurements: OD OS C/D Horizontal 0.63 0.86 C/D Vertical 0.69 0.73 Disc area 1.15 mm 2 2.47 mm 2 RNFL Average 98 microns 85 microns Test findings: OD: Thicker than average RNFL inferior quadrant, normal RNFL thickness in all other quadrants OS: Definite RNFL thinning of nasal quadrants, borderline thinning of superior quadrant, normal thickness RNFL in inferior and temporal quadrants Impression and Plan: Right eye: 11 micron decrease compared to 03/2024 (nor reliable due to poor scan today) Left eye: improved scan compared to 03/2024 scan Patient considered low risk glaucoma suspect in the left eye at this time. Will monitor at her next exam in 1 year. us Opal Azul OD OPHTH TOMOGRAPHY Final Result * (ABNORMAL) Urinalysis, Complete, with Reflex to Culture (06/23/2025 7:23 PM EDT) Color Urine Yellow [facility] Appearance Urine Clear [facility] PH 6.0 5.0 - 9.0 [facility] Glucose Urine UA Negative Negative mg/dL [facility] Urine Blood Small (1+)(A) Negative [facility] Specific Tell - Urine >=1.030(H) 1.005 - 1.025 [facility] Urine Protein Negative Neg-Trace mg/dL [facility] Urine Ketones Negative Negative mg/dL [facility] Nitrite Urine Negative Negative [facility] Leukocyte Esterase Urine Trace(A) Negative [facility] RBC Urine 6-10(A) 0 - 2 /HPF [facility] Urine WBC 0-5 0 - 5 /HPF [facility] Urine Squamous Epithelial Cell 0-2 0 - 2 /HPF [facility] Urine Bacteria None Seen None Seen [facility] Hyaline Casts, Urine 0-2 0 - 2 /LPF [facility] 06/23/2025 7:23 PM EDT 06/23/2025 7:25 PM EDT Narrative [facility] - 06/23/2025 8:25 PM EDT [id number], Clean Catch us Generic External Data Provider LAB URINE ORDERAB LES Final Result [facility] [address] [place] [phone] * CT Abdomen Pelvis w/ Contrast (06/23/2025 6:48 PM EDT) Anatomical Region Laterality Modality Body, Pelvis, Abdomen Computed T omography 06/23/2025 6:48 PM EDT Narrative 06/23/2025 6:49 PM EDT [place] [address] CT Scan Report Signed Patient: Carmina Cheng MR#: [id number] : 1960 Acct:[id number] Age/Sex: 64 / F ADM Date: 06/23/25 Loc: HO.ED Attending Dr: Ordering Physician: Lucrecia Sy MD Date of Service: 06/23/25 Procedure(s): CT abdomen pelvis w IV con Accession Number(s): [id number] cc: Lucrecia Sy MD; Corin Fry MD Report Number: [id number]: Total DLP = 1402.00 mGy-cm Reason for [...] in OV> 06/23/251848 DD/ 47 TD/TT: 06/23/251847 Twister Doffer: Procedure Note Donotuseinterpreter, Image - 06/23/[address] [place] [address] [address] Scan Report Signed Patient: Sunny Cheng#: [id number] : 1960cct:[id number] Age/Sex: 64 / FADM Date: 06/23/25 Loc: HO.ED Attending Dr: Ordering Physician: Lucrecia Sy MD Date of Service: 06/23/25 Procedure(s): CT abdomen pelvis w IV con Accession Number(s): [id number] cc: Lucrecia Sy MD; Corin Fry MD Report Number: [id number]: Total DLP = 1402.00 mGy-cm Reason for [...] in OV> 06/23/251848 DD/ 47 TD/TT: 06/23/251847 Twister Doffer: [facility] External Provider IMG CT PROCEDURES Final Result * (ABNORMAL) CBC auto differential (06/23/2025 2:02 PM EDT) White Blood Count 7.4 4.8 - 10.8 X10*3/uL [facility] Red Blood Count 5.08 4.20 - 5.50 X10*6/uL [facility] Hemoglobin 13.2 12.0 - 16.0 g/dl [facility] Hematocrit 41.0 37.0 - 47.0 % [facility] Mean Corpuscular Volume 80.7 80.0 - 98.0 fL [facility] Mean Corpuscular Hemoglobin 26.0(L) 27.0 - 33.0 pg [facility] Mean Corpuscular HGB Conc 32.2 31.0 - 35.0 g/dl [facility] Red Cell Distribution Width 15.2 11.0 - 16.0 % [facility] Platelet Count 269 160 - 400 X10*3/uL [facility] Mean Platelet Volume 9.4 9.4 - 12.3 fL [facility] Neutrophils Percent Auto 70.7 45 - 73 % [facility] Imm Gran Pct Auto 0.3 0.0 - 0.4 % [facility] Lymphocytes Percent Auto 20.3 20 - 40 % [facility] Monocytes Percent Auto 7.1 2 - 11 % [facility] Eosinophils Percent Auto 1.2 0 - 4 % [facility] Basophils Percent Auto 0.4 0 - 2 % [facility] NRBC Pct Auto 0.0 0.0 - 0.2 /100WBC [facility] Neutrophils Absolute Auto 5.2 2.0 - 8.3 x10*3/uL [facility] Imm Gran Abs Auto 0.02 0.00 - 0.03 X10*3/uL [facility] Lymphocytes Absolute Auto 1.5 1.2 - 4.9 X10*3/uL [facility] Monocytes Absolute Auto 0.5 0.1 - 1.2 X10*3/uL [facility] Eosinophils Absolute Auto 0.1 0.0 - 0.4 X10*3/uL [facility] Basophils Absolute Auto 0.0 0.0 - 0.2 X10*3/uL [facility] NRBC Abs Auto 0.000 0.0 - 0.012 X10*3/uL [facility] 06/23/2025 2:02 PM EDT 06/23/2025 2:04 PM EDT Generic External Data Provider LAB BLOOD ORDERAB LES Final Result Performing Organization Address [facility] Co de Phone Number [facility] [address] [place] [phone] * Magnesium (06/23/2025 2:02 PM EDT) Magnesium 1.9 1.6 - 2.6 mg/dL [facility] 06/23/2025 2:02 PM EDT 06/23/2025 2:04 PM EDT Generic External Data Provider LAB BLOOD ORDERAB LES Final Result Performing Organization Address [facility] Co de Phone Number [facility] [address] [place] [phone] * Lipase (06/23/2025 2:02 PM EDT) Lipase 12 8 - 78 U/L [facility] 06/23/2025 2:02 PM EDT 06/23/2025 2:04 PM EDT us Generic External Data Provider LAB BLOOD ORDERAB LES Final Result [facility] [address] [place] [phone] * (ABNORMAL) Comprehensive Metabolic Panel (06/23/2025 2:02 PM EDT) Sodium 142 135 - 145 mmol/L [facility] Potassium 3.8 3.3 - 5.1 mmol/L [facility] Chloride 107 96 - 108 mmol/L [facility] Carbon Dioxide 26 22 - 29 mmol/L [facility] Anion Gap 13 12 - 20 [facility] Urea Nitrogen (BUN) 15 9 - 16 mg/dL [facility] Creatinine, Serum 0.86 0.5 - 1.4 mg/dL [facility] Creatinine Clr Calc Pharmacy 75.8 [facility] Comment:Provided height and weight: 157.48 cm,104.326 kg.eGFR (calculated from the MDRD study equation) and eCrCl(calculated from the Cockcroft-Gault equation) are based ondifferent parameters and may not yield comparable results.If eCrCl result is absurd, please check patient'sheight/weight. Estimated Glomerular Filt Rate >60 [facility] Comment:Chronic Kidney Disea se: Estimated GFR < 60 mL/min/1.77l5Zxecyb Kidney Disease: Estimated GFR < 15 mL/min/1.73m2 Glucose 187(H) 60 - 115 mg/dL [facility] Calcium 9.0 8.4 - 10.2 mg/dL [facility] Bilirubin, Total 0.3 0.0 - 1.0 mg/dL [facility] Aspartate Amino Transferase 19 5 - 31 U/L [facility] Alanine Aminotransferase 16 0 - 31 U/L [facility] Total Protein 6.9 6.5 - 8.0 g/dL [facility] Albumin Level 4.2 3.5 - 5.0 g/dL [facility] Alkaline Phosphatase 74 39 - 117 U/L [facility] 06/23/2025 2:02 PM EDT 06/23/2025 2:04 PM EDT Generic External Data Provider LAB BLOOD ORDERAB LES Final Result [facility] [address] [place] [phone] * (ABNORMAL) POCT glycosylated hemoglobin (Hgb A1c) (05/31/2025 1:38 PM EDT) Hemoglobin A1C 6.4(A) 4.0 - 5.7 % QC Media Lot # [id number] Lot# Expiration Date [id number] Blood Capillary blood specimen / Unknown 05/31/2025 1:38 PM EDT Corin Fry MD POINT OF CARE TEST ENTER/EDIT OR DERABLES Final Result * POCT glucose manually resulted (05/31/2025 1:35 PM EDT) Glucose Blood, POC 151 60 - 200 mg/dL QC Media Lot # [id number] Lot# Expiration Date [id number] Blood Capillary blood specimen / Unknown 05/31/2025 1:35 PM EDT Corin Fry MD POINT OF CARE TEST ENTER/EDIT OR DERABLES Final Result * Colonoscopy (04/09/2025 10:24 AM EDT) Anatomical Region Laterality Modality Endoscopy Tirso Provider ENDOSCOPY PROCEDURE ORDER FELY Final Result * BI Mammogram Screening Tomosynthesis Bilateral (03/19/2025 1:15 PM EDT) Anatomical Region Laterality Modality Breast Bilateral Mammography 03/19/2025 1:15 PM EDT Narrative 03/27/2025 11:24 AM EDT [address] [place], [place] [address] Mammography Report Signed Patient: Carmina Cheng MR#: [id number] : 1960 Acct:[id number] Age/Sex: 64 / F ADM Date: 03/19/25 Loc: HO.MAMMO Attending Dr: Corin Fry MD Ordering Physician: Corin Fry MD Results: 1Negative Date of Service: 03/19/25 Follow Up: 1 Year From Orig inal Mammogram Procedure(s): MM tomosynthesis screening BI Accession Number(s): [id number] cc: Corin Fry MD EXAMINATION: MM SCREENING [...] 03/27/25 1121 DD/ 1315 TD/TT: 03/19/25 1340 Twister Doffer: Procedure Note Donotuseinterpreter, Image - 03/27/[address] [place] [address] [place], [place] [address] Mammography Report Signed Patient: Sunny Cheng#: [id number] : 2Acct:[id number] Age/Sex: 64 / FADM Date: 03/19/25 Loc: HO.MAMMO Attending Dr: Corin Fry MD Ordering Physician: Corin Fry MDResults: 1Negative Date of Service: 03/19/25Follow Up: 1 Year From Orig ina Mammogram Procedure(s): MM tomosynthesis screening BI Accession Number(s): [id number] cc: Corin Fry MD EXAMINATION: MM SCREENING [...] 03/27/25 1121 DD/ 1315 TD/TT: 03/19/25 1340 Twister Doffer: us Corin Fry MD IMG BI PROCEDURES Edited Result - Final * (ABNORMAL) Lipid Panel with Reflex to Direct LDL (09/25/2024 12:15 PM EST) Triglycerides 118 <150 mg/dL [facility] Comment:Desirable Triglyceri de: less than 150 mg/dLBorderline High Triglyceride 150-199 mg/dLHigh Triglyceride: 200-499 mg/dLVery High Triglyceride: greater than or equal to 5OO mg/dL Cholesterol 269(H) <200 mg/dL [facility] Comment:Desirable Cholestero l: less than 200 mg/dLBorderline High Cholesterol: 200-239 mg/dLHigh Cholesterol: greater than 239 mg/dL LDL Cholesterol Calculated 181(H) <100 mg/dL [facility] Comment:Desirable LDL: less than 100 mg/dLNear Optimal/Above Optimal LDL: 110- 129 mg/dLBorderline High LDL: 130-159 mg/dLHigh LDL: 160-189 mg/dLVery High LDL: greater than or equal to 190 mg/dL HDL Cholesterol 65 >40 mg/dL [facility] Comment:Desirable HDL: great er than 40 mg/dL Note: This HDL assay may give artificially low results in patients with liver disease. Blood 09/25/2024 12:1 5 PM EST 09/25/2024 12:55 PM EST Corin Fry MD LAB BLOOD ORDERABLES Final Resul t [facility] [address] [place] [phone] * Albumin, Random Urine W/Creatinine (07/30/2024 9:45 AM EDT) Creatinine, Urine 97.35 mg/dL [facility] Microalbumin Urine 10.0 mg/L [facility] Microalbum Creatinine Ratio Ur 10.2 <30 ug/mg cr [facility] Comment:Albumin/Creatinine R atio Reference Ranges: Normal: < 30 ug/mg creatinine Microalbuminuria: 30 - 300 ug/mg creatinineClinical Albuminuria: > 300 ug/mg creatinine Urine 07/30/2024 9:45 AM EDT 07/30/2024 11:36 AM EDT us Corin Fry MD LAB URINE ORDERABLES Final Resul t [facility] [address] [place] [phone] * ThinPrep Imaging Pap and HPV mRNA E6/E7 (07/30/2024 9:32 AM EDT) HPV nRNA E6/E7 Not Detected Not Detected [facility] Comment:Methodology: Transcr iption-Mediated AmplificationThis assay detects E6/E7 viral messenger RNA (mRNA) from 14high-risk HPV types (16,18,31,33,35,39,45,51,52,56,58,59,66,68).Cervical sources are required for HPV testing.If a vaginal source from a patient who has had atotal hysterectomy with removal of cervix wassubmitted, please contact the testing laboratoryfor alternative testing options.For additional information, please refer [email or web address](This link if provided for information/educational purposes only.)THIS TEST WAS PERFORMED AT:[employer] [address] [phone] HEATH MD SOURCE: SEE NOTE [facility] Comment:None given Report Status: [facility] Clinical Information: SEE NOTE [facility] Comment:None given LMP: SEE NOTE [facility] Comment:NONE GIVEN Prev. PAP: SEE NOTE [facility] Comment:NONE GIVEN Prev. BX: SEE NOTE [facility] Comment:NONE GIVEN Statement Of Adequacy: SEE NOTE [facility] Comment:Satisfactory for macy luation.Endocervical/transformation zone component absent. General Categorization: [facility] Interpretation/Result: SEE NOTE [facility] Comment:Cytology Results: Ne gative for intraepitheliallesion or malignancy. Cytology Comment SEE NOTE [facility] Comment:This Pap test has be en evaluated with computerassisted technology. Remote Sensing Technician: SEE NOTE [facility] Comment:KF, CT(ASCP)CT scree sanya location: [facility] [address] Review Remote Sensing Technician: TNP [facility] Pathologist TNP [facility] PAP Infection [facility] See Note SEE NOTE [facility] Comment:EXPLANATORY NOTE:The Pap is a screening test for cervical cancer. It isnot a diagnostic test and is subject to false negativeand false positive results. It is most reliable when asatisfactory sample, regularly obtained, is submittedwith relevant clinical findings and history, and whenthe Pap result is evaluated along with historic andcurrent clinical information. 07/30/2024 9:32 AM EDT 07/30/2024 4:14 PM EDT Narrative [facility] - 08/04/2024 2:59 PM EDT SEE SCANNED RESULTS IN EMR us Corin Fry MD LAB PATHOLOGY ORDERABLES Final R esult [facility] [address] [place] [address] [phone] from Last 3 Months or Most Recently Relevant to Health Maintenance Insurance [facility] HSN F[facility] ADULT DENTAL - HSN FULL (MEDICAID) Care Teams Senior Data Integration Developer Relationship Specialty Start Date End Date Corin Fry MD [address] [place] [address] PCP - General Family Medicine 02/26/22
--- OUTSIDE RECORDS SUMMARY | 2025-08-24 16:11 | XMS_ITS | Encounter Summary ---
Author Organization [employer] Address [address] [place] [address] Care Team Providers Care Stereoptician Name Role Phone Corin Fry MD Primary Care Provider [phone] Brendan Artis PharmD Unavailable [phone] Reason for Referral * Imaging (Routine) - Closed Specialty Diagnoses / Procedures Referred By Contac t Referred To Contact Radiology Diagnoses Left lower quadrant pain Procedures CT Abdomen Pelvis w/ Contrast Brock Hitchcock MD [address] [place] [address] Phone: tel: fax: [address] Phone: tel: fax: Referral ID Status Reason Start Date Expiration Date Visits Re quested Visits Authorized [id number] Closed 01/03/2024 01/02/2025 1 1 Encounter Details Date Type Department Care Team (Late st Contact Info) Description 01/02/2024 Orders Only [facility] [address] [place] [address] Brock Hitchcock MD [address] [place] [address] Left lower quadrant pain (Primary Dx) Social [...] Description 08/31/2025 2:15 PM EST Office Visit [facility] [address] [place] [address] Corin Fry MD [address] [place] [address] Scheduled Orders Name Type Priority Associated Diagnoses [...] documented as of this encounter Care Teams Stereoptician Relationship Specialty Start Date End Date Corin Fry MD [address] [place] [address] PCP - General Family Medicine 02/26/22 Brendan Artis, [place] [address] [place] [address] Pharmacist Internal Medicine 10/23/22 08/12/25 documented as of this encounter
[2025-08-24 16:27] LABS: Alanine Aminotransferase 18 U/L (0-31); Albumin Level 4.1 g/dL (3.5-5.0); Alkaline Phosphatase 70 U/L (39-117); Anion Gap 11 (12-20); Aspartate Amino Transferase 22 U/L (5-31); Blood Urea Nitrogen 18 mg/dL (9-16); Calcium 9.2 mg/dL (8.4-10.2); Carbon Dioxide 30 mmol/L (22-29); Chloride 105 mmol/L (96-108); Estimated Glomerular Filt Rate > 60; Potassium 3.8 mmol/L (3.3-5.1); Sodium 142 mmol/L (135-145); Total Protein 6.7 g/dL (6.5-8.0)
[2025-08-24 16:37] LABS: Cholesterol 210 mg/dL (<200); HDL Cholesterol 54 mg/dL (>40); Triglycerides 114 mg/dL (<150)
[2025-08-24 17:02] LABS: Folate 7.9 ng/mL (> or = 4.0); Vitamin B12 231 pg/mL (200-900)
[2025-08-24 17:45] LABS: Microalbum/Creatinine Ratio Ur 19.2 ug/mg cr (<30)
[2025-08-24 18:56] LABS: Reflex LDLD? No
== END 2025-08-24 13:17 | disposition home or self-care (01) ==
LOC: HO.HHCL 13:16
PROVIDERS: Internal Medicine; PCP Family Medicine; Visit Provider Family Medicine
DX: E11.9 Type 2 diabetes mellitus without complications (principal); I10 Essential (primary) hypertension; E55.9 Vitamin D deficiency, unspecified
CPT/HCPCS: 36415; 80053; 80061; 82043; 82306; 82570; 82607; 82746; 84443

== ENCOUNTER 2025-09-01 13:31 | Outpatient (REF) | payer MEDICAID, OTHER, SELFPAY ==
--- OUTSIDE RECORDS SUMMARY | 2025-08-31 14:15 | XMS_ITS | Encounter Summary ---
Author Organization [employer] Address [address] [place] [address] 7 [place] [address] Care Team Providers Care Blankmaker Name Role Phone Corin Fry MD Primary Care Provider [phone] Reason for Visit * Reason Comments Follow-up DM and hypertension Encounter Details Date Type Department Care Team ([facility] Contact Info) Description 08/31/2025 2:15 PM EST Office Visit [facility] [address] [place], [place] [phone] Corin Fry MD [address] [place], [place] [phone] Primary hypertension (Primary Dx); Mixed hyperlipidemia; Chronic heart failure with preserved ejection fraction (HFpEF) (HCC); Type 2 diabetes mellitus without complication, without long-term current use of insulin (HCC); History of pleural empyema; History of pleural effusion Social History Tobacco Use Types Packs/Day Years [...] the past 12 months, has t he [employer], gas, oil or water company threatened to [...] Sign Reading Time Taken Comments Blood Pressure 130/62 08/31/2025 2:25 PM EST Pulse 69 08/31/2025 2:25 PM EST Temperature 36.1 C (97 F) 08/31/2025 2:25 PM EST Respiratory Rate 20 08/31/2025 2:25 PM EST Oxygen Saturation 97% 08/31/2025 2:25 PM EST Inhaled Oxygen Concentration - - Weight 107 kg (235 lb) 08/31/2025 2:25 PM EST Height 157.5 cm (5' 2 ) 08/31/2025 2:25 PM EST Body Mass Index 42.98 08/31/2025 2:25 PM EST documented in this encounter Miscellaneous Notes * Assessment & Plan Note - Corin Fry MD - 08/31/2025 6:35 AM ESTAssociated Problem(s): Type 2 diabetes mellitus (HCC) - A1c 6.4% on 05/31/25, slight increase [...] or SGLT2i or both for renal-cardiovascular benefit. * Assessment & Plan Note - Corin Fry MD - 08/31/2025 6:35 AM ESTAssociated Problem(s): (HFpEF) heart failure with preserved ejection fraction (HCC) - following with [facility] cardiology. Last seen in December 2024. [...] management * Assessment & Plan Note - Corin Fyr MD - 08/31/2025 6:34 AM ESTAssociated Problem(s): Mixed hyperlipidemia - she had intolerance to statin and is prescribed ezetimibe - continue working on lifestyle modifications - her assistant general manager was considering PCSK9 inhibitor documented in this encounter Plan of Treatment Not on file documented as of this encounter Goals Goal Patient Goal Type Associated Problems Recent Progress Patient-Stated? Author Blood Pressure < 140/90 Blood Pressure 130/62( 025 2:25 PM EST) No Brendan Artis, PharmD documented as of this encounter Procedures Procedure Name Priority Date/Time Associated Diagnosis Comments XR CHEST 2 VIEWS Routine 09/01/2025 1:51 PM EST History of pleural empyema History of pleural effusion POCT GLYCATED HEMOGLOBIN, TOTAL Routine 08/31/2025 2:28 PM EST Type 2 diabetes mellitus without complication, without long-term current use of insulin (HCC) POCT GLUCOSE Routine 08/31/2025 2:26 PM EST Type 2 diabetes mellitus without complication, without long-term current use of insulin (HCC) documented in this encounter Results * XR Chest 2 Views (09/01/2025 1:51 PM EST) Anatomical Region Laterality Modality Chest Radiographic [place] ging 09/01/2025 1:51 PM EST Narrative 09/01/2025 2:28 PM EST [address] [address] XRay Report Signed Patient: Carmina Cheng MR#: [id number] : 1960 Acct:[id number] Age/Sex: 64 / F ADM Date: 09/01/25 Loc: HO.XRAY Attending Dr: Corin Fry MD Ordering Physician: Corin Fry MD Date of Service: 09/01/25 Procedure(s): XR chest 2V Accession Number(s): [id number] cc: Corin Fry MD Reason for Exam: history of pleural effusion / empyema. Follow up X-ray was recommended EXAMINATION: XR CHEST CLINICAL INFORMATION: history of pleural effusion / empyema. Follow up X-ray was recommended COMPARISON: None available. TECHNIQUE: 2 views of the chest were obtained. FINDINGS: The lungs are clear. No consolidation or evidence of pulmonary edema. No pleural effusion or pneumothorax. No pleural thickening. Cardiac and mediastinal contours are normal. Mild aortic knob calcification. Mild degenerative changes of the spine. XR/XR chest 2V IMPRESSION: No evidence for acute disease in the chest. No pleural effusion or pleural thickening is seen. Electronically signed by: Belen Boggs MD 09/01/2025 02:25 PM EST Dictated By: Belen Boggs MD Signed By: <Electronically signed by Belen Boggs MD in OV> 09/01/251424 DD/ 50 TD/TT: 09/01/251358 Rubber Goods Inspector Tester: MARCO Procedure Note Donotuseinterpreter, Image - 09/01/[address] [address] XRay Report Signed Patient: Sunny Cheng#: [id number] : 1960cct:[id number] Age/Sex: 64 / FADM Date: 09/01/25 Loc: HO.XRAY Attending Dr: Corin Fry MD Ordering Physician: Corin Fry MD Date of Service: 09/01/25 Procedure(s): XR chest 2V Accession Number(s): [id number] cc: Corin Fry MD Reason for Exam: history of pleural effusion / empyema. Follow up X-raywas recommended EXAMINATION: XR CHEST CLINICAL INFORMATION: history of pleural effusion / empyema. Follow up X-ray was recommended COMPARISON: None available. TECHNIQUE: 2 views of the chest were obtained. FINDINGS: The lungs are clear. No consolidation or evidence of pulmonary edema. No pleural effusion or pneumothorax. No pleural thickening. Cardiac and mediastinal contours are normal. Mild aortic knob calcification. Mild degenerative changes of the spine. XR/XR chest 2V IMPRESSION: No evidence for acute disease in the chest. No pleural effusion or pleural thickening is seen. Electronically signed by: Belen Boggs MD 09/01/2025 02:25 PM EST Dictated By: Belen Boggs MD Signed By: <Electronically signed by Belen Boggs MD in OV> 09/01/251424 DD/ 50 TD/TT: 09/01/251358 Rubber Goods Inspector Tester: MARCO Corin Fry MD IMG XR PROCEDURES Final Result * (ABNORMAL) POCT Hgb A1c (08/31/2025 2:28 PM EST) Hemoglobin A1C 6.2(A) 4.0 - 5.7 % QC Media Lot # [id number] Lot# Expiration Date 51,227 Blood 08/31/2025 2:28 PM EST us Corin Fry MD POINT OF CARE TEST ENTER/EDIT OR DERABLES Final Result * POCT Glucose (08/31/2025 2:26 PM EST) Glucose Blood, POC 173 60 - 200 mg/dL QC Media Lot # [id number] Lot# Expiration Date 31,126 Blood Capillary blood specimen / Unknown 08/31/2025 2:26 PM EST us Corin Fry MD POINT OF CARE TEST ENTER/EDIT OR DERABLES Final Result documented in this encounter Visit Diagnoses Diagnosis Primary hypertension- Primary Unspecified essential hypertension Mixed hyperlipidemia Chronic heart failure with preserved ejection fraction (HFpEF) (HCC) Type 2 diabetes mellitus without complication, without long-term current use of insulin (HCC) History of pleural empyema History of pleural effusion documented in this encounter Additional Health Concerns Assessment Noted Time PHQ-9 Depression Total Score: 0 07/30/20 24 9:12 AM EDT documented as of this encounter Care Teams Blankmaker Relationship Specialty Start Date End Date Corin Fry MD [address] [place] [address] PCP - General Family Medicine 02/26/22 documented as of this encounter
--- NOTE | ~2025-09-01 | XR_ITS ---
EXAMINATION: XR CHEST CLINICAL INFORMATION: history of pleural effusion / empyema. Follow up X-ray was recommended COMPARISON: None available. TECHNIQUE: 2 views of the chest were obtained. FINDINGS: The lungs are clear. No consolidation or evidence of pulmonary edema. No pleural effusion or pneumothorax. No pleural thickening. Cardiac and mediastinal contours are normal. Mild aortic knob calcification. Mild degenerative changes of the spine. XR/XR chest 2V IMPRESSION: No evidence for acute disease in the chest. No pleural effusion or pleural thickening is seen. Electronically signed by: Belen Boggs MD 09/01/2025 02:25 PM [facility]
--- OUTSIDE RECORDS SUMMARY | 2025-09-01 16:24 | XMS_ITS | Encounter Summary ---
Author Organization [employer] Address [address] [facility] 7 [place] [address] Care Team Providers Care Skidder Driver Name Role Phone Corin Fry MD Primary Care Provider [phone] Reason for Visit * Reason Onset Date Comments chartprep 08/30/2025 Encounter Details Date Type Department Care Team ([facility] Contact Info) Description 08/30/2025 Telephone [facility] [address] [place], [place] [phone] Corin Fry MD [address] [place] [address] chartprep Social History Tobacco Use Types Packs/Day Years [...] AM EDT documented as of this encounter Miscellaneous Notes * Telephone Encounter - Nini Stevenson [place] - 08/30/2025 2:27 PM EST ..Chart Prep Labs: done Images: done Vaccines due: Covid Due and Flu Due Referrals: Not Applicable Screenings: Not Applicable Overdue care gaps: A1C, Glucose, Sbirt, PHQ9, and GAD7 documented in this encounter Plan of Treatment [...] documented as of this encounter Care Teams Skidder Driver Relationship Specialty Start Date End Date Corin Fry MD [address] [place] [address] PCP - General Family Medicine 02/26/22 documented as of this encounter
--- OUTSIDE RECORDS SUMMARY | 2025-09-01 16:24 | XMS_ITS | Encounter Summary ---
Author Organization [employer] Address [address] [facility] 7t [place] [address] Care Team Providers Care Computer Trainer Name Role Phone Corin Fry MD Primary Care Provider [phone] Brendan Artis PharmD Unavailable [phone] Encounter Details Date Type Department Care Team ([facility] Contact Info) Description 04/13/2025 Orders Only [facility] [address] [place], [place] [phone] ProviderTirso MD Social History Tobacco Use Types [...] 130/62( 025 2:25 PM EST) No Brendan Artis PharmD documented as of this encounter Procedures [...] documented as of this encounter Care Teams Computer Trainer Relationship Specialty Start Date End Date Corin Fry MD [address] [place] [address] PCP - General Family Medicine 02/26/22 Brendan Artis, [place] [address] [place] [address] Pharmacist Internal Medicine 10/23/22 08/12/25 documented as of this encounter
--- OUTSIDE RECORDS SUMMARY | 2025-09-01 16:24 | XMS_ITS | Encounter Summary ---
Author Organization [employer] Address [address] [place] [address] Care Team Providers Care Nursery Rn Name Role Phone Corin Fry MD Primary Care Provider [phone] Brendan Artis PharmD Unavailable [phone] Reason for Referral * Imaging (Routine) - Closed Specialty Diagnoses / Procedures Referred By Contac t Referred To Contact Radiology Diagnoses Left lower quadrant pain Procedures CT Abdomen Pelvis w/ Contrast Brock Hitchcock MD [address] [place] [address] Phone: tel: fax: [address] Phone: tel: fax: Referral ID Status Reason Start Date Expiration Date Visits Re quested Visits Authorized [id number] Closed 01/03/2024 01/02/2025 1 1 Encounter Details Date Type Department Care Team (Late st Contact Info) Description 01/02/2024 Orders Only [facility] [address] [place] [address] Brock Hitchcock MD [address] [place] [address] Left lower quadrant pain (Primary Dx) Social [...] documented as of this encounter Care Teams Nursery Rn Relationship Specialty Start Date End Date Corin Fry MD [address] [place] [address] PCP - General Family Medicine 02/26/22 Brendan Artis, PharmD [address] [place], [place] [address] [address] Pharmacist Internal Medicine 10/23/22 08/12/25 documented as of this encounter
--- OUTSIDE RECORDS SUMMARY | 2025-09-01 16:24 | XMS_ITS | Clinical Summary ---
Author Organization [facility] Address [address] [place] [address] Care Team Providers Care Front Desk Supervisor Name Role Phone Corin Fry Primary Care Provider [phone] Allergies Active Allergy Reactions Criticality Noted Date [...] strip Use as instructed 2 Active FreeStyle [place] Lite meter TEST BLOOD SUGAR EVERY MORNING [...] (08/06/2025): Added automatically from request for surgery [id number] (HFpEF) heart failure with preserved ejection fr [...] (08/06/2025): Added automatically from request for surgery [id number] Mixed hyperlipidemia 05/30/2021 Overview (08/06/2025): Last Assessment & Plan: Controlled, counselled patient on reducing weight, not taking supplements that harm liver Repeat Lipid panel in 6 months, liver function test and BMP today Multinodular goiter 05/30/2021 Overview (08/06/2025): HX of multinodular goiter in past with dominant right nodule, Pt has been biochemically euthyroid although reported symptoms of hypothyroidism Had FNA in past at [facility]. TSH 0.97 Fu with endo Last Assessment & Plan: MNG with dominant right lobe nodule, s/p FNA done at [facility], could not find report in pre-epic [...] Type Department Care Team Description 08/17/2025 Telephone [facility] [address] [place] [address] Cabinet Finisher: Magalys Estevez PA 08/10/2025 1:33 PM EDT - 08/10/2025 11:59 PM EDT Hospital Encounter [facility] Ultrasound [address] [place] [address] Nephrolithiasis Discharge Disposition: Home or Self Care (01) 08/06/2025 10:30 AM EDT Follow-Up [facility] Gastroenterology Clinic [address] [place] [address] Cabinet Finisher: Sarah Mccormack NP Gastroesophageal reflux disease without esophagitis (Primary Dx); Chronic abdominal pain; Left upper quadrant abdominal pain 07/28/2025 Results Follow-Up [facility] [address] [place] [address] Cabinet Finisher: Magalys Estevez PA 07/28/2025 Telephone [facility] [address] [place] [address] Cabinet Finisher: Magalys Estevez PA 07/27/2025 2:00 PM EDT Office Visit [facility] [address] [place] [address] Cabinet Finisher: Magalys Estevez PA Nephrolithiasis (Primary Dx) 06/30/2025 Transcribe Orders [facility] Physician Referral Services [address] [place] [address] Corin Fry Left upper quadrant abdominal pain (Primary Dx) 06/24/2025 Transcribe Orders [facility] Physician Referral Services [address] [place], [place] [address]Corin Duke Recurrent kidney stones (Primary Dx) from [...] Info) Description 11/16/2025 1:30 PM EST Follow-Up [facility] Gastroenterology Clinic [address] [place] [phone] Cabinet Finisher: Sarah Mccormack NP [address] [place] [phone] 12/27/2025 3:00 PM EDT Follow-Up [facility] Building 4th floor Cardiology Medicine [address] [place] [address] Cabinet Finisher: Sj Floyd MD [address] [place] [address] 01/25/2026 1:45 PM EDT Follow-Up [facility] [address] [place] [address] Cabinet Finisher: Magalys Estevez PA [address] [place] [address] Health Maintenance Due Date Last Done Comments [...] Additional history exists Procedures * Due to [place] [employer] law, this organization might not be sharing [...] to Health Maintenance Results * Due to [place] [employer] law, this organization might not be sharing [...] to obtain the completed interpretation. Workstation ID: [id number] Narrative 08/10/2025 3:03 PM EDT EXAMINATION: Ultrasound [...] distended but grossly unremarkable. Resulting Agency Comment [id number] Procedure Note Ermias Burch MD - 08/10/2025 [...] possible to obtain thecompleted interpretation. Workstation ID: [id number] [facility] US PROCEDURES Final Resul t * Rios Top, Urine (07/27/2025 2:39 PM EDT) Pathologist [facility] Extra Tube Hold for add-ons. 07/27/2025 7:05 PM EDT [facility] Comment:Auto resulted. Urine Urine specimen collection, clean catch / Unknown Non-Blood Collection / Unknown 07/27/2025 2:39 PM EDT 07/27/2025 3:30 PM EDT us [facility] URINE ORDERABLES Final Re sult [facility] [address] [place] [address], [place] * Urinalysis W/Reflex to Microscopic & Culture (07/27/2025 2:39 PM EDT) Color, Urine Light Yellow Colorless, Light Yellow, Yellow, Dark Yellow 07/27/2025 3:59 PM EDT [facility] Clarity, Urine Clear Clear 07/27/2025 3:59 PM EDT [facility] Specific [place], Urine 1.011 <1.030 07/27/2025 3:59 PM EDT [facility] pH, Urine 7.0 4.6 - 8.0 07/27/2025 3:59 PM EDT [facility] Protein, Urine Negative Negative 07/27/2025 3:59 PM EDT [facility] Glucose, Urine Normal Normal 07/27/2025 3:59 PM EDT [facility] Ketones, Urine Negative Negative 07/27/2025 3:59 PM EDT [facility] Bilirubin, Urine Negative Negative 07/27/2025 3:59 PM EDT [facility] Blood, Urine Negative Negative 07/27/2025 3:59 PM EDT [facility] Nitrite, Urine Negative Negative 07/27/2025 3:59 PM EDT [facility] Urobilinogen, Urine Normal Normal 07/27/2025 3:59 PM EDT [facility] Leukocyte Esterase, Urine Negative Negative 07/27/2025 3:59 PM EDT [facility] Urine Urine specimen collection, clean catch / Unknown Non-Blood Collection / Unknown 07/27/2025 2:39 PM EDT 07/27/2025 3:30 PM EDT us [facility] URINE ORDERABLES Final Re sult [facility] [address] [place] [address], * POCT Glucose, interfaced (04/09/2025 2:37 PM EDT) [facility] Signature Glucose, POCT 96 70 - 99 mg/dL 04/09/2025 2:38 PM EDT [facility] Comment: The wet process miller head assistant has not determined the efficacy of this test in Critically ill patients. [facility] defines Critically ill patients for the purpose [...] POCT ORDERABLES - DEVICE Fin al Result [facility] [address] [place] [address], [place] * COLONOSCOPY (04/09/2025) Narrative Procedure Note Sharif Jensen MD - 04/09/2025 2:36 PM EDT [facility] Gastroenterology Patient Name: Carmina Cottrellfidenciochet Procedure Date: 04/09/2025 2:36 PM Date of : 1960 Admit Type: Outpatient Age: 64 Room: [place] [address] Gender: Female Note Status: Finalized Attending MD: [...] Most Recently Relevant to Health Maintenance Insurance [facility] HSNO/FREE CARE Care Teams Front Desk Supervisor Relationship Specialty Start Date End Date Corin Fry [address] [place] [address] PCP - General Family Medicine 07/19/22
--- OUTSIDE RECORDS SUMMARY | 2025-09-01 16:24 | XMS_ITS | Encounter Summary ---
Author Organization [employer] Address [address] [facility] 7t [place] [address] Care Team Providers Care Ornamental Iron Erector Name Role Phone Corin Fry MD Primary Care Provider [phone] Brendan Artis PharmD Unavailable [phone] Encounter Details Date Type Department Care Team ([facility] Contact Info) Description 04/12/2025 Orders Only [place] [facility] [address] [place], [place] [phone] ProviderTirso MD Social History Tobacco Use Types [...] 025 2:25 PM EST) No Brendan Artis, [place] documented as of this encounter Procedures Procedure Name Priority Date/Time Associated Diagnosis Comments SURGICAL PATHOLOGY Routine 04/09/2025 2:54 PM EDT documented in this encounter Results * Surgical Pathology (04/09/2025 2:54 PM EDT) [facility] Provider LAB PATHOLOGY ORDERABLES Final Result documented in this encounter Visit Diagnoses Not on filedocumented in this encounter Additional Health Concerns Assessment Noted Time PHQ-9 Depression Total Score: 0 07/30/20 24 9:12 AM EDT documented as of this encounter Care Teams Ornamental Iron Erector Relationship Specialty Start Date End Date Corin Fry MD [address] [place] [address] PCP - General Family Medicine 02/26/22 Brendan Artis, PharmD [address] [place] [address] Pharmacist Internal Medicine 10/23/22 08/12/25 documented as of this encounter
--- OUTSIDE RECORDS SUMMARY | 2025-09-01 16:24 | XMS_ITS | Encounter Summary ---
Author Organization [employer] Address [address] [place] [address] 7 [place] [address] Care Team Providers Care Plastic Card Grader Cardroom Name Role Phone Corin Fry MD Primary Care Provider [phone] Brendan Artis PharmD Unavailable [phone] Encounter Details Date Type Department Care Team ([facility] Contact Info) Description 03/04/2023 Telephone [facility] MEDICINE [address] [place], [place] [phone] Corin Fry MD [address] [place], [place] [phone] Social History Tobacco Use Types Packs/Day Years [...] documented as of this encounter Care Teams Plastic Card Grader Cardroom Relationship Specialty Start Date End Date Corin Fry MD [address] [place] [address] PCP - General Family Medicine 02/26/22 Brendan Artis, PharmD [address] [place] [address] Pharmacist Internal Medicine 10/23/22 08/12/25 documented as of this encounter
--- OUTSIDE RECORDS SUMMARY | 2025-09-01 16:24 | XMS_ITS | Encounter Summary ---
Author Organization [employer] Address [address] [facility] 7 [place] [address] Care Team Providers Care Platform Supervisor Name Role Phone Corin Fry MD Primary Care Provider [phone] Encounter Details Date Type Department Care Team ([facility] st Contact Info) Description 09/01/2025 Results Follow-Up [facility] MEDICINE [address] [place] [address] Corin Fry MD [address] [place] [address] XR Chest 2 Views Social History Tobacco Use Types Packs/Day Years [...] 2:25 PM EST) No Brendan Artis, PharmD Help patients manage their type 2 diabetes Care Plan Help patients manage their type 2 diabetes No Corin Fry MD Weekly blood pressure task Care Plan Weekly blood pressure task No Corin Fry MD Help patients manage their type 2 diabetes Care Plan Help patients manage their type 2 diabetes No Corin Fry MD Patient has chronic kidney disease Care Plan Patient has chronic kidney disease No Corin Fry MD documented as of this encounter Visit Diagnoses Not on filedocumented in this encounter Additional Health Concerns Active Problems Noted Date Diagnosed Date Help patients manage their type 2 diabetes 09/01 Weekly blood pressure task 09/01/2025 Help patients manage their type 2 diabetes 09/01 Patient has chronic kidney disease 09/01/2025 Assessment Noted Time PHQ-9 Depression Total Score: 0 07/30/20 24 9:12 AM EDT documented as of this encounter Care Teams Platform Supervisor Relationship Specialty Start Date End Date Corin Fry MD [address] [place] [address] PCP - General Family Medicine 02/26/22 documented as of this encounter
--- OUTSIDE RECORDS SUMMARY | 2025-09-01 16:24 | XMS_ITS | Encounter Summary ---
Author Organization [facility] Address [address] [place] [address] Care Team Providers Care Generator Assembler Name Role Phone Corin Fry Primary Care Provider [phone] Encounter Details Date Type Department Care Team (Late st Contact Info) Description 07/28/2025 Results Follow-Up [facility] [address] [place] [phone] Final Block Press Operator: Magalys Estevez, PA [address] [place] [phone] Social History Tobacco Use Types Packs/Day Years [...] Info) Description 11/16/2025 1:30 PM EST Follow-Up [facility] [address] [place] [address] [phone] Final Block Press Operator: Sarah Mccormack NP [address] [place] [address] [phone] 12/27/2025 3:00 PM EDT Follow-Up [facility] 4th floor Cardiology Medicine [address] [place] [phone] Final Block Press Operator: Sj Floyd MD [address] [place] [phone] 01/25/2026 1:45 PM EDT Follow-Up [facility] [address] [place] [address] Final Block Press Operator: Magalys Estevez PA [address] [place] [phone] documented as of this encounter Visit Diagnoses Not on filedocumented in this encounter Care Teams Generator Assembler Relationship Specialty Start Date End Date Corin Fry [address] [place] [phone] PCP - General Family Medicine 07/19/22 documented as of this encounter
--- OUTSIDE RECORDS SUMMARY | 2025-09-01 16:24 | XMS_ITS | Encounter Summary ---
Author Organization [employer] Address [address] [place] [address] [place] [address] Care Team Providers Care Assistant Counsel Name Role Phone Corin Fry MD Primary Care Provider Brendan Artis PharmD Unavailable [phone] Encounter Details Date Type Department Care Team (Late st Contact Info) Description 06/26/2023 Orders Only [facility] MEDICINE [address] [place], [place] [phone] Corin Fry MD [address] [place] [address] Chronic foot pain, right (Primary Dx); Plantar [...] Time PHQ-9 Depression Total Score: 0 02/13/20 4:09 PM EDT documented as of this encounter Care Teams Assistant Counsel Relationship Specialty Start Date End Date Corin Fry MD [address] [place] [address] PCP - General Family Medicine 02/26/22 Brendan Artis, [place] [address] [place] [address] Pharmacist Internal Medicine 10/23/22 08/12/25 documented as of this encounter
--- OUTSIDE RECORDS SUMMARY | 2025-09-01 16:24 | XMS_ITS | Encounter Summary ---
Author Organization [employer] Address [address] [place] [address] Care Team Providers Care Roulette Dealer Name Role Phone Corin Fry MD Primary Care Provider [phone] Brendan Artis PharmD Unavailable [phone] Reason for Referral * Consultation (Urgent) - Closed Specialty Diagnoses / Procedures Referred By Contac t Referred To Contact Urology Diagnoses Recurrent kidney stones Corin Fry MD [address] [place] [phone] Phone: tel: [facility] [address] [place] [address] Phone: tel: fax: Referral ID Status Reason Start Date Expiration Date V isits Requested Visits Authorized [id number] Closed Specialty Services Required 06/24/2025 06/24/2026 1 1 Encounter Details Date Type Department Care Team (Late st Contact Info) Description 06/24/2025 Orders Only [facility] MEDICINE [address] [place] [address] [phone] Corin Fry MD [address] [place], [place] [phone] Recurrent kidney stones (Primary Dx) Social History [...] documented as of this encounter Care Teams Roulette Dealer Relationship Specialty Start Date End Date Corin Fry MD [address] [place] [address] PCP - General Family Medicine 02/26/22 Brendan Artis, TaoD [address] [place] [address] Pharmacist Internal Medicine 10/23/22 08/12/25 documented as of this encounter
--- OUTSIDE RECORDS SUMMARY | 2025-09-01 16:24 | XMS_ITS | Encounter Summary ---
Author Organization [employer] Address [address] [facility] 7 [place] [address] Care Team Providers Care Mental Telepathist Name Role Phone Corin Fry MD Primary Care Provider [phone] Brendan Artis PharmD Unavailable [phone] Encounter Details Date Type Department Care Team ([facility] st Contact Info) Description 09/25/2024 Orders Only [facility] MEDICINE [address] [place], [place] [phone] Corin Fry MD [address] [place], [place] [phone] Mixed hyperlipidemia (Primary Dx) Social History Tobacco [...] 12:15 PM EST) Triglycerides 118 <150 mg/dL [facility] Comment:Desirable Triglyceri de: less than 150 mg/dLBorderline High Triglyceride 150-199 mg/dLHigh Triglyceride: 200-499 mg/dLVery High Triglyceride: greater than or equal to 5OO mg/dL Cholesterol 269(H) <200 mg/dL [facility] Comment:Desirable Cholestero l: less than 200 mg/dLBorderline High Cholesterol: 200-239 mg/dLHigh Cholesterol: greater than 239 mg/dL LDL Cholesterol Calculated 181(H) <100 mg/dL [facility] Comment:Desirable LDL: less than 100 mg/dLNear Optimal/Above Optimal LDL: 110- 129 mg/dLBorderline High LDL: 130-159 mg/dLHigh LDL: 160-189 mg/dLVery High LDL: greater than or equal to 190 mg/dL HDL Cholesterol 65 >40 mg/dL [facility] Comment:Desirable HDL: great er than 40 mg/dL Note: This HDL assay may give artificially low results in patients with liver disease. Blood 09/25/2024 12:1 5 PM EST 09/25/2024 12:55 PM EST us Corin Fry MD LAB BLOOD ORDERABLES Final Resul t [facility] [address] [place] [address] [phone] documented in this encounter Visit Diagnoses Diagnosis Mixed hyperlipidemia- Primary documented in this encounter Additional Health Concerns Assessment Noted Time PHQ-9 Depression Total Score: 0 07/30/20 24 9:12 AM EDT documented as of this encounter Care Teams Mental Telepathist Relationship Specialty Start Date End Date Corin Fry MD [address] [place] [address] PCP - General Family Medicine 02/26/22 Brendan Artis, PharmD [address] [place] [address] Pharmacist Internal Medicine 10/23/22 08/12/25 documented as of this encounter
--- OUTSIDE RECORDS SUMMARY | 2025-09-01 16:24 | XMS_ITS | Clinical Summary ---
Author Organization [email or web address] Address [address] [place] [address] [address] [place] [address] Care Team Providers Care Human Resource Officer Name Role Phone Corin Fry MD Primary Care Provider [phone] Allergies Active Allergy Reactions Criticality Noted Date [...] complication, without long-term current use of insulin ([facility]) TEST BLOOD SUGAR EVERY MORNING 100 each 11 02/24/20 25 Active FREESTYLE LITE test stripIndications: Type 2 diabetes mellitus without complication, without long-term current use of insulin ([facility]) TEST BLOOD SUGAR EVERY MORNING 100 strip [...] MOUTH EVERY DAY 90 tablet 3 08/04/20 Active metFORMIN XR (Glucophage-XR) 500 MG 24 hr tabletIndications :Type 2 diabetes mellitus without complication, without long-term current use of insulin (HCC) TAKE 1 TABLET BY MOUTH TWICE DAILY WITH MEALS 180 tablet 3 08/17/20 25 Active ondansetron ODT (Zofran-ODT) 4 MG disintegrating tablet DISSOLVE 1 TABLET ON TONGUE THREE TIMES DAILY NEEDED FOR NAUSEA AND VOMITING 08/26/20 25 Active cholecalciferol (Vitamin D High Potency) 25 MCG (1000 UT) capsuleIndication s:Vitamin D deficiency TAKE 1 CAPSULE BY MOUTH EVERY DAY 90 capsule 3 02/10/20 24 2024 Discontinued metFORMIN XR (Glucophage-XR) 500 MG 24 hr [...] ACC/AHA - elevated today - Co-managed with [facility] pharmacist and insurance account representative - Continue working on lifestyle modification - [...] ACC/AHA - elevated today - Co-managed with [facility] pharmacist and insurance account representative - Continue working on lifestyle modification - [...] MRI evaluation Unable to find a local recruit instructor who will accept her insurance Refer to recruit instructor in [place] Assessment & Plan (02/12/2023 5:34 PM EDT): Likely plantar fasciitis Consider MRI evaluation Unable to find a local recruit instructor who will accept her insurance Refer to recruit instructor in [place] Assessment & Plan (09/26/2022 4:31 PM EST): Likely plantar fasciitis Consider MRI evaluation Unable to find a local recruit instructor who will accept her insurance Refer to recruit instructor in [place] Plantar fasciitis, bilateral 09/25/2022 Assessment & Plan (02/16/2024 1:15 PM EDT): - evaluated at [facility] and had PT - pain has [...] a1c in 6 months Assessment & Plan (08/31/2025 6:35 AM EST): - A1c 6.4% on 05/31/25, slight increase [...] both for renal-cardiovascular benefit. Assessment & Plan (06/04/2025 2:05 PM EDT): [...] (08/23/2023): Added automatically from request for surgery [id number] Assessment & Plan (02/12/2023 5:35 PM EDT): Hx cystoscopy and nephrostomy tube? Most recent episode in Jun 2022 Continue adequate hydration, > 2L/day Upcoming appt with urologist in [place] Assessment & Plan (09/26/2022 4:29 PM EST): Hx cystoscopy and nephrostomy tube? Most recent episode in Jun 2022 Continue adequate hydration, > 2L/day Upcoming appt with urologist in [place] (HFpEF) heart failure with preserved ejection fr [...] follow up at cardiology Assessment & Plan (08/31/2025 6:35 AM EST): - following with [facility] cardiology. Last seen in December 2024. - [...] and risk factor management Assessment & Plan (02/26/2025 9:40 AM EDT): - following with [facility] cardiology. Last seen in December 2024. - [...] (11/14/2024 6:25 PM EST): - following with [facility] cardiology, Dr. Blood. Last visit in Aug [...] (07/30/2024 9:20 AM EDT): - following with [facility] cardiology, Dr. Blood. Last visit in Aug [...] (02/16/2024 1:13 PM EDT): - following with [facility] cardiology, Dr. Blood. Last visit in Aug [...] test and BMP today Assessment & Plan (08/31/2025 6:34 AM EST): - she had intolerance to statin and is prescribed ezetimibe - continue working on lifestyle modifications - her insurance account representative was considering PCSK9 inhibitor Assessment & Plan (02/23/2025 8:06 AM EDT): - she had intolerance to statin and is prescribed ezetimibe - continue working on lifestyle modifications - her insurance account representative was considering PCSK9 inhibitor Assessment & Plan (11/14/2024 6:28 PM EST): - she had intolerance to statin and is prescribed ezetimibe - continue working on lifestyle modifications - her insurance account representative was considering PCSK9 inhibitor Assessment & Plan [...] of hypothyroidism Had FNA in past at [facility]. TSH 0.97 Fu with endo Last Assessment & Plan: MNG with dominant right lobe nodule, s/p FNA done at [facility], could not find report in pre-epic Interval [...] Encounters Date Type Department Care Team Description 09/01/2025 Results Follow-Up [facility] [address] [place] [address] Corin Fry MD XR Chest 2 Views 08/31/2025 2:15 PM EST Office Visit [facility] [address] [place] [address] Corin Fry MD Primary hypertension (Primary Dx); Mixed hyperlipidemia; Chronic heart failure with preserved ejection fraction (HFpEF) ([facility]); Type 2 diabetes mellitus without complication, without long-term current use of insulin ([facility]); History of pleural empyema; History of pleural effusion 08/30/2025 Telephone [facility] [address] [place] [address] Corin Fry MD chartprep 08/17/2025 Travel 08/17/2025 Refill [facility] [address] [place] [address] Corin Fry MD Type 2 diabetes mellitus without complication, without long-term current use of insulin ([facility]) 08/13/2025 2:00 PM EDT Telemedicine [address] [address] Brendan Artis PharmD Primary hypertension (Primary Dx) 08/04/2025 Refill [facility] [address] [place] [address] Kimberly Madison MD 07/26/2025 Refill [facility] [address] [place], [place] [phone] Corin Fry MD Mixed hyperlipidemia 07/06/2025 1:00 PM EDT Office Visit [facility] [address] [place] [address] Jorge Alberto, Opal, OD Diabetes type 2, no ocular involvement (CMS/HCC) (Primary Dx); 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; Early cataracts, bilateral; Dry eyes; Presbyopia 07/06/2025 Travel 06/30/2025 Telephone [facility] [address] [place] [address] Corin Fry MD august06/24/2025 Telephone [facility] [address] [place] [phone] Laura Campos RN ED F/U 06/24/2025 Orders Only [facility] [address] [place] [phone] Corin Fry MD Recurrent kidney stones (Primary Dx) 06/24/2025 Results Follow-Up [facility] [address] [place] [address] Abdomen Pelvis w/ Contrast 06/23/2025 Orders Only GENERIC EXTERNAL DATA DEPARTMENT Provider, Generic External Data from Last 3 Months Immunizations Immunization Administration [...] Mass Index 42.98 08/31/2025 2:25 PM EST Plan of Treatment Health Maintenance Due Date [...] 07/30/2024, 07/30/2024, 07/30/2024, Additional history exists Diabetes: Hemoglobin A1C 12/01/2025 025, 05/31/2025, 02/22/2025, Additional history exists Disability Screening 02/22/2026 02/22/2025 SDOH Screening 05/21/2026 05/21/2025 Tobacco Screening 07/12/2026 07/12/2025 Diabetes: Urine Protein Screening 08/24/2026 08/24/2025, 07/30/2024, 02/10/2024, Additional history exists Lipid Panel 08/24/2026 08/24/2025, 12/0 03/2024, 07/30/2024, Additional history exists Mammogram 03/19/2027 03/19/2025, 02/18, 03/21/2021, Additional history [...] Blood Pressure 130/62( 025 2:25 PM EST) Brendan Bolden, PharmD Help patients manage their type 2 diabetes Care Plan Help patients manage their type 2 diabetes Corin London MD Weekly blood pressure task Care Plan Weekly blood pressure task Corin London MD Help patients manage their type 2 diabetes Care Plan Help patients manage their type 2 diabetes Corin London MD Patient has chronic kidney disease Care Plan Patient has chronic kidney disease Corin London MD Procedures Procedure Name Priority Date/Time Associated Diagnosis [...] without long-term current use of insulin (HCC) VITAMIN D,25-OH,TOTAL,IA Routine 08/24/2025 1:21 PM EST Vitamin D deficiency TSH W/REFLEX TO FT4 Routine 08/24/2025 1 :21 PM EST Primary hypertension COMPREHENSIVE METABOLIC PANEL Routine 08/24/2025 1:21 PM EST Type 2 diabetes mellitus without complication, without long-term current use of insulin (HCC) ALBUMIN, RANDOM URINE W/CREATININE Routine 08/24/2025 1:21 PM EST Type 2 diabetes mellitus without complication, without long-term current use of insulin (HCC) LIPID PANEL WITH REFLEX TO DIRECT LDL Routine 08/24/2025 1:21 PM EST Type 2 diabetes mellitus without complication, without long-term current use of insulin (HCC) VITAMIN B12/FOLATE, SERUM PANEL Routine 08/24/2025 1:21 PM EST Type 2 diabetes mellitus without complication, without long-term current use of insulin (HCC) OCT, OPTIC NERVE - OU - BOTH [...] AUTO DIFFERENTIAL Routine 06/23/2025 2:02 PM EDT COLONOSCOPY Routine 04/09/2025 10:24 AM EDT BI MAMMOGRAM SCREENING TOMOSYNTHESIS BILATERAL Routine 03/19/2025 1:15 PM EDT PANORAMIC RADIOGRAPHIC IMAGE Routine 08/05/2024 8:00 AM EDT PERIODIC ORAL EVALUATION - ESTABLISHED PATIENT Routine 08/05/2024 8:00 AM EDT THINPREP IMAGING PAP AND HPV MRNA E6/E7 Routine 07/30/2024 9:32 AM EDT from Last 3 Months or Most Recently Relevant to Health Maintenance Results * XR Chest 2 Views (09/01/2025 1:51 PM EST) Anatomical Region Laterality Modality Chest Radiographic Alma ging 09/01/2025 1:51 PM EST Narrative 09/01/2025 2:28 PM EST [address] [address] XRay Report Signed Patient: Carmina Cheng MR#: [id number] : 1960 Acct:[id number] Age/Sex: 64 / F ADM Date: 09/01/25 Loc: HOLETTYAY Attending Dr: Corin Fry MD Ordering Physician: Corin Fry MD Date of Service: 09/01/25 Procedure(s): XR chest 2V Accession Number(s): [id number] cc: Corin Fry MD Reason for Exam: [...] signed by Belen Boggs MD in OV> 09/01/25 1425 DD/ 1351 TD/TT: 09/01/25 1359 [employer]: MARCO Procedure Note Donotuseinterpreter, Image - 09/01/[address] [address] XRay Report Signed Patient: Fernando ChengR#: [id number] : 1960cct:[id number] Age/Sex: 64 / FADM Date: 09/01/25 Loc: SHU Attending Dr: Corin Fry MD Ordering Physician: Corin Fry MD Date of Service: 09/01/25 Procedure(s): XR chest 2V Accession Number(s): [id number] cc: Corin Fry MD Reason for Exam: [...] Belen Boggs MD 09/01/2025 02:25 PM EST RP Dictated By: Belen Boggs MD Signed By: <Electronically signed by Belen Boggs MD in OV> 09/01/25 1425 DD/ 1351 TD/TT: 09/01/25 1359 [employer]: MARCO Corin Fry MD IMG XR PROCEDURES Final Result * (ABNORMAL) POCT Hgb A1c (08/31/2025 2:28 PM EST) Hemoglobin A1C 6.2(A) 4.0 - 5.7 % QC Media Lot # [id number] Lot# Expiration Date 51,227 Blood 08/31/2025 2:28 PM EST Corin Fry MD POINT OF CARE TEST ENTER/EDIT OR DERABLES Final Result * POCT Glucose (08/31/2025 2:26 PM EST) Glucose Blood, POC 173 60 - 200 mg/dL QC Media Lot # [id number] Lot# Expiration Date 31,126 Blood Capillary blood specimen / Unknown 08/31/2025 2:26 PM EST Corin Fry MD POINT OF CARE TEST ENTER/EDIT OR DERABLES Final Result * Vitamin D, 25-Hydroxy, Total, Immunoassay (08/24/2025 1:21 PM EST) Vitamin D 25-OH Total 43.1 >30 ng/mL [facility] Comment: Health Based Reference Values*< 20 ng/mL Frmrxnlxe60-96 ng/mL Insufficient> 30 ng/mL Sufficient*Mike GALVEZ. N Engl J Med. 2007;357:266-280There is no well-established upper level of normal vitamin Dlevels. Some laboratories use 50 ng/mL as an upper limit ofnormal. However, toxicity is patient-dependent and may occurat any level. Careful correlation with the patient'spresentation is necessary and, if there is concern forvitamin D toxicity, treatment should be consideredirrespective of the serum level.Care must be taken in interpreting Vitamin D results fromdifferent laboratories and methodologies. Published datademonstrated that results from patients undergoinghemodialysis may show a negative bias when tested withvarious automated 25-OH vitamin D assays when compared toLC-MS/MS.When testing samples from patients whose predominant form ofVitamin D is Vitamin D2, such as patients receiving VitaminD2 supplementation, results that are subtherapeutic shouldbe confirmed with another method such as LC-MS/MS. Blood Venous blood specimen / Unknown 08/24/2025 1:21 PM EST 08/24/2025 3:55 PM EST Corin Fry MD LAB BLOOD ORDERABLES Final Resul t [facility] [address] [place] [address] [phone] * Vitamin B12 (Cobalamin) and Folate Panel, Serum (08/24/2025 1:21 PM EST) Vitamin B12 231 200 - 900 pg/mL [facility] Comment:NORMAL 200-900 PG/ML INDETERMINATE 160-199 PG/ML DEFICIENT < 160 PG/ML Folate 7.9 > or = 4.0 ng/mL [facility] Comment:Reference Values:> o r = 4.0 ng/mL< 4.0 ng/mL suggests folate deficiency Methotrexate, aminopterin and folinic acid(leucovorin) are chemotherapeutic agents whose molecularstructures are similar to folate; therefore, the Architectfolate assay cannot be used for patients using these drugs. Blood 08/24/2025 1:21 PM EST 08/24/2025 3:55 PM EST Corin Fry MD LAB BLOOD ORDERABLES Final Resul t Performing Organization Address [facility] Co dc Phone Number [facility] [address] [place] [address] [phone] * TSH with Reflex to Free T4 (08/24/2025 1:21 PM EST) TSH reflex Free T4 0.32 0.32 - 4.0 uIU/mL [facility] Blood 08/24/2025 1:21 PM EST 08/24/2025 3:55 PM EST Corin Fry MD LAB BLOOD ORDERABLES Final Resul t Performing Organization Address [facility] Co dc Phone Number [facility] [address] [place] [phone] * (ABNORMAL) Lipid Panel with Reflex to Direct LDL (08/24/2025 1:21 PM EST) Triglycerides 114 <150 mg/dL [facility] Comment:Desirable Triglyceri de: less than 150 mg/dLBorderline High Triglyceride 150-199 mg/dLHigh Triglyceride: 200-499 mg/dLVery High Triglyceride: greater than or equal to 5OO mg/dL Cholesterol 210(H) <200 mg/dL [facility] Comment:Desirable Cholestero l: less than 200 mg/dLBorderline High Cholesterol: 200-239 mg/dLHigh Cholesterol: greater than 239 mg/dL LDL Cholesterol Calculated 134(H) <100 mg/dL [facility] Comment:Desirable LDL: less than 100 mg/dLNear Optimal/Above Optimal LDL: 110- 129 mg/dLBorderline High LDL: 130-159 mg/dLHigh LDL: 160-189 mg/dLVery High LDL: greater than or equal to 190 mg/dL HDL Cholesterol 54 >40 mg/dL [facility] Comment:Desirable HDL: great er than 40 mg/dL Note: This HDL assay may give artificially low results in patients with liver disease. Blood 08/24/2025 1:21 PM EST 08/24/2025 3:55 PM EST us Corin Fry MD LAB BLOOD ORDERABLES Final Resul t Performing Organization Address [facility] Co de Phone Number [facility] [address] [place] [address] [phone] * Albumin, Random Urine W/Creatinine (08/24/2025 1:21 PM EST) Creatinine, Urine 88.47 mg/dL [facility] Microalbumin Urine 17.0 mg/L [facility] Microalbum Creatinine Ratio Ur 19.2 <30 ug/mg cr [facility] Comment:Albumin/Creatinine R atio Reference Ranges: Normal: < 30 ug/mg creatinine Microalbuminuria: 30 - 300 ug/mg creatinineClinical Albuminuria: > 300 ug/mg creatinine Urine 08/24/2025 1:21 PM EST 08/24/2025 4:17 PM EST us Corin Fry MD LAB URINE ORDERABLES Final Resul t Performing Organization Address [facility] Co de Phone Number [facility] [address] [place] [address] [phone] * (ABNORMAL) Comprehensive Metabolic Panel (08/24/2025 1:21 PM EST) Only the most recent of2 resultswithin the time period is included. Sodium 142 135 - 145 mmol/L [facility] Potassium 3.8 3.3 - 5.1 mmol/L [facility] Chloride 105 96 - 108 mmol/L [facility] Carbon Dioxide 30(H) 22 - 29 mmol/L [facility] Anion Gap 11(L) 12 - 20 [facility] Urea Nitrogen (BUN) 18(H) 9 - 16 mg/dL [facility] Creatinine, Serum 0.71 0.5 - 1.4 mg/dL [facility] Estimated Glomerular Filt Rate >60 [facility] Comment:Chronic Kidney Disea se: Estimated GFR < 60 mL/min/1.76x3Krapsw Kidney Disease: Estimated GFR < 15 mL/min/1.73m2 Glucose 187(H) 60 - 115 mg/dL [facility] Calcium 9.2 8.4 - 10.2 mg/dL [facility] Bilirubin, Total 0.3 0.0 - 1.0 mg/dL [facility] Aspartate Amino Transferase 22 5 - 31 U/L [facility] Alanine Aminotransferase 18 0 - 31 U/L [facility] Total Protein 6.7 6.5 - 8.0 g/dL [facility] Albumin Level 4.1 3.5 - 5.0 g/dL [facility] Alkaline Phosphatase 70 39 - 117 U/L [facility] Blood Venous blood specimen / Unknown 08/24/2025 1:21 PM EST 08/24/2025 3:55 PM EST us Corin Fry MD LAB BLOOD ORDERABLES Final Resul t [facility] [address] [place] [address] [phone] * OCT, Optic Nerve - OU - Both Eyes (07/06/2025 1:00 PM EDT) Narrative Opal Azul, OD - 07/12/2025 10:21 AM EDT Images [...] (06/23/2025 7:23 PM EDT) Color Urine Yellow [facility] Appearance Urine Clear [facility] PH 6.0 5.0 - 9.0 [facility] Glucose Urine UA Negative Negative mg/dL [facility] Urine Blood Small (1+)(A) Negative [facility] Specific [place] - Urine >=1.030(H) 1.005 - 1.025 [facility] Urine Protein Negative Neg-Trace mg/dL [facility] Urine Ketones Negative Negative mg/dL [facility] Nitrite Urine Negative Negative [facility] Leukocyte Esterase Urine Trace(A) Negative [facility] RBC Urine 6-10(A) 0 - 2 /HPF [facility] Urine WBC 0-5 0 - 5 /HPF [facility] Urine Squamous Epithelial Cell 0-2 0 - 2 /HPF [facility] Urine Bacteria None Seen None Seen [facility] Hyaline Casts, Urine 0-2 0 - 2 /LPF [facility] 06/23/2025 7:23 PM EDT 06/23/2025 7:25 PM EDT Narrative [facility] - 06/23/2025 8:25 PM EDT [id number], [employer] us Generic External Data Provider LAB URINE ORDERAB LES Final Result [facility] [address] [place] [phone] * CT Abdomen Pelvis w/ Contrast (06/23/2025 6:48 PM EDT) Anatomical Region Laterality Modality Body, Pelvis, Abdomen Computed T omography 06/23/2025 6:48 PM EDT Narrative 06/23/2025 6:49 PM EDT [place] [address] CT Scan Report Signed Patient: Carmina Cheng MR#: [id number] : 1960 Acct:[id number] Age/Sex: 64 / F ADM Date: 06/23/25 Loc: HO.ED Attending Dr: Ordering Physician: Lucrecia Sy MD Date of Service: 06/23/25 Procedure(s): CT abdomen pelvis w IV con Accession Number(s): [id number] cc: Lucrecia Sy MD; Corin Fry MD Report Number: [id number]: Total DLP = 1402.00 mGy-cm Reason for [...] in OV> 06/23/251848 DD/ 47 TD/TT: 06/23/251847 [employer]: Procedure Note Donotuseinterpreter, Image - 06/23/[address] [place] [address] [address] Scan Report Signed Patient: Sunny Cheng#: [id number] : 1960cct:[id number] Age/Sex: 64 / FADM Date: 06/23/25 Loc: HO.ED Attending Dr: Ordering Physician: Lucrecia Sy MD Date of Service: 06/23/25 Procedure(s): CT abdomen pelvis w IV con Accession Number(s): [id number] cc: Lucrecia Sy MD; Corin Fry MD Report Number: [id number]: Total DLP = 1402.00 mGy-cm Reason for [...] in OV> 06/23/251848 DD/ 47 TD/TT: 06/23/251847 [employer]: [facility] External Provider IMG CT PROCEDURES Final Result * (ABNORMAL) CBC auto differential (06/23/2025 2:02 PM EDT) White Blood Count 7.4 4.8 - 10.8 X10*3/uL [facility] Red Blood Count 5.08 4.20 - 5.50 X10*6/uL [facility] Hemoglobin 13.2 12.0 - 16.0 g/dl [facility] Hematocrit 41.0 37.0 - 47.0 % [facility] Mean Corpuscular Volume 80.7 80.0 - 98.0 fL [facility] Mean Corpuscular Hemoglobin 26.0(L) 27.0 - 33.0 pg [facility] Mean Corpuscular HGB Conc 32.2 31.0 - 35.0 g/dl [facility] Red Cell Distribution Width 15.2 11.0 - 16.0 % [facility] Platelet Count 269 160 - 400 X10*3/uL [facility] Mean Platelet Volume 9.4 9.4 - 12.3 fL [facility] Neutrophils Percent Auto 70.7 45 - 73 % [facility] Imm Gran Pct Auto 0.3 0.0 - 0.4 % [facility] Lymphocytes Percent Auto 20.3 20 - 40 % [facility] Monocytes Percent Auto 7.1 2 - 11 % [facility] Eosinophils Percent Auto 1.2 0 - 4 % [facility] Basophils Percent Auto 0.4 0 - 2 % [facility] NRBC Pct Auto 0.0 0.0 - 0.2 /100WBC [facility] Neutrophils Absolute Auto 5.2 2.0 - 8.3 x10*3/uL [facility] Imm Gran Abs Auto 0.02 0.00 - 0.03 X10*3/uL [facility] Lymphocytes Absolute Auto 1.5 1.2 - 4.9 X10*3/uL [facility] Monocytes Absolute Auto 0.5 0.1 - 1.2 X10*3/uL [facility] Eosinophils Absolute Auto 0.1 0.0 - 0.4 X10*3/uL [facility] Basophils Absolute Auto 0.0 0.0 - 0.2 X10*3/uL [facility] NRBC Abs Auto 0.000 0.0 - 0.012 X10*3/uL [facility] 06/23/2025 2:02 PM EDT 06/23/2025 2:04 PM EDT us Generic External Data Provider LAB BLOOD ORDERAB LES Final Result Performing Organization Address [facility] Co de Phone Number [facility] [address] [place] [phone] * Magnesium (06/23/2025 2:02 PM EDT) Magnesium 1.9 1.6 - 2.6 mg/dL [facility] 06/23/2025 2:02 PM EDT 06/23/2025 2:04 PM EDT Generic External Data Provider LAB BLOOD ORDERAB LES Final Result Performing Organization Address [facility] Co de Phone Number [facility] [address] [place] [address] [phone] * Lipase (06/23/2025 2:02 PM EDT) Lipase 12 8 - 78 U/L [facility] 06/23/2025 2:02 PM EDT 06/23/2025 2:04 PM EDT us Generic External Data Provider LAB BLOOD ORDERAB LES Final Result [facility] [address] [place] [address] [phone] * Colonoscopy (04/09/2025 10:24 AM EDT) Anatomical Region Laterality Modality Endoscopy Historical Provider ENDOSCOPY PROCEDURE ORDER FELY Final Result * BI Mammogram Screening Tomosynthesis Bilateral (03/19/2025 1:15 PM EDT) Anatomical Region Laterality Modality Breast Bilateral Mammography 03/19/2025 1:15 PM EDT Narrative 03/27/2025 11:24 AM EDT [address] [place] [address] Mammography Report Signed Patient: Carmina Cheng MR#: [id number] : 1960 Acct:[id number] Age/Sex: 64 / F ADM Date: 03/19/25 Loc: MIGUEL Attending Dr: Corin Fry MD Ordering Physician: Corin Fry MD Results: 1Negative Date of Service: 03/19/25 Follow Up: 1 Year From Orig ina Mammogram Procedure(s): MM tomosynthesis screening BI Accession Number(s): [id number] cc: Corin Fry MD EXAMINATION: MM SCREENING [...] Deepa Quinones DO 03/27/2025 11:21 AM EDT RP Dictated By: Deepa Quinones DO Signed By: <Electronically signed by Deepa Quinones DO in OV> 03/27/25 1121 DD/ 1315 TD/TT: 03/19/25 1340 [employer]: Procedure Note Donotuseinterpreter, Image - 03/27/20[facility] [address] [place] [address] Mammography Report Signed Patient: Fernando ChengR#: [id number] : 1960cct:[id number] Age/Sex: 64 / FADM Date: 03/19/25 Loc: ZAHRAAO Attending Dr: Corin Fry MD Ordering Physician: Corin Fry MDResults: 1Negative Date of Service: 03/19/25Follow Up: 1 Year From [facility] Mammogram Procedure(s): MM tomosynthesis screening BI Accession Number(s): [id number] cc: Corin Fry MD EXAMINATION: MM SCREENING [...] 03/27/25 1121 DD/ 1315 TD/TT: 03/19/25 [address] [employer]: Corin Fry MD [facility] BI PROCEDURES Edited Result - Final * ThinPrep Imaging Pap and HPV mRNA E6/E7 (07/30/2024 9:32 AM EDT) HPV nRNA E6/E7 Not Detected Not Detected [facility] Comment:Methodology: Transcr iption-Mediated AmplificationThis assay detects E6/E7 viral messenger RNA (mRNA) from 14high-risk HPV types (16,18,31,33,35,39,45,51,52,56,58,59,66,68).Cervical sources are required for HPV testing.If a vaginal source from a patient who has had atotal hysterectomy with removal of cervix wassubmitted, please contact the testing laboratoryfor alternative testing options.For additional information, please refer [email or web address].Orecon/faq/FYU346n4(This link if provided for information/educational purposes only.)THIS TEST WAS PERFORMED AT:[facility] [place] [id number] HEATH MD SOURCE: SEE NOTE [facility] Comment:None given Report Status: TNP [facility] Clinical Information: SEE NOTE [facility] Comment:None given LMP: SEE NOTE [facility] Comment:NONE GIVEN Prev. PAP: SEE NOTE [facility] Comment:NONE GIVEN Prev. BX: SEE NOTE [facility] Comment:NONE GIVEN Statement Of Adequacy: SEE NOTE [facility] Comment:Satisfactory for macy luation.Endocervical/transformation zone component absent. General Categorization: [facility] Interpretation/Result: SEE NOTE [facility] Comment:Cytology Results: Ne gative for intraepitheliallesion or malignancy. Cytology Comment SEE NOTE [facility] Comment:This Pap test has be en evaluated with computerassisted technology. Senior Field Engineer: SEE NOTE [facility] Comment:KF, CT(ASCP)CT scree sanya location: [place] [address] Review Senior Field Engineer: [facility] Pathologist [facility] PAP Infection [facility] See Note SEE NOTE [facility] Comment:EXPLANATORY NOTE:The Pap is a screening test for cervical cancer. It isnot a diagnostic test and is subject to false negativeand false positive results. It is most reliable when asatisfactory sample, regularly obtained, is submittedwith relevant clinical findings and history, and whenthe Pap result is evaluated along with historic andcurrent clinical information. 07/30/2024 9:32 AM EDT 07/30/2024 4:14 PM EDT Narrative [facility] - 08/04/2024 2:59 PM EDT SEE SCANNED RESULTS IN EMR us Corin Fry MD LAB PATHOLOGY ORDERABLES Final R esult [facility] [address] [place] [address] [phone] from Last 3 Months or Most Recently Relevant to Health Maintenance Additional Health Concerns Active Problems Noted Date Diagnosed Date Help patients manage their type 2 diabetes 09/01 Weekly blood pressure task 09/01/2025 Help patients manage their type 2 diabetes 09/01 Patient has chronic kidney disease 09/01/2025 Insurance [place] [facility] [facility] MEDICAID LIMITED ADULT DENTAL - HSN FULL (MEDICAID) Care Teams Human Resource Officer Relationship Specialty Start Date End Date Corin Fry MD [address] [place] [address] PCP - General Family Medicine 02/26/22
--- OUTSIDE RECORDS SUMMARY | 2025-09-01 16:24 | XMS_ITS | Encounter Summary ---
Author Organization [employer] Address [address] [place] [address] [address] [address] Care Team Providers Care De Icer Installer Name Role Phone Corin Fry MD Primary Care Provider [phone] Brendan Artis PharmD Unavailable [phone] Reason for Referral * Consultation (Routine) - Closed Specialty Diagnoses / Procedures Referred By Contac t Referred To Contact Pharmacy Diagnoses Primary hypertension Corin Fry MD [address] [place] [address] Phone: tel: fax: Referral ID Status Reason Start Date Expiration Date V isits Requested Visits Authorized [id number] Closed Consult and Treat 12/21/2024 12/21/2025 6 6 Encounter Details Date Type Department Care Team (Late st Contact Info) Description 12/21/2024 Orders Only [facility] [address] [place] [address] [phone] Corin Fry MD [address], [place] [phone] Primary hypertension (Primary Dx); Type 2 diabetes mellitus without complication, without long-term current use of insulin ([facility]) Social History Tobacco Use Types [...] 025 2:25 PM EST) Brendan Bolden, PharmD documented as of this encounter Visit Diagnoses Diagnosis Primary hypertension- Primary Unspecified essential hypertension Type 2 diabetes mellitus without complication, without long-term current use of insulin (HCC) documented in this encounter Additional Health Concerns Assessment Noted Time PHQ-9 Depression Total Score: 0 07/30/20 24 9:12 AM EDT documented as of this encounter Care Teams De Icer Installer Relationship Specialty Start Date End Date Corin Fry MD [address] [place] [address] PCP - General Family Medicine 02/26/22 Brendan Artis PharmD [address] [place] [address] Pharmacist Internal Medicine 10/23/22 08/12/25 documented as of this encounter
== END 2025-09-01 13:32 | disposition home or self-care (01) ==
LOC: HO.XRAY 13:31
PROVIDERS: PCP Family Medicine; Visit Provider Family Medicine
DX: Z87.09 Personal history of other diseases of the respiratory system (principal)
CPT/HCPCS: 71046

== ENCOUNTER → 2025-09-01 13:38 | Outpatient (BNV) | payer SELFPAY | PROVIDERS: PCP Family Medicine; Visit Provider Radiology Diagnostic Radiology | DX: Z87.09 Personal history of other diseases of the respiratory system (principal) | CPT/HCPCS: 71046 ==

== ENCOUNTER 2025-10-05 09:06 | Outpatient (REF) | payer SELFPAY ==
--- NOTE | 2025-10-05 09:09 | EMG_ITS ---
Chief complaint: Bilateral upper extremity Referred by: hattie Fry MD Procedure done: NCS and EMG of bilateral upper extremity Bilateral median and ulnar motor studies were performed. Bilateral median and ulnar mixed sensory studies were performed radial sensory studies were performed. Paraspinal muscles were tested with a needle. There was mild slowing of ulnar motor conduction velocity across elbow with slight reduction of amplitude. Otherwise no significant abnormality noted. Impression: Mild right ulnar neuropathy across elbow. Otherwise no significant abnormality noted. [place] [id number] x2 MTDD
--- OUTSIDE RECORDS SUMMARY | 2025-10-05 10:20 | XMS_ITS | Encounter Summary ---
Author Organization [employer] Address [address] [facility] 7 [place] [address] Care Team Providers Care Application Integrator Name Role Phone Corin Fry MD Primary Care Provider [phone] Encounter Details Date Type Department Care Team ([facility] st Contact Info) Description 09/01/2025 Results Follow-Up [facility] [address] [place] [address] Corin Fry MD [address] [place] [address] XR Chest 2 Views Social History Tobacco [...] documented as of this encounter Care Teams Application Integrator Relationship Specialty Start Date End Date Corin Fry MD [address] [place] [address] PCP - General Family Medicine 02/26/22 documented as of this encounter
--- OUTSIDE RECORDS SUMMARY | 2025-10-05 10:20 | XMS_ITS | Encounter Summary ---
Author Organization [employer] Address [address] [place] [address] Care Team Providers Care Store Receiving Clerk Name Role Phone Corin Fry MD Primary Care Provider [phone] Brendan Artis PharmD Unavailable [phone] Reason for Referral * Imaging (Routine) - Closed Specialty Diagnoses / Procedures Referred By Contac t Referred To Contact Radiology Diagnoses Left lower quadrant pain Procedures CT Abdomen Pelvis w/ Contrast Brock Hitchcock MD [address] [place] [address] Phone: tel: fax: [address] [address] Phone: tel: fax: Referral ID Status Reason Start Date Expiration Date Visits Re quested Visits Authorized [id number] Closed 01/03/2024 01/02/2025 1 1 Encounter Details Date Type Department Care Team (Late st Contact Info) Description 01/02/2024 Orders Only [facility] [address] [place], [place] [phone] Brock Hitchcock MD [address] [place], [place] [phone] Left lower quadrant pain (Primary Dx) Social [...] documented as of this encounter Care Teams Store Receiving Clerk Relationship Specialty Start Date End Date Corin Fry MD [address] [place] [address] PCP - General Family Medicine 02/26/22 Brendan Artis, PharmD [address] [place] [address] [place] [address] Pharmacist Internal Medicine 10/23/22 08/12/25 documented as of this encounter
--- OUTSIDE RECORDS SUMMARY | 2025-10-05 10:20 | XMS_ITS | Clinical Summary ---
Author Organization [facility] Address [address] [place] [address] Care Team Providers Care Neurology Technician Name Role Phone Corin Fry Primary Care Provider [phone] Allergies Active Allergy Reactions Criticality Noted Date [...] Use as instructed 2 Active FreeStyle [place] meter TEST BLOOD SUGAR EVERY MORNING [...] (08/06/2025): Added automatically from request for surgery [id number] ([id number]) heart failure with preserved ejection fr [...] (08/06/2025): Added automatically from request for surgery [id number] Mixed hyperlipidemia 05/30/2021 Overview (08/06/2025): Last Assessment & Plan: Controlled, counselled patient on reducing weight, not taking supplements that harm liver Repeat Lipid panel in 6 months, liver function test and BMP today Multinodular goiter 05/30/2021 Overview (08/06/2025): HX of multinodular goiter in past with dominant right nodule, Pt has been biochemically euthyroid although reported symptoms of hypothyroidism Had FNA in past at [facility]. TSH 0.97 Fu with endo Last Assessment & Plan: MNG with dominant right lobe nodule, s/p FNA done at [facility], could not find report in [...] Encounters Date Type Department Care Team Description 09/20/2025 Results Follow-Up [facility] [address] [place] [address] Marketing Education Teacher: Sharif Barroso MD 08/17/2025 Telephone [facility] [address] [place] [address] Marketing Education Teacher: Magalys Estevez PA 08/10/2025 1:33 PM EDT - 08/10/2025 11:59 PM EDT Hospital Encounter [facility] Ultrasound [address] [place] [address] Nephrolithiasis Discharge Disposition: Home or Self Care () 08/06/2025 10:30 AM EDT Follow-Up [facility] [address] [place] [address] Marketing Education Teacher: Sarah Mccormack NP Gastroesophageal reflux disease without esophagitis (Primary Dx); Chronic abdominal pain; Left upper quadrant abdominal pain 07/28/2025 Results Follow-Up [facility] [address] [place] [address] Marketing Education Teacher: Magalys Estevez PA 07/28/2025 Telephone [facility] [address] [place] [address] Marketing Education Teacher: Magalys Estevez PA 07/27/2025 2:00 PM EDT Office Visit [facility] [address] [place] [address] Marketing Education Teacher: Magalys Estevez PA Nephrolithiasis (Primary Dx) from Last 3 Months Social History Tobacco Use Types Packs/Day Years Used Date Smoking Tobacco: Former Cigarettes 7 S tarted: 10/21/2018 Smokeless Tobacco: Never Tobacco [...] Info) Description 11/16/2025 1:30 PM EST Follow-Up [facility] [address] [place] [address] Marketing Education Teacher: Sarah Mccormack NP [address] [place] [address] 12/27/2025 3:00 PM EDT Follow-Up [facility] 4th floor Cardiology Medicine [address] [place] [address] Marketing Education Teacher: Sj Floyd MD [address] [place] [address] 01/19/2026 10:45 AM EDT Appointment [facility] Ultrasound [address] [place] [address] 01/25/2026 1:45 PM EDT Follow-Up [facility] [address] [place] [address] Marketing Education Teacher: Magalys Estevez PA [address] [place] [address] Health Maintenance Due Date Last Done Comments Cervical Cancer Screening 1960 HPV and Pap Smear 1960 Pap Smear 1961 Urine Microalbumin 1971 Ophthalmology Exam 07/22/2020 07/22/2019 Mammogram 03/21/2023 03/21/2021, 060 10/2020, 03/17/2020, Additional history exists Alcohol/Substance Use Screening 10/21/2024 Depression Screening and Follow-Up 10/21/2024 Social Drivers of Health Laureen ual Screening 10/21/2024 Influenza Vaccine (#1) 2025 COVID-19 Vaccine (2024-2 6 season) 2025 02/26/2022, 01/24/2021, 12/26/2020 Hemoglobin A1C 12/01/2025 05/31/2025, 05/0 02/2025, 07/30/2024, Additional history exists Basic Metabolic Panel 06/23/2026 06/23/2025 , 04/21/2025, 01/05/2024, Additional history exists Colonoscopy 04/09/2030 04/09/2025, 04/09/2025 DTaP,Tdap,and Td Vaccines (2 - Td or Tdap) 11/10/2034 11/10/2024, 11/02/2013 Hepatitis B Vaccines Completed 01/21/2017, 09/21/2016, 08/23/2016 HIV Screening Completed 05/30/2021 Hepatitis C Screening Completed 05/30/2021 Zoster Vaccines Completed 08/01/2021, 05/31/2021 Pneumococcal Vaccine: 50+ Years Completed , 11/02/2013 Diabetes Screening Discontinued 06/23/2025, 0 05/31/2025, 05/31/2025, Additional history exists RSV Vaccine (60+ years old a nd patients) Completed 08/17/2025 Procedures * Due to [place] [employer] law, this organization might not be sharing [...] to Health Maintenance Results * Due to [place] [employer] law, this organization might not be sharing [...] to obtain the completed interpretation. Workstation ID: [id number] Narrative 08/10/2025 3:03 PM EDT EXAMINATION: Ultrasound [...] distended but grossly unremarkable. Resulting Agency Comment [id number] Procedure Note Ermias Burch MD - 08/10/2025 [...] possible to obtain thecompleted interpretation. Workstation ID: [id number] us [facility] WILD IMG US PROCEDURES Final Resul t * Rios Top, Urine (07/27/2025 2:39 PM EDT) Extra Tube Hold for add-ons. 07/27/2025 7:05 PM EDT [facility] Comment:Auto resulted. Urine Urine specimen collection, clean catch / Unknown Non-Blood Collection / Unknown 07/27/2025 2:39 PM EDT 07/27/2025 3:30 PM EDT us [facility] WILD LAB URINE ORDERABLES Final Re sult [facility] [address] [place] [address], [place] * Urinalysis W/Reflex to Microscopic & Culture (07/27/2025 2:39 PM EDT) Color, Urine Light Yellow Colorless, Light Yellow, Yellow, Dark Yellow 07/27/2025 3:59 PM EDT [facility] Clarity, Urine Clear Clear 07/27/2025 3:59 PM EDT [facility] Specific Sulphur, Urine 1.011 <1.030 07/27/2025 3:59 PM EDT [facility] pH, Urine 7.0 4.6 - 8.0 07/27/2025 3:59 PM EDT [facility] Protein, Urine Negative Negative 07/27/2025 3:59 PM EDT [facility] Glucose, Urine Normal Normal 07/27/2025 3:59 PM EDT [facility] Ketones, Urine Negative Negative 07/27/2025 3:59 PM EDT [facility] Bilirubin, Urine Negative Negative 07/27/2025 3:59 PM EDT [facility] Blood, Urine Negative Negative 07/27/2025 3:59 PM EDT [facility] Nitrite, Urine Negative Negative 07/27/2025 3:59 PM EDT [facility] Urobilinogen, Urine Normal Normal 07/27/2025 3:59 PM EDT [facility] Leukocyte Esterase, Urine Negative Negative 07/27/2025 3:59 PM EDT [facility] Urine Urine specimen collection, clean catch / Unknown Non-Blood Collection / Unknown 07/27/2025 2:39 PM EDT 07/27/2025 3:30 PM EDT us [facility] URINE ORDERABLES Final Re sult Performing Organization Address [facility] Co de Phone Number [facility] [address] [place] [address], [place] * POCT Glucose, interfaced (04/09/2025 2:37 PM EDT) [facility] Glucose, POCT [phone] - 99 mg/dL 04/09/2025 2:38 PM EDT [facility] Comment: The sausage wrapper has not determined the efficacy of this test in Critically ill patients. [facility] defines Critically ill patients for the [...] POCT ORDERABLES - DEVICE Fin al Result Performing Organization Address City/[facility]/ZIP Co de Phone Number [facility] [address] [place] [address], * COLONOSCOPY (04/09/2025) Narrative Procedure Note Sharif Jensen MD - 04/09/2025 2:36 PM EDT [facility] Gastroenterology Patient Name: Carmina Ortiz Procedure Date: 04/09/2025 2:36 PM Date of : 1960 Admit Type: Outpatient Age: 64 Room: [place] [address] Gender: Female Note Status: Finalized Attending MD: [...] 0 Note Initiated On: 04/09/2025 2:36 PM Sharif Jensen MD PROVATION PROCEDURES Final Resul t from Last 3 Months or Most Recently Relevant to Health Maintenance Insurance [facility] HSNO/FREE CARE Care Teams Neurology Technician Relationship Specialty Start Date End Date Corin Fry [address] [place] [address] PCP - General Family Medicine 07/19/22
--- OUTSIDE RECORDS SUMMARY | 2025-10-05 10:20 | XMS_ITS | Encounter Summary ---
Author Organization [employer] Address [address] [facility] 7 [place] [address] Care Team Providers Care Toolroom Checker Name Role Phone Corin Fry MD Primary Care Provider [phone] Brendan Artis PharmD Unavailable [phone] Encounter Details Date Type Department Care Team ([facility] st Contact Info) Description 09/25/2024 Orders Only [facility] [address] [place], [place] [phone] Corin Fry MD [address] [place], [place] [phone] Mixed hyperlipidemia (Primary Dx) Social History Tobacco [...] 12:15 PM EST) Triglycerides 118 <150 mg/dL [facility] Comment:Desirable Triglyceri de: less than 150 mg/dLBorderline High Triglyceride 150-199 mg/dLHigh Triglyceride: 200-499 mg/dLVery High Triglyceride: greater than or equal to 5OO mg/dL Cholesterol 269(H) <200 mg/dL [facility] Comment:Desirable Cholestero l: less than 200 mg/dLBorderline High Cholesterol: 200-239 mg/dLHigh Cholesterol: greater than 239 mg/dL LDL Cholesterol Calculated 181(H) <100 mg/dL [facility] Comment:Desirable LDL: less than 100 mg/dLNear Optimal/Above Optimal LDL: 110- 129 mg/dLBorderline High LDL: 130-159 mg/dLHigh LDL: 160-189 mg/dLVery High LDL: greater than or equal to 190 mg/dL HDL Cholesterol 65 >40 mg/dL [facility] Comment:Desirable HDL: great er than 40 mg/dL Note: This HDL assay may give artificially low results in patients with liver disease. Blood 09/25/2024 12:1 5 PM EST 09/25/2024 12:55 PM EST us Corin Fry MD LAB BLOOD ORDERABLES Final Resul t [facility] [address] [place] [address] [phone] documented in this encounter Visit Diagnoses Diagnosis Mixed hyperlipidemia- Primary documented in this encounter Additional Health Concerns Assessment Noted Time PHQ-9 Depression Total Score: 0 07/30/20 24 9:12 AM EDT documented as of this encounter Care Teams Toolroom Checker Relationship Specialty Start Date End Date Corin Fry MD [address] [place] [address] PCP - General Family Medicine 02/26/22 Brendan Artis, PharmD [address] [place] [address] Pharmacist Internal Medicine 10/23/22 08/12/25 documented as of this encounter
--- OUTSIDE RECORDS SUMMARY | 2025-10-05 10:20 | XMS_ITS | Encounter Summary ---
Author Organization [employer] Address [address] [place] [address] Care Team Providers Care Detective Captain Name Role Phone Corin Fry MD Primary Care Provider [phone] Brendan Artis PharmD Unavailable [phone] Reason for Referral * Consultation (Urgent) - Closed Specialty Diagnoses / Procedures Referred By Contac t Referred To Contact Urology Diagnoses Recurrent kidney stones Corin Fry MD [address] [place] [address] Phone: tel: [facility] [address] [place] [address] Phone: tel: fax: Referral ID Status Reason Start Date Expiration Date V isits Requested Visits Authorized [id number] Closed Specialty Services Required 06/24/2025 06/24/2026 1 1 Encounter Details Date Type Department Care Team (Late st Contact Info) Description 06/24/2025 Orders Only [facility] MEDICINE [address] [place] [address] [phone] Corin Fry MD [address] [place], [place] [phone] Recurrent kidney stones (Primary Dx) Social History [...] documented as of this encounter Care Teams Detective Captain Relationship Specialty Start Date End Date Corin Fry MD [address] [place] [address] PCP - General Family Medicine 02/26/22 Brendan Artis, TaoD [address] [place] [address] Pharmacist Internal Medicine 10/23/22 08/12/25 documented as of this encounter
--- OUTSIDE RECORDS SUMMARY | 2025-10-05 10:20 | XMS_ITS | Encounter Summary ---
Author Organization [employer] Address [address] [place] [address] 7 [place] [address] Care Team Providers Care Product Safety Tester Name Role Phone Corin Fry MD Primary Care Provider [phone] Brendan Artis PharmD Unavailable [phone] Encounter Details Date Type Department Care Team ([facility] Contact Info) Description 03/04/2023 Telephone [facility] MEDICINE [address] [place], [place] [phone] Corin Fry MD [address] [place], [place] [phone] Social History Tobacco Use Types Packs/Day Years [...] as of this encounter Care Teams Product Safety Tester Relationship Specialty Start Date End Date Corin Fry MD [address] [place] [address] PCP - General Family Medicine 02/26/22 Brendan Artis, PharmD [address] [place] [address] Pharmacist Internal Medicine 10/23/22 08/12/25 documented as of this encounter
--- OUTSIDE RECORDS SUMMARY | 2025-10-05 10:20 | XMS_ITS | Encounter Summary ---
Author Organization [employer] Address [address] [place] [address] Care Team Providers Care Roll Hauler Name Role Phone Corin Fry MD Primary Care Provider [phone] Brendan Artis PharmD Unavailable [phone] Encounter Details Date Type Department Care Team (Late st Contact Info) Description 06/26/2023 Orders Only [facility] MED[facility]INE [address] [place], [place] [phone] Corin Fry MD [address] [place] [address] Chronic foot pain, right (Primary Dx); Plantar [...] documented as of this encounter Care Teams Roll Hauler Relationship Specialty Start Date End Date Corin Fry MD [address] [place] [address] PCP - General Family Medicine 02/26/22 Brendan Artis, [place] [address] [place] [address] Pharmacist Internal Medicine 10/23/22 08/12/25 documented as of this encounter
--- OUTSIDE RECORDS SUMMARY | 2025-10-05 10:20 | XMS_ITS | Encounter Summary ---
Author Organization [employer] Address [address] [place] [address] [address] [address] Care Team Providers Care Certified Respiratory Therapist Name Role Phone Corin Fry MD Primary Care Provider [phone] Brendan Artis PharmD Unavailable [phone] Reason for Referral * Consultation (Routine) - Closed Specialty Diagnoses / Procedures Referred By Contac t Referred To Contact Pharmacy Diagnoses Primary hypertension Corin Fry MD [address] [place] [address] Phone: tel: fax: Referral ID Status Reason Start Date Expiration Date V isits Requested Visits Authorized [id number] Closed Consult and Treat 12/21/2024 12/21/2025 6 6 Encounter Details Date Type Department Care Team (Late st Contact Info) Description 12/21/2024 Orders Only [facility] [address] [place] [address] [phone] Corin Fry MD [address], [place] [phone] Primary hypertension (Primary Dx); Type 2 diabetes mellitus without complication, without long-term current use of insulin ([facility]) Social History Tobacco Use Types Packs/Day Years [...] documented as of this encounter Care Teams Certified Respiratory Therapist Relationship Specialty Start Date End Date Corin Fry MD [address] [place] [address] PCP - General Family Medicine 02/26/22 Brendan Artis PharmD [address] [place] [address] Pharmacist Internal Medicine 10/23/22 08/12/25 documented as of this encounter
--- OUTSIDE RECORDS SUMMARY | 2025-10-05 10:20 | XMS_ITS | Clinical Summary ---
Author Organization [facility] Address [address] [place] [phone] Phone Care Team Providers Care Marketing Operations Assistant Name Role Phone Corin Fry MD Primary Care Provider [phone] Encounters Date Type Department Care Team Description 09/15/2025 Transcribe Orders [facility] [address] [place] [address] [place] [address] Corin Fry MD Encounter for rehabilitation (Primary Dx) from Last 3 Months Social History Tobacco Use Types Packs/Day Years Used Date Smoking Tobacco: Never Assessed Comments Unknown Sex and Gender Information Value Date Recorded Sex Assigned at Not on file Legal Sex Female 2:28 PM EST Gender Identity Not on file Sexual Orientation Not on file Plan of Treatment Not on file Medical Devices Not on file Insurance [employer] Care Teams Marketing Operations Assistant Relationship Specialty Start Date End Date Corin Fry MD [address] [place] [id number] PCP - General Family Medicine 09/15/25 Additional Source Comments The information contained in this document represents components of the legal health record. It is not the complete legal health record.[facility]
--- OUTSIDE RECORDS SUMMARY | 2025-10-05 10:21 | XMS_ITS | Clinical Summary ---
Author Organization [employer] Address [address] [place] [address] [address] [place] [address] Care Team Providers Care Coal Or Ore Controller Name Role Phone Corin Fry MD Primary Care Provider [phone] Allergies Active Allergy Reactions Criticality Noted Date Comments Atorvastatin 03/13/2022 Other reaction(s): Abdominal pain Carrot Oil Rash Low 09/08/2020 Chlorthalidone Palpitations Low 02/14/2021 Latex Rash Low 06/23/2025 Rosuvastatin Abdominal Pain Medium 07/30/2024 Medications polyethylene glycol, PEG, 3350 (Miralax) 17 g packet MIX 1 PACKET IN 8 OUNCES OF WATER, JUICE, COFFEE, OR TEA AND DRINK TWICE DAILY 3 Active Blood Glucose Monitoring Suppl (FreeStyle Lite) w/Device kit 1 Dose Once per day. 1 kit 4 Active pantoprazole (ProtoNix) 40 MG EC [...] complication, without long-term current use of insulin ([facility]) TEST BLOOD SUGAR EVERY MORNING 100 each 11 5 Active FREESTYLE LITE test stripIndications:T ype 2 diabetes mellitus without complication, without long-term current use of insulin ([facility]) TEST BLOOD SUGAR EVERY MORNING 100 strip 11 5 Active amLODIPine (Norvasc) 5 MG tabletIndications: Primary [...] day. 30 tablet 5 04/14/20 26 Active ibuprofen 400 MG tablet Take 400 mg by mouth every 6 (six) hours if needed. Active ezetimibe (Zetia) 10 MG tabletIndications: Mixed hyperlipidemia Take 1 tablet (10 mg) by mouth at bedtime. 90 tablet 3 5 07/26/20 26 Active hydroCHLOROthiazid e 12.5 MG tablet TAKE 1 TABLET BY MOUTH EVERY DAY 90 tablet 3 5 Active metFORMIN XR (Glucophage-XR) 500 MG 24 hr tabletIndications: Type 2 diabetes mellitus without complication, without long-term current use of insulin (HCC) TAKE 1 TABLET BY MOUTH TWICE DAILY WITH MEALS 180 tablet 3 5 Active ondansetron ODT (Zofran-ODT) 4 MG disintegrating tablet DISSOLVE 1 TABLET ON TONGUE THREE TIMES DAILY NEEDED FOR NAUSEA AND VOMITING 5 Active Active Problems Problem Noted Date Diagnosed Date Chronic pain of left knee 09/11/2025 Assessment & Plan (09/11/2025 5:51 AM EST): - X-ray in February 2025 showed mild tricompartmental arthritis - continue diclofenac gel - continue judicious use of APAP - continue staying physically active - refer to PT Bilateral hand pain 09/11/2025 Assessment & Plan (09/11/2025 6:01 AM EST): - Evaluated with EMG/NCT Plantar wart of both feet 09/11/2025 Assessment & Plan (09/11/2025 6:06 AM EST): - cryotherapy to be performed at next visit Left sided abdominal pain 06/06/2025 Hemorrhoid prolapse [...] in 2022 Hypertension 09/25/2022 Assessment & Plan (09/11/2025 5:53 AM EST): - Goal BP < 130/80 per ACC/AHA - within acceptable range today - Co-managed with [facility] pharmacist and education intern - Continue working on lifestyle modification - Continue SMBP - Continue lisinopril 40 mg daily - Continue carvedilol 12.5 mg bid - Continue amlodipine 10 mg daily Assessment & Plan (05/31/2025 9:51 AM EDT): - Goal BP < 140/90 per JNC-8 and < 130/80 per ACC/AHA - elevated today - Co-managed with [facility] pharmacist and education intern - Continue working on lifestyle modification - [...] ACC/AHA - elevated today - Co-managed with [facility] pharmacist and education intern - Continue working on lifestyle modification - [...] MRI evaluation Unable to find a local director traffic and planning who will accept her insurance Refer to director traffic and planning in [place] Assessment & Plan (02/12/2023 5:34 PM EDT): Likely plantar fasciitis Consider MRI evaluation Unable to find a local director traffic and planning who will accept her insurance Refer to director traffic and planning in [place] Assessment & Plan (09/26/2022 4:31 PM EST): Likely plantar fasciitis Consider MRI evaluation Unable to find a local director traffic and planning who will accept her insurance Refer to director traffic and planning in [place] Plantar fasciitis, bilateral 09/25/2022 Assessment & Plan (02/16/2024 1:15 PM EDT): - evaluated at [facility] and had PT - pain has [...] a1c in 6 months Assessment & Plan (09/11/2025 5:57 AM EST): - A1c 6.2% on 08/31/2025. 6.4% on 05/31/25 - Continue working on lifestyle modifications - Continue metformin XR 500 mg bid - Last foot exam on 08/31/2025 - Last eye exam 10/07/24 No diabetic retinopathy - Last lipid profile on 08/24/2025 - Last microalbumin test 08/24/2025 UACR 19.22 -Consider adding either GLP1RA or SGLT2i or [...] (08/23/2023): Added automatically from request for surgery [id number] Assessment & Plan (02/12/2023 5:35 PM EDT): Hx cystoscopy and nephrostomy tube? Most recent episode in Jun 2022 Continue adequate hydration, > 2L/day Upcoming appt with urologist in [place] Assessment & Plan (09/26/2022 4:29 PM EST): Hx cystoscopy and nephrostomy tube? Most recent episode in Jun 2022 Continue adequate hydration, > 2L/day Upcoming appt with urologist in [place] (HFpEF) heart failure with preserved ejection fr [...] (08/31/2025 6:35 AM EST): - following with [facility] cardiology. Last seen in December 2024. [...] (02/26/2025 9:40 AM EDT): - following with [facility] cardiology. Last seen in December 2024. [...] (11/14/2024 6:25 PM EST): - following with [facility] cardiology, Dr. Blood. Last visit in [...] (07/30/2024 9:20 AM EDT): - following with [facility] cardiology, Dr. Blood. Last visit in [...] (02/16/2024 1:13 PM EDT): - following with [facility] cardiology, Dr. Blood. Last visit in [...] test and BMP today Assessment & Plan (09/11/2025 5:58 AM EST): - Last lipid profile on 08/24/2025 total cholesterol 210, LDL 134, HDL 54, triglyceride 114 - she had intolerance to statin and is prescribed ezetimibe - continue working on lifestyle modifications - her education intern was considering PCSK9 inhibitor; we also submitted PA, but it was not approved Assessment & Plan (02/23/2025 8:06 AM EDT): - she had intolerance to statin and is prescribed ezetimibe - continue working on lifestyle modifications - her education intern was considering PCSK9 inhibitor Assessment & Plan (11/14/2024 6:28 PM EST): - she had intolerance to statin and is prescribed ezetimibe - continue working on lifestyle modifications - her education intern was considering PCSK9 inhibitor Assessment & Plan [...] of hypothyroidism Had FNA in past at [facility]. TSH 0.97 Fu with endo Last Assessment & Plan: MNG with dominant right lobe nodule, s/p FNA done at [facility], could not find report in pre-epic [...] Department Care Team Description 09/01/2025 Results Follow-Up [facility] [address] [place] [phone] Corin Fry MD XR Chest 2 Views 08/31/2025 2:15 PM EST Office Visit [address] [address] Corin Fry MD Primary hypertension (Primary Dx); Mixed hyperlipidemia; Chronic heart failure with preserved ejection fraction (HFpEF) (HCC); Type 2 diabetes mellitus without complication, without long-term current use of insulin ([facility]); History of pleural empyema; History of pleural effusion; Chronic pain of left knee; Primary osteoarthritis of right hand; Bilateral hand pain; Plantar wart of both feet 08/30/2025 Telephone [facility] [address] [place] [phone] Corin Fry MD chartprep 08/17/2025 Travel 08/17/2025 Refill [facility] [address] [place] [address] Corin Fry MD Type 2 diabetes mellitus without complication, without long-term current use of insulin ([facility]) 08/13/2025 2:00 PM EDT Telemedicine [facility] [address] [place] [address] Brendan Artis, TaoD Primary hypertension (Primary Dx) 08/04/2025 Refill [facility] [address] [place] [address] Kimberly Madison MD 07/26/2025 Refill [facility] [address] [place], [place] [phone] Corin Fry MD Mixed hyperlipidemia 07/06/2025 1:00 PM EDT Office Visit [facility] OPTOMETRY [address] [place], [place] [phone] Opal Azul, OD Diabetes type 2, no ocular involvement (CMS/HCC) (Primary Dx); 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; Early cataracts, bilateral; Dry eyes; Presbyopia 07/06/2025 Travel from Last 3 Months Immunizations Immunization Administration [...] Depression Screening 07/30/2025 07/30/2024, 07/30/20 24 Diabetes: Hemoglobin A1C 12/01/2025 025, 05/31/2025, 02/22/2025, Additional history exists Disability Screening 02/22/2026 02/22/2025 SDOH Screening 05/21/2026 05/21/2025 Tobacco Screening 07/12/2026 07/12/2025 Diabetes: Urine Protein Screening 08/24/2026 08/24/2025, 07/30/2024, 02/10/2024, Additional history exists Lipid Panel 08/24/2026 08/24/2025, 12/0 03/2024, 07/30/2024, Additional history exists Diabetes: Foot Exam 08/31/2026 08/31/2025, 08/31/2025, 08/31/2025, Additional history exists Mammogram 03/19/2027 03/19/2025, 02/18, [...] Author Blood Pressure < 140/90 Blood Pressure 130/62(2024 2:25 PM EST) Brendan Bolden, PharmD Help [...] chronic kidney disease No Corin Fry MD Weekly blood pressure task Care Plan Weekly blood pressure task Corin London MD Weekly blood pressure task Care Plan Weekly blood pressure task No Corin Fry MD Patient has chronic kidney disease Care Plan Patient has chronic kidney disease No Corin Fry MD Patient has chronic kidney disease Care Plan Patient has chronic kidney disease No Corin Fry MD Weekly blood pressure task Care Plan Weekly blood pressure task No Tayler Mehta Weekly blood pressure task Care Plan Weekly blood pressure task No Tayler Mehta Patient has chronic kidney disease Care Plan Patient has chronic kidney disease No Tayler Mehta Patient has chronic kidney disease Care Plan Patient has chronic kidney disease No Tayler Mehta Weekly blood pressure task Care Plan Weekly blood pressure task No Tayler Mehta Weekly blood pressure task Care Plan Weekly blood pressure task No Tayler Mehta Patient has chronic kidney disease Care Plan Patient has chronic kidney disease No Tayler Mehta Patient has chronic kidney disease Care Plan Patient has chronic kidney disease No Tayler Mehta Procedures Procedure Name Priority Date/Time Associated Diagnosis [...] and low glaucoma risk in left eye COLONOSCOPY Routine 04/09/2025 10:24 AM EDT BI [...] PM EST Narrative 09/01/2025 2:28 PM EST [address] [address] XRay Report Signed Patient: Carmina Cheng MR#: [id number] : 1960 Acct:[id number] Age/Sex: 64 / F ADM Date: 09/01/25 Loc: [facility] Attending Dr: Corin Fry MD Ordering Physician: Corin Fry MD Date of Service: 09/01/25 Procedure(s): XR chest 2V Accession Number(s): [id number] cc: Corin Fry MD Reason for Exam: [...] by: Belen Boggs MD 09/01/2025 02:25 PM [facility] Dictated By: Belen Boggs MD Signed By: <Electronically signed by Belen Boggs MD in OV> 09/01/25 1425 DD/ 1351 TD/TT: 09/01/25 1359 Bi Architect: MARCO Procedure Note Donotuseinterpreter, Image - 09/01/2025 [place] [address] XRay Report Signed Patient: ChengSunny#: [id number] : 1960cct:[id number] Age/Sex: 64 / FADM Date: 09/01/25 Loc: [facility]U Attending Dr: Corin Fry MD Ordering Physician: Corin Fry MD Date of Service: 09/01/25 Procedure(s): XR chest 2V Accession Number(s): [id number] cc: Corin Fry MD Reason for Exam: [...] 09/01/25 1425 DD/ 1351 TD/TT: 09/01/25 1359 Bi Architect: MARCO us Corin Fry MD IMG XR PROCEDURES Final Result * (ABNORMAL) POCT Hgb A1c (08/31/2025 2:28 PM EST) Pathologist [facility] Hemoglobin A1C 6.2(A) 4.0 - 5.7 % [...] Vitamin D 25-OH Total 43.1 >30 ng/mL [facility] Comment: Health Based Reference Values*< 20 ng/mL Cfiolgdav79-18 ng/mL Insufficient> 30 ng/mL Sufficient*Mike GALVEZ. N [...] MD LAB BLOOD ORDERABLES Final Resul t [facility] [address] [place] [phone] * Vitamin B12 (Cobalamin) and Folate Panel, Serum (08/24/2025 1:21 PM EST) Vitamin B12 231 200 - 900 pg/mL [facility] Comment:NORMAL 200-900 PG/ML INDETERMINATE 160-199 PG/ML DEFICIENT < 160 PG/ML Folate 7.9 > or = 4.0 ng/mL [facility] Comment:Reference Values:> o r = 4.0 ng/mL< 4.0 ng/mL suggests folate deficiency Methotrexate, aminopterin and folinic acid(leucovorin) are chemotherapeutic agents whose molecularstructures are similar to folate; therefore, the Architectfolate assay cannot be used for patients using these drugs. Blood 08/24/2025 1:21 PM EST 08/24/2025 3:55 PM EST us Corin Fry MD LAB BLOOD ORDERABLES Final Resul t Performing Organization Address City/[facility] Co de Phone Number [facility] [address] [place] [phone] * TSH with Reflex to Free T4 (08/24/2025 1:21 PM EST) TSH reflex Free T4 0.32 0.32 - 4.0 uIU/mL [facility] Blood 08/24/2025 1:21 PM EST 08/24/2025 3:55 PM EST us Corin Fry MD LAB BLOOD ORDERABLES Final Resul t Performing Organization Address [facility] Co de Phone Number [facility] [address] [place] [phone] * (ABNORMAL) Lipid Panel with Reflex to Direct LDL (08/24/2025 1:21 PM EST) Triglycerides 114 <150 mg/dL [facility] Comment:Desirable Triglyceri de: less than 150 mg/dLBorderline High Triglyceride 150-199 mg/dLHigh Triglyceride: 200-499 mg/dLVery High Triglyceride: greater than or equal to 5OO mg/dL Cholesterol 210(H) <200 mg/dL [facility] Comment:Desirable Cholestero l: less than 200 mg/dLBorderline High Cholesterol: 200-239 mg/dLHigh Cholesterol: greater than 239 mg/dL LDL Cholesterol Calculated 134(H) <100 mg/dL [facility] Comment:Desirable LDL: less than 100 mg/dLNear Optimal/Above Optimal LDL: 110- 129 mg/dLBorderline High LDL: 130-159 mg/dLHigh LDL: 160-189 mg/dLVery High LDL: greater than or equal to 190 mg/dL HDL Cholesterol 54 >40 mg/dL [facility] Comment:Desirable HDL: great er than 40 mg/dL Note: This HDL assay may give artificially low results in patients with liver disease. Blood 08/24/2025 1:21 PM EST 08/24/2025 3:55 PM EST Corin Fry MD LAB BLOOD ORDERABLES Final Resul t Performing Organization Address [facility] Co de Phone Number [facility] [address] [place] [phone] * Albumin, Random Urine W/Creatinine (08/24/2025 1:21 PM EST) Creatinine, Urine 88.47 mg/dL [facility] Microalbumin Urine 17.0 mg/L [facility] Microalbum Creatinine Ratio Ur 19.2 <30 ug/mg cr [facility] Comment:Albumin/Creatinine R atio Reference Ranges: Normal: < 30 ug/mg creatinine Microalbuminuria: 30 - 300 ug/mg creatinineClinical Albuminuria: > 300 ug/mg creatinine Urine 08/24/2025 1:21 PM EST 08/24/2025 4:17 PM EST Corin Fry MD LAB URINE ORDERABLES Final Resul t Performing Organization Address [facility] Co de Phone Number [facility] [address] [place] [phone] * (ABNORMAL) Comprehensive Metabolic Panel (08/24/2025 1:21 PM EST) Sodium 142 135 - 145 mmol/L [facility] Potassium 3.8 3.3 - 5.1 mmol/L [facility] Chloride 105 96 - 108 mmol/L [facility] Carbon Dioxide 30(H) 22 - 29 mmol/L [facility] Anion Gap 11(L) 12 - 20 [facility] Urea Nitrogen (BUN) 18(H) 9 - 16 mg/dL [facility] Creatinine, Serum 0.71 0.5 - 1.4 mg/dL [facility] Estimated Glomerular Filt Rate >60 [facility] Comment:Chronic Kidney Disea se: Estimated GFR < 60 mL/min/1.10q6Avmsor Kidney Disease: Estimated GFR < 15 mL/min/1.73m2 Glucose 187(H) 60 - 115 mg/dL [facility] Calcium 9.2 8.4 - 10.2 mg/dL [facility] Bilirubin, Total 0.3 0.0 - 1.0 mg/dL [facility] Aspartate Amino Transferase 22 5 - 31 U/L [facility] Alanine Aminotransferase 18 0 - 31 U/L [facility] Total Protein 6.7 6.5 - 8.0 g/dL [facility] Albumin Level 4.1 3.5 - 5.0 g/dL [facility] Alkaline Phosphatase 70 39 - 117 U/L [facility] Blood Venous blood specimen / Unknown 08/24/2025 1:21 PM EST 08/24/2025 3:55 PM EST us Corin Fry MD LAB BLOOD ORDERABLES Final Resul t [facility] [address] [place] [phone] * OCT, Optic Nerve - OU [...] Azul OD OPHTH TOMOGRAPHY Final Result * Colonoscopy (04/09/2025 10:24 AM EDT) Anatomical Region Laterality Modality Endoscopy us Historical Provider MD ENDOSCOPY PROCEDURE ORDER FELY Final Result * BI Mammogram Screening Tomosynthesis Bilateral (03/19/2025 1:15 PM EDT) Anatomical Region Laterality Modality Breast Bilateral Mammography 03/19/2025 1:15 PM EDT Narrative 03/27/2025 11:24 AM EDT [facility] [address] [place], [place] [address] Mammography Report Signed Patient: Carmina Cheng MR#: [id number] : 1960 Acct:[id number] Age/Sex: 64 / F ADM Date: 03/19/25 Loc: MIGUEL Attending Dr: Corin Fry MD Ordering Physician: Corin Fry MD Results: 1Negative Date of Service: 03/19/25 Follow Up: 1 Year From Orig ina Mammogram Procedure(s): MM tomosynthesis screening BI Accession Number(s): [id number] cc: Corin Fry MD EXAMINATION: MM SCREENING [...] 03/27/25 1121 DD/ 1315 TD/TT: 03/19/25 1340 Bi Architect: Procedure Note Donotuseinterpreter, Image - 03/27/2025 [facility] [address] [place] [address] Mammography Report Signed Patient: Sunny Cheng#: [id number] : 1960cct:[id number] Age/Sex: 64 / FADM Date: 03/19/25 Loc: MIG[facility] Attending Dr: Corin Fry MD Ordering Physician: Corin Fry MDResults: 1Negative Date of Service: 03/19/25Follow Up: 1 Year From Orig inal Mammogram Procedure(s): MM tomosynthesis screening BI Accession Number(s): [id number] cc: Corin Fry MD EXAMINATION: MM SCREENING [...] 03/27/25 1121 DD/ 1315 TD/TT: 03/19/25 1340 Bi Architect: us Corin Fry MD IMG BI PROCEDURES Edited Result - Final * ThinPrep Imaging Pap and HPV mRNA E6/E7 (07/30/2024 9:32 AM EDT) HPV nRNA E6/E7 Not Detected Not Detected [facility] Comment:Methodology: Transcr iption-Mediated AmplificationThis assay detects E6/E7 viral messenger RNA (mRNA) from 14high-risk HPV types (16,18,31,33,35,39,45,51,52,56,58,59,66,68).Cervical sources are required for HPV testing.If a vaginal source from a patient who has had atotal hysterectomy with removal of cervix wassubmitted, please contact the testing laboratoryfor alternative testing options.For additional information, please refer [email or web address](This link if provided for information/educational purposes only.)THIS TEST WAS PERFORMED AT:[facility] [place] [phone] HEATH MD SOURCE: SEE NOTE [facility] Comment:None given Report Status: [facility] Clinical Information: SEE NOTE [facility] Comment:None given LMP: SEE NOTE [facility] Comment:NONE GIVEN Prev. PAP: SEE NOTE [facility] Comment:NONE GIVEN Prev. BX: SEE NOTE [facility] Comment:NONE GIVEN Statement Of Adequacy: SEE NOTE [facility] Comment:Satisfactory for macy luation.Endocervical/transformation zone component absent. General Categorization: [facility] Interpretation/Result: SEE NOTE [facility] Comment:Cytology Results: Ne gative for intraepitheliallesion or malignancy. Cytology Comment SEE NOTE [facility] Comment:This Pap test has be en evaluated with computerassisted technology. Materials Engineering Technician: SEE NOTE [facility] Comment:KF, CT(ASCP)CT eliu segundo location: [place] [address] Review Materials Engineering Technician: [facility] Pathologist [facility] PAP Infection [facility] See Note SEE NOTE [facility] Comment:EXPLANATORY NOTE:The Pap is a screening test for cervical cancer. It isnot a diagnostic test and is subject to false negativeand false positive results. It is most reliable when asatisfactory sample, regularly obtained, is submittedwith relevant clinical findings and history, and whenthe Pap result is evaluated along with historic andcurrent clinical information. 07/30/2024 9:32 AM EDT 07/30/2024 4:14 PM EDT Narrative [facility] - 08/04/2024 2:59 PM EDT SEE SCANNED RESULTS IN EMR us Corin Fry MD LAB PATHOLOGY ORDERABLES Final R esult [facility] [address] [place] [phone] from Last 3 Months or Most Recently Relevant to Health Maintenance Additional Health Concerns Active Problems Noted Date Diagnosed Date Help patients manage their type 2 diabetes 09/01 Weekly blood pressure task 09/01/2025 Help patients manage their type 2 diabetes 09/01 Patient has chronic kidney disease 09/01/2025 Weekly blood pressure task 09/10/2025 Weekly blood pressure task 09/10/2025 Patient has chronic kidney disease 09/10/2025 Patient has chronic kidney disease 09/10/2025 Weekly blood pressure task 09/15/2025 Weekly blood pressure task 09/15/2025 Patient has chronic kidney disease 09/15/2025 Patient has chronic kidney disease 09/15/2025 Weekly blood pressure task 09/15/2025 Weekly blood pressure task 09/15/2025 Patient has chronic kidney disease 09/15/2025 Patient has chronic kidney disease 09/15/2025 Insurance [place] [facility] MEDICA[facility] LIMITED ADULT DENTAL - HSN FULL (MEDICAID) Care Teams Coal Or Ore Controller Relationship Specialty Start Date End Date Corin Fry MD [address] [place] [phone] PCP - General Family Medicine 02/26/22
--- OUTSIDE RECORDS SUMMARY | 2025-10-05 10:21 | XMS_ITS | Encounter Summary ---
Author Organization [facility] Address [address] [place] [address] Care Team Providers Care Slubber Machine Operator Name Role Phone Corin Fry Primary Care Provider [phone] Encounter Details Date Type Department Care Team (Late st Contact Info) Description 09/20/2025 Results Follow-Up [facility] [address] [place] [phone] Anchorman: Sharif Barroso MD [address] [place] [phone] Social History Tobacco Use Types Packs/Day Years Used Date Smoking Tobacco: Former Cigarettes 7 S tarted: 10/21/2018 Smokeless Tobacco: Never Alcohol [...] Info) Description 11/16/2025 1:30 PM EST Follow-Up [facility] [address] [place] [address] [phone] Anchorman: Sarah Mccormack NP [address] [place] [phone] 12/27/2025 3:00 PM EDT Follow-Up [facility] 4th floor Cardiology Medicine [address] [place] [address] Anchorman: Sj Floyd MD [address] [place] [phone] 01/19/2026 10:45 AM EDT Appointment [facility] Ultrasound [address] [place] [address] 01/25/2026 1:45 PM EDT Follow-Up [facility] [address] [place] [address] Anchorman: Magalys Estevez PA [address] [place] [phone] documented as of this encounter Visit Diagnoses Not on filedocumented in this encounter Care Teams Slubber Machine Operator Relationship Specialty Start Date End Date Corin Fry [address] [place] [address] PCP - General Family Medicine 07/19/22 documented as of this encounter
--- OUTSIDE RECORDS SUMMARY | 2025-10-05 10:21 | XMS_ITS | Encounter Summary ---
Author Organization [employer] Address [address] [facility] [address] [place] [address] Care Team Providers Care Documentation Engineer Name Role Phone Corin Fry MD Primary Care Provider Brendan Artis PharmD Unavailable [phone] Encounter Details Date Type Department Care Team ([facility] Contact Info) Description 04/13/2025 Orders Only [facility] [address] [place], [place] [id number] ProviderTirso MD Social History Tobacco Use Types [...] documented as of this encounter Care Teams Documentation Engineer Relationship Specialty Start Date End Date Corin Fry MD [address] [place] [address] PCP - General Family Medicine 02/26/22 Brendan Artis, [place] [address] [place] [address] Pharmacist Internal Medicine 10/23/22 08/12/25 documented as of this encounter
--- OUTSIDE RECORDS SUMMARY | 2025-10-05 10:21 | XMS_ITS | Encounter Summary ---
Author Organization [employer] Address [address] [facility] [address] [place] [address] Care Team Providers Care Skilled Nursing Professional Name Role Phone Corin Fry MD Primary Care Provider [phone] Brendan Artis PharmD Unavailable [phone] Encounter Details Date Type Department Care Team ([facility] Contact Info) Description 04/12/2025 Orders Only [facility] [address] [place], [place] [id number] ProviderTirso MD Social History Tobacco Use Types [...] * Surgical Pathology (04/09/2025 2:54 PM EDT) [facility] Provider LAB PATHOLOGY ORDERABLES Final Result documented in this encounter Visit Diagnoses Not on filedocumented in this encounter Additional Health Concerns Assessment Noted Time PHQ-9 Depression Total Score: 0 07/30/20 24 9:12 AM EDT documented as of this encounter Care Teams Skilled Nursing Professional Relationship Specialty Start Date End Date Corin Fry MD [address] [place] [id number] PCP - General Family Medicine 02/26/22 Brendan Artis, PharmD [address] [place] [address] Pharmacist Internal Medicine 10/23/22 08/12/25 documented as of this encounter
== END 2025-10-05 09:07 | disposition home or self-care (01) ==
LOC: HO.NEURO 09:06
PROVIDERS: PCP Family Medicine; Visit Provider Family Medicine
DX: M79.641 Pain in right hand (principal); M79.642 Pain in left hand
CPT/HCPCS: 95886; 95911

== ENCOUNTER → 2025-10-05 09:09 | Outpatient (BNV) | payer SELFPAY | PROVIDERS: PCP Family Medicine; Visit Provider Psychiatry & Neurology Neurology | DX: G56.21 Lesion of ulnar nerve, right upper limb (principal) | CPT/HCPCS: 95886; 95911 ==